=== PATIENT | female | born 1950 | race Caucasian/White ===

== ENCOUNTER 2024-06-07 09:42 | Outpatient (AMB) | payer MEDICARE, SELFPAY ==
--- NOTE | 2024-06-07 09:49 | MHC.OFFVIS ---
Vital Signs 06/07/24 10:20 Height 5 ft 1.42 in Weight 267 lb BMI 49.8 BP 113/65 Blood Pressure Location Lt brachial Position Sitting Pulse 106 H Pulse Source Pulse Oximeter Pulse Oximetry (%) 96 Oxygen Delivery Method Room Air Intake Visit Reasons: [facility] Director Required: No Allergies flexeril Allergy (Intermediate, Uncoded 06/07/24 10:12) palpitation IV contrast dye Allergy (Intermediate, Uncoded 06/07/24 10:12) breathing omeprazole Allergy (Intermediate, Uncoded 06/07/24 10:12) Nausea ampicllin Allergy (Mild, Uncoded 06/07/24 10:12) hives ibuprofen Allergy (Mild, Uncoded 06/07/24 10:12) stomach problems Restoril Allergy (Uncoded 06/07/24 10:12) Palpitations Medication List - Last Reconciled 06/07/24 by Macy Tenorio, SALES REPRESENTATIVE TRAINEE albuterol sulfate 90 mcg/actuation (ProAir RespiClick) 1 inh inhalation Q4-6H PRN atorvastatin 40 mg PO DAILY budesonide-formoterol 160-4.5 mcg/actuation (Symbicort) 1 puff inhalation BID bupropion HCl SR (Wellbutrin SR) 100 mg PO DAILY celecoxib 200 mg PO BID empagliflozin (Jardiance) 25 mg PO DAILY fluoxetine 40 mg PO DAILY fluticasone propionate 250 mcg/actuation (Flovent Diskus) 1 inh inhalation BID furosemide 40 mg PO DAILY levomefolate-algal oil 15-90.314 mg (L-Methylfolate Forte) 1 cap PO DAILY losartan 25 mg PO DAILY metformin 500 mg PO BID montelukast 10 mg PO DAILY oxycodone myristate CR-ER (Xtampza ER) 18 mg PO BID HPI HPI Chronic Pain: Details: Patient is a very pleasant 73-year-old female with history of chronic neck and low back pain with spondylosis, degenerative disc disease, recurrent lymphoma status post immunotherapy in 2021, hypertension, chronic fatigue, depression, morbid obesity, anemia, shortness of breath, asthma, diabetes (A1C=6.1), arthritis, insomnia, and chronic pain syndrome, presents today for initial evaluation for neck and back pain. Patient reports her main concern is neck pain with left sided involunatary spasms and stiffness, and neck turning to the left, consistent with spasmodic torticollis. She appears in moderate discomfort from her neck involuntarily moving to the left lateral rotation with jerking movements of her head. This has been going on for about 4-5 years. She denies any past or recent trauma, injury or falls. She notes her spasmodic neck symptoms worsen with stress or worry and her shoulders tend to clench up. Patient does not recall being diagnosed with cervical dystonia or spasmodic laterocollis but during her recent active PT for neck and back pain, she was noted to have torticollis as well. Patient periodically holds up her neck with hand or has to adjust her positioning. Range of motion with extension and lateral rotations worsen her symptoms. Pain is rated at 6-7/10, pain most severe at night and upon waking up in the morning and less severe mid day. She recently relocated from [place], [place] where she used to see a Pain Specialty Provider and underwent multiple back and neck diagnostic injections, epidural steroid injections and attempted cervical medial branch RFA. She is establishing care with providers in [facility] and would like to see Neurology for potential Botox injections with EMG guidance. She was also on medical management in [place] on opioids, baclofen, Celebrex and pregabalin. Currently, she is treating her neck pain with Celebrex, PT and home exercises. She requests to restart baclofen and pregabalin. Patient is also undergoing work up for recurrent lymphoma. Denies previous spine surgery. Pain affects her daily activities and functioning, mobility, sleep, and social interactions. Patient lives alone, independently, and uses walker with seat for mobility and transfers. Oswestry Neck Pain and Disability Score=21 (moderate disability) Oswestry Low Back Pain Disability Score=28 (severe disability) Currently at [facility] Location: Neck and low back pain Duration: Chronic pain worsening for past 5 years Characteristics of symptom or complaint: Tugging, pinching, spasming, sore, aching, radiating, tiring, dull Aggravating or associated factors: Movements, cold weather changes, ADLs, driving, stress Relieving factors: Heat, Celebrex, h/o opioids, Lyrica, baclofen, stress management Treatment: Epidural injections, PT, attempted RFA--[facility] Medical History (Updated 06/07/24 @ 20:38 by Analia Buchachiy, METEOROLOGY PROFESSOR) Recurrent major depression in partial remission Diabetes mellitus, with long-term current use of insulin Primary hypertension 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 Mild-moderate distress due to neck spasms and left laterocollis Alert and oriented. Mood and affect appropriate. Follows and participates in conversation appropriately. Respiratory effort is unlabored. No cough. Able to transition from sit to stand with assistance of walker with seat. Ambulates with bilaterally normal heel strike and toe off. Neck Neck: Yes normal visual inspection, Yes no lymphadenopathy, Yes supple, Yes anterior neck swelling, Yes torticollis (left, SCS muscles with hypertrophy), Yes no JVD, No prominent supraclavicular fat pad and Yes prominent dorsocervical fat pad General: Yes no CVA tenderness Back/Spine/Pelvis Other: Unable to perform lumbar ROM due to pain. Painful facet loading bilaterally. Back: no CVA tenderness Cervical Spine: No Lhermitte's sign positive, loss of normal cervical lordosis, cervical muscular tenderness, pain with cervical ROM, No Cervical spine scars present, cervical spasm (left ), No Cervical spine tenderness and No step off deformity Thoracic/Lumbar Spine: thoracic and lumbar spine normal to inspection, No Thoracic/lumbar spine scar(s), Lasegue's sign negative, straight leg raise negative bilaterally, pain with thoraco-lumbar ROM, paraspinal muscle tenderness, thoraco-lumbar ROM limited, No thoracic spinal tenderness and lumbar spinal tenderness (L3-S1) Sacroiliac joints: bilaterally tender to palpation Results Reviewed Results Reviewed: No imaging reports are available for review today. Assessment & Plan Assessment & Plan (1) Cervical spondylosis: Code(s): M47.812 - Spondylosis without myelopathy or radiculopathy, cervical region Category: Medical (2) Degenerative disc disease, cervical: Code(s): M50.30 - Other cervical disc degeneration, unspecified cervical region Category: Medical (3) Spasmodic torticollis: Code(s): G24.3 - Spasmodic torticollis Category: Medical (4) Muscle spasms of neck: Code(s): M62.838 - Other muscle spasm Category: Medical (5) Chronic low back pain with left-sided sciatica: Code(s): M54.42 - Lumbago with sciatica, left side; G89.29 - Other chronic pain Category: Medical (6) Lumbar spondylosis: Code(s): M47.816 - Spondylosis without myelopathy or radiculopathy, lumbar region Category: Medical (7) Morbid obesity with BMI of 45.0-49.9, adult: Code(s): E66.01 - Morbid (severe) obesity due to excess calories; Z68.42 - Body mass index [BMI] 45.0-49.9, adult Category: Medical Plan Lumbar and cervical spine imaging to assess degree of degenerative changes, any subluxation, listhesis, compression fractures or pars defects. Discussed interventional treatments for axial neck and low back pain. Informational pamphlets were provided to patient today. Scripts provided for baclofen and pregabalin which patient used to receive while residing at [place], [place]. This is consistent with [facility] review. Side effects and precautions were reviewed with patient. Neurology referral for potential EMG guided Botox injections to alleviate spasmodic torticollis symptoms. All questions and concerns have been answered and patient agreed with the treatment plan. Follow-up for x-ray review and sooner as needed. Orders: Orders XR lumbar spine 4V min Today G89.29 - Other chronic pain, M47.816 - Spondylosis without myelopathy or radiculopathy, lumbar region, M54.42 - Lumbago with sciatica, left side XR cervical spine 4V Today G24.3 - Spasmodic torticollis, M47.812 - Spondylosis without myelopathy or radiculopathy, cervical region, M50.30 - Other cervical disc degeneration, unspecified cervical region, M62.838 - Other muscle spasm Referrals Neurology Referral G24.3 - Spasmodic torticollis, M62.838 - Other muscle spasm Medications: New pregabalin 50 mg PO BID 30 days 60 caps 1RF pain G24.3 - Spasmodic torticollis, M47.812 - Spondylosis without myelopathy or radiculopathy, cervical region, M50.30 - Other cervical disc degeneration, unspecified cervical region, M62.838 - Other muscle spasm baclofen 10 mg PO BID 30 days 60 tabs 0RF muscle spasms G24.3 - Spasmodic torticollis, M62.838 - Other muscle spasm Coding Level of Care Code New Pt Level 4 (89084) Complex EM visit Add On G2211 Diagnoses Cervical spondylosis M47.812 Degenerative disc disease, cervical M50.30 Spasmodic torticollis G24.3 Muscle spasms of neck M62.838 Chronic low back pain with left-sided sciatica M54.42; G89.29 Lumbar spondylosis M47.816 Morbid obesity with BMI of 45.0-49.9, adult E66.01; Z68.42
[2024-06-07 10:20] VITALS: BP 113/65; PULSE 106; O2SAT 96; BMI 49.8
== END 2024-06-07 10:22 | disposition home or self-care (01) ==
PROVIDERS: PCP Registered Nurse; Referring Provider Registered Nurse; Visit Provider Nurse Practitioner Family
DX: M47.812 Spondylosis without myelopathy or radiculopathy, cervical region (principal); M50.30 Other cervical disc degeneration, unspecified cervical region; G24.3 Spasmodic torticollis; M62.838 Other muscle spasm; M54.42 Lumbago with sciatica, left side; G89.29 Other chronic pain; M47.816 Spondylosis without myelopathy or radiculopathy, lumbar region; E66.01 Morbid (severe) obesity due to excess calories; Z68.42 Body mass index [BMI] 45.0-49.9, adult
CPT/HCPCS: 99204; G2211

== ENCOUNTER → 2024-06-07 10:46 | Outpatient (BNV) | payer MEDICARE, SELFPAY | PROVIDERS: PCP Registered Nurse; Referring Provider Registered Nurse; Visit Provider Specialist | DX: M47.812 Spondylosis without myelopathy or radiculopathy, cervical region (principal); M54.42 Lumbago with sciatica, left side | CPT/HCPCS: 72050; 72110 ==

== ENCOUNTER 2024-08-24 11:04 | Outpatient (AMB) | payer MEDICARE, SELFPAY ==
[2024-08-24 11:13] VITALS: BP 129/69; PULSE 87; O2SAT 97; BMI 50.1
--- NOTE | 2024-08-24 11:13 | MHC.OFFVIS ---
Vital Signs 08/24/24 11:13 Height 5 ft 1 in Weight 265 lb BMI 50.1 BP 129/69 Blood Pressure Location Rt brachial Position Sitting Pulse 87 Pulse Source Pulse Oximeter Pulse Oximetry (%) 97 Oxygen Delivery Method Room Air Intake Visit Reasons: Follow up MRI/Xray results General Ophthalmologist Required: No Allergies flexeril Allergy (Intermediate, Uncoded 08/24/24 11:13) palpitation IV contrast dye Allergy (Intermediate, Uncoded 08/24/24 11:13) breathing omeprazole Allergy (Intermediate, Uncoded 08/24/24 11:13) Nausea ampicllin Allergy (Mild, Uncoded 08/24/24 11:13) hives ibuprofen Allergy (Mild, Uncoded 08/24/24 11:13) stomach problems Restoril Allergy (Uncoded 08/24/24 11:13) Palpitations Medication List - Last Reconciled 08/24/24 by Macy Tenorio, SENIOR PRODUCTION SUPERVISOR albuterol sulfate 90 mcg/actuation (ProAir RespiClick) 1 inh inhalation Q4-6H PRN atorvastatin 40 mg PO DAILY baclofen 10 mg PO BID 30 days budesonide-formoterol 160-4.5 mcg/actuation (Symbicort) 1 puff inhalation BID bupropion HCl SR (Wellbutrin SR) 100 mg PO DAILY celecoxib 200 mg PO BID empagliflozin (Jardiance) 25 mg PO DAILY fluoxetine 40 mg PO DAILY fluticasone propionate 250 mcg/actuation (Flovent Diskus) 1 inh inhalation BID furosemide 40 mg PO DAILY levomefolate-algal oil 15-90.314 mg (L-Methylfolate Forte) 1 cap PO DAILY losartan 25 mg PO DAILY metformin 500 mg PO BID montelukast 10 mg PO DAILY oxycodone myristate CR-ER (Xtampza ER) 18 mg PO BID pregabalin 50 mg PO BID 30 days HPI Comments Details: The patient is a 73-year-old female presenting with cervical spondylosis with radicular pain and chronic torticollis. Her neck pain, primarily localized to the left side, has progressively worsened over the past couple of years. Pain radiates into the left arm with associated numbness or tingling and weakness, occasionally causing drop of objects. Chronic interventions for her condition have included Celebrex, Baclofen, and Pregabalin, as well as local heat application. However, these treatments have offered limited relief, particularly for her neck symptoms. Previous imaging revealed degenerative changes at C5-C6 and C6-C7, leading to moderate-severe foraminal stenosis. Osteoporotic findings were not evident after calcium supplementation per patient. She has upcoming follow up with her Iphone Developer and will review incidental findings on recent MRI of 1.4 cm nodule within the isthmus of the thyroid. Physical therapy has improved her core strength and back pain but has not addressed the neck pain. Her Type 2 Diabetes is being monitored, with an HbA1c close to 7%. 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 A sleep study was conducted due to symptoms of sleep apnea, which is contributing to awakening episodes, possibly compounding her pain experience. Patient was referred to Neurology in May for potential Botox injections for neck spasms associated with torticollis but has not heard from Neurology office yet. - Onset: Chronic pain worsening over the past couple of years - Quality: Primarily localized pain with specific tender points, described as trigger point pain - Primary location: Neck, more on the left side - Radiation: Radiates to the left upper arm but doesn't cause numbness or tingling - Exacerbating factors: Side to side and all-directional movement of the neck; worsened when involving arm movement - Alleviating factors: Use of Celebrex, Baclofen, Pregabalin, and local heat application provide limited relief - Interference: Affecting space and missile defense operations strength and causing objects to be dropped occasionally with the left arm - Affect: Chronic neck pain causes significant discomfort and functional limitations - Analgesia: Current medications include Celebrex, Baclofen, and Pregabalin. Opioids are not in current use. 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 Patient reports her main concern is neck pain with left sided involunatary spasms and stiffness, and neck turning to the left, consistent with spasmodic torticollis. She appears in moderate discomfort from her neck involuntarily moving to the left lateral rotation with jerking movements of her head. This has been going on for about 4-5 years. She denies any past or recent trauma, injury or falls. She notes her spasmodic neck symptoms worsen with stress or worry and her shoulders tend to clench up. Patient does not recall being diagnosed with cervical dystonia or spasmodic laterocollis but during her recent active PT for neck and back pain, she was noted to have torticollis as well. Patient periodically holds up her neck with hand or has to adjust her positioning. Range of motion with extension and lateral rotations worsen her symptoms. Pain is rated at 6-7/10, pain most severe at night and upon waking up in the morning and less severe mid day. She recently relocated from [place], [place] where she used to see a Pain Specialty Provider and underwent multiple back and neck diagnostic injections, epidural steroid injections and attempted cervical medial branch RFA. She is establishing care with providers in [facility] and would like to see Neurology for potential Botox injections with EMG guidance. She was also on medical management in [place] on opioids, baclofen, Celebrex and pregabalin. Currently, she is treating her neck pain with Celebrex, PT and home exercises. She requests to restart baclofen and pregabalin. Patient is also undergoing work up for recurrent lymphoma. Denies previous spine surgery. Pain affects her daily activities and functioning, mobility, sleep, and social interactions. Patient lives alone, independently, and uses walker with seat for mobility and transfers. Oswestry Neck Pain and Disability Score=21 (moderate disability) Oswestry Low Back Pain Disability Score=28 (severe disability) Currently at [facility] Location: Neck and low back pain Duration: Chronic pain worsening for past 5 years Characteristics of symptom or complaint: Tugging, pinching, spasming, sore, aching, radiating, tiring, dull Aggravating or associated factors: Movements, cold weather changes, ADLs, driving, stress Relieving factors: Heat, Celebrex, h/o opioids, Lyrica, baclofen, stress management Treatment: Epidural injections, PT, attempted RFA--[facility] Medical History (Updated 08/24/24 @ 12:53 by DANIEL Cortés) Recurrent major depression in partial remission Diabetes mellitus, with long-term current use of insulin Primary hypertension 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 Seasonal allergies Cervicalgia Review of Systems Const Details: - Neurological: Reports chronic neck pain with left-sided predilection, occasional dropping of objects with left hand with associated numbness, tingling and weakness. - Endocrine: Reports a thyroid nodule, diabetes management requiring attention, low iron levels - Musculoskeletal: Reports exacerbated neck pain with [id number] movement; temporary core stamina improvement with physical therapy - Sleep: Reports undergoing sleep study related to sleep apnea diagnosis All systems reviewed & are unremarkable except as noted in HPI and below Physical Exam Vital Signs: Last Vital Signs Pulse 87 08/24/24 11:13 BP 129/69 08/24/24 11:13 Pulse Ox 97 08/24/24 11:13 Oxygen Delivery Method Room Air 08/24/24 11:13 BMI result Body Mass Index 50.1 General: Appears afebrile. Mild-moderate distress due to neck spasms and left torticollis Alert and oriented. Mood and affect appropriate. Follows and participates in conversation appropriately. Respiratory effort is unlabored. No cough. Able to transition from sit to stand with assistance of walker with seat. Ambulates with bilaterally normal heel strike and toe off. Neck Neck: Yes normal visual inspection, Yes no lymphadenopathy, Yes supple, Yes anterior neck swelling, Yes torticollis (left, SCS muscles with hypertrophy), Yes no JVD, No prominent supraclavicular fat pad and Yes prominent dorsocervical fat pad Back/Spine/Pelvis Other: Limited lumbar ROM due to pain. Painful facet loading bilaterally. Cervical Spine: No Lhermitte's sign positive, loss of normal cervical lordosis, cervical muscular tenderness, pain with cervical ROM, No Cervical spine scars present, cervical spasm (left ), No Cervical spine tenderness and No step off deformity Thoracic/Lumbar Spine: thoracic and lumbar spine normal to inspection, No Thoracic/lumbar spine scar(s), pain with thoraco-lumbar ROM, paraspinal muscle tenderness, thoraco-lumbar ROM limited, No thoracic spinal tenderness and lumbar spinal tenderness (L3-S1) Sacroiliac joints: bilaterally tender to palpation Results Reviewed Results Reviewed: MR CERVICAL SPINE WITHOUT CONTRAST 07/07/24 at [facility] INDICATION: Cervical spondylosis, without myelopathy TECHNIQUE: Standard cervical spine protocol without contrast COMPARISON: Cervical spine MRI from January 2015 FINDINGS: Vertebral bodies maintain their normal height. Craniocervical junction is preserved. There is homogeneous signal within the cervical cord without evidence of myelomalacia. C1-C3: No significant abnormalities are seen. C3-C4 level shows stable mild anterolisthesis of C3 on C4. The canal is patent. Moderate to severe foraminal stenosis is seen due to uncovertebral and facet hypertrophy, slightly worsened since prior exam. C4-C5 level shows severe left-sided foraminal stenosis due to uncovertebral and facet hypertrophy. Small central disc bulge is seen. The canal is patent. Mild right-sided foraminal narrowing is also present. At C5-C6 level, there is broad-based central disc osteophyte complex, worsening disc degeneration is present with endplate spurring and reactive signal changes, encroaching over the ventral cord with flattening. There is moderate narrowing of the canal. Severe foraminal stenosis is present due to uncovertebral spurring, slightly progressed since the exam. C6-C7 level shows broad-based central disc bulge, moderate disc degeneration and facet arthrosis. Slight anterolisthesis of C6 on C7 is present. Mild to moderate narrowing of the canal is seen. There is moderate severe foraminal stenosis left greater than right due to uncovertebral spurring. C7-T1 level shows disc bulge and mild disc degeneration. Slight anterolisthesis is seen. Moderate right and mild left-sided foraminal narrowing is present. The canal is patent. T2 hyperintense 1.4 cm nodule is seen within the thyroid isthmus, partially characterized on this exam. IMPRESSION: Worsening changes of multilevel cervical spondylosis, most pronounced at C5-C6 and C6-C7 levels, as detailed at individual levels above. Other changes of cervical spondylosis as discussed. No evidence for cord myelomalacia seen. 1.4 cm nodule within the isthmus of the thyroid, partially characterized. Correlate with endocrine consult and ultrasound for further evaluation. XR cervical spine 4V 06/09/24 Findings: 5 mm anterior displacement of C6 on C7. No acute fractures or dislocation. Multiple level degenerative disc, facet, and uncovertebral joint change. No prevertebral soft tissue swelling. IMPRESSION: No acute findings. XR lumbar spine 4V min 06/09/24 Findings: Normal alignment. No acute fractures or dislocation. Multiple level degenerative disc and facet change. There is aortic calcification. IMPRESSION: No acute findings. Assessment & Plan Assessment & Plan (1) Thyroid nodule: Code(s): E04.1 - Nontoxic single thyroid nodule Category: Medical (2) Cervical spondylosis: Code(s): M47.812 - Spondylosis without myelopathy or radiculopathy, cervical region Category: Medical (3) Degenerative disc disease, cervical: Code(s): M50.30 - Other cervical disc degeneration, unspecified cervical region Category: Medical (4) Lumbar spondylosis: Code(s): M47.816 - Spondylosis without myelopathy or radiculopathy, lumbar region Category: Medical (5) Spondylolisthesis, cervical region: Code(s): M43.12 - Spondylolisthesis, cervical region Category: Medical (6) Spasmodic torticollis: Code(s): G24.3 - Spasmodic torticollis Category: Medical (7) Spinal stenosis of cervical region with radiculopathy: Code(s): M48.02 - Spinal stenosis, cervical region; M54.12 - Radiculopathy, cervical region Category: Medical Plan The plan includes performing an interlaminar epidural steroid injection at the C6-C7 level with light sedation due to the torticollis for efficacy and comfort. Expectations, risks and benefits were reviewed. Patient is aware she will be contacted to schedule this procedure. Preparations to manage torticollis with potential Botox injection upon confirmation of her schedule with Dr. Chun. Will resubmit Neurology referral. Follow-up on thyroid ultrasound is coordinated urgently to coincide with the Endocrinology appointment. Patient's marginal zone lymphoma is closely monitored during routine evaluations. Monitoring and management of her Type 2 Diabetes to maintain her HbA1c levels within acceptable limits. All questions and concerns have been answered and patient agreed with the plan. Follow up after injections and sooner as needed. Patient was informed and verbally consented to the use of an ambient scribe for clinic note documentation during this visit. Orders: Orders US thyroid Today C85.80 - Other specified types of non-Hodgkin lymphoma, unspecified site, E04.1 - Nontoxic single thyroid nodule Patient Instructions: Throughout the visit, I discussed the management and treatment options available for addressing her cervical spondylosis and the torticollis. The benefits of lidocaine-steroid injections in alleviating the radicular pain were explained alongside sedation's role in the procedural success, considering her movement limitations due to torticollis. We reviewed her imaging results showing significant cervical degenerations and discussed the need for scheduling for her thyroid nodule evaluation. Patient has upcoming follow up with her Iphone Developer at [facility], we will order thyroid US at [facility] per patient's request. She agreed to the epidural injection plan, and I reiterated the importance of routine follow-ups for her other health concerns, including diabetes, lymphoma, and thyroid management. - Prepare for the scheduled epidural steroid injection procedure. - Maintain regular follow-up appointments with the entry level software developer regarding the thyroid nodule. - Monitor and manage blood sugar levels regularly, reporting any significant changes. - Continue using prescribed medications for pain management. - Incorporate supportive interventions such as neck support during rest. - Be vigilant for unmanageable pain levels or new symptoms, and seek medical care promptly if these arise. - Anticipate contact to schedule Neurology evaluation for potential Botox treatment if insurance approval is secured. Coding Level of Care Code Est Pt Level 4 (31740) Complex EM visit Add On G2211 Diagnoses Thyroid nodule E04.1 Cervical spondylosis M47.812 Degenerative disc disease, cervical M50.30 Lumbar spondylosis M47.816 Spondylolisthesis, cervical region M43.12 Spasmodic torticollis G24.3 Spinal stenosis of cervical region with radiculopathy M48.02; M54.12
--- OUTSIDE RECORDS SUMMARY | 2024-08-24 12:53 | XMS_ITS | Patient Health Record ---
Author Organization [facility] Address [address] [place] [address] Care Team Providers Care Family Specialist Name Role Phone NALLELY QUILES MD Primary Care Provider Unavaillouis Nunes MD, HARSH Unavailable Allergies Allergen (clinical drug ingredient) Drug/Non Drug Allergy documented on EMR Reaction Allergy Type Onset Date Status ampicillin ampacillin (uncoded) Unknown Allergy Active flexeral (uncoded) Unknown Allergy A ctive omeprazole prilosec (uncoded) Unknown Allergy Active rexeral (uncoded) Unknown Allergy Ac tive Reason For Referral No Information Medications Medication SIG (Take, Route, Frequency, Duration) Notes Start Date End Date Status magnesium oxide 200 mg 2 tab(s) orally o nce a day for 14 day(s) Active lisinopril 10 mg 1 tab(s) orally once a day for 90 day(s) Active Claritin 10 mg 1 tab(s) orally prn for 30 day(s) Active Percocet 7.5/325 325 mg-7.5 mg 1 tab(s) orally prn for 5 day(s) Active hydroCHLOROthiazide 25 mg 1 tab(s) orall y Q.D. for 90 days 04/25/2013 Active Percocet 5/325 325 mg-5 mg 1 tab(s) oral ly 3-4 times qd for 10 day(s) Active etodolac ?? 1 cap(s) orally tid for 30 day(s) Active lisinopril 10 Milligram TAKE 1 TABLET BY MOUTH ONCE A DAY for 30 Active carisoprodol 350 mg 1 tab(s) orally tid for 14 day(s) Active Vitamin D 1000 mg 1 qd orally Active Vitamin B12 1000 mcg 1 tab(s) orally onc e a day for 30 day(s) Active Problems Problem Type SNOMED Code ICD Code Onset Dates Problem Status W/U Status Risk Notes Problem Sleep apnea (58646654) Sleep apnea (786.09) Active confirmed Problem Chest discomfort (734822733) Chest discomfort (786.59) Active confirmed Problem Preoperative cardiovascular examination (172883264) Pre-operative Cardiovascular exam (V72.81) Active confirmed Problem Obesity (773415721) Obesity (278.00) Active confirmed Problem Hypertension (51911067) Hypertension (401.9) Active confirmed Plan Of Treatment No Information Insurance Providers Payer Name Payer Address Payer Phone Subscriber Number Group Number Insured Name Patient Relationship to Insured Coverage Start Date Coverage End Date [place] - [place] CARD [address] [place] [phone] [id number] SANTO MCDERMOTT Self - patient is the insured 7 Medical (General) History Medical History History ICD Code Obesity hypertension Denies DM, CVA, TIA, [place], Peptic ulcer di sease, GERD h/o Asthma with occasional ER visits wit hout any admissions or intubations Sleep apnea, severe..started CPAP mask 1 Osteoarthritis knees, more notably left knee LS spine and disc disease
--- OUTSIDE RECORDS SUMMARY | 2024-08-24 12:53 | XMS_ITS | Data Portability ---
Author Organization [facility], [facility], Patient Home Address [address] [place] [address] Care Team Providers Care Track Repairer Name Role Phone NALLELY QUILES Primary Care Provider NALLELY QUILES Referring Provider Assessment No assessment recorded. Plan of Treatment Reminders Order Date Submit Date Provider Last Modified By Organization Details Last Modified Time Details Appointments None recorded. Lab drug screen, saliva 2022 023 [email or web address] Not available 3 14:19:39 Referral None recorded. Procedures None recorded. Surgeries None recorded. Imaging MRI, lumbar spine, w/o contrast 2022 023 [email or web address] [facility] - [facility]ri, [address], [place], [address], 3 09:42:42 Medication Orders Percocet 5 mg-325 mg tablet 2023 024 LAYNE Not available 4 14:09:54 Xtampza ER 9 mg capsule sprinkle 2023 024 LAYNE Not available 4 14:10:00 Celebrex 200 mg capsule 2023 024 LAYNE Not available 4 14:09:53 Lyrica 100 mg capsule 2023 024 LAYNE Not available 4 14:09:52 baclofen 10 mg tablet 2023 024 LAYNE Not available 4 14:09:53 Percocet 5 mg-325 mg tablet 2022 023 LAYNE Not available 3 14:06:30 Xtampza ER 9 mg capsule sprinkle 2022 023 LAYNE Not available 3 14:06:35 Celebrex 200 mg capsule 2022 023 LAYNE Not available 3 14:06:27 Lyrica 100 mg capsule 2022 023 LAYNE Not available 3 14:06:26 baclofen 10 mg tablet 2022 023 LAYNE Not available 3 14:06:28 Percocet 5 mg-325 mg tablet 2022 023 LAYNE Not available 3 14:47:16 Xtampza ER 9 mg capsule sprinkle 2022 023 LAYNE Not available 3 14:47:18 Celebrex 200 mg capsule 2022 023 LAYNE Not available 3 14:47:12 Lyrica 75 mg capsule 2022 023 LAYNE Not available 3 14:47:13 baclofen 10 mg tablet 2022 023 LAYNE Not available 3 14:47:14 Xtampza ER 9 mg capsule sprinkle 2022 023 LAYNE Not available 3 15:08:52 Percocet 5 mg-325 mg tablet 2022 023 LAYNE Not available 3 15:08:53 Celebrex 200 mg capsule 2022 023 LAYNE Not available 3 15:08:53 Narcan 4 mg/actuati on nasal spray 2022 023 LAYNE Not available 3 15:08:48 baclofen 10 mg tablet 2022 023 LAYNE Not available 3 15:08:46 Patient Targets Encounter Date Encounter Id Patient Goals Patient Target Last Modified By Organization Details Last Modified Time 03/22/2023 [id number] manager long term care goal o f Pain Scale Not available Not available Not available half-way goal o f Weight 130 lbs Not available Not available Not available decrease painincrease activitiesimprove quality of lifeweight reduction [email or web address] Not available 03/25/2023 18:40:54 04/19/2023 [id number] manager long term care goal o f Pain Scale Not available Not available Not available manager long term care goal o f Weight 125 lbs Not available Not available Not available decrease painincrease activitiesimprove quality of lifeweight reduction [email or web address] Not available 04/19/2023 17:32:57 05/17/2023 [id number] half-way goal o f Pain Scale Not available Not available Not available manager long term care goal o f Weight 130 lbs Not available Not available Not available decrease painincrease activitiesimprove quality of lifeweight reduction [email or web address] Not available 05/17/2023 16:56:32 06/13/2023 [id number] half-way goal o f Pain Scale Not available Not available Not available manager long term care goal o f Weight 125 lbs Not available Not available Not available decrease painincrease activitiesimprove quality of lifeweight reduction [email or web address] Not available 06/13/2023 17:22:05 Patient Instructions Encounter Date Encounter Id Patient Instructions Last Modified By Organization Details Last Modified Time 03/22/2023 [id number] Given [email or web address] Not available 03/25 18:41:00 Given [email or web address] Not available 2022 18:41:02 04/19/2023 [id number] Given [email or web address] Not available 04/19 17:33:04 Given [email or web address] Not available 2022 17:33:09 05/17/2023 [id number] Continue conservative treatment Continue home exercises as directed by MD Use ice and hot packs as instructed Take your medicine as instructed [email or web address] Not available 05/17/2023 16:56:37 given [email or web address] Not available 2022 16:56:42 06/13/2023 [id number] Continue conservative treatment Continue home exercises as directed by MD Use ice and hot packs as instructed Take your medicine as instructed [email or web address] Not available 06/13/2023 17:22:14 the patient had 60 days of prescription and she was advised to find a doctor closer to home to write her prescription as she is not interesting to have interventional pain management. [email or web address] Not available 06/13/2023 17:22:41 Reason for Referral None Reported. Results Created Date Observation Date Name Description Value Unit Range Abnormal Flag Note LastModifiedBy Organization Detail LastModifiedTime 03/22/2003/23/2023 [facility] opiates felipe ql cfm >=1 NG/mL >=1 POSIT BELINDA Not Available [facility] [address] [place] [address], [id number], 03/24/2023 13:52:34 03/22/2003/23/2023 [facility] codeine felipe cfm-mcnc <1 NG/mL >=1 NONE DETEC LI Not Available [facility] [address] [place] [address], [address], 03/24/2023 13:52:34 03/22/2003/23/2023 [facility] morphine felipe cfm-mcnc <1 NG/mL >=1 NONE DETEC LI Not Available [facility] [address] [place] [address], [place], [address], 03/24/2023 13:52:34 03/22/2003/23/2023 [facility] dhc felipe cfm-mcnc <1 NG/mL >=1 NONE DETEC LI Not Available [facility] [address] [place] [address], [id number], 03/24/2023 13:52:34 03/22/2003/23/2023 [facility] hydrocodone felipe cfm-mcnc <1 NG/mL >=1 NONE DETEC LI Not Available [facility] [address] [place] [address], [id number], 03/24/2023 13:52:34 03/22/2003/23/2023 [facility] norhydrocodo ne felipe cfm-mcnc <1 NG/mL >=1 NONE DETEC LI Not Available [facility] [address] [place] [address], [place], [address], 03/24/2023 13:52:34 03/22/2003/23/2023 [facility] hydromorphon e felipe cfm-mcnc <1 NG/mL >=1 NONE DETEC LI Not Available [facility] [address] [place] [address], [address], 03/24/2023 13:52:34 03/22/2003/23/2023 [facility] oxycodone felipe cfm-mcnc 83 NG/mL >=1 POSIT BELINDA Not Available [facility] [address] [place] [address], [address], 03/24/2023 13:52:34 03/22/2003/23/2023 [facility] oxymorphone felipe cfm-mcnc <1 NG/mL >=1 NONE DETEC LI Not Available [facility] [address] [place] [address], [place], [address], 03/24/2023 13:52:34 03/22/2003/23/2023 [facility] norcodeine felipe cfm-mcnc <1 NG/mL >=1 NONE DETEC LI Not Available [facility] [address] [place] [address], [address], 03/24/2023 13:52:34 03/22/2003/23/2023 [facility] noroxycodone felipe cfm-mcnc 15 NG/mL >=1 POSIT BELINDA Not Available [facility] [address] [place] [address], [address], 03/24/2023 13:52:34 03/22/2003/23/2023 [facility] benzodiaz felipe ql cfm <1 NG/mL >=1 NONE DETEC LI Not Available [facility] [address] [place] [address], [id number], 03/24/2023 13:52:34 03/22/2003/23/2023 [facility] flurazepam fld cfm-mcnc <1 NG/mL >=1 NONE DETEC LI Not Available [facility] [address] [place] [address], [address], 03/24/2023 13:52:34 03/22/2003/23/2023 [facility] oxazepam felipe cfm-mcnc <1 NG/mL >=1 NONE DETEC LI Not Available [facility] [address] [place] [address], [address], 03/24/2023 13:52:34 03/22/2003/23/2023 [facility] alpraz felipe cfm-mcnc <1 NG/mL >=1 NONE DETEC LI Not Available [facility] [address] [place] [address], [place], [address], 03/24/2023 13:52:34 03/22/2003/23/2023 [facility] lorazepam felipe cfm-mcnc <1 NG/mL >=1 NONE DETEC LI Not Available [facility] [address] [place] [address], [address], 03/24/2023 13:52:34 03/22/2003/23/2023 [facility] 7aminoclonaz epam felipe cfm-mcnc <1 NG/mL >=1 NONE DETEC LI Not Available [facility] [address] [place] [address], [address], 03/24/2023 13:52:34 03/22/20 23 03/23/2023 [facility] clonazepam felipe cfm-mcnc <1 NG/mL >=1 NONE DETEC LI Not Available [facility] [address] [place] [address], [place], [address], 03/24/2023 13:52:34 03/22/2003/23/2023 [facility] temazepam felipe cfm-mcnc <1 NG/mL >=1 NONE DETEC LI Not Available [facility] [address] [place] [address], [place], [address], 03/24/2023 13:52:34 03/22/2003/23/2023 [facility] diazepam felipe cfm-mcnc <1 NG/mL >=1 NONE DETEC LI Not Available [facility] [address] [place] [address], [place], [address], 03/24/2023 13:52:34 03/22/2003/23/2023 [facility] nordiazepam felipe cfm-mcnc <2 NG/mL >=2 NONE DETEC LI Not Available [facility] [address] [place] [address], [place], [address], 03/24/2023 13:52:34 03/22/2003/24/2023 [facility] oxycodone felipe CMP 99 NG/mL >=1 PRESE NT: A presc ripti on drug, not indic ated as presc ribed on the requi sitio n form, was detec li. Not Available [facility] [address] [place] [address], [place], [address], 03/24/2023 13:52:34 03/22/2003/24/2023 [facility] ethanol felipe ql scn <5 mg/dL >=5 NONE DETEC LI Not Available [facility] [address] [place] [address], [address], 03/24/2023 13:52:34 05/03/20 MRI, lumba r spine , w/o contr ast No observ ation record ed. [email or web address] Not Available 09:08:40 Result Notes None recorded. Problems Name Problem SNOMED Code Status Onset Date Resolution Date Notes Provider Name and Address Organization Details Recorded Time Type 2 diabetes mellitus 90917237 Active 2022 Amanda Pinon null, [place] - [facility], [facility] 3 08:29:19 Pain of right lower leg 7945858527375 08 Active 2022 Amanda Pinon null, [place] - [facility], [facility] 3 08:29:40 Hyperlipide michael 21191276 Active 2022 Amanda Pinon null, [place] - [facility], [facility] 3 08:29:50 Degeneratio n of lumbar interverteb ral disc 47387607 Active 2022 Amanda Pinon null, [place] - [facility], [facility] 3 08:30:18 Lumbar spondylosis 556127688 Active 2022 Amanda Pinon null, [place] - [facility], [facility] 3 08:30:25 Sleep apnea 51406019 Active 2022 Amanda Pinon null, [place] - [facility], [facility] 3 08:30:40 Problem Notes None recorded. Procedures Surgical History Date Name Laterality Status Provider Name and Address Organization Details Recorded Time tonsillectomy completed Jorge Makela-Watso n [place] - [facility], [facility] 03/22/2023 14:10:30 section completed Jorge Makela-Watso n [place] - [facility], [facility] 03/22/2023 14:10:40 total knee replacement completed Jorge Makela-Watso n [place] - [facility], [facility] 03/22/2023 14:10:47 hernia repair completed Jorge Makela-Watso n [place] - [facility], [facility] 03/22/2023 14:10:53 Cholecystectomy completed Jorge Makela-Watso n [place] - [facility], [facility] 03/22/2023 14:15:24 laparoscopic sleeve gastrectomy completed Jorge Makela-Watso n [place] - [facility], [facility] 03/22/2023 14:15:31 cataract surgery completed Jorge Kimberly avilez [facility], [facility] 03/22/2023 14:17:33 Imaging Results Imaging Date Name Status LastModified by Organiz ation Details LastModified Time 05/03/2023 MRI, lumbar spine, w/o contrast completed [email or web address] Information not available 05/03/2023 09:08:40 Procedure Notes None recorded. Medical Equipment None Reported. Allergies Allergen ID Allergen Name Allergen Category Reaction Reaction Severity Criticality Documentation Date Start Date Code Code System Note Provider Name and Address Organization Details Recorded Time 6599 ampicilli n medicatio n hives Not available Not available 03/09/2023 733 RxNorm Amanda Pinon null, [facility], [facility] 3 08:25:35 6600 Prilosec medicatio n dizziness Not available Not available 03/09/2023 38893 5 RxNorm Amanda Pinon null, [facility], [facility] 3 08:25:49 6601 ibuprofen medicatio n Not available Not available Not available 03/09/2023 5640 RxNorm GI UPSET Amanda Pinon null, [facility], [facility] 3 08:26:22 6602 cyclobenz aprine hydrochlo ride medicatio n Not available Not available Not available 03/09/2023 30206 RxNorm RACIN G HEART BEAT Amanda Pinon null, [facility], [facility] 3 08:26:39 6603 Iodinated contrast media (substanc e) medicatio n Not available Not available Not available 03/09/2023 35351 2004 SNOMED MILD TIGHT NESS IN THROA T Amanda Pinon null, [facility], [facility] 3 08:27:12 Medications Name Sig Start Date Stop Date Status Note LastModified by Organization Details LastModified Time celecoxib 200 mg capsule TAKE 1 CAPSULE BY MOUTH EVERY DAY WITH MEALS active Not Available Not Available No t Available fluoxetine 40 mg capsule TAKE 1 CAPSULE BY MOUTH EVERY DAY active Not Available Not Available No t Available furosemide 40 mg tablet TAKE 1 TABLET BY MOUTH EVERY MORNING NEEDED active Not Available Not Available No t Available atorvastati n 40 mg tablet TAKE 1 TABLET BY MOUTH EVERY DAY active Not Available Not Available No t Available metformin 500 mg tablet Take 1 tablet twice a day by oral route. active Not Available Not Available No t Available Levsin 0.125 mg tablet Take 1 tablet every 4 hours by oral route. active Not Available Not Available No t Available albuterol sulfate 2.5 mg/3 mL (0.083 %) solution for nebulizatio n Inhale 3 mL 3 times a day by nebulizat ion route. 03/22 completed Not Available Not Available Not Available doxepin 25 mg capsule TAKE 1 CAPSULE BY MOUTH AT BEDTIME active Not Available Not Available No t Available Claritin 10 mg tablet Take 1 tablet every day by oral route. 2022 active Not Available Not Available Not Avai lable lithium carbonate 150 mg capsule TAKE 1 CAPSULE BY MOUTH EVERY DAY active Not Available Not Available No t Available bupropion HCl SR 100 mg tablet,12 hr sustained-r elease TAKE 1 TABLET BY MOUTH EVERY MORNING active Not Available Not Available No t Available Prevacid 30 mg capsule,del ayed release Take 1 capsule every day by oral route. active Not Available Not Available No t Available oxycodone-a cetaminophe n 5 mg-325 mg tablet TAKE 1 TABLET BY MOUTH EVERY DAY NEEDED active Not Available Not Available No t Available famotidine 20 mg tablet Take 1 tablet twice a day by oral route. 03/22 completed Not Available Not Available Not Available baclofen 10 mg tablet TAKE 1 TABLET BY MOUTH TWICE DAILY DIRECTED active Not Available Not Available No t Available losartan 25 mg tablet Take 1 tablet every day by oral route. active Not Available Not Available No t Available montelukast 10 mg tablet Take 1 tablet every day by oral route. active Not Available Not Available No t Available Vigamox 0.5 % eye drops INSTILL 1 DROP INTO AFFECTED EYE(S) BY OPHTHALMI C ROUTE 3 TIMES PER DAY 03/22 completed Not Available Not Available Not Available pregabalin 75 mg capsule TAKE 1 CAPSULE BY MOUTH TWICE DAILY AROUND THE CLOCK active Not Available Not Available No t Available pregabalin 100 mg capsule TAKE 1 CAPSULE BY MOUTH EVERY DAY IN THE EVENING active Not Available Not Available No t Available Prevacid 03/22 completed Not Available Not Available Not Available One Touch Lancets 03/22 completed Not Available Not Available Not Available OneTouch Ultra Test 03/22 completed Not Available Not Available Not Available ProAir HFA 90 mcg/actuati on aerosol inhaler Inhale 2 puffs every 4 hours by inhalatio n route. active Not Available Not Available No t Available Calcet Creamy Bites 500 mg-10 mcg (400 unit) chewable tablet Take by oral route. 03/22 completed Not Available Not Available Not Available Probiotic active Not Available Not Tigist ilable Not Available Vitamin D3 50 mcg (2,000 unit) capsule Take by oral route. active Not Available Not Available No t Available Prolensa 0.07 % eye drops INSTILL 1 DROP TO THE OPERATED EYE BY OPHTHALMI C ROUTE ONCE DAILY START DAY PRIOR TO SURGERY, CONTINUE DAY OF SURGERY AND FOR NEXT 2 WEEKS. 03/22 completed Not Available Not Available Not Available Opurity Multivitami n 03/22 completed Not Available Not Available Not Available Jardiance 10 mg tablet Take 1 tablet every day by oral route. active Not Available Not Available No t Available Narcan 4 mg/actuatio n nasal spray Take 1 spray as needed by nasal route as directed for 1 day. 2022 active Not Available Not Available Not Avai lable acetylcyste ine 500 mg capsule Take by oral route. active Not Available Not Available No t Available Xtampza ER 9 mg capsule sprinkle TAKE 1 CAPSULE BY MOUTH EVERY 12 HOURS DIRECTED active Not Available Not Available No t Available Xtampza ER 18 mg capsule sprinkle Take 1 capsule every 12 hours by oral route. 04/19 completed Not Available Not Available Not Available Home Nebulizer Plus Sidestream 03/22 completed Not Available Not Available Not Available Clenpiq 10 mg-3.5 gram-12 gram/160 mL oral solution Take by oral route. 03/22 completed Not Available Not Available Not Available prednisolon e 1 %-gatifloxa cornelia 0.5 %-bromfenac 0.075 % eye drops,suspe n 03/22 completed Not Available Not Available Not Available Inveltys 1 % eye drops,suspe nsion INSTILL 1 - 2 DROPS INTO AFFECTED EYE(S) BY OPHTHALMI C ROUTE 2 TIMES PER DAY FOR 14 DAYS 03/22 completed Not Available Not Available Not Available OneTouch Ultra2 Meter 03/22 completed Not Available Not Available Not Available OneTouch Delica Plus Lancet 33 gauge DIRECTED TWICE DAILY active Not Available Not Available No t Available Vitals Date Recorded Body temperature Provider Name a nd Address Organization Details Last Updated DateTime 03/22/2023 97 [degF] Amanda Pinon [facility], [facility] 03/22/2023 14:04:44 Date Recorded Body height Body mass index (BMI) Body weight Heart rate Respiratory rate Heart rate Oxygen saturation Oxygen saturation in Arterial blood by Pulse oximetry Systolic blood pressure Diastolic blood pressure Provider Name and Address Organization Details Last Updated DateTime 3 162.56 cm 52.9 kg/m2 810978. 45 g 96 /min 18 /min 96 /min 95 % 95 % 139 mm[Hg] 85 mm[Hg] Jorge ward [facility], [facility] 3 14:23:34 Date Recorded Body height Body temperature Provider N everett and Address Organization Details Last Updated DateTime 04/19/2023 162.56 cm 98.4 [degF] Jorge Interiano [facility], [facility] 04/19/2023 14:02:29 Date Recorded Body mass index (BMI) Body weight Respiratory rate Heart rate Heart rate Oxygen saturation Oxygen saturation in Arterial blood by Pulse oximetry Systolic blood pressure Diastolic blood pressure Provider Name and Address Organization Details Last Updated DateTime 3 52 kg/m2 971325. 49 g 18 /min 102 /min 102 /min 95 % 95 % 125 mm[Hg] 85 mm[Hg] Amanda Pinon [facility], [facility] 3 14:09:34 Date Recorded Body height Body temperature Provider N everett and Address Organization Details Last Updated DateTime 05/17/2023 162.56 cm 97.1 [degF] Trinidad Jorge L [facility], [facility] 05/17/2023 13:54:03 Date Recorded Body mass index (BMI) Body weight Heart rate Respiratory rate Heart rate Oxygen saturation Oxygen saturation in Arterial blood by Pulse oximetry Systolic blood pressure Diastolic blood pressure Provider Name and Address Organization Details Last Updated DateTime 3 52.2 kg/m2 321970. 08 g 96 /min 18 /min 96 /min 98 % 98 % 138 mm[Hg] 62 mm[Hg] Jorge ward [facility], [facility] 3 14:00:07 Date Recorded Body height Body temperature Provider N everett and Address Organization Details Last Updated DateTime 06/13/2023 162.56 cm 97.6 [degF] Trinidad Coats [facility], [facility] 06/13/2023 13:55:09 Date Recorded Body mass index (BMI) Body weight Respiratory rate Heart rate Heart rate Oxygen saturation Oxygen saturation in Arterial blood by Pulse oximetry Systolic blood pressure Diastolic blood pressure Provider Name and Address Organization Details Last Updated DateTime 4 52.2 kg/m2 887111. 08 g 18 /min 100 /min 100 /min 98 % 98 % 147 mm[Hg] 83 mm[Hg] Jorge ward [facility], [facility] 4 13:59:10 Social History Question Answer Notes LastModified by Organizat ion Details LastModified Time Tobacco Smoking Status Never Smoker Jorge castillo [facility], [facility] 03/22/2023 14:18:13 What Is Your Level Of Alcohol Consumption? None Information not available 03/22/2023 Are You Blind Or Do You Have Difficulty Seeing? No Information n ot available 03/22/2023 What Is Your Level Of Caffeine Consumption? Moderate Information not available 03/22/2023 In The 14 Days Before Symptom Onset, Have You Had Close Contact With A Laboratory-confirm ed COVID-19 While That Case Was Ill? No Information n ot available 03/22/2023 In The 14 Days Before Symptom Onset, Have You Had Close Contact With A Person Who Is Under Investigation For COVID-19 While That Person Was Ill? No Information not available 03/22/2023 Have You Been To An Area Known To Be High Risk For COVID-19? No Information not available 03/22/2023 Are You Currently Employed? No Information not available 03/22/2023 Are You Deaf Or Do You Have Serious Difficulty Hearing? No Information not available 03/22/2023 What Type Of Diet Are You Following? REGULAR Information n ot available 03/22/2023 Which Of Your Hands Is Dominant? Right Information n ot available 03/22/2023 Do You Feel Stressed (tense, Restless, Nervous, Or Anxious, Or Unable To Sleep At Night)? [id number] Information not available 03/22/2023 Do You Or Have You Ever Used Any Other Forms Of Tobacco Or Nicotine? No Information not available 03/22/2023 Sex: Unknown Functional Status Question Answer Note LastModified by Organizat ion Details LastModified Time Do you have difficulty walking or climbing stairs? Yes Information not available 03/22/2023 Are you able to walk? YESASSIST Information not available 03/22/2023 Do you have difficulty doing errands alone? No Information not available 03/22/2023 Do you have difficulty dressing or bathing? Yes Information not available 03/22/2023 Mental Status Question Answer Note LastModified by Organization D etails LastModified Time Do you have difficulty concentrating, remembering or making decisions? No Information no t available 03/22/2023 Family History Relationship Description Onset Age of this Age Resolved Age Notes LastModified by Organization Details LastModified Time Father Family history of malignant neoplasm [email or web address] Not available 14:16:33 Father Hypertensive disorder [email or web address] Not available 14:16:53 Father Type 2 diabetes mellitus [email or web address] Not available 14:17:06 Mother Family history of malignant neoplasm [email or web address] Not available 14:16:33 Mother History of heart disorder [email or web address] Not available 14:16:48 Mother Hypertensive disorder [email or web address] Not available 14:16:53 Medical History Condition Response Coronary Artery Disease N Gout N Hernia Y Head Trauma/Injury Y Thyroid Problems N COPD N Depression Y Anemia N Ulcers N Heart Attack ([place]) N Anxiety Disorder Y Diabetes Y Bleeding Disorder N Arthritis Y Tuberculosis N AIDS/HIV N Acid Reflux (GERD) Y Cancer Y Stroke N Asthma Y Substance Abuse N Back Injury N High Cholesterol Y Hepatitis N Liver Disease N Heart Disease N Fibromyalgia Y Headaches N Hypertension Y Osteoporosis N Kidney Disease N Gynecological HistoryNo gynecological history recorded. Obstetrics History GPAL:G 0 P 0 0 0 0 Past Encounters Encounter ID Performer Location Encounter Start Date Encounter Closed Date Diagnosis/Indication Diagnosis SNOMED-CT Code Diagnosis ICD10 Code Diagnosis Note [id number] Jan Soto MD Main Office [address] [facility],[address] [address] 03/22/2023 13:47:08 03/25/2023 18:43:03 Long-term current use of opiate analgesic drug 0840893809 45382 Z79.891 Intractabl e low back pain [id number] 8751223 M54.50 She was advised not to drink alcohol while taking xtampzaI change her dose from 18 mg once a day to 9 mg twice a day The risk of xtampza was explained to the patient in detailPMP was checked, no concern.We ight reduction program Physical therapy order Chronic low back pain 27 2483593 M54.50 The risk of Percocet was explained to the patientTak e it only once a day for breakthrou gh pain.Physi monica therapy order Spasm of back muscles 20 0375459 M62.830 Osteoarthr itis of knee 073348649 M17.9 Weight reductionQ uadriceps exercise Long-term drug therapy 585488288 Z79.899 Lumbar radiculopathy 128 267028 M54.16 Plan for mid L5-S1 I VLAD after MRIPhysica l therapy ordered Lumbosacra l spondylosis without myelopathy 29556748 M47.817 Plan for lumbar radiofrequ ency rhizotomy after an MRI done [id number] Jan Soto MD Main Office [address] [facility] [address] [place] [address] 04/19/2023 14:01:22 04/19/2023 17:34:38 Intractable low back pain 6914381056 8756457 M54.50 She was advised not to drink alcohol while taking xtampzaI change her dose from 18 mg once a day to 9 mg twice a day The risk of xtampza was explained to the patient in detailPMP was checked, no concern.We ight reduction program Physical therapy ordered and started. Lumbar radiculopathy 128 954235 M54.16 Plan for mid L5-S1 I VLAD after MRIPhysica l therapy ordered and started.We ight reduction Chronic low back pain 27 4945106 M54.50 The risk of Percocet was explained to the patientTak e it only once a day for breakthrou gh pain.Physi monica therapy started. Lumbosacra l spondylosis without myelopathy 31299078 M47.817 Plan for lumbar radiofrequ ency rhizotomy after an MRI done Spasm of back muscles 20 5834207 M62.830 Osteoarthr itis of knee 851563907 M17.9 Weight reductionQ uadriceps exercise Diabetic p eripheral neuropathy 269074398 E11.40 [id number] Jan Soto MD Main Office [address] [place] [address],[address] [place] [address] 05/17/2023 13:53:38 05/17/2023 16:58:03 Lumbar radiculopathy 305146022 M54.16 Plan for left L4-5 I VLAD after MRIthe procedure was explained in detail to the patient which including possible complicati on, the patient understand s and verbally consents.P hysical therapy ordered and started.We ight reduction Chronic low back pain 27 3976281 M54.50 The risk of Percocet was explained to the patientTak e it only once a day for breakthrou gh pain.Physi monica therapy started. Intractabl e low back pain [id number] 4608755 M54.50 She was advised not to drink alcohol while taking xtampzaI change her dose from 18 mg once a day to 9 mg twice a day The risk of xtampza was explained to the patient in detailPMP was checked, no concern.We ight reduction program Physical therapy ordered and started. Lumbosacra l spondylosis without myelopathy 05834540 M47.817 Plan for lumbar radiofrequ ency rhizotomyw eight reduction programCon tinue physical therapy Spasm of back muscles 20 8735265 M62.830 Osteoarthr itis of knee 525806542 M17.9 Weight reductionQ uadriceps exercise Diabetic p eripheral neuropathy 173819066 E11.40 [id number] Jan Soto MD Main Office [address] [facility] [address] [place] [address] 06/13/2023 13:54:42 06/13/2023 17:23:45 Lumbar radiculopathy 907784355 M54.16 the patient did not show for the lumbar epidural steroid injection. Chronic low back pain 27 2569738 M54.50 The risk of Percocet was explained to the patientTak e it only once a day for breakthrou gh pain.Physi monica therapy started. Intractabl e low back pain [id number] 1337518 M54.50 She was advised not to drink alcohol while taking xtampzaI change her dose from 18 mg once a day to 9 mg twice a day The risk of xtampza was explained to the patient in detailPMP was checked, no concern.We ight reduction program Physical therapy ordered and started. Diabetic p eripheral neuropathy 990402164 E11.40 Osteoarthr itis of knee 639498763 M17.9 Weight reductionQ uadriceps exercise Lumbosacra l spondylosis without myelopathy 80284358 M47.817 Plan for lumbar radiofrequ ency rhizotomyw eight reduction programCon tinue physical therapy Spasm of back muscles 20 7356626 M62.830 Health Concerns Section Related Observation LastModified by Organization Detai ls LastModified Time None Recorded Concern Status LastModified by Organization Details LastModified Time None Recorded Advance Directives Directive None Recorded Payers Encounter Date Sequence Insurance Name Policy Number Policy Zheng Covered Member ID Zheng Member ID Guarantor Name 03/22/2023 1 [place] Sarika Tripp [id number] Sarika Oliveiraello 03/22/2023 2 [place] [id number] Sarika Tripp [id number] Sarika Oliveiraello 04/19/2023 1 [place] [employer] [place] Sarika Tripp [id number] Sarika Tripp 04/19/2023 2 [place] [id number] Sarikaesteban Tripp [id number] Sarika Tripp 05/17/2023 1 [place] [employer] Sarika Tripp [id number] Sarika Tripp 05/17/2023 2 [place] [id number] Sarika Tripp [id number] Sarika Tripp 06/13/2023 1 [place] Sarika Tripp [id number] Sarika Tripp 06/13/2023 2 [place] [id number] Sarika Tripp [id number] Sarika Tripp Notes Date Note Type Note Provider Name and Address Organization Details Recorded Time 03/22/2023 text/html 72 years old fem ananya with a history of lower back pain and neck pain for years, past medical history significant for Hodgkin lymphoma diagnosed 2020, sleep apnea compliant with CPAP, prior gastric sleeve surgery 2013, hiatal hernia repair, left total knee replacement, bronchial asthma, GERD, osteoarthritis, irritable bowel syndrome, diabetes mellitus type 2, possible fibromyalgia. She presented today with low back pain deep aching constant, rated as 4/10 with pain medicine 10/10 VAS without pain medicine the lower back pain radiates to both lower extremities down to her knees with paresthesia and down to his left foot. She also complained of severe cramp of the lower back and bilateral calf muscles, especially at night She is taking fluoxetine 40 mg, lithium 150 mg, Wellbutrin 50 mg, Celebrex 200 mg, baclofen 10 mg twice a day, xtampza 18 mg once a day, Percocet 5/225 mg twice a day. The patient could not urinate today so Ut not done, but will check her saliva toxicology. Jan Soto MD [address] [place] [address],[address], [place], [address], [facility], [facility] 03/25/2023 18:42:38 04/19/2023 text/html 72 years old fem ananya with a history of lower back pain and neck pain for years, past medical history significant for Hodgkin lymphoma diagnosed 2020, sleep apnea compliant with CPAP, prior gastric sleeve surgery 2013, hiatal hernia repair, left total knee replacement, bronchial asthma, GERD, osteoarthritis, irritable bowel syndrome, diabetes mellitus type 2, possible fibromyalgia. She presented today with low back pain deep aching constant, rated as 4/10 with pain medicine 7/10 VAS without pain medicine the lower back pain radiates to both lower extremities down to her knees with paresthesia and down to his left foot. She also complained of severe cramp of the lower back and bilateral calf muscles, especially at night She is taking fluoxetine 40 mg, lithium 150 mg, Wellbutrin 50 mg, Celebrex 200 mg, baclofen 10 mg twice a day, xtampza 18 mg once a day, Percocet 5/225 mg twice a day. last visit I titrated down xtampza to 9 mg bis, and percocet 5/325 mg 1 po qd. she c/o to have pain at mid night. She scheduled L-spine MRI in 04/30. The patient had saliva tox in 03/22/23 which was positive for oxycodone. Jan Soto MD [address] [place] [address],[address], [place], [address], [facility], [facility] 04/19/2023 17:34:23 05/17/2023 text/html 72 years old fem ananya with a history of lower back pain and neck pain for years, past medical history significant for Hodgkin lymphoma diagnosed 2020, sleep apnea compliant with CPAP, prior gastric sleeve surgery 2013, hiatal hernia repair, left total knee replacement, bronchial asthma, GERD, osteoarthritis, irritable bowel syndrome, diabetes mellitus type 2, possible fibromyalgia. She presented today with low back pain deep aching constant, rated as 4/10 with pain medicine 8/10 VAS without pain medicine the lower back pain radiates to both lower extremities down to her knees with paresthesia and down to his left foot. She also complained of severe cramp of the lower back and bilateral calf muscles, especially at night MRI of the lumbar spine done in 04/30/2023 with impression: Multilevel degenerative change most pronounced at L3-L4 with moderate spinal canal stenosis with mild indentation of the left anterior lateral thecal sac and bilateral lateral recess stenosis and moderate bilateral neuroforaminal stenosis. She was taking fluoxetine 40 mg, lithium 150 mg, Wellbutrin 50 mg, Celebrex 200 mg, baclofen 10 mg twice a day, xtampza 18 mg once a day, Percocet 5/225 mg twice a day. last visit I titrated down xtampza to 9 mg bis, and percocet 5/325 mg 1 po qd. she c/o to have pain at mid night. The patient had saliva tox in 03/22/23 which was positive for oxycodone. Jan Soto MD [address] [place] [address] [address], [place], [address], [facility], [facility] 05/17/2023 16:57:19 06/13/2023 text/html 72 years old fem ananya with a history of lower back pain and neck pain for years, past medical history significant for Hodgkin lymphoma diagnosed 2020, sleep apnea compliant with CPAP, prior gastric sleeve surgery 2013, hiatal hernia repair, left total knee replacement, bronchial asthma, GERD, osteoarthritis, irritable bowel syndrome, diabetes mellitus type 2, possible fibromyalgia. She presented today with low back pain deep aching constant, rated as 3/10 with pain medicine 8/10 VAS without pain medicine the lower back pain radiates to both lower extremities down to her knees with paresthesia and down to his left foot. She also complained of severe cramp of the lower back and bilateral calf muscles, especially at night MRI of the lumbar spine done in 04/30/2023 with impression: Multilevel degenerative change most pronounced at L3-L4 with moderate spinal canal stenosis with mild indentation of the left anterior lateral thecal sac and bilateral lateral recess stenosis and moderate bilateral neuroforaminal stenosis. She was taking fluoxetine 40 mg, lithium 150 mg, Wellbutrin 50 mg, Celebrex 200 mg, baclofen 10 mg twice a day, xtampza 18 mg once a day, Percocet 5/225 mg twice a day. last visit I titrated down xtampza to 9 mg bis, and percocet 5/325 mg 1 po qd. she c/o to have pain at mid night. The patient had saliva tox in 03/22/23 which was positive for oxycodone.The patient did not show last procedure visit. Jan Soto MD [address] [facility] [address], [place], [address], [facility], [facility] 06/13/2023 17:23:21 OBGyn Episode No OBEpisode recorded.
== END 2024-08-24 11:41 | disposition home or self-care (01) ==
LOC: HO.PMC 11:05
PROVIDERS: PCP Family Medicine; Visit Provider Nurse Practitioner Family
DX: E04.1 Nontoxic single thyroid nodule (principal); M47.812 Spondylosis without myelopathy or radiculopathy, cervical region; M50.30 Other cervical disc degeneration, unspecified cervical region; M47.816 Spondylosis without myelopathy or radiculopathy, lumbar region; M43.12 Spondylolisthesis, cervical region; G24.3 Spasmodic torticollis; M48.02 Spinal stenosis, cervical region; M54.12 Radiculopathy, cervical region
CPT/HCPCS: 99214; G2211

== ENCOUNTER → 2024-08-24 11:04 | Outpatient (BNVA) | payer MEDICARE, SELFPAY | PROVIDERS: PCP Family Medicine; Visit Provider Nurse Practitioner Family | DX: E04.1 Nontoxic single thyroid nodule (principal); M47.812 Spondylosis without myelopathy or radiculopathy, cervical region; M50.30 Other cervical disc degeneration, unspecified cervical region; M47.816 Spondylosis without myelopathy or radiculopathy, lumbar region; M43.12 Spondylolisthesis, cervical region; M48.02 Spinal stenosis, cervical region; M54.12 Radiculopathy, cervical region; G24.3 Spasmodic torticollis | CPT/HCPCS: 99212 ==

== ENCOUNTER 2024-09-28 06:01 | Day surgery (SDC) | payer MEDICARE, SELFPAY ==
--- OUTSIDE RECORDS SUMMARY | 2024-09-25 13:33 | XMS_ITS | Patient Health Record ---
Author Organization [facility] Address [address] [address] Care Team Providers Care Tripper Name Role Phone NALLELY QUILES MD Primary [...] W/U Status Risk Notes Problem Sleep apnea (70249659) Sleep apnea (786.09) Active confirmed Problem Chest discomfort (978036801) Chest discomfort (786.59) Active confirmed Problem Preoperative cardiovascular examination (226442398) Pre-operative Cardiovascular exam (V72.81) Active confirmed Problem Obesity (271630815) Obesity (278.00) Active confirmed Problem Hypertension (20200078) Hypertension (401.9) Active confirmed Plan Of Treatment No Information Insurance Providers Payer Name Payer Address Payer Phone Subscriber Number Group Number Insured Name Patient Relationship to Insured Coverage Start Date Coverage End Date [place] C[place] [address] [place] [phone] [id number] SANTO MCDERMOTT Self - patient is the insured 7 Medical (General) History Medical History History ICD Code Obesity hypertension Denies DM, CVA, TIA, CA, Peptic ulcer di sease, GERD h/o Asthma with occasional ER visits wit hout any admissions or intubations Sleep apnea, severe..started CPAP mask 1 Osteoarthritis knees, more notably left knee LS spine and disc disease
--- OUTSIDE RECORDS SUMMARY | 2024-09-25 13:33 | XMS_ITS | Data Portability ---
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 Plan of Treatment Reminders Order Date Submit Date Provider Last Modified By Organization Details Last Modified Time Details Appointments None recorded. Lab drug screen, saliva 2022 023 [email or web address] Not available 3 14:19:39 Referral None recorded. Procedures None recorded. Surgeries None recorded. Imaging MRI, lumbar spine, w/o contrast 2022 023 [facility]. - Mri, [address] 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 Weight 130 lbs Not available Not available Not available decrease painincrease activitiesimprove quality of lifeweight reduction [email or web address] Not available 03/25/2023 18:40:54 04/19/2023 [id number] [facility] goal o f Pain Scale Not available Not available Not available [facility] goal o f Weight 125 lbs Not available Not available Not available decrease painincrease activitiesimprove quality of lifeweight reduction dmousad Not available 04/19/2023 17:32:57 05/17/2023 24929 [facility] goal o f Pain Scale Not available Not available Not available [facility] goal o f Weight 130 lbs Not available Not available Not available decrease painincrease activitiesimprove quality of lifeweight reduction dmousad Not available 05/17/2023 16:56:32 06/13/2023 [id number] 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 Not available Not available Not available 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 Weight 125 lbs Not available Not available Not available decrease painincrease activitiesimprove quality of lifeweight reduction dmousad Not available 06/13/2023 17:22:05 Patient Instructions Encounter Date Encounter Id Patient Instructions Last Modified By Organization Details Last Modified Time 03/22/2023 [id number] Given [email or web address] Not available 03/25 18:41:00 Given [email or web address] Not available 2022 18:41:02 04/19/2023 [id number] Given dmousad Not available 04/19 17:33:04 Given [email or web address] Not available 2022 17:33:09 05/17/2023 [id number] Continue conservative treatment Continue home exercises as directed by MD Use ice and hot packs as instructed Take your medicine as instructed [email or web address] Not available 05/17/2023 16:56:37 given dmousad Not available 2022 16:56:42 06/13/2023 [id number] Continue conservative treatment Continue home exercises as [...] >=1 NG/mL >=1 POSIT BELINDA Not Available [employer] [address] [place] [address], [address], 03/24/2023 13:52:34 03/22/2003/23/2023 [facility] codeine felipe cfm-mcnc <1 NG/mL >=1 NONE DETEC LI Not Available [employer] [address] [place] [address], [address], 03/24/2023 13:52:34 03/22/2003/23/2023 [facility] morphine felipe cfm-mcnc <1 NG/mL >=1 NONE DETEC LI Not Available [employer] [address] [place] [address], [place], [address], 03/24/2023 13:52:34 03/22/2003/23/2023 [facility] dhc felipe cfm-mcnc <1 NG/mL >=1 NONE DETEC LI Not Available [employer] [address] [place] [address], [address], 03/24/2023 13:52:34 03/22/2003/23/2023 [facility] hydrocodone felipe cfm-mcnc <1 NG/mL >=1 NONE DETEC LI Not Available [employer] [address] [place] [address], [address], 03/24/2023 13:52:34 03/22/2003/23/2023 [facility] norhydrocodo ne felipe cfm-mcnc <1 NG/mL >=1 NONE DETEC LI Not Available [employer] [address] [place] [address], [place], [address], 03/24/2023 13:52:34 03/22/2003/23/2023 [facility] hydromorphon e felipe cfm-mcnc <1 NG/mL >=1 NONE DETEC LI Not Available [employer] [address] [place] [address], [address], 03/24/2023 13:52:34 03/22/2003/23/2023 [facility] oxycodone felipe cfm-mcnc 83 NG/mL >=1 POSIT BELINDA Not Available [employer] [address] [place] [address], [address], 03/24/2023 13:52:34 03/22/2003/23/2023 [facility] oxymorphone felipe cfm-mcnc <1 NG/mL >=1 NONE DETEC LI Not Available [employer] [address] [place] [address], [place], [address], 03/24/2023 13:52:34 03/22/2003/23/2023 [facility] norcodeine felipe cfm-mcnc <1 NG/mL >=1 NONE DETEC LI Not Available [employer] [address] [place] [address], [address], 03/24/2023 13:52:34 03/22/2003/23/2023 [facility] noroxycodone felipe cfm-mcnc 15 NG/mL >=1 POSIT BELINDA Not Available [employer] [address] [place] [address], [address], 03/24/2023 13:52:34 03/22/2003/23/2023 [facility] benzodiaz felipe ql cfm <1 NG/mL >=1 NONE DETEC LI Not Available [employer] [address] [place] [address], [address], 03/24/2023 13:52:34 03/22/2003/23/2023 [facility] flurazepam fld cfm-mcnc <1 NG/mL >=1 NONE DETEC LI Not Available [employer] [address] [place] [address], [address], 03/24/2023 13:52:34 03/22/2003/23/2023 [facility] oxazepam felipe cfm-mcnc <1 NG/mL >=1 NONE DETEC LI Not Available [employer] [address] [place] [address], [address], 03/24/2023 13:52:34 03/22/2003/23/2023 [facility] alpraz felipe cfm-mcnc <1 NG/mL >=1 NONE DETEC LI Not Available [employer] [address] [place] [address], [place], [address], 03/24/2023 13:52:34 03/22/2003/23/2023 [facility] lorazepam felipe cfm-mcnc <1 NG/mL >=1 NONE DETEC LI Not Available [employer] [address] [place] [address], [address], 03/24/2023 13:52:34 03/22/2003/23/2023 [facility] 7aminoclonaz epam felipe cfm-mcnc <1 NG/mL >=1 NONE DETEC LI Not Available [employer] [address] [place] [address], [address], 03/24/2023 13:52:34 03/22/20 23 03/23/2023 [facility] clonazepam felipe cfm-mcnc <1 NG/mL >=1 NONE DETEC LI Not Available [employer] [address] [place] [address], [place], [address], 03/24/2023 13:52:34 03/22/2003/23/2023 [facility] temazepam felipe cfm-mcnc <1 NG/mL >=1 NONE DETEC LI Not Available [employer] [address] [place] [address], [place], [address], 03/24/2023 13:52:34 03/22/2003/23/2023 [facility] diazepam felipe cfm-mcnc <1 NG/mL >=1 NONE DETEC LI Not Available [employer] [address] [place] [address], [place], [address], 03/24/2023 13:52:34 03/22/2003/23/2023 [facility] nordiazepam felipe cfm-mcnc <2 NG/mL >=2 NONE DETEC LI Not Available [employer] [address] [place] [address], [place], [address], 03/24/2023 13:52:34 03/22/2003/24/2023 [facility] oxycodone felipe CMP 99 NG/mL >=1 PRESE NT: A presc ripti on drug, not indic ated as presc ribed on the requi sitio n form, was detec li. Not Available [employer] [address] [place] [address], [place], [address], 03/24/2023 13:52:34 03/22/2003/24/2023 [facility] ethanol felipe ql scn <5 mg/dL >=5 NONE DETEC LI Not Available [employer] [address] [place] [address], [address], 03/24/2023 13:52:34 05/03/20 MRI, lumba r spine , w/o contr ast No observ ation record ed. [email or web address] Not Available 09:08:40 Result Notes None recorded. Problems Name Problem SNOMED Code Status Onset Date Resolution Date Notes Provider Name and Address Organization Details Recorded Time Type 2 diabetes mellitus 18379002 Active 2022 Amanda Pinon null, [place] - [facility], [facility] 3 08:29:19 Pain of right lower leg 0566121603695 08 Active 2022 Amanda Pinon null, [place] - [facility], [facility] 3 08:29:40 Hyperlipide michael 54333358 Active 2022 Amanda Pinon null, [place] - [facility], [facility] 3 08:29:50 Degeneratio n of lumbar interverteb ral disc 09877578 Active 2022 Amanda Pinon null, [place] - [facility], [facility] 3 08:30:18 Lumbar spondylosis 625596286 Active 2022 Amanda Pinon null, [place] - [facility], [facility] 3 08:30:25 Sleep apnea 77170415 Active 2022 Amanda Pinon null, [place] - [facility], [facility] 3 08:30:40 Problem Notes None recorded. Procedures Surgical History Date Name Laterality Status Provider Name and Address Organization Details Recorded Time tonsillectomy completed Jorge Makela-Watso n [place] - [facility], [facility] 03/22/2023 14:10:30 section completed Jorge Makela-Watso n [place] - [facility], [facility] 03/22/2023 14:10:40 total knee replacement completed Jorge Makela-Watso n [place] - [facility], [facility] 03/22/2023 14:10:47 hernia repair completed Jorge Makela-Watso n [place] - [facility], [facility] 03/22/2023 14:10:53 Cholecystectomy completed Jorge Makela-Watso n [place] - [facility], [facility] 03/22/2023 14:15:24 laparoscopic sleeve gastrectomy completed Jorge Makela-Watso n [place] - [facility], [facility] 03/22/2023 14:15:31 cataract surgery completed Jorge Kimberly avilez [facility], [facility] 03/22/2023 14:17:33 Imaging Results Imaging Date Name [...] available 03/09/2023 733 RxNorm Amanda Pinon null, [facility], [facility] 3 08:25:35 6600 Prilosec medicatio n dizziness Not available Not available 03/09/2023 63436 5 RxNorm Amanda Pinon null, [facility], [facility] 3 08:25:49 6601 ibuprofen medicatio n Not available Not available Not available 03/09/2023 5640 RxNorm GI UPSET Amanda Pinon null, [facility], [facility] 3 08:26:22 6602 cyclobenz aprine hydrochlo ride medicatio n Not available Not available Not available 03/09/2023 86007 RxNorm RACIN G HEART BEAT Amanda Pinon null, [facility], [facility] 3 08:26:39 6603 Iodinated contrast media (substanc e) medicatio n Not available Not available Not available 03/09/2023 19845 2004 SNOMED MILD TIGHT NESS IN THROA T Amanda Pinon null, [facility], [facility] 3 08:27:12 Medications Name Sig Start Date [...] Updated DateTime 03/22/2023 97 [degF] Amanda Pinon [facility], [facility] 03/22/2023 14:04:44 Date Recorded Body height Body mass index (BMI) Body weight Heart rate Respiratory rate Heart rate Oxygen saturation Oxygen saturation in Arterial blood by Pulse oximetry Systolic blood pressure Diastolic blood pressure Provider Name and Address Organization Details Last Updated DateTime 3 162.56 cm 52.9 kg/m2 165561. 45 g 96 /min 18 /min 96 /min 95 % 95 % 139 mm[Hg] 85 mm[Hg] Jorge ward [facility], [facility] 3 14:23:34 Date Recorded Body height Body temperature Provider N everett and Address Organization Details Last Updated DateTime 04/19/2023 162.56 cm 98.4 [degF] Jorge Interiano [facility], [facility] 04/19/2023 14:02:29 Date Recorded Body mass index (BMI) Body weight Respiratory rate Heart rate Heart rate Oxygen saturation Oxygen saturation in Arterial blood by Pulse oximetry Systolic blood pressure Diastolic blood pressure Provider Name and Address Organization Details Last Updated DateTime 3 52 kg/m2 386192. 49 g 18 /min 102 /min 102 /min 95 % 95 % 125 mm[Hg] 85 mm[Hg] Amanda Pinon [facility], [facility] 3 14:09:34 Date Recorded Body height Body temperature Provider N everett and Address Organization Details Last Updated DateTime 05/17/2023 162.56 cm 97.1 [degF] Trinidad Jorge L [facility], [facility] 05/17/2023 13:54:03 Date Recorded Body mass index (BMI) Body weight Heart rate Respiratory rate Heart rate Oxygen saturation Oxygen saturation in Arterial blood by Pulse oximetry Systolic blood pressure Diastolic blood pressure Provider Name and Address Organization Details Last Updated DateTime 3 52.2 kg/m2 441571. 08 g 96 /min 18 /min 96 /min 98 % 98 % 138 mm[Hg] 62 mm[Hg] Jorge ward [facility], [facility] 3 14:00:07 Date Recorded Body height Body temperature Provider N everett and Address Organization Details Last Updated DateTime 06/13/2023 162.56 cm 97.6 [degF] Trinidad Coats [facility], [facility] 06/13/2023 13:55:09 Date Recorded Body mass index (BMI) Body weight Respiratory rate Heart rate Heart rate Oxygen saturation Oxygen saturation in Arterial blood by Pulse oximetry Systolic blood pressure Diastolic blood pressure Provider Name and Address Organization Details Last Updated DateTime 4 52.2 kg/m2 887066. 08 g 18 /min 100 /min 100 /min 98 % 98 % 147 mm[Hg] 83 mm[Hg] Jorge ward [facility], [facility] 4 13:59:10 Social History Question Answer Notes LastModified by Organizat ion Details LastModified Time Tobacco Smoking Status Never Smoker Jorge castillo [facility], [facility] 03/22/2023 14:18:13 What Is Your Level Of [...] Anxious, Or Unable To Sleep At Night)? [id number] Information not available 03/22/2023 Do You Or [...] Response Coronary Artery Disease N Gout N Head Trauma/Injury Y Hernia Y Thyroid Problems N Depression Y COPD N Anemia N Ulcers N Heart Attack ([place]) N Diabetes Y Anxiety Disorder Y Bleeding Disorder N Arthritis Y Tuberculosis [...] SNOMED-CT Code Diagnosis ICD10 Code Diagnosis Note [id number] Jan Soto MD Main Office [address] [facility],[address] [address] 03/22/2023 13:47:08 03/25/2023 18:43:03 Long-term current use of opiate analgesic drug 1760414334 84674 Z79.891 Intractabl e low back pain 5223390532 7487613 M54.50 She was advised not to drink alcohol while taking xtampzaI change her dose from 18 mg once a day to 9 mg twice a day The risk of xtampza was explained to the patient in detailPMP was checked, no concern.We ight reduction program Physical therapy order Chronic low back pain 27 4257825 M54.50 The risk of Percocet was explained to the patientTak e it only once a day for breakthrou gh pain.Physi monica therapy order Spasm of back muscles 20 4458288 M62.830 Osteoarthr itis of knee 342192145 M17.9 Weight reductionQ uadriceps exercise Long-term drug therapy 137065563 Z79.899 Lumbar radiculopathy 128 050242 M54.16 Plan for mid L5-S1 I VLAD after MRIPhysica l therapy ordered Lumbosacra l spondylosis without myelopathy 58631941 M47.817 Plan for lumbar radiofrequ ency rhizotomy after an MRI done [id number] Jan Soto MD Main Office [address] [facility] [address] [place] [address] 04/19/2023 14:01:22 04/19/2023 17:34:38 Intractable low back pain 5803638185 4490882 M54.50 She was advised not to drink alcohol while taking xtampzaI change her dose from 18 mg once a day to 9 mg twice a day The risk of xtampza was explained to the patient in detailPMP was checked, no concern.We ight reduction program Physical therapy ordered and started. Lumbar radiculopathy 128 987606 M54.16 Plan for mid L5-S1 I VLAD after MRIPhysica l therapy ordered and started.We ight reduction Chronic low back pain 27 9248915 M54.50 The risk of Percocet was explained to the patientTak e it only once a day for breakthrou gh pain.Physi monica therapy started. Lumbosacra l spondylosis without myelopathy 92207755 M47.817 Plan for lumbar radiofrequ ency rhizotomy after an MRI done Spasm of back muscles 20 8664549 M62.830 Osteoarthr itis of knee 745414796 M17.9 Weight reductionQ uadriceps exercise Diabetic p eripheral neuropathy 524017473 E11.40 [id number] Jan Soto MD Main Office [address] [place] [address],[address] [place] [address] 05/17/2023 13:53:38 05/17/2023 16:58:03 Lumbar radiculopathy 132394119 M54.16 Plan for left L4-5 I VLAD after MRIthe procedure was explained in detail to the patient which including possible complicati on, the patient understand s and verbally consents.P hysical therapy ordered and started.We ight reduction Chronic low back pain 27 6284395 M54.50 The risk of Percocet was explained to the patientTak e it only once a day for breakthrou gh pain.Physi monica therapy started. Intractabl e low back pain 6302921978 0043396 M54.50 She was advised not to drink alcohol while taking xtampzaI change her dose from 18 mg once a day to 9 mg twice a day The risk of xtampza was explained to the patient in detailPMP was checked, no concern.We ight reduction program Physical therapy ordered and started. Lumbosacra l spondylosis without myelopathy 47992506 M47.817 Plan for lumbar radiofrequ ency rhizotomyw eight reduction programCon tinue physical therapy Spasm of back muscles 20 1434180 M62.830 Osteoarthr itis of knee 373291237 M17.9 Weight reductionQ uadriceps exercise Diabetic p eripheral neuropathy 555569327 E11.40 [id number] Jan Soto MD Main Office [address] [facility] [address] [place] [address] 06/13/2023 13:54:42 06/13/2023 17:23:45 Lumbar radiculopathy 193440017 M54.16 the patient did not show for the lumbar epidural steroid injection. Chronic low back pain 27 2870364 M54.50 The risk of Percocet was explained to the patientTak e it only once a day for breakthrou gh pain.Physi monica therapy started. Intractabl e low back pain 9361458212 1020108 M54.50 She was advised not to drink alcohol while taking xtampzaI change her dose from 18 mg once a day to 9 mg twice a day The risk of xtampza was explained to the patient in detailPMP was checked, no concern.We ight reduction program Physical therapy ordered and started. Diabetic p eripheral neuropathy 922717823 E11.40 Osteoarthr itis of knee 846023139 M17.9 Weight reductionQ uadriceps exercise Lumbosacra l spondylosis without myelopathy 21558338 M47.817 Plan for lumbar radiofrequ ency rhizotomyw eight reduction programCon tinue physical therapy Spasm of back muscles 20 9606019 M62.830 Health Concerns Section Related Observation LastModified by Organization Detai ls LastModified Time None Recorded Concern Status LastModified by Organization Details LastModified Time None Recorded Advance Directives Directive None Recorded Payers Encounter Date Sequence Insurance Name Policy Number Policy Zheng Covered Member ID Zheng Member ID Guarantor Name 03/22/2023 1 [place] [employer] Sarika Tripp [id number] Sarika Oliveiraello 03/22/2023 2 [place] [id number] Sarika Tripp [id number] Sarika Oliveiraello 04/19/2023 1 [place] Sarika Tripp [id number] Sarika Tripp 04/19/2023 2 [place] [id number] Sarikaesteban Tripp [id number] Sarika Tripp 05/17/2023 1 [place] Sarika Tripp [id number] Sarika Tripp 05/17/2023 2 [place] [id number] Sarika Tripp [id number] Sarika Tripp 06/13/2023 1 [place] [employer] Sarika Tripp [id number] Sarika Tripp 06/13/2023 2 [place] [id number] Sarika Tripp [id number] Sarika Tripp Notes Date Note Type [...] check her saliva toxicology. Jan Soto MD [address] [place] [address],[address], [place], [address], [facility], [facility] 03/25/2023 18:42:38 04/19/2023 text/html 72 years old [...] was positive for oxycodone. Jan Soto MD [address] [place] [address],[address], [place], [address], [facility], [facility] 04/19/2023 17:34:23 05/17/2023 text/html 72 years old [...] was positive for oxycodone. Jan Soto MD [address] [place] [address], [place], [address], [facility], [facility] 05/17/2023 16:57:19 06/13/2023 text/html 72 years old [...] last procedure visit. Jan Soto MD [address] [facility] [address], [place], [address], [facility], [facility] 06/13/2023 17:23:21 OBGyn Episode No OBEpisode recorded.
--- NOTE | 2024-09-27 10:49 | HO.ANESPROP2 ---
Documented by User: Adelaide Sharif NP 09/27/24 10:51 HPI - Anesthesia Eval Consult details Narrative: 73yo F for C6-C7 Cervical Interlaminar Epidural Inj w/Fluoro Anesthesia Pre-Procedure Meds Is the patient on any of the following meds?: SGLT2 Inhib PMFSH Active Problems Active Problems: All Active Problems Spinal stenosis of cervical region with radiculopathy (Acute) Marginal zone lymphoma (Acute) Thyroid nodule (Acute) Spondylolisthesis, cervical region (Acute) Morbid obesity with BMI of 45.0-49.9, adult (Acute) Lumbar spondylosis (Acute) Chronic low back pain with left-sided sciatica (Acute) Muscle spasms of neck (Acute) Spasmodic torticollis (Acute) Degenerative disc disease, cervical (Acute) Cervical spondylosis (Acute) Past Medical History Medical History (Updated 09/28/24 @ 06:11 by Noris Thomas RN) STELLA (obstructive sleep apnea) Recurrent major depression in partial remission Diabetes mellitus, with long-term current use of insulin Primary hypertension 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 Seasonal allergies Cervicalgia Surgical History Surgical History (Updated 09/28/24 @ 06:22 by Noris Thomas RN) History of total left knee replacement H/O hernia repair H/O gastric sleeve History of cholecystectomy Previous section Hx of tonsillectomy Social History Social History Are you a primary home care coordinator to a significant other at home: No Do you presently have visiting nurse or other home services: No Patient Tobacco Use Status: Never used Tobacco Use of substances other than those prescribed or required for medical reasons: Yes Substance Use Type Other:: RARE Have you been hit, kicked, punched, or otherwise hurt by someone within the past year? If so, by whom?: No Are you DNR?: No Advance Directives: No Advance Directives Information Provided: No Advance Directives on File: No Patient : No : No Poor oral hygiene: No Meds Allergies Allergy/AdvReac Type Severity Reaction Status Date / Time flexeril Allergy Intermediate palpitation Uncoded 09/28/24 06:21 IV contrast dye Allergy Intermediate breathing Uncoded 09/28/24 06:21 omeprazole Allergy Intermediate Nausea Uncoded 09/28/24 06:21 ampicllin Allergy Mild hives Uncoded 09/28/24 06:21 ibuprofen Allergy Mild stomach Uncoded 09/28/24 06:21 problems Restoril Allergy Mild Palpitation Uncoded 09/28/24 06:30 s Home Medications ?Medication ?Instructions ?Recorded ?Confirmed ?Last Taken ?Type albuterol sulfate 90 mcg/actuation 1 inh inhalation Q4-6H PRN asthma 06/07/24 09/28/24 Unknown History breath activated powder inhaler (ProAir RespiClick) atorvastatin 40 mg tablet 40 mg PO DAILY 06/07/24 09/28/24 Unknown History budesonide-formoterol HFA 160 1 puff inhalation BID 06/07/24 09/28/24 Unknown History mcg-4.5 mcg/actuation aerosol inhaler (Symbicort) bupropion HCl 100 mg tablet,12 hr 100 mg PO DAILY 06/07/24 09/28/24 Unknown History sustained-release (Wellbutrin SR) celecoxib 200 mg capsule 200 mg PO BID 06/07/24 09/28/24 09/26/24 History empagliflozin 25 mg tablet 25 mg PO DAILY 06/07/24 09/28/24 09/24/24 History (Jardiance) fluoxetine 40 mg capsule 40 mg PO DAILY 06/07/24 09/28/24 Unknown History fluticasone propionate 250 1 inh inhalation BID 06/07/24 09/28/24 Unknown History mcg/actuation blister powder for inhalation (Flovent Diskus) furosemide 40 mg tablet 40 mg PO DAILY 06/07/24 09/28/24 09/27/24 History levomefolate 15 mg-algal oil 1 cap PO DAILY 06/07/24 09/28/24 Unknown History 90.314 mg capsule (L-Methylfolate Forte) losartan 25 mg tablet 25 mg PO DAILY 06/07/24 09/28/24 09/27/24 History metformin 500 mg tablet 500 mg PO BID 06/07/24 09/28/24 09/27/24 History montelukast 10 mg tablet 10 mg PO DAILY 06/07/24 09/28/24 Unknown History Claritin 1 tab PO DAILY 09/28/24 09/28/24 Unknown History N-Acetyl Cysteine 600 mg PO BID 09/28/24 09/28/24 Unknown History Prevacid 30 mg PO BID 09/28/24 09/28/24 Unknown History Vitron-C 1 tab PO DAILY 09/28/24 09/28/24 Unknown History Assessment and Plan Assessment Anesthesia Assessment: Chart Reviewed Documented by User: Mark Zambrano MD 09/28/24 07:27 [facility] Past Medical History Medical History (Updated 09/28/24 @ 06:11 by Noris Thomas, RN) STELLA (obstructive sleep apnea) Recurrent major depression in partial remission Diabetes mellitus, with long-term current use of insulin Primary hypertension 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 Seasonal allergies Cervicalgia Family History Family history of problems with anesthesia: No Surgical History Surgical History (Updated 09/28/24 @ 06:22 by Noris Thomas RN) History of total left knee replacement H/O hernia repair H/O gastric sleeve History of cholecystectomy Previous section Hx of tonsillectomy History of Problems with Anesthesia: No Social History Social History Are you a primary home care coordinator to a significant other at home: No Do you presently have visiting nurse or other home services: No Patient Tobacco Use Status: Never used Tobacco Use of substances other than those prescribed or required for medical reasons: Yes Substance Use Type Other:: RARE Have you been hit, kicked, punched, or otherwise hurt by someone within the past year? If so, by whom?: No Are you DNR?: No Advance Directives: No Advance Directives Information Provided: No Advance Directives on File: No Patient : No : No Poor oral hygiene: No Meds Allergies Allergy/AdvReac Type Severity Reaction Status Date / Time flexeril Allergy Intermediate palpitation Uncoded 09/28/24 06:21 IV contrast dye Allergy Intermediate breathing Uncoded 09/28/24 06:21 omeprazole Allergy Intermediate Nausea Uncoded 09/28/24 06:21 ampicllin Allergy Mild hives Uncoded 09/28/24 06:21 ibuprofen Allergy Mild stomach Uncoded 09/28/24 06:21 problems Restoril Allergy Mild Palpitation Uncoded 09/28/24 06:30 s Home Medications ?Medication ?Instructions ?Recorded ?Confirmed ?Last Taken ?Type albuterol sulfate 90 mcg/actuation 1 inh inhalation Q4-6H PRN asthma 06/07/24 09/28/24 Unknown History breath activated powder inhaler (ProAir RespiClick) atorvastatin 40 mg tablet 40 mg PO DAILY 06/07/24 09/28/24 Unknown History budesonide-formoterol HFA 160 1 puff inhalation BID 06/07/24 09/28/24 Unknown History mcg-4.5 mcg/actuation aerosol inhaler (Symbicort) bupropion HCl 100 mg tablet,12 hr 100 mg PO DAILY 06/07/24 09/28/24 Unknown History sustained-release (Wellbutrin SR) celecoxib 200 mg capsule 200 mg PO BID 06/07/24 09/28/24 09/26/24 History empagliflozin 25 mg tablet 25 mg PO DAILY 06/07/24 09/28/24 09/24/24 History (Jardiance) fluoxetine 40 mg capsule 40 mg PO DAILY 06/07/24 09/28/24 Unknown History fluticasone propionate 250 1 inh inhalation BID 06/07/24 09/28/24 Unknown History mcg/actuation blister powder for inhalation (Flovent Diskus) furosemide 40 mg tablet 40 mg PO DAILY 06/07/24 09/28/24 09/27/24 History levomefolate 15 mg-algal oil 1 cap PO DAILY 06/07/24 09/28/24 Unknown History 90.314 mg capsule (L-Methylfolate Forte) losartan 25 mg tablet 25 mg PO DAILY 06/07/24 09/28/24 09/27/24 History metformin 500 mg tablet 500 mg PO BID 06/07/24 09/28/24 09/27/24 History montelukast 10 mg tablet 10 mg PO DAILY 06/07/24 09/28/24 Unknown History Claritin 1 tab PO DAILY 09/28/24 09/28/24 Unknown History N-Acetyl Cysteine 600 mg PO BID 09/28/24 09/28/24 Unknown History Prevacid 30 mg PO BID 09/28/24 09/28/24 Unknown History Vitron-C 1 tab PO DAILY 09/28/24 09/28/24 Unknown History Exam Airway Mallampati Class: II TM Dist: <=3cm Neck ROM: Full Loose/Missing/Broken Teeth: No Heart: ok Lungs: ok Assessment and Plan Assessment Anesthesia Assessment: Anesthesia Plan Discussed Final Anesthetic Review Family History of Problems with Anesthesia: No History of Problems with Anesthesia: No NPO: Yes ASA Class: IV Final Preanesthetic Review: No Changes in Pt Med Stat, Meds/Allgs Chart Reviewed, Consent Obtained/Reviewed and Anes Risks/Benef Reviewed Patient Risk: High Procedure Risk: Intermediate Anesthetic Plan Anesthetic Plan: MAC: and Agree w/ Assess. and Plan Disposition: Standard PACU
--- NOTE | ~2024-09-28 | FL_ITS ---
EXAMINATION: XR FLUOROSCOPY WITH IMAGES CLINICAL INFORMATION: Cervical spine pain management injection. COMPARISON: 06/07/2024 TECHNIQUE: Fluoroscopy provided to: Dr. Messina Fluoroscopy time: 27.3 seconds DAP: 3.133 Gycm2 Images: 32 FINDINGS: 32 radiographic spot images of the lower cervical spine obtained during pain management injection. Please refer to the full procedural report for details. FL/FL guidance in OR IMPRESSION: Fluoroscopic guidance. Electronically signed by: Enrique Gonzalez MD 09/28/2024 08:23 AM EDT
[2024-09-28 06:31] VITALS: BP 149/70; PULSE 82; RESP 16; TEMP 36.4; O2SAT 96; BMI 49.3
[2024-09-28 06:42] LABS: Glucose, Whole Blood 128 mg/dL (60-115)
[2024-09-28] MEDS: Lactated Ringers 1,000 ML 100 ML IVCONT (06:44)
--- NOTE | 2024-09-28 07:17 | MHC.SHP ---
Pre-Procedural Eval Section A - 24 Hr Update-Section A only Date of Service: 09/28/24 The patient is an INPATIENT: No Changes since office visit: Yes Patient answered all questions The patient has been examined within 24 hours of the surgical procedure. The History & Physical has been completed within 30 days and I have reviewed it.: No Section B - Complete if H&P > 30 days Chief Complaint: Spondylosis without myelopathy or radiculopathy, Details of Present Illness: disc degeneration cervical, spinal stenosis cervical Relevant Family History (Specify if Yes): No Relevant Social History: None Present Medications: None Medical History: No relevant PMH History of Previous Operations: No relevant previous surgery Allergies: Allergies Allergy/AdvReac Type Severity Reaction Status Date / Time flexeril Allergy Intermediate palpitation Uncoded 09/28/24 06:21 IV contrast dye Allergy Intermediate breathing Uncoded 09/28/24 06:21 omeprazole Allergy Intermediate Nausea Uncoded 09/28/24 06:21 ampicllin Allergy Mild hives Uncoded 09/28/24 06:21 ibuprofen Allergy Mild stomach Uncoded 09/28/24 06:21 problems Restoril Allergy Mild Palpitation Uncoded 09/28/24 06:30 s Review of Systems Sugical H&P ROS: Negative: Cardiovascular, Respiratory, Neurological, Psychiatric, Hem-Onc, Allergic/Immunologic, Gastrointestinal, Genitourinary, Musculoskeletal, Integumentary and Eyes/Ears/Nose/Throat and Yes, Specify: Constitution (morbid obesity) and Endocrine (thyroid nodule -non toxic) Exam Surgical H&P Exam: Normal: HEENT, Normal: Heart, Normal: Lungs, Normal: Extremities and Normal: Skin and Significant Findings: Abdomen (greatly enlarged due to i/a and s/q fat) and Significant Findings: Neurological (torticollis ) Plan Diagnosis/Plan: Unchanged I have reviewed the history and physical and performed a pertinent physical examination on my patient. No changes have occurred unless specified. Time Spent With Patient Time: Total time managing care of this patient today __5__ minutes.
--- NOTE | 2024-09-28 07:22 | W.PM.OPN ---
Operative Note Operative Note Date of Service: 09/28/24 Narrative: Interlaminar epidural C6-C7 steroid injection under minimal anesthesia. Informed consent was thoroughly explained to the patient. Risks and benefits were explained. The patient was taken to the operating room and positioned prone on the operating table. The massive dowager hump on the posterior neck and upper back was noted. The tape was used to move the mass effect tissues caudad from this site of the injection. time-out was performed delineating name and date of of the patient, allergies, need for DVT prophylaxis, need for antibiotics: No antibiotics required for this case however because patient reported difficulty breathing on administration of IV contrast dye we decided to pretreat the patient with the 25 mg of Benadryl and 4 mg of dexamethasone intravenously. The area of the injection was prepped with ChloraPrep and draped with sterile self adhesive utility towels. C-arm was brought over the operating field and sq picture of C7 vertebra was demonstrated on the screen. The upper border of C7 lamina on the right as close to spinous process of C7 vertebra is possible was chosen as the target of the injection. The projection of the point of interest to the skin was injected with 1% lidocaine preservative-free. After that 22 gauge Touhy epidural 10 cm needle was inserted through the skin wheal and advanced to were the lamina on intermittent anterior posterior and contralateral oblique views. When tip of the needle was 7 mm away from the lamina the stylette was removed and loss of resistance syringe was connected to the hub of the needle. After that the needle was advanced toward the epidural space under contralateral oblique view using loss of resistance to air technique to locate the epidural space. When loss of resistance felt and the needle was 3 mm below interlaminar line injection of the 0.1 mL of the contrast was performed delineating epidural space. After that 5 mL of normal saline mixed with Decadron 8 mg and trace amount of preservative-free local anesthetic lidocaine no more than 0.1 mL was injected into the epidural space. After the the needle was removed Band-Aid was applied. The patient tolerated the procedure well. She went to recovery room where she recovered uneventfully.
[2024-09-28 08:11] VITALS: BP 132/62; PULSE 80; RESP 16; TEMP 36.4; O2SAT 96
--- NOTE | 2024-09-28 08:24 | PM.OP ---
Brief Operative Note Date of Service: 09/28/24 Pre-op diagnosis: Radiculopathy cervical, Post-op diagnosis: same Procedure: interlaminar C6-C7 epidural steroid injection Surgeon: Meño Messina MD Anesthesia: MAC Was an Sales Training Manager used for this Procedure?: No Estimated blood loss (mL): 0 Condition: stable Disposition: PACU
[2024-09-28 08:28] VITALS: BP 109/56; PULSE 78; RESP 20; TEMP 36.4; O2SAT 97
[2024-09-28 08:30] VITALS: BP 115/65; PULSE 57; RESP 18; TEMP 36.1; O2SAT 100
== END 2024-09-28 09:16 | disposition home or self-care (01) ==
PROVIDERS: PCP Registered Nurse; Visit Provider Anesthesiology
PROC: 3E0R33Z Introduction of Anti-inflammatory into Spinal Canal, Percutaneous Approach (ICD-10-PCS; CPT 62321; principal; 2024-09-28 07:30)
DX: M47.22 Other spondylosis with radiculopathy, cervical region (principal); G89.29 Other chronic pain; M54.42 Lumbago with sciatica, left side; M50.322 Other cervical disc degeneration at C5-C6 level; M50.323 Other cervical disc degeneration at C6-C7 level; M48.02 Spinal stenosis, cervical region; G24.3 Spasmodic torticollis; R20.2 Paresthesia of skin; R20.0 Anesthesia of skin; C88.40 Extranodal marginal zone B-cell lymphoma of mucosa-associated lymphoid tissue [MALT-lymphoma] not having achieved remission; E04.1 Nontoxic single thyroid nodule; I10 Essential (primary) hypertension; E11.9 Type 2 diabetes mellitus without complications; D64.9 Anemia, unspecified; E66.01 Morbid (severe) obesity due to excess calories; Z68.43 Body mass index [BMI] 50.0-59.9, adult; G47.33 Obstructive sleep apnea (adult) (pediatric); F33.41 Major depressive disorder, recurrent, in partial remission; Z79.51 Long term (current) use of inhaled steroids; Z79.4 Long term (current) use of insulin; Z79.84 Long term (current) use of oral hypoglycemic drugs; Z79.899 Other long term (current) drug therapy; Z88.1 Allergy status to other antibiotic agents; Z88.6 Allergy status to analgesic agent; Z88.8 Allergy status to other drugs, medicaments and biological substances; Z91.040 Latex allergy status
CPT/HCPCS: 62321; 82947; J1100; J1200; J2003; J2704; J3010; J3301; Q9965

== ENCOUNTER → 2024-09-28 06:01 | Outpatient (BNV) | payer MEDICARE, SELFPAY | PROVIDERS: PCP Registered Nurse; Visit Provider Anesthesiology | DX: M54.12 Radiculopathy, cervical region (principal) | CPT/HCPCS: 62321 ==

== ENCOUNTER 2024-11-02 09:51 | Outpatient (AMB) | payer MEDICARE, SELFPAY ==
--- NOTE | 2024-11-02 09:53 | MHC.OFFVIS ---
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: No Accompanied by: Self / Same As Patient Allergies ampicillin Allergy (Unknown, Verified 11/02/24 10:00) Hives cyclobenzaprine [From Flexeril] Allergy (Unknown, Verified 11/02/24 10:00) Palpitations Iodinated Contrast Media Allergy (Unknown, Verified 11/02/24 10:00) Shortness of Breath temazepam [From Restoril] Allergy (Unknown, Verified 11/02/24 10:00) Palpitations ibuprofen Adverse Reaction (Unknown, Verified 11/02/24 10:00) Gastrointestinal Upset omeprazole Adverse Reaction (Unknown, Verified 11/02/24 10:00) Nausea IV contrast dye Allergy (Intermediate, Uncoded 09/28/24 06:21) breathing HPI Comments Details: The patient is a 74-year-old very pleasant female presenting with cervical radiculopathy, chronic neck pain, and coordination for Botox therapy for spasmodic torticollis. The patient has a longstanding neck pain with significant arthritic and degenerative changes resulting in multilevel significant spinal stenosis, resulting in persistent neck and radicular left arm pain. Following an interlaminar C6-C7 epidural steroid injection, the patient experienced temporary but complete alleviation of symptoms for 24 hours, after which the pain returned. Pain is aggravated notably by physical activities like bending and has persisted without lasting relief. The patient also reports issues related to spasmodic torticollis, causing involuntary neck spasms leading to chronic discomfort. Completing daily tasks like neck movement and usage of the left arm have been limited due to persistent weakness and tingling, particularly during tasks requiring bilateral arm coordination, such as applying deodorant or other personal care functions. The progressive nature of these symptoms, combined with chronic low back pain resulting in the need for a walker, has significantly impacted her functional capacity and balance. Denies any recent cough, cold, infection, fever or any significant changes in medical history since last office visit. Denies any changes to medications, medical history or recent hospitalizations. Past Procedures: 09/28/24: Interlaminar C6-C7 VLAD-100% pain relief for 24 hours, then 0% ongoing pain relief PRIOR: The patient is a 73-year-old female presenting with cervical spondylosis with radicular pain and chronic torticollis. Her neck pain, primarily localized to the left side, has progressively worsened over the past couple of years. Pain radiates into the left arm with associated numbness or tingling and weakness, occasionally causing drop of objects. Chronic interventions for her condition have included Celebrex, Baclofen, and Pregabalin, as well as local heat application. However, these treatments have offered limited relief, particularly for her neck symptoms. Previous imaging revealed degenerative changes at C5-C6 and C6-C7, leading to moderate-severe foraminal stenosis. Osteoporotic findings were not evident after calcium supplementation per patient. 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 Physical therapy has improved her core strength and back pain but has not addressed the neck pain. Her Type 2 Diabetes is being monitored, with an HbA1c close to 7%. 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 A sleep study was conducted due to symptoms of sleep apnea, which is contributing to awakening episodes, possibly compounding her pain experience. Patient was referred to Neurology in May for potential Botox injections for neck spasms associated with torticollis but has not heard from Neurology office yet. - Onset: Chronic pain worsening over the past couple of years - Quality: Primarily localized pain with specific tender points, described as trigger point pain - Primary location: Neck, more on the left side - Radiation: Radiates to the left upper arm but doesn't cause numbness or tingling - Exacerbating factors: Side to side and all-directional movement of the neck; worsened when involving arm movement - Alleviating factors: Use of Celebrex, Baclofen, Pregabalin, and local heat application provide limited relief - Interference: Affecting paper reeler strength and causing objects to be dropped occasionally with the left arm - Affect: Chronic neck pain causes significant discomfort and functional limitations - Analgesia: Current medications include Celebrex, Baclofen, and Pregabalin. Opioids are not in current use. 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 Patient reports her main concern is neck pain with left sided involunatary spasms and stiffness, and neck turning to the left, consistent with spasmodic torticollis. She appears in moderate discomfort from her neck involuntarily moving to the left lateral rotation with jerking movements of her head. This has been going on for about 4-5 years. She denies any past or recent trauma, injury or falls. She notes her spasmodic neck symptoms worsen with stress or worry and her shoulders tend to clench up. Patient does not recall being diagnosed with cervical dystonia or spasmodic laterocollis but during her recent active PT for neck and back pain, she was noted to have torticollis as well. Patient periodically holds up her neck with hand or has to adjust her positioning. Range of motion with extension and lateral rotations worsen her symptoms. Pain is rated at 6-7/10, pain most severe at night and upon waking up in the morning and less severe mid day. She recently relocated from [place], [place] where she used to see a Pain Specialty Provider and underwent multiple back and neck diagnostic injections, epidural steroid injections and attempted cervical medial branch RFA. She is establishing care with providers in [facility] and would like to see Neurology for potential Botox injections with EMG guidance. She was also on medical management in [place] on opioids, baclofen, Celebrex and pregabalin. Currently, she is treating her neck pain with Celebrex, PT and home exercises. She requests to restart baclofen and pregabalin. Patient is also undergoing work up for recurrent lymphoma. Denies previous spine surgery. Pain affects her daily activities and functioning, mobility, sleep, and social interactions. Patient lives alone, independently, and uses walker with seat for mobility and transfers. Oswestry Neck Pain and Disability Score=21 (moderate disability) Oswestry Low Back Pain Disability Score=28 (severe disability) Currently at [facility] Location: Neck and low back pain Duration: Chronic pain worsening for past 5 years Characteristics of symptom or complaint: Tugging, pinching, spasming, sore, aching, radiating, tiring, dull Aggravating or associated factors: Movements, cold weather changes, ADLs, driving, stress Relieving factors: Heat, Celebrex, h/o opioids, Lyrica, baclofen, stress management Treatment: Epidural injections, PT, attempted RFA--[facility] Medical History STELLA (obstructive sleep apnea) Recurrent major depression in partial remission Diabetes mellitus, with long-term current use of insulin Primary hypertension 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 Seasonal allergies Cervicalgia Surgical History History of total left knee replacement H/O hernia repair H/O gastric sleeve History of cholecystectomy Previous section Hx of tonsillectomy Social History Are you a primary physician assistant primary care to a significant other at home: No Do you presently have visiting nurse or other home services: No Patient Tobacco Use Status: Never used Tobacco Review of Systems Const Details: - Musculoskeletal: Reports neck pain, left arm weakness, balance disorder, spasmodic neck movements. - Neurological: Reports weakness and tingling in the left upper extremity. - General: Denies unusual sedation following interventional procedures. All systems reviewed & are unremarkable except as noted in HPI and below Physical Exam Vital Signs: Last Vital Signs Pulse 86 11/02/24 09:57 BP 147/64 H 11/02/24 09:57 Pulse Ox 99 11/02/24 09:57 Oxygen Delivery Method Room Air 11/02/24 09:57 BMI result Body Mass Index 48.8 General: Appears afebrile. Moderate distress due to neck spasms and left torticollis Alert and oriented. Mood and affect appropriate. Follows and participates in conversation appropriately. Respiratory effort is unlabored. No cough. Able to transition from sit to stand with assistance of walker with seat. Ambulates with bilaterally normal heel strike and toe off. Neck Neck: Yes normal visual inspection, Yes no lymphadenopathy, Yes supple, Yes anterior neck swelling, Yes torticollis (left, SCS muscles with hypertrophy), Yes no JVD, No prominent supraclavicular fat pad and Yes prominent dorsocervical fat pad Back/Spine/Pelvis Other: Limited lumbar ROM due to pain. Painful facet loading bilaterally. Cervical Spine: No Lhermitte's sign positive, loss of normal cervical lordosis, cervical muscular tenderness, pain with cervical ROM, No Cervical spine scars present, cervical spasm (left ), Cervical spine tenderness (mild) and No step off deformity Thoracic/Lumbar Spine: thoracic and lumbar spine normal to inspection, No Thoracic/lumbar spine scar(s), pain with thoraco-lumbar ROM, paraspinal muscle tenderness, thoraco-lumbar ROM limited, No thoracic spinal tenderness and lumbar spinal tenderness (L3-S1) Sacroiliac joints: bilaterally tender to palpation Results Reviewed Results Reviewed: MR CERVICAL SPINE WITHOUT CONTRAST 07/07/24 at [facility] INDICATION: Cervical spondylosis, without myelopathy TECHNIQUE: Standard cervical spine protocol without contrast COMPARISON: Cervical spine MRI from January 2015 FINDINGS: Vertebral bodies maintain their normal height. Craniocervical junction is preserved. There is homogeneous signal within the cervical cord without evidence of myelomalacia. C1-C3: No significant abnormalities are seen. C3-C4 level shows stable mild anterolisthesis of C3 on C4. The canal is patent. Moderate to severe foraminal stenosis is seen due to uncovertebral and facet hypertrophy, slightly worsened since prior exam. C4-C5 level shows severe left-sided foraminal stenosis due to uncovertebral and facet hypertrophy. Small central disc bulge is seen. The canal is patent. Mild right-sided foraminal narrowing is also present. At C5-C6 level, there is broad-based central disc osteophyte complex, worsening disc degeneration is present with endplate spurring and reactive signal changes, encroaching over the ventral cord with flattening. There is moderate narrowing of the canal. Severe foraminal stenosis is present due to uncovertebral spurring, slightly progressed since the exam. C6-C7 level shows broad-based central disc bulge, moderate disc degeneration and facet arthrosis. Slight anterolisthesis of C6 on C7 is present. Mild to moderate narrowing of the canal is seen. There is moderate severe foraminal stenosis left greater than right due to uncovertebral spurring. C7-T1 level shows disc bulge and mild disc degeneration. Slight anterolisthesis is seen. Moderate right and mild left-sided foraminal narrowing is present. The canal is patent. T2 hyperintense 1.4 cm nodule is seen within the thyroid isthmus, partially characterized on this exam. IMPRESSION: Worsening changes of multilevel cervical spondylosis, most pronounced at C5-C6 and C6-C7 levels, as detailed at individual levels above. Other changes of cervical spondylosis as discussed. No evidence for cord myelomalacia seen. 1.4 cm nodule within the isthmus of the thyroid, partially characterized. Correlate with endocrine consult and ultrasound for further evaluation. XR cervical spine 4V 06/09/24 Findings: 5 mm anterior displacement of C6 on C7. No acute fractures or dislocation. Multiple level degenerative disc, facet, and uncovertebral joint change. No prevertebral soft tissue swelling. IMPRESSION: No acute findings. XR lumbar spine 4V min 06/09/24 Findings: Normal alignment. No acute fractures or dislocation. Multiple level degenerative disc and facet change. There is aortic calcification. IMPRESSION: No acute findings. Assessment & Plan Assessment & Plan (1) Degenerative disc disease, cervical: Code(s): M50.30 - Other cervical disc degeneration, unspecified cervical region Category: Medical (2) Spondylolisthesis, cervical region: Code(s): M43.12 - Spondylolisthesis, cervical region Category: Medical (3) Spinal stenosis of cervical region with radiculopathy: Code(s): M48.02 - Spinal stenosis, cervical region; M54.12 - Radiculopathy, cervical region Category: Medical (4) Cervical spondylosis: Code(s): M47.812 - Spondylosis without myelopathy or radiculopathy, cervical region Category: Medical (5) Lumbar spondylosis: Code(s): M47.816 - Spondylosis without myelopathy or radiculopathy, lumbar region Category: Medical (6) Spasmodic torticollis: Code(s): G24.3 - Spasmodic torticollis Category: Medical Plan For management of the patient's chronic neck pain, spasmodic torticollis, and cervical radiculopathy, I will coordinate a Botox injection evaluation on November [address] Chun, appointment made today. Botox treatment is expected to manage spasmodic neck movements by improving muscular control. For axial cervical pain, we will tentatively plan for diagnostic C4-C5-C6 medial branch blocks with local and fluoroscopy. Both medications, including pregabalin, and follow-up with a Neurosurgeon will proceed as planned to address ongoing cervical spine stenosis related concerns, with further surgical evaluation contingent upon interventional outcomes, considering the persistent radicular and balance-related issues impacting daily life functionality All questions and concerns have been answered and patient agreed with the plan. Follow up after Neurology/Neurosurgery evaluations and sooner as needed. Patient was informed and verbally consented to the use of an ambient scribe for clinic note documentation during this visit. Orders: Referrals Neuro Spine Referral M43.12 - Spondylolisthesis, cervical region, M48.02 - Spinal stenosis, cervical region, M50.30 - Other cervical disc degeneration, unspecified cervical region, M54.12 - Radiculopathy, cervical region Medications: Refilled pregabalin 50 mg PO BID 30 days 60 caps 1RF pain G24.3 - Spasmodic torticollis, M47.812 - Spondylosis without myelopathy or radiculopathy, cervical region, M50.30 - Other cervical disc degeneration, unspecified cervical region, M62.838 - Other muscle spasm Coding Level of Care Code Est Pt Level 4 (17904) Complex EM visit Add On G2211 Diagnoses Degenerative disc disease, cervical M50.30 Spondylolisthesis, cervical region M43.12 Spinal stenosis of cervical region with radiculopathy M48.02; M54.12 Cervical spondylosis M47.812 Lumbar spondylosis M47.816 Spasmodic torticollis G24.3
[2024-11-02 09:57] VITALS: BP 147/64; PULSE 86; O2SAT 99; BMI 48.8
--- OUTSIDE RECORDS SUMMARY | 2024-11-02 10:28 | XMS_ITS | Continuity of Care Document ---
Author Organization [facility], [place] Address [address] [place] [address] [address] [place] [address] Phone Care Team Providers Care Apartment Coordinator Name Role Phone Alba BERMEO Alyson [...] TP_Inj_Trigger Point Rad_Ultrasound Guidance For Needle Place [facility] Injection, bupivicaine hydro Drug tests(s), presumptive, [...] f drug cla MD_Follow Up Level 4 [facility] Special Program Inj_Facet_Lumbar Inj_Facet_Lumbar_2nd Level Inj_Facet_Lumbar_3rd Level Facility_Inj_Facet_Lumbar Facility_Inj_Facet_Lumbar_2nd Level Facility_Inj_Facet_Lumbar_3rd Level Inj_Facet_Lumbar Inj_Facet_Lumbar_2nd Level Inj_Facet_Lumbar_3rd Level Facility_Inj_Facet_Lumbar Facility_Inj_Facet_Lumbar_2nd Level Facility_Inj_Facet_Lumbar_3rd Level PT_PPM Drug tests(s), presumptive, any number o f drug cla MD_Follow Up Level 5 Behavioral (Psych) 45 mins MD_Follow Up Level 4 Inj Epidural Lumbar Including Imaging [facility] Facility Inj Epidrual Lumbar With Imagin g Drug tests(s), presumptive, any number o f drug cla NP_Office Visit Level 5 Advance Directives Directive Yes / No Effective Date File Name No Information Encounters Encounter Description Practice Location Reason(s) For Visit Diagnoses Date Provider MD_Follow Up Level 4 [facility], [address] [place] [address], [place], [place], [id number], tel:[phone] [facility] Spondylosis w/o myelopathy or radiculopathy, cervical region Alba Shields. [address] [place] [address], [place], [place], [id number], . tel:[phone] [facility], [address] [place] [address], [place], [place], [id number], tel:[phone] [facility] No Information Alba Shields. [address] [place] [address], [address] [place] [address], [place], [place], [id number], . tel:[phone] MD_Follow Up Level 4 [facility], [address] [place] [address], [place], [place], [id number], tel:[phone] [facility] Spondylosis w/o myelopathy or radiculopathy, cervical region Aron Macedo. [address] [place] [address], [id number], [place]. tel:[phone] MD_Follow Up Level 4 [facility], [address] [place] [address], [place], [place], [id number], tel:[phone] [facility] Spondylosis w/o myelopathy or radiculopathy, cervical region Aron Macedo. [address] [place] [address], [id number], [place]. tel:[phone] MD_Follow Up Level 4 [facility], [address] [place] [address], [place], [place], [id number], [place] tel:[phone] [facility] Spondylosis w/o myelopathy or radiculopathy, cervical region Treglia Hellen. [address] [place] [address], [id number], [place]. tel:[phone] MD_Follow Up Level 4 [facility], [address] [place] [address], [place], [place], [id number], [place] tel:[phone] [facility] Spondylosis w/o myelopathy or radiculopathy, lumbar region Treglia Hellen. [address] [place] [address], [id number], [place]. tel:[phone] MD_Follow Up Level 4 [facility], [address] [place] [address], [place], [place], [id number], [place] tel:[phone] [facility] Body mass index (BMI) 50-59.9 , adultSpondylosis w/o myelopathy or radiculopathy, cervical region Treglia Hellen. [address] [place] [address], [id number], [place]. tel:[phone] MD_Follow Up Level 4 [facility], [address] [place] [address], [place], [place], [id number], [place] tel:[phone] [facility] Spondylosis w/o myelopathy or radiculopathy, cervical region Treglia Hellen. [address] [place] [address], [id number], [place]. tel:[phone] MD_Follow Up Level 4 [facility], [address] [place] [address], [place], [place], [id number], [place] tel:[phone] [facility] Spondylosis w/o myelopathy or radiculopathy, cervical region Treglia Hellen. [address] [place] [address], [id number], [place]. tel:[phone] MD_Follow Up Level 4 [facility], [address] [place] [address], [place], [place], [id number], [place] tel:[phone] [facility] Spondylosis w/o myelopathy or radiculopathy, cervical region Lares Brianne. [address] [place] [address], [address] [place] [address], [place], [place], [id number], [place]. tel:[phone] [facility], [address] [place] [address], [place], [place], [id number], [place] tel:[phone] [facility] Spondylosis w/o myelopathy or radiculopathy, cervical region Arnaud Decker. [address], [place], [place], [id number], [place]. tel:[phone] [facility], [address] [place] [address], [place], [place], [id number], [place] tel:[phone] [facility] No Information [facility]. [address] [place] [address], [id number], . tel:[phone] MD_Follow Up Level 4 [facility], [address] [place] [address], [place], [place], [id number], [place] tel:[phone] [facility] Spondylosis w/o myelopathy or radiculopathy, cervical region Zenaidaa Hellen. [address] [place] [address], [id number], . tel:[phone] MD_Follow Up Level 4 [facility], [address] [place] [address], [place], [place], [id number], [place] tel:[phone] [facility] Spondylosis w/o myelopathy or radiculopathy, cervical region Treglia Hellen. [address] [place] [address], [id number], [place]. tel:[phone] MD_Follow Up Level 3 [facility], [address] [place] [address], [place], [place], [id number], [place] tel:[phone] [facility] Spondylosis w/o myelopathy or radiculopathy, cervical region Treglia Hellen. [address] [place] [address], [id number], [place]. tel:[phone] [facility], [address] [place] [address], [place], [place], [id number], [place] tel:[phone] [place] [address] No Information Rafallia Hellen. [address] [place] [address], [id number], [place]. tel:[phone] MD_Follow Up Level 4 [facility], [address] [place] [address], [place], [place], [id number], [place] tel:[phone] [facility] Spondylosis w/o myelopathy or radiculopathy, cervical region Rafallia Hellen. [address] [place] [address], [id number], [place]. tel:[phone] [facility], [address] [place] [address], [place], [place], [id number], [place] tel:[phone] [facility] Spondylosis w/o myelopathy or radiculopathy, cervical region Arnaud Decker. [address] [place] [address], [facility], [place], [place], [id number], [place]. tel:[phone] [facility], [address] [place] [address], [place], [place], [id number], [place] tel:[phone] [facility] No Information Surgery [facility]. [address] [place] [address], [id number], [place]. tel:[phone] MD_Follow Up Level 3 [facility], [address] [place] [address], [place], [place], [id number], [place] tel:[phone] [facility] Spondylosis w/o myelopathy or radiculopathy, lumbar region Rafallia Hellen. [address] [place] [address], [id number], [place]. tel:[phone] MD_Follow Up Level 3 [facility], [address] [place] [address], [place], [place], [id number], [place] tel:[phone] [facility] Radiculopathy, sacral and sacrococcygeal region Xiang Grewal. [address] [place] [address], [place], [place], [id number], [place]. tel:[phone] [facility], [address] [place] [address], [place], [place], [id number], [place] tel:[phone] [facility] Spondylosis w/o myelopathy or radiculopathy, cervical region Arnaud Brianne. 281 [facility], [address] [place] [address], [place], [place], [id number], [place]. tel:[phone] [facility], [address] [place] [address], [place], [place], [id number], [place] tel:[phone] [facility] No Information [facility]. [address] [place] [address], [id number], . tel:[phone] MD_Follow Up Level 4 [facility], [address] [place] [address], [place], [place], [id number], [place] tel:[phone] [facility] Spondylosis w/o myelopathy or radiculopathy, lumbar region Treglia Hellen. [address] [place] [address], [id number], [place]. tel:[phone] MD_Follow Up Level 4 [facility], [address] [place] [address], [place], [place], [id number], [place] tel:[phone] [facility] Radiculopathy, sacral and sacrococcygeal region Treglia Hellen. [address] [place] [address], [id number], [place]. tel:[phone] [facility], [address] [place] [address], [place], [place], [id number], [place] tel:[phone] [facility] Myalgia, other site Treglia Hellen. [address] [place] [address], [id number], [place]. tel:[phone] [facility], [address] [place] [address], [place], [place], [id number], [place] tel:[phone] [facility] Myalgia, other site Treglia Hellen. [address] [place] [address], [id number], [place]. tel:[phone] MD_Follow Up Level 4 [facility], [address] [place] [address], [place], [place], [id number], [place] tel:[phone] [facility] Spondylosis w/o myelopathy or radiculopathy, lumbar region Treglia Hellen. [address] [place] [address], [id number], [place]. tel:[phone] MD_Follow Up Level 4 [facility], [address] [place] [address], [place], [place], [id number], [place] tel:[phone] [facility] Spondylosis w/o myelopathy or radiculopathy, lumbar region Alba Shields. [address] [place] [address], [address] [place] [address], [place], [place], [id number], [place]. tel:[phone] [facility], [address] [place] [address], [place], [place], [id number], [place] tel:[phone] [facility] Myalgia, other site Treglia Hellen. [address] [place] [address], [id number], [place]. tel:[phone] MD_Follow Up Level 4 [facility], [address] [place] [address], [place], [place], [id number], [place] tel:[phone] [facility] Radiculopathy, sacral and sacrococcygeal region Treglia Hellen. [address] [place] [address], [id number], [place]. tel:[phone] [facility], [address] [place] [address], [place], [place], [id number], [place] tel:[phone] [facility] Myalgia, other site Treglia Hellen. [address] [place] [address], [id number], [place]. tel:[phone] MD_Follow Up Level 4 [facility], [address] [place] [address], [place], [place], [id number], [place] tel:[phone] [facility] Spondylosis w/o myelopathy or radiculopathy, lumbar region Treglia Hellen. [address] [place] [address], [id number], [place]. tel:[phone] [facility], [address] [place] [address], [place], [place], [id number], [place] tel:[phone] [facility] Body mass index (BMI) 50-59.9 , adultMyalgia, other site Treglia Hellen. [address] [place] [address], [id number], [place]. tel:[phone] [facility], [address] [place] [address], [place], [place], [id number], [place] tel:[phone] [facility] No Information Xiang Grewal. [address] [place] [address], [address] [place] [address], [place], [place], [id number], [place]. tel:[phone] MD_Follow Up Level 4 [facility], [address] [place] [address], [place], [place], [id number], [place] tel:[phone] [facility] Spondylosis w/o myelopathy or radiculopathy, lumbar region Treglia Hellen. [address] [place] [address], [id number], [place]. tel:[phone] MD_Follow Up Level 4 [facility], [address] [place] [address], [place], [place], [id number], [place] tel:[phone] [facility] Spondylosis w/o myelopathy or radiculopathy, lumbar region Treglia Hellen. [address] [place] [address], [id number], [place]. tel:[phone] MD_Follow Up Level 4 [facility], [address] [place] [address], [place], [place], [id number], [place] tel:[phone] [facility] Radiculopathy, sacral and sacrococcygeal region Treglia Hellen. [address] [place] [address], [id number], [place]. tel:[phone] MD_Follow Up Level 4 [facility], [address] [place] [address], [place], [place], [id number], [place] tel:[phone] [facility] Spondylosis w/o myelopathy or radiculopathy, lumbar region Treglia Hellen. [address] [place] [address], [id number], . tel:[phone] MD_Follow Up Level 4 [facility], [address] [place] [address], [place], [place], [id number], [place] tel:[phone] [facility] Spondylosis w/o myelopathy or radiculopathy, lumbar region Treglia Hellen. [address] [place] [address], [id number], [place]. tel:[phone] MD_Follow Up Level 4 [facility], [address] [place] [address], [place], [place], [id number], [place] tel:[phone] [facility] Spondylosis w/o myelopathy or radiculopathy, lumbar region Treglia Hellen. [address] [place] [address], [id number], [place]. tel:[phone] MD_Follow Up Level 4 [facility], [address] [place] [address], [place], [place], [id number], [place] tel:[phone] [facility] Spondylosis w/o myelopathy or radiculopathy, lumbar region Manuel Soresnen. [address] [place] [address], [address] [place] [address], [place], [address], [place]. tel:[phone] MD_Follow Up Level 4 [facility], [address] [place] [address], [place], [place], [id number], [place] tel:[phone] [facility] Spondylosis w/o myelopathy or radiculopathy, lumbar region Treglia Hellen. [address] [place] [address], [id number], . tel:[phone] MD_Follow Up Level 4 [facility], [address] [place] [address], [place], [place], [id number], [place] tel:[phone] [facility] Radiculopathy, sacral and sacrococcygeal region Treglia Hellen. [address] [place] [address], [id number], [place]. tel:[phone] MD_Follow Up Level 4 [facility], [address] [place] [address], [place], [place], [id number], [place] tel:[phone] [facility] Spondylosis w/o myelopathy or radiculopathy, lumbar region Treglia Hellen. [address] [place] [address], [id number], [place]. tel:[phone] MD_Follow Up Level 4 [facility], [address] [place] [address], [place], [place], [id number], [place] tel:[phone] [facility] Spondylosis w/o myelopathy or radiculopathy, lumbar region Treglia Hellen. [address] [place] [address], [id number], [place]. tel:[phone] MD_Follow Up Level 4 [facility], [address] [place] [address], [place], [place], [id number], [place] tel:[phone] [facility] Radiculopathy, sacral and sacrococcygeal region Treglia Hellen. [address] [place] [address], [id number], [place]. tel:[phone] MD_Follow Up Level 4 [facility], [address] [place] [address], [place], [place], [id number], [place] tel:[phone] [facility] Spondylosis w/o myelopathy or radiculopathy, lumbar region Treglia Hellen. [address] [place] [address], [id number], [place]. tel:[phone] MD_Follow Up Level 4 [facility], [address] [place] [address], [place], [place], [id number], [place] tel:[phone] [facility] Spondylosis w/o myelopathy or radiculopathy, lumbar region Treglia Hellen. [address] [place] [address], [id number], [place]. tel:[phone] MD_Follow Up Level 4 [facility], [address] [place] [address], [place], [place], [id number], [place] tel:[phone] [facility] Spondylosis w/o myelopathy or radiculopathy, lumbar region Treglia Hellen. [address] [place] [address], [id number], [place]. tel:[phone] MD_Follow Up Level 4 [facility], [address] [place] [address], [place], [place], [id number], [place] tel:[phone] [facility] Spondylosis w/o myelopathy or radiculopathy, lumbar region Treglia Hellen. [address] [place] [address], [id number], [place]. tel:[phone] MD_Follow Up Level 4 [facility], [address] [place] [address], [place], [place], [id number], [place] tel:[phone] [facility] Radiculopathy, sacral and sacrococcygeal region Treglia Hellen. [address] [place] [address], [id number], [place]. tel:[phone] [facility], [address] [place] [address], [place], [place], [id number], [place] tel:[phone] [facility] Radiculopathy, cervical region Anibal Rodriguez. [address] [place] [address], [place], [place], [id number], [place]. tel:[phone] [facility], [address] [place] [address], [place], [place], [id number], [place] tel:[phone] [facility] No Information Xiang Grewal. [address] [place] [address], [address] [place] [address], [place], [place], [id number], [place]. tel:[phone] [facility], [address] [place] [address], [place], [place], [id number], [place] tel:[phone] [facility] No Information [facility]. [address] [place] [address], [id number], [place]. tel:[phone] MD_Follow Up Level 4 [facility], [address] [place] [address], [place], [place], [id number], [place] tel:[phone] [facility] Spondylosis w/o myelopathy or radiculopathy, lumbar region Treglia Hellen. [address] [place] [address], [id number], [place]. tel:[phone] MD_Follow Up Level 4 [facility], [address] [place] [address], [place], [place], [id number], [place] tel:[phone] [facility] Radiculopathy, cervical region Octavio Brewer. [address] [place] [address], [place], [place], [id number], [place]. tel:[phone] [facility], [address] [place] [address], [place], [place], [id number], [place] tel:[phone] [facility] No Information Xiang Grewal. [address] [place] [address], [place], [place], [id number], [place]. tel:[phone] [facility], [address] [place] [address], [place], [place], [id number], [place] tel:[phone] [facility] Myalgia, other site Octavio Brewer. [address] [place] [address], [place], [place], [id number], [place]. tel:[phone] MD_Follow Up Level 4 [facility], [address] [place] [address], [place], [place], [id number], [place] tel:[phone] [facility] Radiculopathy, sacral and sacrococcygeal region Treglia Hellen. [address] [place] [address], [id number], [place]. tel:[phone] [facility], [address] [place] [address], [place], [place], [id number], [place] tel:[phone] [facility] No Information Xiang Grewal. [address] [place] [address], [place], [place], [id number], [place]. tel:[phone] MD_Follow Up Level 4 [facility], [address] [place] [address], [place], [place], [id number], [place] tel:[phone] [facility] Spondylosis w/o myelopathy or radiculopathy, lumbar region Aron Macedo. [address] [place] [address], [id number], [place]. tel:[phone] [facility], [address] [place] [address], [place], [place], [id number], [place] tel:[phone] [facility] Myalgia, other site Octavio Brewer. [address] [place] [address], [place], [place], [id number], [place]. tel:[phone] [facility], [address] [place] [address], [place], [place], [id number], [place] tel:[phone] [facility] No Information Xiang Grewal. [address] [place] [address], [place], [place], [id number], [place]. tel:[phone] MD_Follow Up Level 4 [facility], [address] [place] [address], [place], [place], [id number], [place] tel:[phone] [facility] Spondylosis w/o myelopathy or radiculopathy, lumbar region Aron Macedo. [address] [place] [address], [id number], [place]. tel:[phone] [facility], [address] [place] [address], [place], [place], [id number], [place] tel:[phone] [facility] No Information Xiang Grewal. [address] [place] [address], [place], [place], [id number], [place]. tel:[phone] MD_Follow Up Level 4 [facility], [address] [place] [address], [place], [place], [id number], [place] tel:[phone] [facility] Spondylosis w/o myelopathy or radiculopathy, lumbar region Duy Koch. [address] [place] [address], [id number], [place]. tel:[phone] MD_Follow Up Level 4 [facility], [address] [place] [address], [place], [place], [id number], [place] tel:[phone] [facility] Spondylosis w/o myelopathy or radiculopathy, lumbar region Rafalcase Macedo. [address] [place] [address], [id number], [place]. tel:[phone] MD_Follow Up Level 4 [facility], [address] [place] [address], [place], [place], [id number], [place] tel:[phone] [facility] Spondylosis w/o myelopathy or radiculopathy, lumbar region Alba Shields. [address] [place] [address], [place], [place], [id number], [place]. tel:[phone] MD_Follow Up Level 4 [facility], [address] [place] [address], [place], [place], [id number], [place] tel:[phone] [facility] Radiculopathy, sacral and sacrococcygeal region Zenaidajudit Archerna. [address] [place] [address], [id number], [place]. tel:[phone] [facility], [address] [place] [address], [place], [place], [id number], [place] tel:[phone] [facility] Myalgia, other site Octavio Brewer. [address] [place] [address], [place], [place], [id number], [place]. tel:[phone] MD_Follow Up Level 4 [facility], [address] [place] [address], [place], [place], [id number], [place] tel:[phone] [facility] Spondylosis w/o myelopathy or radiculopathy, lumbar region Manuel Sorensen. [address] [place] [address], [place], [address], [place]. tel:[phone] Behavioral (Psych) 60 mins [facility], [address] [place] [address], [place], [place], [id number], [place] tel:[phone] [facility] Spondylosis w/o myelopathy or radiculopathy, lumbar regionBinge eating disorderPain disorder w/ related psychological factors Riki Jamison. [address] [place] [address], [facility], . tel:[phone] _Follow Up Level 4 [facility], [address] [place] [address], [place], [place], [id number], [phone] [facility] Spondylosis w/o myelopathy or radiculopathy, lumbar region Manuel Sorensen. [address] [place] [address], [address] [place] [address], [place], [place], [facility], . tel:[phone] MD_Follow Up Level 4 [facility], [address] [place] [address], [place], [place], [id number], tel:[phone] [facility] Spondylosis w/o myelopathy or radiculopathy, lumbar region Manuel Sorensen. [address] [place] [address], [place], [place], [facility], . tel:[phone] MD_Follow Up Level 4 [facility], [address] [place] [address], [place], [place], [id number], tel:[phone] [facility] Body mass index (BMI) 60.0-69.9, adultSpondylosis w/o myelopathy or radiculopathy, lumbar region Aron Macedo. [address] [place] [address], [address] [place] [address], . tel:[phone] Behavioral (Psych) 30 mins [facility], [address] [place] [address], [place], [place], [id number], [place] [phone] [facility] Spondylosis w/o myelopathy or radiculopathy, lumbar regionPain disorder w/ related psychological factorsBinge eating disorder Riki Jamison. [address] [place] [address], [facility], . tel:[phone] Behavioral (Psych) 30 mins [facility], [address] [place] [address], [place], [place], [id number], [phone] [facility] Spondylosis w/o myelopathy or radiculopathy, lumbar regionPain disorder w/ related psychological factorsBinge eating disorder Riki Jamison. [address] [place] [address], [facility], . tel:[phone] MD_Follow Up Level 4 [facility], [address] [place] [address], [place], [place], [id number], [phone] [facility] Spondylosis w/o myelopathy or radiculopathy, lumbar region Zenaidajudit Macedo. [address] [place] [address], [id number], . tel:[phone] Behavioral (Psych) 60 mins [facility], [address] [place] [address], [place], [place], [address] [place] [address], [phone] [facility] Spondylosis w/o myelopathy or radiculopathy, lumbar regionPain disorder w/ related psychological factorsBinge eating disorder Riki Jamison. [address] [place] [address], [facility], . tel:[phone] MD_Follow Up Level 4 [facility], [address] [place] [address], [place], [address] [place] [address], [phone] [facility] Spondylosis w/o myelopathy or radiculopathy, lumbar region Manuel Sorensen. [address] [place] [address], [place], [place], [facility], . tel:[phone] MD_Follow Up Level 4 [facility], [address] [place] [address], [place], [place], [id number], [phone] [facility] Spondylosis w/o myelopathy or radiculopathy, lumbar region Manuel Sorensen. [address] [place] [address], [place], [facility], . tel:[phone] Behavioral (Psych) 60 mins [facility], [address] [place] [address], [place], [place], [id number], [phone] [facility] Spondylosis w/o myelopathy or radiculopathy, lumbar regionPain disorder w/ related psychological factorsBinge eating disorder Riki Jamison. [address] [place] [address], [facility], . tel:[phone] _Follow Up Level 4 [facility], [address] [place] [address], [place], [place], [id number], tel:[phone] [facility] Spondylosis w/o myelopathy or radiculopathy, lumbar region Manuel Sorensen. [address] [place] [address], [place], [facility], . tel:[phone] MD_Follow Up Level 4 [facility], [address] [place] [address], [place], [place], [address] [place] [address], tel:[phone] [facility] Spondylosis w/o myelopathy or radiculopathy, lumbar region Aron Macedo. [address] [place] [address], [address] [place] [address], . tel:[phone] _Follow Up Level 4 [facility], [address] [place] [address], [place], [place], [address] [place] [address], tel:[phone] [facility] Spondylosis w/o myelopathy or radiculopathy, lumbar region Manuel Sorensen. [address] [place] [address], [place], [facility], . tel:[phone] _Follow Up Level 4 [facility], [address] [place] [address], [place], [address] [place] [address], tel:[phone] [facility] Spondylosis w/o myelopathy or radiculopathy, lumbar region Manuel Sorensen. [address] [place] [address], [place], [facility], . tel:[phone] Behavioral (Psych) 60 mins [facility], [address] [place] [address], [place], [place], [id number], tel:[phone] [facility] Spondylosis w/o myelopathy or radiculopathy, lumbar regionPain disorder w/ related psychological factorsBinge eating disorder Riki Jamison. [address] [place] [address], [facility], . 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 [address] [place] [address], [place], [place], [id number], . tel:[phone] [facility], [address] [place] [address], [place], [place], [id number], [place] tel:[phone] [facility] Radiculopathy, sacral and sacrococcygeal region Anibal Rodriguez. [address] [place] [address], [place], [place], [id number], [place]. tel:[phone] [facility], [address] [place] [address], [place], [place], [id number], tel:[phone] [facility] No Information [facility]. [address] [place] [address], [id number], . 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 [address] [place] [address], [place], [place], [id number], . tel:[phone] MD_Follow Up Level 4 [facility], [address] [place] [address], [place], [place], [id number], [place] tel:[phone] [facility] Spondylosis w/o myelopathy or radiculopathy, lumbar region Aron Macedo. [address] [place] [address], [id number], . tel:[phone] MD_Follow Up Level 4 [facility], [address] [place] [address], [place], [place], [id number], [place] tel:[phone] [facility] Spondylosis w/o myelopathy or radiculopathy, lumbar region Manuel Sorensen. [address] [place] [address], [place], [address], [place]. tel:[phone] MD_Follow Up Level 4 [facility], [address] [place] [address], [place], [place], [id number], [place] tel:[phone] [facility] Spondylosis w/o myelopathy or radiculopathy, lumbar region Manuel Sorensen. [address], [place], [address], [place]. tel:[phone] MD_Follow Up Level 4 [facility], [address] [place] [address], [place], [place], [id number], [place] tel:[phone] [facility] Spondylosis w/o myelopathy or radiculopathy, lumbar region Alba Shields. [address] [place] [address], [place], [place], [id number], [place]. tel:[phone] MD_Follow Up Level 4 [facility], [address] [place] [address], [place], [place], [id number], [place] tel:[phone] [facility] Spondylosis w/o myelopathy or radiculopathy, lumbar region Alba Shields. [address] [place] [address], [place], [place], [id number], [place]. tel:[phone] [facility], [address] [place] [address], [place], [place], [id number], [place] tel:[phone] [facility] Radiculopathy, cervical region Anibal Rodriguez. [address] [place] [address], [place], [place], [id number], [place]. tel:[phone] [facility], [address] [place] [address], [place], [place], [id number], [place] tel:[phone] [facility] No Information [facility]. [address] [place] [address], [place], [place], [id number], [place]. tel:[phone] MD_Follow Up Level 3 [facility], [address] [place] [address], [place], [place], [id number], [place] tel:[phone] [facility] Radiculopathy, cervical region Anibal Rodriguez. [address] [place] [address], [place], [place], [id number], [place]. tel:[phone] [facility], [address] [place] [address], [place], [place], [id number], [place] tel:[phone] [facility] Radiculopathy, cervical region Anibal Rodriguez. [address] [place] [address], [place], [place], [id number], [place]. tel:[phone] MD_Follow Up Level 4 [facility], [address] [place] [address], [place], [place], [id number], [place] tel:[phone] [facility] Spondylosis w/o myelopathy or radiculopathy, lumbar region Alba Shields. [address] [place] [address], [place], [place], [id number], [place]. tel:[phone] [facility], [address] [place] [address], [place], [place], [id number], [place] tel:[phone] [facility] No Information [facility]. [address] [place] [address], [id number], [place]. tel:[phone] MD_Follow Up Level 4 [facility], [address] [place] [address], [place], [place], [id number], [place] tel:[phone] [facility] Radiculopathy, cervical region Octavio Brewer. [address] [place] [address], [place], [place], [id number], [place]. tel:[phone] [facility], [address] [place] [address], [place], [place], [id number], [place] tel:[phone] [facility] Myalgia, other site Octavio Brewer. [address] [place] [address], [place], [place], [id number], [place]. tel:[phone] MD_Follow Up Level 4 [facility], [address] [place] [address], [place], [place], [id number], [place] tel:[phone] [facility] Body mass index (BMI) 50-59.9 , adultSpondylosis w/o myelopathy or radiculopathy, lumbar region Aron Hellen. [address] [place] [address], [place], [place], [id number], [place]. tel:[phone] [facility], [address] [place] [address], [place], [place], [id number], [place] tel:[phone] [facility] Myalgia, other site Silk Osman. [address] [place] [address], [place], [place], [id number], [place]. tel:[phone] MD_Follow Up Level 4 [facility], [address] [place] [address], [place], [place], [id number], [place] tel:[phone] [facility] Spondylosis w/o myelopathy or radiculopathy, lumbar region Alba Shields. [address] [place] [address], [place], [place], [id number], [place]. tel:[phone] [facility], [address] [place] [address], [place], [place], [id number], [place] tel:[phone] [facility] Trochanteric bursitis, right hip Silk Osman. [address] [place] [address], [place], [place], [id number], [place]. tel:[phone] [facility], [address] [place] [address], [place], [place], [id number], [place] tel:[phone] [facility] Myalgia Silk Osman. [address] [place] [address], [place], [place], [id number], [place]. tel:[phone] [facility], [address] [place] [address], [place], [place], [id number], [place] tel:[phone] [facility] Trochanteric bursitis, left hip Silk Osman. [address] [place] [address], [place], [place], [id number], [place]. tel:[phone] MD_Follow Up Level 4 [facility], [address] [place] [address], [place], [place], [id number], [place] tel:[phone] [facility] Radiculopathy, sacral and sacrococcygeal region Alba Shields. [address] [place] [address], [place], [place], [id number], . tel:[phone] Behavioral (Psych) 45 mins [facility], [address] [place] [address], [place], [place], [id number], tel:[phone] [facility] Spondylosis w/o myelopathy or radiculopathy, lumbar regionPain disorder w/ related psychological factors Brittanie Jordan. [address] [place] [address], [facility], . tel:[phone] MD_Follow Up Level 4 [facility], [address] [place] [address], [place], [place], [id number], tel:[phone] [facility] Spondylosis w/o myelopathy or radiculopathy, lumbar region Alba Shields. [address] [place] [address], [place], [place], [id number], . tel:[phone] MD_Follow Up Level 4 [facility], [address] [place] [address], [place], [place], [id number], tel:[phone] [facility] Body mass index (BMI) 50-59.9 , adultSpondylosis w/o myelopathy or radiculopathy, lumbar region Aron Macedo. [address] [place] [address], [id number], . tel:[phone] Behavioral (Psych) 30 mins [facility], [address] [place] [address], [place], [place], [id number], [place] [phone] [facility] Spondylosis w/o myelopathy or radiculopathy, lumbar regionPain disorder w/ related psychological factors Brittanie Jordan. [address] [place], [place], [facility], . tel:[phone] Behavioral (Psych) 45 mins [facility], [address] [place] [address], [place], [place], [id number], [place] tel:[phone] [facility] Spondylosis w/o myelopathy or radiculopathy, lumbar regionPain disorder w/ related psychological factors Brittanie Jordan. [address] [place] [address], [facility], . tel:[phone] _Follow Up Level 4 [facility], [address] [place] [address], [place], [place], [id number], tel:[phone] [facility] Radiculopathy, sacral and sacrococcygeal region Augustin Mcdonough. [address] [place], [place], [facility], . tel:[phone] _Follow Up Level 4 [facility], [address] [place] [address], [place], [address] [place] [address], tel:[phone] [facility] Spondylosis w/o myelopathy or radiculopathy, lumbar region Alba Shields. [address] [place] [address], [place], [place], [address] [place] [address], . tel:[phone] Behavioral (Psych) 45 mins [facility], [address] [place] [address], [place], [place], [id number], tel:[phone] [facility] Spondylosis w/o myelopathy or radiculopathy, lumbar regionPain disorder w/ related psychological factors Brittanie Jordan. [address] [place] [address], [facility], . tel:[phone] _Follow Up Level 4 [facility], [address] [place] [address], [place], [address] [place] [address], tel:[phone] [facility] Spondylosis w/o myelopathy or radiculopathy, lumbar region Alba Shields. [address] [place] [address], [place], [place], [id number], . tel:[phone] Behavioral (Psych) 30 mins [facility], [address] [place] [address], [place], [place], [id number], tel:[phone] [facility] Spondylosis w/o myelopathy or radiculopathy, lumbar regionPain disorder w/ related psychological factors Brittanie Jordan. [address] [place], [place], [facility], . tel:[phone] _Follow Up Level 4 [facility], [address] [place] [address], [place], [place], [id number], tel:[phone] [facility] Spondylosis w/o myelopathy or radiculopathy, lumbar region Augustin Mcdonough. [address] [place], [place], [facility], . tel:[phone] _Follow Up Level 4 [facility], [address] [place] [address], [place], [place], [id number], tel:[phone] [facility] Spondylosis w/o myelopathy or radiculopathy, lumbar region Alba Shields. [address] [place] [address], [place], [place], [id number], . tel:[phone] Behavioral (Psych) 45 mins [facility], [address] [place] [address], [place], [place], [id number], tel:[phone] [facility] Spondylosis w/o myelopathy or radiculopathy, lumbar regionPain disorder w/ related psychological factors Brittanie Jordan. [address] [place] [address], [facility], . tel:[phone] _Follow Up Level 4 [facility], [address] [place] [address], [place], [place], [id number], tel:[phone] [facility] Spondylosis w/o myelopathy or radiculopathy, lumbar region Alba Shields. [address] [place] [address], [place], [place], [id number], . tel:[phone] Behavioral (Psych) 45 mins [facility], [address] [place] [address], [place], [place], [id number], tel:[phone] [facility] Spondylosis w/o myelopathy or radiculopathy, lumbar regionPain disorder w/ related psychological factors Brittanie Cooper [address] [place], [place], [facility], . tel:[phone] MD_Follow Up Level 4 [facility], [address] [place] [address], [place], [place], [id number], tel:[phone] [facility] Body mass index (BMI) 50-59.9 , adultRadiculopathy, sacral and sacrococcygeal region Alba Shields. [address] [place] [address], [address] [place] [address], [place], [place], [id number], . tel:[phone] Behavioral (Psych) 45 mins [facility], [address] [place] [address], [place], [place], [id number], [place] tel:[phone] [facility] Spondylosis w/o myelopathy or radiculopathy, lumbar regionPain disorder w/ related psychological factors Brittanie Jordan. [address] [place] [address], [facility], . tel:[phone] MD_Follow Up Level 4 [facility], [address] [place] [address], [place], [place], [id number], tel:[phone] [facility] Spondylosis w/o myelopathy or radiculopathy, lumbar region Jhoan Donaldson. [address] [place] [address], [id number], . tel:[phone] Behavioral (Psych) 45 mins [facility], [address] [place] [address], [place], [place], [id number], tel:[phone] [facility] Spondylosis w/o myelopathy or radiculopathy, lumbar regionPain disorder w/ related psychological factors Brittanie Jordan. [address] [place], [facility], . tel:[phone] MD_Follow Up Level 4 [facility], [address] [place] [address], [place], [place], [id number], tel:[phone] [facility] Radiculopathy, sacral and sacrococcygeal region Anibal Rodriguez. [address] [place] [address], [address] [place] [address], [place], [place], [id number], . tel:[phone] MD_Follow Up Level 4 [facility], [address] [place] [address], [place], [place], [id number], tel:[phone] [facility] Spondylosis w/o myelopathy or radiculopathy, lumbar region Jhoan Donaldson. [address] [place] [address], [id number], . tel:[phone] Behavioral (Psych) 30 mins [facility], [address] [place] [address], [place], [place], [id number], [place] [phone] [facility] Spondylosis w/o myelopathy or radiculopathy, lumbar regionPain disorder w/ related psychological factors Brittanie Jordan. [address] [place] [address], [facility], . tel:[phone] _Follow Up Level 4 [facility], [address] [place] [address], [place], [place], [id number], tel:[phone] [facility] Spinal stenosis, lumbar region Jhoan Donaldson. [address] [place] [address], [id number], . tel:[phone] Behavioral (Psych) 45 mins [facility], [address] [place] [address], [place], [place], [id number], tel:[phone] [facility] Spondylosis w/o myelopathy or radiculopathy, lumbar regionPain disorder w/ related psychological factors Brittanie Jordan. [address] [place] [address], [facility], . tel:[phone] [facility], [address] [place] [address], [place], [place], [id number], [place] tel:[phone] [facility] Radiculopathy, sacral and sacrococcygeal regionSpondylosis w/o myelopathy or radiculopathy, lumbar regionSpinal stenosis, lumbar region Eddie Chavez. [address] [place] [address], [address] [place] [address], [place], [place], [id number], . tel:[phone] [facility], [address] [place] [address], [place], [place], [id number], tel:[phone] [facility] Spinal stenosis, lumbar region Anibal Rodriguez. [address] [place] [address], [place], [place], [id number], . tel:[phone] MD_Follow Up Level 4 [facility], [address] [place] [address], [place], [place], [id number], tel:[phone] [facility] Spondylosis w/o myelopathy or radiculopathy, lumbar region Jhoan Donaldson. [address] [place] [address], [id number], . tel:[phone] [facility], [address] [place] [address], [place], [place], [id number], [place] tel:[phone] [facility] Spinal stenosis, lumbar regionRadiculopathy, sacral and sacrococcygeal regionSpondylosis w/o myelopathy or radiculopathy, lumbar region Eddie Chavez. [address] [place] [address], [place], [place], [id number], . tel:[phone] Behavioral (Psych) 30 mins [facility], [address] [place] [address], [place], [place], [id number], [place] tel:[phone] [facility] Spondylosis w/o myelopathy or radiculopathy, lumbar regionPain disorder w/ related psychological factors Brittanie Jordan. [address] [place] [address], [facility], . tel:[phone] [facility], [address] [place] [address], [place], [place], [id number], tel:[phone] [facility] No Information [facility]. [address] [place] [address], [id number], . tel:[phone] Behavioral (Psych) 45 mins [facility], [address] [place] [address], [place], [place], [id number], tel:[phone] [facility] Spondylosis w/o myelopathy or radiculopathy, lumbar regionPain disorder w/ related psychological factors Brittanie Jordan. [address] [place] [address], [id number], . tel:[phone] _Follow Up Level 4 [facility], [address] [place], [place] [address], [place], [place], [id number], [place] tel:[phone] [facility] Spondylosis w/o myelopathy or radiculopathy, lumbar region Jhoan Anika. [address] [place] [address], [id number], . tel:[phone] [facility], [address] [place] [address], [place], [place], [id number], [place] tel:[phone] [facility] Spinal stenosis, lumbar regionSpondylosis w/o myelopathy or radiculopathy, lumbar region Eddie Chavez. [address] [place] [address], [address] [place] [address], [place], [place], [id number], [place]. tel:[phone] _Follow Up Level 4 [facility], [address] [place] [address], [place], [place], [id number], [place] tel:[phone] [facility] Spondylosis w/o myelopathy or radiculopathy, lumbar region Staples Anika. [address] [place] [address], [id number], [place]. tel:[phone] [facility], [address] [place] [address], [place], [place], [id number], [place] tel:[phone] [facility] No Information Xiang Grewal. [address] [place] [address], [place], [place], [id number], [place]. tel:[phone] [facility], [address] [place] [address], [place], [place], [id number], [place] tel:[phone] [facility] Spondylosis w/o myelopathy or radiculopathy, lumbar region Anibal Rodriguez. [address] [place] [address], [place], [place], [id number], [place]. tel:[phone] [facility], [address] [place] [address], [place], [place], [id number], [place] tel:[phone] [facility] No Information [facility] [address] [place] [address], [id number], [place]. tel:[phone] [facility], [address] [place] [address], [place], [place], [id number], [place] tel:[phone] [place] [address] Spondylosis w/o myelopathy or radiculopathy, lumbar region Anibal Michael. [address] [place] [address], [address] [place] [address], [place], [place], [id number], [place]. tel:[phone] [facility], [address] [place] [address], [place], [place], [id number], [place] tel:[phone] [facility] No Information [facility]. [address] [place] [address], [id number], [place]. tel:[phone] [facility], [address] [place] [address], [place], [place], [id number], [place] tel:[phone] [facility] Spinal stenosis, lumbar regionRadiculopathy, sacral and sacrococcygeal regionSpondylosis w/o myelopathy or radiculopathy, lumbar region Eddie Chavez. [address] [place] [address], [address] [place] [address], [place], [place], [id number], [place]. tel:[phone] MD_Follow Up Level 5 [facility], [address] [place] [address], [place], [place], [id number], [place] tel:[phone] [facility] Spondylosis w/o myelopathy or radiculopathy, lumbar region Aron Macedo. [address] [place] [address], [id number], [place]. tel:[phone] Behavioral (Psych) [phone] [facility], [address] [place] [address], [place], [place], [id number], [place] tel:[phone] [facility] Spondylosis w/o myelopathy or radiculopathy, lumbar regionSpinal stenosis, lumbar regionRadiculopathy, sacral and sacrococcygeal regionAnxietyBinge eating disorderDepression Sharon Estrella. [address] [place] [address], [id number], [place]. tel:[phone] MD_Follow Up Level 4 [facility], [address] [place] [address], [place], [place], [id number], tel:[phone] [facility] Spinal stenosis, lumbar region Octavio Brewer. [address] [place] [address], [place], [place], [id number], . tel:[phone] [facility], [address] [place] [address], [place], [place], [id number], tel:[phone] [facility] Radiculopathy, sacral and sacrococcygeal region Anibal Rodriguez. [address] [place] [address], [place], [place], [id number], . tel:[phone] [facility], [address] [place] [address], [place], [place], [id number], tel:[phone] [facility] No Information Surgery [address], [id number], . tel:[phone] NP_Office Visit Level 5 [facility], [address] [place] [address], [place], [place], [id number], tel:[phone] [facility] Back Pain (chief complaint) Body mass index (BMI) 50-59.9 , adultHypertension, UnspecifiedSpinal stenosis, lumbar regionSpondylosis w/o myelopathy or radiculopathy, lumbar region Octavio Brewer. [address] [place] [address], [place], [place], [id number], . tel:[phone] Family History Family Member Type Diagnosis Age At Onset Family h/o Problem (finding) High Blood Pressure Family h/o Problem (finding) Family h/o Problem (finding) Heart Disease Family h/o Problem (finding) Migraines Payers Payer name Insurance type Covered democrat ID Authorleeannea shira(s) Medicare [id number] BC Med[employer] BL [id number] Social History Type Description Quantity Date Captured [...]
== END 2024-11-02 10:38 | disposition home or self-care (01) ==
LOC: HO.PMC 09:51
PROVIDERS: PCP Family Medicine; Visit Provider Nurse Practitioner Family
DX: M50.30 Other cervical disc degeneration, unspecified cervical region (principal); M43.12 Spondylolisthesis, cervical region; M48.02 Spinal stenosis, cervical region; M54.12 Radiculopathy, cervical region; M47.812 Spondylosis without myelopathy or radiculopathy, cervical region; M47.816 Spondylosis without myelopathy or radiculopathy, lumbar region; G24.3 Spasmodic torticollis
CPT/HCPCS: 99214; G2211

== ENCOUNTER → 2024-11-02 09:51 | Outpatient (BNVA) | payer MEDICARE, SELFPAY | PROVIDERS: PCP Family Medicine; Visit Provider Nurse Practitioner Family | DX: M50.30 Other cervical disc degeneration, unspecified cervical region (principal); M43.12 Spondylolisthesis, cervical region; M48.02 Spinal stenosis, cervical region; M54.12 Radiculopathy, cervical region; M47.812 Spondylosis without myelopathy or radiculopathy, cervical region; M47.816 Spondylosis without myelopathy or radiculopathy, lumbar region; G24.3 Spasmodic torticollis | CPT/HCPCS: 99212 ==

== ENCOUNTER 2024-11-05 09:52 | Outpatient (AMB) | payer MEDICARE, SELFPAY ==
--- NOTE | 2024-11-05 10:00 | A.SPINEOV_ITS ---
Intake Visit Reasons: neck pain Intake Note: Ms. Tripp is here today c/o chronic neck pain. 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: No Allergies ampicillin Allergy (Unknown, Verified 11/02/24 10:00) Hives cyclobenzaprine [From Flexeril] Allergy (Unknown, Verified 11/02/24 10:00) Palpitations Iodinated Contrast Media Allergy (Unknown, Verified 11/02/24 10:00) Shortness of Breath temazepam [From Restoril] Allergy (Unknown, Verified 11/02/24 10:00) Palpitations ibuprofen Adverse Reaction (Unknown, Verified 11/02/24 10:00) Gastrointestinal Upset omeprazole Adverse Reaction (Unknown, Verified 11/02/24 10:00) Nausea IV contrast dye Allergy (Intermediate, Uncoded 09/28/24 06:21) breathing Assessment & Plan Assessment & Plan (1) Spinal stenosis of cervical region with radiculopathy: Code(s): M48.02 - Spinal stenosis, cervical region; M54.12 - Radiculopathy, cervical region Category: Medical Plan Dear Analia, Thank you for referring Mrs Tripp to our office today. She is a very nice 74-year-old female history of toward a call us presents for evaluation of neck pain and left upper extremity pain that radiates down toward her biceps with associated weakness of her hands on the left. She has had the symptoms steadily getting worse now for at least 10 years. She has been through numerous rounds of conservative treatment. She used to live closer to [place] and underwent a number of different epidurals which had no effect. She has seen a chiropractor in the past as well as had physical therapy without any relief. The only thing that has given her any degree of relief was the injection that Dr. Messina did at C6-7 a few weeks ago. She reports that for 24 hours it felt like she had a teenagers neck again. After that though the symptoms came back. She describes it as primarily left-sided neck pain radiating down the left arm as outlined above. She does take Celebrex, baclofen and Lyrica to help with the symptoms. She comes in today with an MRI done at [facility] showing degenerative disc disease and stenosis. PMH: History of hypertension that is well controlled, diabetes her A1c is around 7 generally, mild asthma, sleep apnea on CPAP, NAFLD the, marginal zone lymphoma, underwent immunotherapy and now it is just followed clinically, fibromyalgia, , gallbladder removal, gastric sleeve in 2014, hernia repair 2015, left knee replacement 2016. Denies any history of coronary disease, strokes, she does have an enlarged liver and spleen secondary to the lymphoma but no functional problems with her spleen or liver. Despite her diabetes diagnosis she tells me that her renal function is normal. No history of blood clots or bleeding disorders. Social hx: She does not smoke, drink use any recreational drugs Medications: Recently started on a Humalog sliding scale by her primary care physician, fluoxetine, Wellbutrin, Celebrex, atorvastatin, losartan, Lasix, Lyrica, metformin, Jardiance and Singulair Allergies: Please see the [email or web address] list Physical exam: Awake alert oriented no acute distress, you she uses a walker to get around, she may have some mild hand weakness but nothing lateralizing to the left side, rest of her strength is normal. Reflexes reveal slight brisk reflex on the left hand with Gold's sign but could not reproduce it on the right side. Lower extremity reflexes are diminished, no clonus in the ankles. Imaging review[facility] worse at C5-6 and C6-7. There is moderate stenosis at both of these levels as well as foraminal stenosis. She has an x-ray done at [place] showing findings of auto fusion of C2-3, slight spondylolisthesis of C4-5 with disc degeneration, C5-6 is severely collapsed basically [id number], and C6-7 has a grade 1-2 anterior listhesis. Impression: 74-year-old female history of toward a call us presents for joão lujae of chronic neck pain in the setting of multiple findings in the cervical spine which could be related to her pain. What stands out the most is the disc collapse at C5-6 and the spondylolisthesis seen on her x-ray at C6-7 which is bordering on a grade 2. This is all in the setting of having torticollis as well. I showed her her images, and explain that she could have multiple sources for her discomfort, but obviously the 2 disc levels are hard to ignore, especially in light of the fact that the injection done at C6-7 gave her such tremendous relief for [address] Hyde is going to recommend anterior cervical fusion C5-6 and C6-7 with a plate. I would like to get a noncontrast CT of the cervical spine however to be more clear about what level of auto fusion has taken place possibly at C5-6, and to understand her bony anatomy a little bit better. I will also get flexion-extension x-rays to rule out occult instability at any other areas. I would like to see her back after the tests are completed. Thank you for allowing us to care for your patient. The total time spent with this visit with this patient was 45 minutes reviewing history, physical exam, cervical imaging review, and implementation of treatment plan or further diagnostic testing Deshawn Hyde MD,PhD [facility] Orders: Orders XR cervical spine 4V Today M48.02 - Spinal stenosis, cervical region, M54.12 - Radiculopathy, cervical region CT cervical spine wo IV con Today M48.02 - Spinal stenosis, cervical region, M54.12 - Radiculopathy, cervical region Coding Level of Care Code New Pt Level 4 (11638) Diagnoses Spinal stenosis of cervical region with radiculopathy M48.02; M54.12
--- OUTSIDE RECORDS SUMMARY | 2024-11-05 10:55 | XMS_ITS | Continuity of Care Document ---
Author Organization [facility] Address [address] [place] [address] [address] [place] [address] Phone Care Team Providers Care Crusher Tender Name Role Phone Alba BREMEO Alyson Unavailable Unavailable Allergies, Adverse Reactions, Alerts [...] by oral route every day - Active doxepin 25 mg capsule take 1 capsule by oral route every day at bedtime 25 MG - Active Prozac 10 mg capsule take 1 capsule by oral route every day 10 MG - Active metformin 500 mg tablet take 1500mg tablet by oral route every day with meals - Active 1000mg in AM and 500mg PM Symbicort 80 mcg-4.5 mcg/actuation HFA aerosol inhaler inhale 2 puff by inhalation route 2 times every day in the morning and evening as needed 2 puff - Active albuterol sulfate 0.63 mg/3 mL [...] TP_Inj_Trigger Point Rad_Ultrasound Guidance For Needle Place [facility] Injection, bupivicaine hydro Drug tests(s), presumptive, any [...] f drug cla MD_Follow Up Level [address] [facility] Special Program Inj_Facet_Lumbar Inj_Facet_Lumbar_2nd Level Inj_Facet_Lumbar_3rd Level Facility_Inj_Facet_Lumbar Facility_Inj_Facet_Lumbar_2nd Level Facility_Inj_Facet_Lumbar_3rd Level Inj_Facet_Lumbar Inj_Facet_Lumbar_2nd Level Inj_Facet_Lumbar_3rd Level Facility_Inj_Facet_Lumbar Facility_Inj_Facet_Lumbar_2nd Level Facility_Inj_Facet_Lumbar_3rd Level PT_PPM Drug tests(s), presumptive, any number o f drug cla MD_Follow Up Level 5 Behavioral (Psych) 45 mins MD_Follow Up Level 4 Inj Epidural Lumbar Including Imaging Ms Facility Inj Epidrual Lumbar With Imagin g Drug tests(s), presumptive, any number o f drug cla NP_Office Visit Level 5 Advance Directives Directive Yes / No Effective Date File Name No Information Encounters Encounter Description Practice Location Reason(s) For Visit Diagnoses Date Provider MD_Follow Up Level 4 [facility], [address] [place] [address], [place], [place], [id number], tel:[phone] [facility] Spondylosis w/o myelopathy or radiculopathy, cervical region Alba Shields. [address] [place] [address], [place], [place], [id number], . tel:[phone] [facility], [address] [place] [address], [place], [place], [id number], tel:[phone] [facility] No Information Alba Shields. [address] [place] [address], [address] [place] [address], [place], [place], [id number], . tel:[phone] MD_Follow Up Level 4 [facility], [address] [place] [address], [place], [place], [id number], tel:[phone] [facility] Spondylosis w/o myelopathy or radiculopathy, cervical region Aron Macedo. [address] [place] [address], [id number], [place]. tel:[phone] MD_Follow Up Level 4 [facility], [address] [place] [address], [place], [place], [id number], tel:[phone] [facility] Spondylosis w/o myelopathy or radiculopathy, cervical region Aron Macedo. [address] [place] [address], [id number], [place]. tel:[phone] MD_Follow Up Level 4 [facility], [address] [place] [address], [place], [place], [id number], [place] tel:[phone] [facility] Spondylosis w/o myelopathy or radiculopathy, cervical region Treglia Hellen. [address] [place] [address], [id number], [place]. tel:[phone] MD_Follow Up Level 4 [facility], [address] [place] [address], [place], [place], [id number], [place] tel:[phone] [facility] Spondylosis w/o myelopathy or radiculopathy, lumbar region Treglia Hellen. [address] [place] [address], [id number], [place]. tel:[phone] MD_Follow Up Level 4 [facility], [address] [place] [address], [place], [place], [id number], [place] tel:[phone] [facility] Body mass index (BMI) 50-59.9 , adultSpondylosis w/o myelopathy or radiculopathy, cervical region Treglia Hellen. [address] [place] [address], [id number], [place]. tel:[phone] MD_Follow Up Level 4 [facility], [address] [place] [address], [place], [place], [id number], [place] tel:[phone] [facility] Spondylosis w/o myelopathy or radiculopathy, cervical region Treglia Hellen. [address] [place] [address], [id number], [place]. tel:[phone] MD_Follow Up Level 4 [facility], [address] [place] [address], [place], [place], [id number], [place] tel:[phone] [facility] Spondylosis w/o myelopathy or radiculopathy, cervical region Treglia Hellen. [address] [place] [address], [id number], [place]. tel:[phone] MD_Follow Up Level 4 [facility], [address] [place] [address], [place], [place], [id number], [place] tel:[phone] [facility] Spondylosis w/o myelopathy or radiculopathy, cervical region Lares Brianne. [address] [place] [address], [address] [place] [address], [place], [place], [id number], [place]. tel:[phone] [facility], [address] [place] [address], [place], [place], [id number], [place] tel:[phone] [facility] Spondylosis w/o myelopathy or radiculopathy, cervical region Arnaud Decker. [address], [place], [place], [id number], [place]. tel:[phone] [facility], [address] [place] [address], [place], [place], [id number], [place] tel:[phone] [facility] No Information [facility] Center [facility]. [address] [place] [address], [id number], . tel:[phone] MD_Follow Up Level 4 [facility], [address] [place] [address], [place], [place], [id number], [place] tel:[phone] [facility] Spondylosis w/o myelopathy or radiculopathy, cervical region Zenaidaa Hellen. [address] [place] [address], [id number], . tel:[phone] MD_Follow Up Level 4 [facility], [address] [place] [address], [place], [place], [id number], [place] tel:[phone] [facility] Spondylosis w/o myelopathy or radiculopathy, cervical region Treglia Hellen. [address] [place] [address], [id number], [place]. tel:[phone] MD_Follow Up Level 3 [facility], [address] [place] [address], [place], [place], [id number], [place] tel:[phone] [facility] Spondylosis w/o myelopathy or radiculopathy, cervical region Treglia Hellen. [address] [place] [address], [id number], [place]. tel:[phone] [facility], [address] [place] [address], [place], [place], [id number], [place] tel:[phone] [place] [address] No Information Rafallia Hellen. [address] [place] [address], [id number], [place]. tel:[phone] MD_Follow Up Level 4 [facility], [address] [place] [address], [place], [place], [id number], [place] tel:[phone] [facility] Spondylosis w/o myelopathy or radiculopathy, cervical region Rafallia Hellen. [address] [place] [address], [id number], [place]. tel:[phone] [facility], [address] [place] [address], [place], [place], [id number], [place] tel:[phone] [facility] Spondylosis w/o myelopathy or radiculopathy, cervical region Arnaud Decker. [address] [place] [address], [facility], [place], [place], [id number], [place]. tel:[phone] [facility], [address] [place] [address], [place], [place], [id number], [place] tel:[phone] [facility] No Information Surgery [facility]. [address] [place] [address], [id number], [place]. tel:[phone] MD_Follow Up Level 3 [facility], [address] [place] [address], [place], [place], [id number], [place] tel:[phone] [facility] Spondylosis w/o myelopathy or radiculopathy, lumbar region Rafallia Hellen. [address] [place] [address], [id number], [place]. tel:[phone] MD_Follow Up Level 3 [facility], [address] [place] [address], [place], [place], [id number], [place] tel:[phone] [facility] Radiculopathy, sacral and sacrococcygeal region Xiang Grewal. [address] [place] [address], [place], [place], [id number], [place]. tel:[phone] [facility], [address] [place] [address], [place], [place], [id number], [place] tel:[phone] [facility] Spondylosis w/o myelopathy or radiculopathy, cervical region Arnaud Brianne. 281 [facility], [address] [place] [address], [place], [place], [id number], [place]. tel:[phone] [facility], [address] [place] [address], [place], [place], [id number], [place] tel:[phone] [facility] No Information [facility]. [address] [place] [address], [id number], . tel:[phone] MD_Follow Up Level 4 [facility], [address] [place] [address], [place], [place], [id number], [place] tel:[phone] [facility] Spondylosis w/o myelopathy or radiculopathy, lumbar region Treglia Hellen. [address] [place] [address], [id number], [place]. tel:[phone] MD_Follow Up Level 4 [facility], [address] [place] [address], [place], [place], [id number], [place] tel:[phone] [facility] Radiculopathy, sacral and sacrococcygeal region Treglia Hellen. [address] [place] [address], [id number], [place]. tel:[phone] [facility], [address] [place] [address], [place], [place], [id number], [place] tel:[phone] [facility] Myalgia, other site Treglia Hellen. [address] [place] [address], [id number], [place]. tel:[phone] [facility], [address] [place] [address], [place], [place], [id number], [place] tel:[phone] [facility] Myalgia, other site Treglia Hellen. [address] [place] [address], [id number], [place]. tel:[phone] MD_Follow Up Level 4 [facility], [address] [place] [address], [place], [place], [id number], [place] tel:[phone] [facility] Spondylosis w/o myelopathy or radiculopathy, lumbar region Treglia Hellen. [address] [place] [address], [id number], [place]. tel:[phone] MD_Follow Up Level 4 [facility], [address] [place] [address], [place], [place], [id number], [place] tel:[phone] [facility] Spondylosis w/o myelopathy or radiculopathy, lumbar region Alba Shields. [address] [place] [address], [address] [place] [address], [place], [place], [id number], [place]. tel:[phone] [facility], [address] [place] [address], [place], [place], [id number], [place] tel:[phone] [facility] Myalgia, other site Treglia Hellen. [address] [place] [address], [id number], [place]. tel:[phone] MD_Follow Up Level 4 [facility], [address] [place] [address], [place], [place], [id number], [place] tel:[phone] [facility] Radiculopathy, sacral and sacrococcygeal region Treglia Hellen. [address] [place] [address], [id number], [place]. tel:[phone] [facility], [address] [place] [address], [place], [place], [id number], [place] tel:[phone] [facility] Myalgia, other site Treglia Hellen. [address] [place] [address], [id number], [place]. tel:[phone] MD_Follow Up Level 4 [facility], [address] [place] [address], [place], [place], [id number], [place] tel:[phone] [facility] Spondylosis w/o myelopathy or radiculopathy, lumbar region Treglia Hellen. [address] [place] [address], [id number], [place]. tel:[phone] [facility], [address] [place] [address], [place], [place], [id number], [place] tel:[phone] [facility] Body mass index (BMI) 50-59.9 , adultMyalgia, other site Treglia Hellen. [address] [place] [address], [id number], [place]. tel:[phone] [facility], [address] [place] [address], [place], [place], [id number], [place] tel:[phone] [facility] No Information Xiang Grewal. [address] [place] [address], [address] [place] [address], [place], [place], [id number], [place]. tel:[phone] MD_Follow Up Level 4 [facility], [address] [place] [address], [place], [place], [id number], [place] tel:[phone] [facility] Spondylosis w/o myelopathy or radiculopathy, lumbar region Treglia Hellen. [address] [place] [address], [id number], [place]. tel:[phone] MD_Follow Up Level 4 [facility], [address] [place] [address], [place], [place], [id number], [place] tel:[phone] [facility] Spondylosis w/o myelopathy or radiculopathy, lumbar region Treglia Hellen. [address] [place] [address], [id number], [place]. tel:[phone] MD_Follow Up Level 4 [facility], [address] [place] [address], [place], [place], [id number], [place] tel:[phone] [facility] Radiculopathy, sacral and sacrococcygeal region Treglia Hellen. [address] [place] [address], [id number], [place]. tel:[phone] MD_Follow Up Level 4 [facility], [address] [place] [address], [place], [place], [id number], [place] tel:[phone] [facility] Spondylosis w/o myelopathy or radiculopathy, lumbar region Treglia Hellen. [address] [place] [address], [id number], . tel:[phone] MD_Follow Up Level 4 [facility], [address] [place] [address], [place], [place], [id number], [place] tel:[phone] [facility] Spondylosis w/o myelopathy or radiculopathy, lumbar region Treglia Hellen. [address] [place] [address], [id number], [place]. tel:[phone] MD_Follow Up Level 4 [facility], [address] [place] [address], [place], [place], [id number], [place] tel:[phone] [facility] Spondylosis w/o myelopathy or radiculopathy, lumbar region Treglia Hellen. [address] [place] [address], [id number], [place]. tel:[phone] MD_Follow Up Level 4 [facility], [address] [place] [address], [place], [place], [id number], [place] tel:[phone] [facility] Spondylosis w/o myelopathy or radiculopathy, lumbar region Manuel Sorensen. [address] [place] [address], [address] [place] [address], [place], [address], [place]. tel:[phone] MD_Follow Up Level 4 [facility], [address] [place] [address], [place], [place], [id number], [place] tel:[phone] [facility] Spondylosis w/o myelopathy or radiculopathy, lumbar region Treglia Hellen. [address] [place] [address], [id number], . tel:[phone] MD_Follow Up Level 4 [facility], [address] [place] [address], [place], [place], [id number], [place] tel:[phone] [facility] Radiculopathy, sacral and sacrococcygeal region Treglia Hellen. [address] [place] [address], [id number], [place]. tel:[phone] MD_Follow Up Level 4 [facility], [address] [place] [address], [place], [place], [id number], [place] tel:[phone] [facility] Spondylosis w/o myelopathy or radiculopathy, lumbar region Treglia Hellen. [address] [place] [address], [id number], [place]. tel:[phone] MD_Follow Up Level 4 [facility], [address] [place] [address], [place], [place], [id number], [place] tel:[phone] [facility] Spondylosis w/o myelopathy or radiculopathy, lumbar region Treglia Hellen. [address] [place] [address], [id number], [place]. tel:[phone] MD_Follow Up Level 4 [facility], [address] [place] [address], [place], [place], [id number], [place] tel:[phone] [facility] Radiculopathy, sacral and sacrococcygeal region Treglia Hellen. [address] [place] [address], [id number], [place]. tel:[phone] MD_Follow Up Level 4 [facility], [address] [place] [address], [place], [place], [id number], [place] tel:[phone] [facility] Spondylosis w/o myelopathy or radiculopathy, lumbar region Treglia Hellen. [address] [place] [address], [id number], [place]. tel:[phone] MD_Follow Up Level 4 [facility], [address] [place] [address], [place], [place], [id number], [place] tel:[phone] [facility] Spondylosis w/o myelopathy or radiculopathy, lumbar region Treglia Hellen. [address] [place] [address], [id number], [place]. tel:[phone] MD_Follow Up Level 4 [facility], [address] [place] [address], [place], [place], [id number], [place] tel:[phone] [facility] Spondylosis w/o myelopathy or radiculopathy, lumbar region Treglia Hellen. [address] [place] [address], [id number], [place]. tel:[phone] MD_Follow Up Level 4 [facility], [address] [place] [address], [place], [place], [id number], [place] tel:[phone] [facility] Spondylosis w/o myelopathy or radiculopathy, lumbar region Treglia Hellen. [address] [place] [address], [id number], [place]. tel:[phone] MD_Follow Up Level 4 [facility], [address] [place] [address], [place], [place], [id number], [place] tel:[phone] [facility] Radiculopathy, sacral and sacrococcygeal region Treglia Hellen. [address] [place] [address], [id number], [place]. tel:[phone] [facility], [address] [place] [address], [place], [place], [id number], [place] tel:[phone] [facility] Radiculopathy, cervical region Anibal Rodriguez. [address] [place] [address], [place], [place], [id number], [place]. tel:[phone] [facility], [address] [place] [address], [place], [place], [id number], [place] tel:[phone] [facility] No Information Xiang Grewal. [address] [place] [address], [address] [place] [address], [place], [place], [id number], [place]. tel:[phone] [facility], [address] [place] [address], [place], [place], [id number], [place] tel:[phone] [facility] No Information [facility]. [address] [place] [address], [id number], [place]. tel:[phone] MD_Follow Up Level 4 [facility], [address] [place] [address], [place], [place], [id number], [place] tel:[phone] [facility] Spondylosis w/o myelopathy or radiculopathy, lumbar region Treglia Hellen. [address] [place] [address], [id number], [place]. tel:[phone] MD_Follow Up Level 4 [facility], [address] [place] [address], [place], [place], [id number], [place] tel:[phone] [facility] Radiculopathy, cervical region Octavio Brewer. [address] [place] [address], [place], [place], [id number], [place]. tel:[phone] [facility], [address] [place] [address], [place], [place], [id number], [place] tel:[phone] [facility] No Information Xiang Grewal. [address] [place] [address], [place], [place], [id number], [place]. tel:[phone] [facility], [address] [place] [address], [place], [place], [id number], [place] tel:[phone] [facility] Myalgia, other site Octavio Brewer. [address] [place] [address], [place], [place], [id number], [place]. tel:[phone] MD_Follow Up Level 4 [facility], [address] [place] [address], [place], [place], [id number], [place] tel:[phone] [facility] Radiculopathy, sacral and sacrococcygeal region Treglia Hellen. [address] [place] [address], [id number], [place]. tel:[phone] [facility], [address] [place] [address], [place], [place], [id number], [place] tel:[phone] [facility] No Information Xiang Grewal. [address] [place] [address], [place], [place], [id number], [place]. tel:[phone] MD_Follow Up Level 4 [facility], [address] [place] [address], [place], [place], [id number], [place] tel:[phone] [facility] Spondylosis w/o myelopathy or radiculopathy, lumbar region Aron Macedo. [address] [place] [address], [id number], [place]. tel:[phone] [facility], [address] [place] [address], [place], [place], [id number], [place] tel:[phone] [facility] Myalgia, other site Octavio Brewer. [address] [place] [address], [place], [place], [id number], [place]. tel:[phone] [facility], [address] [place] [address], [place], [place], [id number], [place] tel:[phone] [facility] No Information Xiang Grewal. [address] [place] [address], [place], [place], [id number], [place]. tel:[phone] MD_Follow Up Level 4 [facility], [address] [place] [address], [place], [place], [id number], [place] tel:[phone] [facility] Spondylosis w/o myelopathy or radiculopathy, lumbar region Aron Macedo. [address] [place] [address], [id number], [place]. tel:[phone] [facility], [address] [place] [address], [place], [place], [id number], [place] tel:[phone] [facility] No Information Xiang Grewal. [address] [place] [address], [place], [place], [id number], [place]. tel:[phone] MD_Follow Up Level 4 [facility], [address] [place] [address], [place], [place], [id number], [place] tel:[phone] [facility] Spondylosis w/o myelopathy or radiculopathy, lumbar region Duy Koch. [address] [place] [address], [address], [place]. tel:[phone] MD_Follow Up Level 4 [facility], [address] [place] [address], [place], [place], [id number], [place] tel:[phone] [facility] Spondylosis w/o myelopathy or radiculopathy, lumbar region Rafalcase Macedo. [address] [place] [address], [id number], [place]. tel:[phone] MD_Follow Up Level 4 [facility], [address] [place] [address], [place], [place], [id number], [place] tel:[phone] [facility] Spondylosis w/o myelopathy or radiculopathy, lumbar region Alba Shields. [address] [place] [address], [place], [place], [id number], [place]. tel:[phone] MD_Follow Up Level 4 [facility], [address] [place] [address], [place], [place], [id number], [place] tel:[phone] [facility] Radiculopathy, sacral and sacrococcygeal region Zenaidajudit Archerna. [address] [place] [address], [id number], [place]. tel:[phone] [facility], [address] [place] [address], [place], [place], [id number], [place] tel:[phone] [facility] Myalgia, other site Octavio Brewer. [address] [place] [address], [place], [place], [id number], [place]. tel:[phone] MD_Follow Up Level 4 [facility], [address] [place] [address], [place], [place], [id number], [place] tel:[phone] [facility] Spondylosis w/o myelopathy or radiculopathy, lumbar region Manuel Sorensen. [address] [place] [address], [place], [address], [place]. tel:[phone] Behavioral (Psych) 60 mins [facility], [address] [place] [address], [place], [place], [id number], [place] tel:[phone] [facility] Spondylosis w/o myelopathy or radiculopathy, lumbar regionBinge eating disorderPain disorder w/ related psychological factors Riki Jamison. [address] [place] [address], [facility] [place], . tel:[phone] _Follow Up Level 4 [facility], [address] [place] [address], [place], [place], [id number], [phone] [facility] Spondylosis w/o myelopathy or radiculopathy, lumbar region Manuel Sorensen. [address] [place] [address], [address] [place] [address], [place], [place], [facility], . tel:[phone] MD_Follow Up Level 4 [facility], [address] [place] [address], [place], [place], [id number], tel:[phone] [facility] Spondylosis w/o myelopathy or radiculopathy, lumbar region Manuel Sorensen. [address] [place] [address], [place], [place], [facility], . tel:[phone] MD_Follow Up Level 4 [facility], [address] [place] [address], [place], [place], [id number], tel:[phone] [facility] Body mass index (BMI) 60.0-69.9, adultSpondylosis w/o myelopathy or radiculopathy, lumbar region Aron Macedo. [address] [place] [address], [address] [place] [address], . tel:[phone] Behavioral (Psych) 30 mins [facility], [address] [place] [address], [place], [place], [id number], [place] [phone] [facility] Spondylosis w/o myelopathy or radiculopathy, lumbar regionPain disorder w/ related psychological factorsBinge eating disorder Riki Jamison. [address] [place] [address], [facility], . tel:[phone] Behavioral (Psych) 30 mins [facility], [address] [place] [address], [place], [place], [id number], [phone] [facility] Spondylosis w/o myelopathy or radiculopathy, lumbar regionPain disorder w/ related psychological factorsBinge eating disorder Riki Jamison. [address] [place] [address], [facility], . tel:[phone] MD_Follow Up Level 4 [facility], [address] [place] [address], [place], [place], [id number], [phone] [facility] Spondylosis w/o myelopathy or radiculopathy, lumbar region Zenaidajudit Macedo. [address] [place] [address], [id number], . tel:[phone] Behavioral (Psych) 60 mins [facility], [address] [place] [address], [place], [address] [place] [address], [phone] [facility] Spondylosis w/o myelopathy or radiculopathy, lumbar regionPain disorder w/ related psychological factorsBinge eating disorder Riki Jamison. [address] [place] [address], [facility], . tel:[phone] MD_Follow Up Level 4 [facility], [address] [place] [address], [place], [place], [address] [place] [address], [phone] [facility] Spondylosis w/o myelopathy or radiculopathy, lumbar region Manuel Sorensen. [address] [place] [address], [place], [place], [facility], . tel:[phone] MD_Follow Up Level 4 [facility], [address] [place] [address], [place], [place], [id number], [phone] [facility] Spondylosis w/o myelopathy or radiculopathy, lumbar region Manuel Sorensen. [address] [place] [address], [place], [place], [facility], . tel:[phone] Behavioral (Psych) 60 mins [facility], [address] [place] [address], [place], [place], [id number], [phone] [facility] Spondylosis w/o myelopathy or radiculopathy, lumbar regionPain disorder w/ related psychological factorsBinge eating disorder Riki Jamison. [address] [place] [address], [facility], . tel:[phone] _Follow Up Level 4 [facility], [address] [place] [address], [place], [place], [id number], tel:[phone] [facility] Spondylosis w/o myelopathy or radiculopathy, lumbar region Manuel Sorensen. [address] [place] [address], [place], [facility], . tel:[phone] MD_Follow Up Level 4 [facility], [address] [place] [address], [place], [address] [place] [address], tel:[phone] [facility] Spondylosis w/o myelopathy or radiculopathy, lumbar region Aron Macedo. [address] [place] [address], [address] [place] [address], . tel:[phone] _Follow Up Level 4 [facility], [address] [place] [address], [place], [address] [place] [address], tel:[phone] [facility] Spondylosis w/o myelopathy or radiculopathy, lumbar region Manuel Sorensen. [address] [place] [address], [place], [facility], . tel:[phone] _Follow Up Level 4 [facility], [address] [place] [address], [place], [address] [place] [address], tel:[phone] [facility] Spondylosis w/o myelopathy or radiculopathy, lumbar region Manuel Sorensen. [address] [place] [address], [place], [facility], . tel:[phone] Behavioral (Psych) 60 mins [facility], [address] [place] [address], [place], [place], [id number], tel:[phone] [facility] Spondylosis w/o myelopathy or radiculopathy, lumbar regionPain disorder w/ related psychological factorsBinge eating disorder Riki Jamison. [address] [place] [address], [facility], . tel:[phone] Care management services 20 Mins [facility], [address] [place] [address], [place], [place], [id number], tel:[phone] [facility] USP (current) use of opiate analgesic Xiang Grewal. [address] [place] [address], [place], [place], [id number], . tel:[phone] [facility], [address] [place] [address], [place], [place], [id number], [place] tel:[phone] [facility] Radiculopathy, sacral and sacrococcygeal region Anibal Rodriguez. [address] [place] [address], [place], [place], [id number], [place]. tel:[phone] [facility], [address] [place] [address], [place], [place], [id number], tel:[phone] [facility] No Information [facility]. [address] [place] [address], [id number], . 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 [address] [place] [address], [place], [place], [id number], . tel:[phone] MD_Follow Up Level 4 [facility], [address] [place] [address], [place], [place], [id number], [place] tel:[phone] [facility] Spondylosis w/o myelopathy or radiculopathy, lumbar region Aron Macedo. [address] [place] [address], [id number], . tel:[phone] MD_Follow Up Level 4 [facility], [address] [place] [address], [place], [place], [id number], [place] tel:[phone] [facility] Spondylosis w/o myelopathy or radiculopathy, lumbar region Manuel Sorensen. [address] [place] [address], [place], [address], [place]. tel:[phone] MD_Follow Up Level 4 [facility], [address] [place] [address], [place], [place], [id number], [place] tel:[phone] [facility] Spondylosis w/o myelopathy or radiculopathy, lumbar region Manuel Sorensen. [address], [place], [address], [place]. tel:[phone] MD_Follow Up Level 4 [facility], [address] [place] [address], [place], [place], [id number], [place] tel:[phone] [facility] Spondylosis w/o myelopathy or radiculopathy, lumbar region Alba Shields. [address] [place] [address], [place], [place], [id number], [place]. tel:[phone] MD_Follow Up Level 4 [facility], [address] [place] [address], [place], [place], [id number], [place] tel:[phone] [facility] Spondylosis w/o myelopathy or radiculopathy, lumbar region Alba Shields. [address] [place] [address], [place], [place], [id number], [place]. tel:[phone] [facility], [address] [place] [address], [place], [place], [id number], [place] tel:[phone] [facility] Radiculopathy, cervical region Anibal Rodriguez. [address] [place] [address], [place], [place], [id number], [place]. tel:[phone] [facility], [address] [place] [address], [place], [place], [id number], [place] tel:[phone] [facility] No Information [facility]. [address] [place] [address], [place], [place], [id number], [place]. tel:[phone] MD_Follow Up Level 3 [facility], [address] [place] [address], [place], [place], [id number], [place] tel:[phone] [facility] Radiculopathy, cervical region Anibal Rodriguez. [address] [place] [address], [place], [place], [id number], [place]. tel:[phone] [facility], [address] [place] [address], [place], [place], [id number], [place] tel:[phone] [facility] Radiculopathy, cervical region Anibal Rodriguez. [address] [place] [address], [place], [place], [id number], [place]. tel:[phone] MD_Follow Up Level 4 [facility], [address] [place] [address], [place], [place], [id number], [place] tel:[phone] [facility] Spondylosis w/o myelopathy or radiculopathy, lumbar region Alba Shields. [address] [place] [address], [place], [place], [id number], [place]. tel:[phone] [facility], [address] [place] [address], [place], [place], [id number], [place] tel:[phone] [facility] No Information [facility]. [address] [place] [address], [id number], [place]. tel:[phone] MD_Follow Up Level 4 [facility], [address] [place] [address], [place], [place], [id number], [place] tel:[phone] [facility] Radiculopathy, cervical region Octavio Brewer. [address] [place] [address], [place], [place], [id number], [place]. tel:[phone] [facility], [address] [place] [address], [place], [place], [id number], [place] tel:[phone] [facility] Myalgia, other site Octavio Brewer. [address] [place] [address], [place], [place], [id number], [place]. tel:[phone] MD_Follow Up Level 4 [facility], [address] [place] [address], [place], [place], [id number], [place] tel:[phone] [facility] Body mass index (BMI) 50-59.9 , adultSpondylosis w/o myelopathy or radiculopathy, lumbar region Aron Hellen. [address] [place] [address], [place], [place], [id number], [place]. tel:[phone] [facility], [address] [place] [address], [place], [place], [id number], [place] tel:[phone] [facility] Myalgia, other site Silk Osman. [address] [place] [address], [place], [place], [id number], [place]. tel:[phone] MD_Follow Up Level 4 [facility], [address] [place] [address], [place], [place], [id number], [place] tel:[phone] [facility] Spondylosis w/o myelopathy or radiculopathy, lumbar region Alba Shields. [address] [place] [address], [place], [place], [id number], [place]. tel:[phone] [facility], [address] [place] [address], [place], [place], [id number], [place] tel:[phone] [facility] Trochanteric bursitis, right hip Silk Osman. [address] [place] [address], [place], [place], [id number], [place]. tel:[phone] [facility], [address] [place] [address], [place], [place], [id number], [place] tel:[phone] [facility] Myalgia Silk Osman. [address] [place] [address], [place], [place], [id number], [place]. tel:[phone] [facility], [address] [place] [address], [place], [place], [id number], [place] tel:[phone] [facility] Trochanteric bursitis, left hip Silk Osman. [address] [place] [address], [place], [place], [id number], [place]. tel:[phone] MD_Follow Up Level 4 [facility], [address] [place] [address], [place], [place], [id number], [place] tel:[phone] [facility] Radiculopathy, sacral and sacrococcygeal region Alba Shields. [address] [place] [address], [place], [place], [id number], . tel:[phone] Behavioral (Psych) 45 mins [facility], [address] [place] [address], [place], [place], [id number], tel:[phone] [facility] Spondylosis w/o myelopathy or radiculopathy, lumbar regionPain disorder w/ related psychological factors Brittanie Jordan. [address] [place] [address], [facility], . tel:[phone] MD_Follow Up Level 4 [facility], [address] [place] [address], [place], [place], [id number], tel:[phone] [facility] Spondylosis w/o myelopathy or radiculopathy, lumbar region Alba Shields. [address] [place] [address], [place], [place], [id number], . tel:[phone] MD_Follow Up Level 4 [facility], [address] [place] [address], [place], [place], [id number], tel:[phone] [facility] Body mass index (BMI) 50-59.9 , adultSpondylosis w/o myelopathy or radiculopathy, lumbar region Aron Macedo. [address] [place] [address], [id number], . tel:[phone] Behavioral (Psych) 30 mins [facility], [address] [place] [address], [place], [place], [id number], [place] [phone] [facility] Spondylosis w/o myelopathy or radiculopathy, lumbar regionPain disorder w/ related psychological factors Brittanie Jordan. [address] [place], [place], [facility], . tel:[phone] Behavioral (Psych) 45 mins [facility], [address] [place] [address], [place], [place], [id number], [place] tel:[phone] [facility] Spondylosis w/o myelopathy or radiculopathy, lumbar regionPain disorder w/ related psychological factors Brittanie Jordan. [address] [place] [address], [facility], . tel:[phone] _Follow Up Level 4 [facility], [address] [place] [address], [place], [place], [id number], tel:[phone] [facility] Radiculopathy, sacral and sacrococcygeal region Augustin Mcdonough. [address] [place], [place], [facility], . tel:[phone] _Follow Up Level 4 [facility], [address] [place] [address], [place], [place], [address] [place] [address], tel:[phone] [facility] Spondylosis w/o myelopathy or radiculopathy, lumbar region Alba Shields. [address] [place] [address], [place], [place], [address] [place] [address], . tel:[phone] Behavioral (Psych) 45 mins [facility], [address] [place] [address], [place], [place], [id number], tel:[phone] [facility] Spondylosis w/o myelopathy or radiculopathy, lumbar regionPain disorder w/ related psychological factors Brittanie Jordan. [address] [place] [address], [facility], . tel:[phone] _Follow Up Level 4 [facility], [address] [place] [address], [place], [place], [address] [place] [address], tel:[phone] [facility] Spondylosis w/o myelopathy or radiculopathy, lumbar region Alba Shields. [address] [place] [address], [place], [place], [id number], . tel:[phone] Behavioral (Psych) 30 mins [facility], [address] [place] [address], [place], [place], [id number], tel:[phone] [facility] Spondylosis w/o myelopathy or radiculopathy, lumbar regionPain disorder w/ related psychological factors Brittanie Jordan. [address] [place], [place], [facility], . tel:[phone] _Follow Up Level 4 [facility], [address] [place] [address], [place], [place], [id number], tel:[phone] [facility] Spondylosis w/o myelopathy or radiculopathy, lumbar region Augustin Mcdonough. [address] [place], [place], [facility], . tel:[phone] _Follow Up Level 4 [facility], [address] [place] [address], [place], [place], [id number], tel:[phone] [facility] Spondylosis w/o myelopathy or radiculopathy, lumbar region Alba Shields. [address] [place] [address], [place], [place], [id number], . tel:[phone] Behavioral (Psych) 45 mins [facility], [address] [place] [address], [place], [place], [id number], tel:[phone] [facility] Spondylosis w/o myelopathy or radiculopathy, lumbar regionPain disorder w/ related psychological factors Brittanie Jordan. [address] [place] [address], [facility], . tel:[phone] _Follow Up Level 4 [facility], [address] [place] [address], [place], [place], [id number], tel:[phone] [facility] Spondylosis w/o myelopathy or radiculopathy, lumbar region Alba Shields. [address] [place] [address], [place], [place], [id number], . tel:[phone] Behavioral (Psych) 45 mins [facility], [address] [place] [address], [place], [place], [id number], tel:[phone] [facility] Spondylosis w/o myelopathy or radiculopathy, lumbar regionPain disorder w/ related psychological factors Brittanie Cooper [address] [place], [place], [facility], . tel:[phone] MD_Follow Up Level 4 [facility], [address] [place] [address], [place], [place], [id number], tel:[phone] [facility] Body mass index (BMI) 50-59.9 , adultRadiculopathy, sacral and sacrococcygeal region Alba Shields. [address] [place] [address], [address] [place] [address], [place], [place], [id number], . tel:[phone] Behavioral (Psych) 45 mins [facility], [address] [place] [address], [place], [place], [id number], [place] tel:[phone] [facility] Spondylosis w/o myelopathy or radiculopathy, lumbar regionPain disorder w/ related psychological factors Brittanie Jordan. [address] [place] [address], [facility], . tel:[phone] MD_Follow Up Level 4 [facility], [address] [place] [address], [place], [place], [id number], tel:[phone] [facility] Spondylosis w/o myelopathy or radiculopathy, lumbar region Jhoan Donaldson. [address] [place] [address], [id number], . tel:[phone] Behavioral (Psych) 45 mins [facility], [address] [place] [address], [place], [place], [id number], tel:[phone] [facility] Spondylosis w/o myelopathy or radiculopathy, lumbar regionPain disorder w/ related psychological factors Brittanie Jordan. [address] [place], [place], [facility], . tel:[phone] MD_Follow Up Level 4 [facility], [address] [place] [address], [place], [place], [id number], tel:[phone] [facility] Radiculopathy, sacral and sacrococcygeal region Anibal Rodriguez. [address] [place] [address], [address] [place] [address], [place], [place], [id number], . tel:[phone] MD_Follow Up Level 4 [facility], [address] [place] [address], [place], [place], [id number], tel:[phone] [facility] Spondylosis w/o myelopathy or radiculopathy, lumbar region Jhoan Donaldson. [address] [place] [address], [id number], . tel:[phone] Behavioral (Psych) 30 mins [facility], [address] [place] [address], [place], [place], [id number], [place] [phone] [facility] Spondylosis w/o myelopathy or radiculopathy, lumbar regionPain disorder w/ related psychological factors Brittanie Jordan. [address] [place] [address], [facility], . tel:[phone] _Follow Up Level 4 [facility], [address] [place] [address], [place], [place], [id number], tel:[phone] [facility] Spinal stenosis, lumbar region Jhoan Donaldson. [address] [place] [address], [id number], . tel:[phone] Behavioral (Psych) 45 mins [facility], [address] [place] [address], [place], [place], [id number], tel:[phone] [facility] Spondylosis w/o myelopathy or radiculopathy, lumbar regionPain disorder w/ related psychological factors Brittanie Jordan. [address] [place] [address], [facility], . tel:[phone] [facility], [address] [place] [address], [place], [place], [id number], [place] tel:[phone] [facility] Radiculopathy, sacral and sacrococcygeal regionSpondylosis w/o myelopathy or radiculopathy, lumbar regionSpinal stenosis, lumbar region Eddie Chavez. [address] [place] [address], [address] [place] [address], [place], [place], [id number], . tel:[phone] [facility], [address] [place] [address], [place], [place], [id number], tel:[phone] [facility] Spinal stenosis, lumbar region Anibal Rodriguez. [address] [place] [address], [place], [place], [id number], . tel:[phone] MD_Follow Up Level 4 [facility], [address] [place] [address], [place], [place], [id number], tel:[phone] [facility] Spondylosis w/o myelopathy or radiculopathy, lumbar region Jhoan Donaldson. [address] [place] [address], [id number], . tel:[phone] [facility], [address] [place] [address], [place], [place], [id number], [place] tel:[phone] [facility] Spinal stenosis, lumbar regionRadiculopathy, sacral and sacrococcygeal regionSpondylosis w/o myelopathy or radiculopathy, lumbar region Eddie Chavez. [address] [place] [address], [place], [place], [id number], . tel:[phone] Behavioral (Psych) 30 mins [facility], [address] [place] [address], [place], [place], [id number], [place] tel:[phone] [facility] Spondylosis w/o myelopathy or radiculopathy, lumbar regionPain disorder w/ related psychological factors Brittanie Jordan. [address] [place] [address], [facility], . tel:[phone] [facility], [address] [place] [address], [place], [place], [id number], tel:[phone] [facility] No Information [facility]. [address] [place] [address], [id number], . tel:[phone] Behavioral (Psych) 45 mins [facility], [address] [place] [address], [place], [place], [id number], tel:[phone] [facility] Spondylosis w/o myelopathy or radiculopathy, lumbar regionPain disorder w/ related psychological factors Brittanie Jordan. [address] [place] [address], [address], . tel:[phone] _Follow Up Level 4 [facility], [address] [place], [place] [address], [place], [place], [id number], [place] tel:[phone] [facility] Spondylosis w/o myelopathy or radiculopathy, lumbar region Jhoan Anika. [address] [place] [address], [id number], . tel:[phone] [facility], [address] [place] [address], [place], [place], [id number], [place] tel:[phone] [facility] Spinal stenosis, lumbar regionSpondylosis w/o myelopathy or radiculopathy, lumbar region Eddie Chavez. [address] [place] [address], [address] [place] [address], [place], [place], [id number], [place]. tel:[phone] _Follow Up Level 4 [facility], [address] [place] [address], [place], [place], [id number], [place] tel:[phone] [facility] Spondylosis w/o myelopathy or radiculopathy, lumbar region Staples Anika. [address] [place] [address], [id number], [place]. tel:[phone] [facility], [address] [place] [address], [place], [place], [id number], [place] tel:[phone] [facility] No Information Xiang Grewal. [address] [place] [address], [place], [place], [id number], [place]. tel:[phone] [facility], [address] [place] [address], [place], [place], [id number], [place] tel:[phone] [facility] Spondylosis w/o myelopathy or radiculopathy, lumbar region Anibal Rodriguez. [address] [place] [address], [place], [place], [id number], [place]. tel:[phone] [facility], [address] [place] [address], [place], [place], [id number], [place] tel:[phone] [facility] No Information Surgery Center [facility] [address] [place] [address], [id number], [place]. tel:[phone] [facility], [address] [place] [address], [place], [place], [id number], [place] tel:[phone] [place] [address] Spondylosis w/o myelopathy or radiculopathy, lumbar region Anibal Michael. [address] [place] [address], [address] [place] [address], [place], [place], [id number], [place]. tel:[phone] [facility], [address] [place] [address], [place], [place], [id number], [place] tel:[phone] [facility] No Information Surgery Center [facility]. [address] [place] [address], [id number], [place]. tel:[phone] [facility], [address] [place] [address], [place], [place], [id number], [place] tel:[phone] [facility] Spinal stenosis, lumbar regionRadiculopathy, sacral and sacrococcygeal regionSpondylosis w/o myelopathy or radiculopathy, lumbar region Eddie Chavez. [address] [place] [address], [address] [place] [address], [place], [place], [id number], [place]. tel:[phone] MD_Follow Up Level 5 [facility], [address] [place] [address], [place], [place], [id number], [place] tel:[phone] [facility] Spondylosis w/o myelopathy or radiculopathy, lumbar region Aron Macedo. [address] [place] [address], [id number], [place]. tel:[phone] Behavioral (Psych) 45 mins [facility], [address] [place] [address], [place], [place], [id number], [place] tel:[phone] [facility] Spondylosis w/o myelopathy or radiculopathy, lumbar regionSpinal stenosis, lumbar regionRadiculopathy, sacral and sacrococcygeal regionAnxietyBinge eating disorderDepression Sharon Estrella. [address] [place] [address], [id number], [place]. tel:[phone] MD_Follow Up Level 4 [facility], [address] [place] [address], [place], [place], [id number], tel:[phone] [facility] Spinal stenosis, lumbar region Octavio Brewer. [address] [place] [address], [place], [place], [id number], . tel:[phone] [facility], [address] [place] [address], [place], [place], [id number], tel:[phone] [facility] Radiculopathy, sacral and sacrococcygeal region Anibal Rodriguez. [address] [place] [address], [place], [place], [id number], . tel:[phone] [facility], [address] [place] [address], [place], [place], [id number], tel:[phone] [facility] No Information Surgery [address], [id number], . tel:[phone] NP_Office Visit Level 5 [facility], [address] [place] [address], [place], [place], [id number], tel:[phone] [facility] Back Pain (chief complaint) Body mass index (BMI) 50-59.9 , adultHypertension, UnspecifiedSpinal stenosis, lumbar regionSpondylosis w/o myelopathy or radiculopathy, lumbar region Octavio Brewer. [address] [place] [address], [place], [place], [id number], . tel:[phone] Family History Family Member Type Diagnosis Age At Onset Family h/o Problem (finding) High Blood Pressure Family h/o Problem (finding) Family h/o Problem (finding) Heart Disease Family h/o Problem (finding) Migraines Payers Payer name Insurance type Covered constitution party ID Authorleeannea shira(s) Medicare [id number] BC Med[employer] BL [id number] Social History Type Description Quantity Date Captured [...]
== END 2024-11-05 11:16 | disposition home or self-care (01) ==
LOC: HO.HNS 09:52
PROVIDERS: PCP Family Medicine; Referring Provider Nurse Practitioner Family; Visit Provider Physician Assistant
DX: M48.02 Spinal stenosis, cervical region (principal); M54.12 Radiculopathy, cervical region
CPT/HCPCS: 99204

== ENCOUNTER → 2024-11-05 09:52 | Outpatient (BNVA) | payer MEDICARE, SELFPAY | PROVIDERS: PCP Family Medicine; Referring Provider Nurse Practitioner Family; Visit Provider Physician Assistant | DX: M48.02 Spinal stenosis, cervical region (principal); M54.12 Radiculopathy, cervical region | CPT/HCPCS: 99202 ==

== ENCOUNTER 2024-11-15 07:33 | Outpatient (REF) | payer MEDICARE, SELFPAY ==
--- OUTSIDE RECORDS SUMMARY | 2023-01-31 06:20 | XMS_ITS | Continuity of Care Document ---
Author Organization [facility] Address [address] [place] [address] [address] [place] [address] Phone Care Team Providers Care Education Coordinator Name Role Phone Alba BERMEO Alyson Unavailable [...] route every day 25 MG - Active CLARITIN (unknown strength) take 1 tablet by oral route every day as needed Not Available - Active CALCIUM CITRATE (unknown strength) take 1 tablet by oral route 3 times every day Not Available - Active ProAir HFA 90 [...] TP_Inj_Trigger Point Rad_Ultrasound Guidance For Needle Place [facility] Injection, bupivicaine hydro Drug tests(s), presumptive, [...] f drug cla MD_Follow Up Level 4 [facility] Special Program Inj_Facet_Lumbar Inj_Facet_Lumbar_2nd Level Inj_Facet_Lumbar_3rd Level Facility_Inj_Facet_Lumbar Facility_Inj_Facet_Lumbar_2nd Level Facility_Inj_Facet_Lumbar_3rd Level Inj_Facet_Lumbar Inj_Facet_Lumbar_2nd Level Inj_Facet_Lumbar_3rd Level Facility_Inj_Facet_Lumbar Facility_Inj_Facet_Lumbar_2nd Level Facility_Inj_Facet_Lumbar_3rd Level PT_PPM Drug tests(s), presumptive, any number o f drug cla MD_Follow Up Level 5 Behavioral (Psych) 45 mins MD_Follow Up Level 4 Inj Epidural Lumbar Including Imaging Oh Facility Inj Epidrual Lumbar With Imagin g Drug tests(s), presumptive, any number o f drug cla NP_Office Visit Level 5 Advance Directives Directive Yes / No Effective Date File Name No Information Encounters Encounter Description Practice Location Reason(s) For Visit Diagnoses Date Provider MD_Follow Up Level 4 [facility], [address] [place] [address], [place], [place], [id number], tel:[phone] [facility] Spondylosis w/o myelopathy or radiculopathy, cervical region Alba Shields. [address] [place] [address], [place], [place], [id number], . tel:[phone] [facility], [address] [place] [address], [place], [place], [id number], tel:[phone] [facility] No Information Alba Shields. [address] [place] [address], [address] [place] [address], [place], [place], [id number], . tel:[phone] MD_Follow Up Level 4 [facility], [address] [place] [address], [place], [place], [id number], tel:[phone] [facility] Spondylosis w/o myelopathy or radiculopathy, cervical region Aron Macedo. [address] [place] [address], [id number], [place]. tel:[phone] MD_Follow Up Level 4 [facility], [address] [place] [address], [place], [place], [id number], tel:[phone] [facility] Spondylosis w/o myelopathy or radiculopathy, cervical region Aron Macedo. [address] [place] [address], [id number], [place]. tel:[phone] MD_Follow Up Level 4 [facility], [address] [place] [address], [place], [place], [id number], [place] tel:[phone] [facility] Spondylosis w/o myelopathy or radiculopathy, cervical region Treglia Hellen. [address] [place] [address], [id number], [place]. tel:[phone] MD_Follow Up Level 4 [facility], [address] [place] [address], [place], [place], [id number], [place] tel:[phone] [facility] Spondylosis w/o myelopathy or radiculopathy, lumbar region Treglia Hellen. [address] [place] [address], [id number], [place]. tel:[phone] MD_Follow Up Level 4 [facility], [address] [place] [address], [place], [place], [id number], [place] tel:[phone] [facility] Body mass index (BMI) 50-59.9 , adultSpondylosis w/o myelopathy or radiculopathy, cervical region Treglia Hellen. [address] [place] [address], [id number], [place]. tel:[phone] MD_Follow Up Level 4 [facility], [address] [place] [address], [place], [place], [id number], [place] tel:[phone] [facility] Spondylosis w/o myelopathy or radiculopathy, cervical region Treglia Hellen. [address] [place] [address], [id number], [place]. tel:[phone] MD_Follow Up Level 4 [facility], [address] [place] [address], [place], [place], [id number], [place] tel:[phone] [facility] Spondylosis w/o myelopathy or radiculopathy, cervical region Treglia Hellen. [address] [place] [address], [id number], [place]. tel:[phone] MD_Follow Up Level 4 [facility], [address] [place] [address], [place], [place], [id number], [place] tel:[phone] [facility] Spondylosis w/o myelopathy or radiculopathy, cervical region Lares Brianne. [address] [place] [address], [address] [place] [address], [place], [place], [id number], [place]. tel:[phone] [facility], [address] [place] [address], [place], [place], [id number], [place] tel:[phone] [facility] Spondylosis w/o myelopathy or radiculopathy, cervical region Arnaud Decker. [address], [place], [place], [id number], [place]. tel:[phone] [facility], [address] [place] [address], [place], [place], [id number], [place] tel:[phone] [facility] No Information [facility]. [address] [place] [address], [id number], . tel:[phone] MD_Follow Up Level 4 [facility], [address] [place] [address], [place], [place], [id number], [place] tel:[phone] [facility] Spondylosis w/o myelopathy or radiculopathy, cervical region Zenaidaa Hellen. [address] [place] [address], [id number], . tel:[phone] MD_Follow Up Level 4 [facility], [address] [place] [address], [place], [place], [id number], [place] tel:[phone] [facility] Spondylosis w/o myelopathy or radiculopathy, cervical region Treglia Hellen. [address] [place] [address], [id number], [place]. tel:[phone] MD_Follow Up Level 3 [facility], [address] [place] [address], [place], [place], [id number], [place] tel:[phone] [facility] Spondylosis w/o myelopathy or radiculopathy, cervical region Treglia Hellen. [address] [place] [address], [id number], [place]. tel:[phone] [facility], [address] [place] [address], [place], [place], [id number], [place] tel:[phone] [place] [address] No Information Rafallia Hellen. [address] [place] [address], [id number], [place]. tel:[phone] MD_Follow Up Level 4 [facility], [address] [place] [address], [place], [place], [id number], [place] tel:[phone] [facility] Spondylosis w/o myelopathy or radiculopathy, cervical region Rafallia Hellen. [address] [place] [address], [id number], [place]. tel:[phone] [facility], [address] [place] [address], [place], [place], [id number], [place] tel:[phone] [facility] Spondylosis w/o myelopathy or radiculopathy, cervical region Arnaud Decker. [address] [place] [address], [facility], [place], [place], [id number], [place]. tel:[phone] [facility], [address] [place] [address], [place], [place], [id number], [place] tel:[phone] [facility] No Information [facility]. [address] [place] [address], [id number], [place]. tel:[phone] MD_Follow Up Level 3 [facility], [address] [place] [address], [place], [place], [id number], [place] tel:[phone] [facility] Spondylosis w/o myelopathy or radiculopathy, lumbar region Rafallia Hellen. [address] [place] [address], [id number], [place]. tel:[phone] MD_Follow Up Level 3 [facility], [address] [place] [address], [place], [place], [id number], [place] tel:[phone] [facility] Radiculopathy, sacral and sacrococcygeal region Xiang Grewal. [address] [place] [address], [place], [place], [id number], [place]. tel:[phone] [facility], [address] [place] [address], [place], [place], [id number], [place] tel:[phone] [facility] Spondylosis w/o myelopathy or radiculopathy, cervical region Arnaud Brianne. 281 [facility], [address] [place] [address], [place], [place], [id number], [place]. tel:[phone] [facility], [address] [place] [address], [place], [place], [id number], [place] tel:[phone] [facility] No Information [facility]. [address] [place] [address], [id number], . tel:[phone] MD_Follow Up Level 4 [facility], [address] [place] [address], [place], [place], [id number], [place] tel:[phone] [facility] Spondylosis w/o myelopathy or radiculopathy, lumbar region Treglia Hellen. [address] [place] [address], [id number], [place]. tel:[phone] MD_Follow Up Level 4 [facility], [address] [place] [address], [place], [place], [id number], [place] tel:[phone] [facility] Radiculopathy, sacral and sacrococcygeal region Treglia Hellen. [address] [place] [address], [id number], [place]. tel:[phone] [facility], [address] [place] [address], [place], [place], [id number], [place] tel:[phone] [facility] Myalgia, other site Treglia Hellen. [address] [place] [address], [id number], [place]. tel:[phone] [facility], [address] [place] [address], [place], [place], [id number], [place] tel:[phone] [facility] Myalgia, other site Treglia Hellen. [address] [place] [address], [id number], [place]. tel:[phone] MD_Follow Up Level 4 [facility], [address] [place] [address], [place], [place], [id number], [place] tel:[phone] [facility] Spondylosis w/o myelopathy or radiculopathy, lumbar region Treglia Hellen. [address] [place] [address], [id number], [place]. tel:[phone] MD_Follow Up Level 4 [facility], [address] [place] [address], [place], [place], [id number], [place] tel:[phone] [facility] Spondylosis w/o myelopathy or radiculopathy, lumbar region Alba Shields. [address] [place] [address], [address] [place] [address], [place], [place], [id number], [place]. tel:[phone] [facility], [address] [place] [address], [place], [place], [id number], [place] tel:[phone] [facility] Myalgia, other site Treglia Hellen. [address] [place] [address], [id number], [place]. tel:[phone] MD_Follow Up Level 4 [facility], [address] [place] [address], [place], [place], [id number], [place] tel:[phone] [facility] Radiculopathy, sacral and sacrococcygeal region Treglia Hellen. [address] [place] [address], [id number], [place]. tel:[phone] [facility], [address] [place] [address], [place], [place], [id number], [place] tel:[phone] [facility] Myalgia, other site Treglia Hellen. [address] [place] [address], [id number], [place]. tel:[phone] MD_Follow Up Level 4 [facility], [address] [place] [address], [place], [place], [id number], [place] tel:[phone] [facility] Spondylosis w/o myelopathy or radiculopathy, lumbar region Treglia Hellen. [address] [place] [address], [id number], [place]. tel:[phone] [facility], [address] [place] [address], [place], [place], [id number], [place] tel:[phone] [facility] Body mass index (BMI) 50-59.9 , adultMyalgia, other site Treglia Hellen. [address] [place] [address], [id number], [place]. tel:[phone] [facility], [address] [place] [address], [place], [place], [id number], [place] tel:[phone] [facility] No Information Xiang Grewal. [address] [place] [address], [address] [place] [address], [place], [place], [id number], [place]. tel:[phone] MD_Follow Up Level 4 [facility], [address] [place] [address], [place], [place], [id number], [place] tel:[phone] [facility] Spondylosis w/o myelopathy or radiculopathy, lumbar region Treglia Hellen. [address] [place] [address], [id number], [place]. tel:[phone] MD_Follow Up Level 4 [facility], [address] [place] [address], [place], [place], [id number], [place] tel:[phone] [facility] Spondylosis w/o myelopathy or radiculopathy, lumbar region Treglia Hellen. [address] [place] [address], [id number], [place]. tel:[phone] MD_Follow Up Level 4 [facility], [address] [place] [address], [place], [place], [id number], [place] tel:[phone] [facility] Radiculopathy, sacral and sacrococcygeal region Treglia Hellen. [address] [place] [address], [id number], [place]. tel:[phone] MD_Follow Up Level 4 [facility], [address] [place] [address], [place], [place], [id number], [place] tel:[phone] [facility] Spondylosis w/o myelopathy or radiculopathy, lumbar region Treglia Hellen. [address] [place] [address], [id number], . tel:[phone] MD_Follow Up Level 4 [facility], [address] [place] [address], [place], [place], [id number], [place] tel:[phone] [facility] Spondylosis w/o myelopathy or radiculopathy, lumbar region Treglia Hellen. [address] [place] [address], [id number], [place]. tel:[phone] MD_Follow Up Level 4 [facility], [address] [place] [address], [place], [place], [id number], [place] tel:[phone] [facility] Spondylosis w/o myelopathy or radiculopathy, lumbar region Treglia Hellen. [address] [place] [address], [id number], [place]. tel:[phone] MD_Follow Up Level 4 [facility], [address] [place] [address], [place], [place], [id number], [place] tel:[phone] [facility] Spondylosis w/o myelopathy or radiculopathy, lumbar region Manuel Sorensen. [address] [place] [address], [address] [place] [address], [place], [address], [place]. tel:[phone] MD_Follow Up Level 4 [facility], [address] [place] [address], [place], [place], [id number], [place] tel:[phone] [facility] Spondylosis w/o myelopathy or radiculopathy, lumbar region Treglia Hellen. [address] [place] [address], [id number], . tel:[phone] MD_Follow Up Level 4 [facility], [address] [place] [address], [place], [place], [id number], [place] tel:[phone] [facility] Radiculopathy, sacral and sacrococcygeal region Treglia Hellen. [address] [place] [address], [id number], [place]. tel:[phone] MD_Follow Up Level 4 [facility], [address] [place] [address], [place], [place], [id number], [place] tel:[phone] [facility] Spondylosis w/o myelopathy or radiculopathy, lumbar region Treglia Hellen. [address] [place] [address], [id number], [place]. tel:[phone] MD_Follow Up Level 4 [facility], [address] [place] [address], [place], [place], [id number], [place] tel:[phone] [facility] Spondylosis w/o myelopathy or radiculopathy, lumbar region Treglia Hellen. [address] [place] [address], [id number], [place]. tel:[phone] MD_Follow Up Level 4 [facility], [address] [place] [address], [place], [place], [id number], [place] tel:[phone] [facility] Radiculopathy, sacral and sacrococcygeal region Treglia Hellen. [address] [place] [address], [id number], [place]. tel:[phone] MD_Follow Up Level 4 [facility], [address] [place] [address], [place], [place], [id number], [place] tel:[phone] [facility] Spondylosis w/o myelopathy or radiculopathy, lumbar region Treglia Hellen. [address] [place] [address], [id number], [place]. tel:[phone] MD_Follow Up Level 4 [facility], [address] [place] [address], [place], [place], [id number], [place] tel:[phone] [facility] Spondylosis w/o myelopathy or radiculopathy, lumbar region Treglia Hellen. [address] [place] [address], [id number], [place]. tel:[phone] MD_Follow Up Level 4 [facility], [address] [place] [address], [place], [place], [id number], [place] tel:[phone] [facility] Spondylosis w/o myelopathy or radiculopathy, lumbar region Treglia Hellen. [address] [place] [address], [id number], [place]. tel:[phone] MD_Follow Up Level 4 [facility], [address] [place] [address], [place], [place], [id number], [place] tel:[phone] [facility] Spondylosis w/o myelopathy or radiculopathy, lumbar region Treglia Hellen. [address] [place] [address], [id number], [place]. tel:[phone] MD_Follow Up Level 4 [facility], [address] [place] [address], [place], [place], [id number], [place] tel:[phone] [facility] Radiculopathy, sacral and sacrococcygeal region Treglia Hellen. [address] [place] [address], [id number], [place]. tel:[phone] [facility], [address] [place] [address], [place], [place], [id number], [place] tel:[phone] [facility] Radiculopathy, cervical region Anibal Rodriguez. [address] [place] [address], [place], [place], [id number], [place]. tel:[phone] [facility], [address] [place] [address], [place], [place], [id number], [place] tel:[phone] [facility] No Information Xiang Grewal. [address] [place] [address], [address] [place] [address], [place], [place], [id number], [place]. tel:[phone] [facility], [address] [place] [address], [place], [place], [id number], [place] tel:[phone] [facility] No Information [facility]. [address] [place] [address], [id number], [place]. tel:[phone] MD_Follow Up Level 4 [facility], [address] [place] [address], [place], [place], [id number], [place] tel:[phone] [facility] Spondylosis w/o myelopathy or radiculopathy, lumbar region Treglia Hellen. [address] [place] [address], [id number], [place]. tel:[phone] MD_Follow Up Level 4 [facility], [address] [place] [address], [place], [place], [id number], [place] tel:[phone] [facility] Radiculopathy, cervical region Octavio Brewer. [address] [place] [address], [place], [place], [id number], [place]. tel:[phone] [facility], [address] [place] [address], [place], [place], [id number], [place] tel:[phone] [facility] No Information Xiang Grewal. [address] [place] [address], [place], [place], [id number], [place]. tel:[phone] [facility], [address] [place] [address], [place], [place], [id number], [place] tel:[phone] [facility] Myalgia, other site Octavio Brewer. [address] [place] [address], [place], [place], [id number], [place]. tel:[phone] MD_Follow Up Level 4 [facility], [address] [place] [address], [place], [place], [id number], [place] tel:[phone] [facility] Radiculopathy, sacral and sacrococcygeal region Treglia Hellen. [address] [place] [address], [id number], [place]. tel:[phone] [facility], [address] [place] [address], [place], [place], [id number], [place] tel:[phone] [facility] No Information Xiang Grewal. [address] [place] [address], [place], [place], [id number], [place]. tel:[phone] MD_Follow Up Level 4 [facility], [address] [place] [address], [place], [place], [id number], [place] tel:[phone] [facility] Spondylosis w/o myelopathy or radiculopathy, lumbar region Aron Macedo. [address] [place] [address], [id number], [place]. tel:[phone] [facility], [address] [place] [address], [place], [place], [id number], [place] tel:[phone] [facility] Myalgia, other site Octavio Brewer. [address] [place] [address], [place], [place], [id number], [place]. tel:[phone] [facility], [address] [place] [address], [place], [place], [id number], [place] tel:[phone] [facility] No Information Xiang Grewal. [address] [place] [address], [place], [place], [id number], [place]. tel:[phone] MD_Follow Up Level 4 [facility], [address] [place] [address], [place], [place], [id number], [place] tel:[phone] [facility] Spondylosis w/o myelopathy or radiculopathy, lumbar region Aron Macedo. [address] [place] [address], [id number], [place]. tel:[phone] [facility], [address] [place] [address], [place], [place], [id number], [place] tel:[phone] [facility] No Information Xiang Grewal. [address] [place] [address], [place], [place], [id number], [place]. tel:[phone] MD_Follow Up Level 4 [facility], [address] [place] [address], [place], [place], [id number], [place] tel:[phone] [facility] Spondylosis w/o myelopathy or radiculopathy, lumbar region Duy Koch. [address] [place] [address], [id number], [place]. tel:[phone] MD_Follow Up Level 4 [facility], [address] [place] [address], [place], [place], [id number], [place] tel:[phone] [facility] Spondylosis w/o myelopathy or radiculopathy, lumbar region Rafalcase Macedo. [address] [place] [address], [id number], [place]. tel:[phone] MD_Follow Up Level 4 [facility], [address] [place] [address], [place], [place], [id number], [place] tel:[phone] [facility] Spondylosis w/o myelopathy or radiculopathy, lumbar region Alba Shields. [address] [place] [address], [place], [place], [id number], [place]. tel:[phone] MD_Follow Up Level 4 [facility], [address] [place] [address], [place], [place], [id number], [place] tel:[phone] [facility] Radiculopathy, sacral and sacrococcygeal region Zenaidajudti Archerna. [address] [place] [address], [id number], [place]. tel:[phone] [facility], [address] [place] [address], [place], [place], [id number], [place] tel:[phone] [facility] Myalgia, other site Octavio Brewer. [address] [place] [address], [place], [place], [id number], [place]. tel:[phone] MD_Follow Up Level 4 [facility], [address] [place] [address], [place], [place], [id number], [place] tel:[phone] [facility] Spondylosis w/o myelopathy or radiculopathy, lumbar region Manuel Sorensen. [address] [place] [address], [place], [address], [place]. tel:[phone] Behavioral (Psych) 60 mins [facility], [address] [place] [address], [place], [place], [id number], [place] tel:[phone] [facility] Spondylosis w/o myelopathy or radiculopathy, lumbar regionBinge eating disorderPain disorder w/ related psychological factors Riki Jamison. [address] [place] [address], [facility], . tel:[phone] _Follow Up Level 4 [facility], [address] [place] [address], [place], [place], [id number], [phone] [facility] Spondylosis w/o myelopathy or radiculopathy, lumbar region Manuel Sorensen. [address] [place] [address], [address] [place] [address], [place], [place], [facility], . tel:[phone] MD_Follow Up Level 4 [facility], [address] [place] [address], [place], [place], [id number], tel:[phone] [facility] Spondylosis w/o myelopathy or radiculopathy, lumbar region Manuel Sorensen. [address] [place] [address], [place], [place], [facility], . tel:[phone] MD_Follow Up Level 4 [facility], [address] [place] [address], [place], [place], [id number], tel:[phone] [facility] Body mass index (BMI) 60.0-69.9, adultSpondylosis w/o myelopathy or radiculopathy, lumbar region Aron Macedo. [address] [place] [address], [address] [place] [address], . tel:[phone] Behavioral (Psych) 30 mins [facility], [address] [place] [address], [place], [place], [id number], [place] [phone] [facility] Spondylosis w/o myelopathy or radiculopathy, lumbar regionPain disorder w/ related psychological factorsBinge eating disorder Riki Jamison. [address] [place] [address], [facility], . tel:[phone] Behavioral (Psych) 30 mins [facility], [address] [place] [address], [place], [place], [id number], [phone] [facility] Spondylosis w/o myelopathy or radiculopathy, lumbar regionPain disorder w/ related psychological factorsBinge eating disorder Riki Jamison. [address] [place] [address], [facility], . tel:[phone] MD_Follow Up Level 4 [facility], [address] [place] [address], [place], [place], [id number], [phone] [facility] Spondylosis w/o myelopathy or radiculopathy, lumbar region Zenaidajudit Macedo. [address] [place] [address], [id number], . tel:[phone] Behavioral (Psych) 60 mins [facility], [address] [place] [address], [place], [address] [place] [address], [phone] [facility] Spondylosis w/o myelopathy or radiculopathy, lumbar regionPain disorder w/ related psychological factorsBinge eating disorder Riki Jamison. [address] [place] [address], [facility], . tel:[phone] MD_Follow Up Level 4 [facility], [address] [place] [address], [place], [place], [address] [place] [address], [phone] [facility] Spondylosis w/o myelopathy or radiculopathy, lumbar region Manuel Sorensen. [address] [place] [address], [place], [facility], . tel:[phone] MD_Follow Up Level 4 [facility], [address] [place] [address], [place], [place], [id number], [phone] [facility] Spondylosis w/o myelopathy or radiculopathy, lumbar region Manuel Sorensen. [address] [place] [address], [place], [facility], . tel:[phone] Behavioral (Psych) 60 mins [facility], [address] [place] [address], [place], [place], [id number], [phone] [facility] Spondylosis w/o myelopathy or radiculopathy, lumbar regionPain disorder w/ related psychological factorsBinge eating disorder Riki Jamison. [address] [place] [address], [facility], . tel:[phone] _Follow Up Level 4 [facility], [address] [place] [address], [place], [place], [id number], tel:[phone] [facility] Spondylosis w/o myelopathy or radiculopathy, lumbar region Manuel Sorensen. [address] [place] [address], [place], [facility], . tel:[phone] MD_Follow Up Level 4 [facility], [address] [place] [address], [place], [place], [address] [place] [address], tel:[phone] [facility] Spondylosis w/o myelopathy or radiculopathy, lumbar region Aron Macedo. [address] [place] [address], [address] [place] [address], . tel:[phone] _Follow Up Level 4 [facility], [address] [place] [address], [place], [address] [place] [address], tel:[phone] [facility] Spondylosis w/o myelopathy or radiculopathy, lumbar region Manuel Sorensen. [address] [place] [address], [place], [facility], . tel:[phone] _Follow Up Level 4 [facility], [address] [place] [address], [place], [address] [place] [address], tel:[phone] [facility] Spondylosis w/o myelopathy or radiculopathy, lumbar region Manuel Sorensen. [address] [place] [address], [place], [facility], . tel:[phone] Behavioral (Psych) 60 mins [facility], [address] [place] [address], [place], [place], [id number], tel:[phone] [facility] Spondylosis w/o myelopathy or radiculopathy, lumbar regionPain disorder w/ related psychological factorsBinge eating disorder Riki Jamison. [address] [place] [address], [facility], . tel:[phone] Care management services 20 Mins [facility], [address] [place] [address], [place], [place], [id number], tel:[phone] [facility] residential (current) use of opiate analgesic Xiang Grewal. [address] [place] [address], [place], [place], [id number], . tel:[phone] [facility], [address] [place] [address], [place], [place], [id number], [place] tel:[phone] [facility] Radiculopathy, sacral and sacrococcygeal region Anibal Rodriguez. [address] [place] [address], [place], [place], [id number], [place]. tel:[phone] [facility], [address] [place] [address], [place], [place], [id number], tel:[phone] [facility] No Information [facility]. [address] [place] [address], [id number], . 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 [address] [place] [address], [place], [place], [id number], . tel:[phone] MD_Follow Up Level 4 [facility], [address] [place] [address], [place], [place], [id number], [place] tel:[phone] [facility] Spondylosis w/o myelopathy or radiculopathy, lumbar region Aron Macedo. [address] [place] [address], [id number], . tel:[phone] MD_Follow Up Level 4 [facility], [address] [place] [address], [place], [place], [id number], [place] tel:[phone] [facility] Spondylosis w/o myelopathy or radiculopathy, lumbar region Manuel Sorensen. [address] [place] [address], [place], [address], [place]. tel:[phone] MD_Follow Up Level 4 [facility], [address] [place] [address], [place], [place], [id number], [place] tel:[phone] [facility] Spondylosis w/o myelopathy or radiculopathy, lumbar region Manuel Sorensen. [address], [place], [address], [place]. tel:[phone] MD_Follow Up Level 4 [facility], [address] [place] [address], [place], [place], [id number], [place] tel:[phone] [facility] Spondylosis w/o myelopathy or radiculopathy, lumbar region Alba Shields. [address] [place] [address], [place], [place], [id number], [place]. tel:[phone] MD_Follow Up Level 4 [facility], [address] [place] [address], [place], [place], [id number], [place] tel:[phone] [facility] Spondylosis w/o myelopathy or radiculopathy, lumbar region Alba Shields. [address] [place] [address], [place], [place], [id number], [place]. tel:[phone] [facility], [address] [place] [address], [place], [place], [id number], [place] tel:[phone] [facility] Radiculopathy, cervical region Anibal Rodriguez. [address] [place] [address], [place], [place], [id number], [place]. tel:[phone] [facility], [address] [place] [address], [place], [place], [id number], [place] tel:[phone] [facility] No Information [facility]. [address] [place] [address], [place], [place], [id number], [place]. tel:[phone] MD_Follow Up Level 3 [facility], [address] [place] [address], [place], [place], [id number], [place] tel:[phone] [facility] Radiculopathy, cervical region Anibal Rodriguez. [address] [place] [address], [place], [place], [id number], [place]. tel:[phone] [facility], [address] [place] [address], [place], [place], [id number], [place] tel:[phone] [facility] Radiculopathy, cervical region Anibal Rodriguez. [address] [place] [address], [place], [place], [id number], [place]. tel:[phone] MD_Follow Up Level 4 [facility], [address] [place] [address], [place], [place], [id number], [place] tel:[phone] [facility] Spondylosis w/o myelopathy or radiculopathy, lumbar region Alba Shields. [address] [place] [address], [place], [place], [id number], [place]. tel:[phone] [facility], [address] [place] [address], [place], [place], [id number], [place] tel:[phone] [facility] No Information [facility]. [address] [place] [address], [id number], [place]. tel:[phone] MD_Follow Up Level 4 [facility], [address] [place] [address], [place], [place], [id number], [place] tel:[phone] [facility] Radiculopathy, cervical region Octavio Brewer. [address] [place] [address], [place], [place], [id number], [place]. tel:[phone] [facility], [address] [place] [address], [place], [place], [id number], [place] tel:[phone] [facility] Myalgia, other site Octavio Brewer. [address] [place] [address], [place], [place], [id number], [place]. tel:[phone] MD_Follow Up Level 4 [facility], [address] [place] [address], [place], [place], [id number], [place] tel:[phone] [facility] Body mass index (BMI) 50-59.9 , adultSpondylosis w/o myelopathy or radiculopathy, lumbar region Aron Hellen. [address] [place] [address], [place], [place], [id number], [place]. tel:[phone] [facility], [address] [place] [address], [place], [place], [id number], [place] tel:[phone] [facility] Myalgia, other site Silk Osman. [address] [place] [address], [place], [place], [id number], [place]. tel:[phone] MD_Follow Up Level 4 [facility], [address] [place] [address], [place], [place], [id number], [place] tel:[phone] [facility] Spondylosis w/o myelopathy or radiculopathy, lumbar region Alba Shields. [address] [place] [address], [place], [place], [id number], [place]. tel:[phone] [facility], [address] [place] [address], [place], [place], [id number], [place] tel:[phone] [facility] Trochanteric bursitis, right hip Silk Osman. [address] [place] [address], [place], [place], [id number], [place]. tel:[phone] [facility], [address] [place] [address], [place], [place], [id number], [place] tel:[phone] [facility] Myalgia Silk Osman. [address] [place] [address], [place], [place], [id number], [place]. tel:[phone] [facility], [address] [place] [address], [place], [place], [id number], [place] tel:[phone] [facility] Trochanteric bursitis, left hip Silk Osman. [address] [place] [address], [place], [place], [id number], [place]. tel:[phone] MD_Follow Up Level 4 [facility], [address] [place] [address], [place], [place], [id number], [place] tel:[phone] [facility] Radiculopathy, sacral and sacrococcygeal region Alba Shields. [address] [place] [address], [place], [place], [id number], . tel:[phone] Behavioral (Psych) 45 mins [facility], [address] [place] [address], [place], [place], [id number], tel:[phone] [facility] Spondylosis w/o myelopathy or radiculopathy, lumbar regionPain disorder w/ related psychological factors Brittanie Jordan. [address] [place] [address], [facility], . tel:[phone] MD_Follow Up Level 4 [facility], [address] [place] [address], [place], [place], [id number], tel:[phone] [facility] Spondylosis w/o myelopathy or radiculopathy, lumbar region Alba Shields. [address] [place] [address], [place], [place], [id number], . tel:[phone] MD_Follow Up Level 4 [facility], [address] [place] [address], [place], [place], [id number], tel:[phone] [facility] Body mass index (BMI) 50-59.9 , adultSpondylosis w/o myelopathy or radiculopathy, lumbar region Aron Macedo. [address] [place] [address], [id number], . tel:[phone] Behavioral (Psych) 30 mins [facility], [address] [place] [address], [place], [place], [id number], [place] [phone] [facility] Spondylosis w/o myelopathy or radiculopathy, lumbar regionPain disorder w/ related psychological factors Brittanie Jordan. [address] [place], [place], [facility], . tel:[phone] Behavioral (Psych) 45 mins [facility], [address] [place] [address], [place], [place], [id number], [place] tel:[phone] [facility] Spondylosis w/o myelopathy or radiculopathy, lumbar regionPain disorder w/ related psychological factors Brittanie Jordan. [address] [place] [address], [facility], . tel:[phone] _Follow Up Level 4 [facility], [address] [place] [address], [place], [place], [id number], tel:[phone] [facility] Radiculopathy, sacral and sacrococcygeal region Augustin Mcdonough. [address] [place], [place], [facility], . tel:[phone] _Follow Up Level 4 [facility], [address] [place] [address], [place], [place], [address] [place] [address], tel:[phone] [facility] Spondylosis w/o myelopathy or radiculopathy, lumbar region Alba Shields. [address] [place] [address], [place], [address] [place] [address], . tel:[phone] Behavioral (Psych) 45 mins [facility], [address] [place] [address], [place], [place], [id number], tel:[phone] [facility] Spondylosis w/o myelopathy or radiculopathy, lumbar regionPain disorder w/ related psychological factors Brittanie Jordan. [address] [place] [address], [facility], . tel:[phone] _Follow Up Level 4 [facility], [address] [place] [address], [place], [address] [place] [address], tel:[phone] [facility] Spondylosis w/o myelopathy or radiculopathy, lumbar region Alba Shields. [address] [place] [address], [place], [place], [id number], . tel:[phone] Behavioral (Psych) 30 mins [facility], [address] [place] [address], [place], [place], [id number], tel:[phone] [facility] Spondylosis w/o myelopathy or radiculopathy, lumbar regionPain disorder w/ related psychological factors Brittanie Jordan. [address] [place], [place], [facility], . tel:[phone] _Follow Up Level 4 [facility], [address] [place] [address], [place], [place], [id number], tel:[phone] [facility] Spondylosis w/o myelopathy or radiculopathy, lumbar region Augustin Mcdonough. [address] [place], [place], [facility], . tel:[phone] _Follow Up Level 4 [facility], [address] [place] [address], [place], [place], [id number], tel:[phone] [facility] Spondylosis w/o myelopathy or radiculopathy, lumbar region Alba Shields. [address] [place] [address], [place], [place], [id number], . tel:[phone] Behavioral (Psych) 45 mins [facility], [address] [place] [address], [place], [place], [id number], tel:[phone] [facility] Spondylosis w/o myelopathy or radiculopathy, lumbar regionPain disorder w/ related psychological factors Brittanie Jordan. [address] [place] [address], [facility], . tel:[phone] _Follow Up Level 4 [facility], [address] [place] [address], [place], [place], [id number], tel:[phone] [facility] Spondylosis w/o myelopathy or radiculopathy, lumbar region Alba Shields. [address] [place] [address], [place], [place], [id number], . tel:[phone] Behavioral (Psych) 45 mins [facility], [address] [place] [address], [place], [place], [id number], tel:[phone] [facility] Spondylosis w/o myelopathy or radiculopathy, lumbar regionPain disorder w/ related psychological factors Brittanie Cooper [address] [place], [place], [facility], . tel:[phone] MD_Follow Up Level 4 [facility], [address] [place] [address], [place], [place], [id number], tel:[phone] [facility] Body mass index (BMI) 50-59.9 , adultRadiculopathy, sacral and sacrococcygeal region Alba Shields. [address] [place] [address], [address] [place] [address], [place], [place], [id number], . tel:[phone] Behavioral (Psych) 45 mins [facility], [address] [place] [address], [place], [place], [id number], [place] tel:[phone] [facility] Spondylosis w/o myelopathy or radiculopathy, lumbar regionPain disorder w/ related psychological factors Brittanie Jordan. [address] [place] [address], [facility], . tel:[phone] MD_Follow Up Level 4 [facility], [address] [place] [address], [place], [place], [id number], tel:[phone] [facility] Spondylosis w/o myelopathy or radiculopathy, lumbar region Jhoan Donaldson. [address] [place] [address], [id number], . tel:[phone] Behavioral (Psych) 45 mins [facility], [address] [place] [address], [place], [place], [id number], tel:[phone] [facility] Spondylosis w/o myelopathy or radiculopathy, lumbar regionPain disorder w/ related psychological factors Brittanie Jordan. [address] [place], [place], [facility], . tel:[phone] MD_Follow Up Level 4 [facility], [address] [place] [address], [place], [place], [id number], tel:[phone] [facility] Radiculopathy, sacral and sacrococcygeal region Anibal Rodriguez. [address] [place] [address], [address] [place] [address], [place], [place], [id number], . tel:[phone] MD_Follow Up Level 4 [facility], [address] [place] [address], [place], [place], [id number], tel:[phone] [facility] Spondylosis w/o myelopathy or radiculopathy, lumbar region Jhoan Donaldson. [address] [place] [address], [id number], . tel:[phone] Behavioral (Psych) 30 mins [facility], [address] [place] [address], [place], [place], [id number], [place] [phone] [facility] Spondylosis w/o myelopathy or radiculopathy, lumbar regionPain disorder w/ related psychological factors Brittanie Jordan. [address] [place] [address], [facility], . tel:[phone] _Follow Up Level 4 [facility], [address] [place] [address], [place], [place], [id number], tel:[phone] [facility] Spinal stenosis, lumbar region Jhoan Donaldson. [address] [place] [address], [id number], . tel:[phone] Behavioral (Psych) 45 mins [facility], [address] [place] [address], [place], [place], [id number], tel:[phone] [facility] Spondylosis w/o myelopathy or radiculopathy, lumbar regionPain disorder w/ related psychological factors Brittanie Jordan. [address] [place] [address], [facility], . tel:[phone] [facility], [address] [place] [address], [place], [place], [id number], [place] tel:[phone] [facility] Radiculopathy, sacral and sacrococcygeal regionSpondylosis w/o myelopathy or radiculopathy, lumbar regionSpinal stenosis, lumbar region Eddie Chavez. [address] [place] [address], [address] [place] [address], [place], [place], [id number], . tel:[phone] [facility], [address] [place] [address], [place], [place], [id number], tel:[phone] [facility] Spinal stenosis, lumbar region Aniabl Rodriguez. [address] [place] [address], [place], [place], [id number], . tel:[phone] MD_Follow Up Level 4 [facility], [address] [place] [address], [place], [place], [id number], tel:[phone] [facility] Spondylosis w/o myelopathy or radiculopathy, lumbar region Jhoan Donaldson. [address] [place] [address], [id number], . tel:[phone] [facility], [address] [place] [address], [place], [place], [id number], [place] tel:[phone] [facility] Spinal stenosis, lumbar regionRadiculopathy, sacral and sacrococcygeal regionSpondylosis w/o myelopathy or radiculopathy, lumbar region Eddie Chavez. [address] [place] [address], [place], [place], [id number], . tel:[phone] Behavioral (Psych) 30 mins [facility], [address] [place] [address], [place], [place], [id number], [place] tel:[phone] [facility] Spondylosis w/o myelopathy or radiculopathy, lumbar regionPain disorder w/ related psychological factors Brittanie Jordan. [address] [place] [address], [facility], . tel:[phone] [facility], [address] [place] [address], [place], [place], [id number], tel:[phone] [facility] No Information [facility]. [address] [place] [address], [id number], . tel:[phone] Behavioral (Psych) 45 mins [facility], [address] [place] [address], [place], [place], [id number], tel:[phone] [facility] Spondylosis w/o myelopathy or radiculopathy, lumbar regionPain disorder w/ related psychological factors Brittanie Jordan. [address] [place] [address], [id number], . tel:[phone] _Follow Up Level 4 [facility], [address] [place], [place] [address], [place], [place], [id number], [place] tel:[phone] [facility] Spondylosis w/o myelopathy or radiculopathy, lumbar region Jhoan Anika. [address] [place] [address], [id number], . tel:[phone] [facility], [address] [place] [address], [place], [place], [id number], [place] tel:[phone] [facility] Spinal stenosis, lumbar regionSpondylosis w/o myelopathy or radiculopathy, lumbar region Eddie Chavez. [address] [place] [address], [address] [place] [address], [place], [place], [id number], [place]. tel:[phone] _Follow Up Level 4 [facility], [address] [place] [address], [place], [place], [id number], [place] tel:[phone] [facility] Spondylosis w/o myelopathy or radiculopathy, lumbar region Staples Anika. [address] [place] [address], [id number], [place]. tel:[phone] [facility], [address] [place] [address], [place], [place], [id number], [place] tel:[phone] [facility] No Information Xiang Grewal. [address] [place] [address], [place], [place], [id number], [place]. tel:[phone] [facility], [address] [place] [address], [place], [place], [id number], [place] tel:[phone] [facility] Spondylosis w/o myelopathy or radiculopathy, lumbar region Anibal Rodriguez. [address] [place] [address], [place], [place], [id number], [place]. tel:[phone] [facility], [address] [place] [address], [place], [place], [id number], [place] tel:[phone] [facility] No Information [facility] [address] [place] [address], [id number], [place]. tel:[phone] [facility], [address] [place] [address], [place], [place], [id number], [place] tel:[phone] [place] [address] Spondylosis w/o myelopathy or radiculopathy, lumbar region Anibal Michael. [address] [place] [address], [address] [place] [address], [place], [place], [id number], [place]. tel:[phone] [facility], [address] [place] [address], [place], [place], [id number], [place] tel:[phone] [facility] No Information [facility]. [address] [place] [address], [id number], [place]. tel:[phone] [facility], [address] [place] [address], [place], [place], [id number], [place] tel:[phone] [facility] Spinal stenosis, lumbar regionRadiculopathy, sacral and sacrococcygeal regionSpondylosis w/o myelopathy or radiculopathy, lumbar region Eddie Chavez. [address] [place] [address], [address] [place] [address], [place], [place], [id number], [place]. tel:[phone] MD_Follow Up Level 5 [facility], [address] [place] [address], [place], [place], [id number], [place] tel:[phone] [facility] Spondylosis w/o myelopathy or radiculopathy, lumbar region Aron Macedo. [address] [place] [address], [id number], [place]. tel:[phone] Behavioral (Psych) 45 mins [facility], [address] [place] [address], [place], [place], [id number], [place] tel:[phone] [facility] Spondylosis w/o myelopathy or radiculopathy, lumbar regionSpinal stenosis, lumbar regionRadiculopathy, sacral and sacrococcygeal regionAnxietyBinge eating disorderDepression Sharon Estrella. [address] [place] [address], [id number], [place]. tel:[phone] MD_Follow Up Level 4 [facility], [address] [place] [address], [place], [place], [id number], tel:[phone] [facility] Spinal stenosis, lumbar region Octavio Brewer. [address] [place] [address], [place], [place], [id number], . tel:[phone] [facility], [address] [place] [address], [place], [place], [id number], tel:[phone] [facility] Radiculopathy, sacral and sacrococcygeal region Anibal Rodriguez. [address] [place] [address], [place], [place], [id number], . tel:[phone] [facility], [address] [place] [address], [place], [place], [id number], tel:[phone] [facility] No Information Surgery [address], [id number], . tel:[phone] NP_Office Visit Level 5 [facility], [address] [place] [address], [place], [place], [id number], tel:[phone] [facility] Back Pain (chief complaint) Body mass index (BMI) 50-59.9 , adultHypertension, UnspecifiedSpinal stenosis, lumbar regionSpondylosis w/o myelopathy or radiculopathy, lumbar region Octavio Brewer. [address] [place] [address], [place], [place], [id number], . tel:[phone] Family History Family Member Type Diagnosis Age At Onset Family h/o Problem (finding) High Blood Pressure Family h/o Problem (finding) Family h/o Problem (finding) Heart Disease Family h/o Problem (finding) Migraines Payers Payer name Insurance type Covered alliance party ID Authorleeannea shira(s) Medicare [id number] BC Medex BL [id number] Social History Type Description Quantity Date Captured [...]
--- NOTE | ~2024-11-15 | CT_ITS ---
CLINICAL HISTORY: M48.02 - Spinal stenosis, cervical region CT cervical spine without contrast Comparison: CR/SR - XR CERVICAL SPINE 4V - 11/15/24 07:51 EDT Findings: Grade 1 anterolisthesis at C3-4 and C6-7 minimal grade 1 anterolisthesis at C4-5. Vertebral body height is maintained. No acute fracture in the cervical spine. Craniocervical junction is intact. Degenerative disc disease especially at C5-6 and C6-7 levels. Multilevel facet arthropathy. 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 Moderately severe bilateral foraminal stenosis and mild canal stenosis at C5-6. Mild bilateral foraminal stenosis at C6-7. Prevertebral soft tissues within normal limits. Thyroid within normal limits. Atherosclerotic vascular disease. Lung apices are clear. IMPRESSION: 1.No acute findings. 2. Grade 1 anterolisthesis C3-4, C4-5 and C6-7. 3. Degenerative changes and stenosis as described. This document has been electronically signed by: Liz Phelps MD on 11/15/2024 17:12:12
--- NOTE | ~2024-11-15 | XR_ITS ---
EXAMINATION: XR CERVICAL SPINE 4-5 VIEWS HISTORY: M48.02 - Spinal stenosis, cervical region COMPARISON: Comparison is made with the prior examination dated 06/07/2024. FINDINGS: AP, and neutral, flexion, and extension lateral views of the cervical spine are submitted. Osseous mineralization is normal. The vertebral bodies maintain normal height. There is anterior subluxation of C3 on C4 which measures approximately 4 mm in neutral position, 5 mm with flexion, and 4 mm with extension. There is anterior subluxation of C6 on C7 which measures approximately 6 mm in neutral position, 6 mm with flexion, and 4 mm with extension. There is severe degenerative disc disease with disc space narrowing and osteophyte formation. There is osteoarthritis of the facet joints. There is no prevertebral soft tissue swelling. XR/XR cervical spine 4V IMPRESSION: Severe degenerative disc disease. Anterior subluxation of C3 on C4 and C6 on C7 as described. Electronically signed by: Huang Jimenez MD 11/15/2024 08:09 AM EDT
== END 2024-11-15 07:34 | disposition home or self-care (01) ==
LOC: HO.CT 07:33
PROVIDERS: PCP Family Medicine; Visit Provider Physician Assistant
DX: M48.02 Spinal stenosis, cervical region (principal); M54.12 Radiculopathy, cervical region
CPT/HCPCS: 72050; 72125

== ENCOUNTER → 2024-11-15 07:35 | Outpatient (BNV) | payer MEDICARE, SELFPAY | PROVIDERS: PCP Family Medicine; Visit Provider Radiology Diagnostic Radiology | DX: M48.02 Spinal stenosis, cervical region (principal); S13.140A Subluxation of C3/C4 cervical vertebrae, initial encounter | CPT/HCPCS: 72050 ==

== ENCOUNTER 2024-11-21 08:14 | Outpatient (AMB) | payer MEDICARE, SELFPAY ==
--- OUTSIDE RECORDS SUMMARY | 2023-01-31 06:20 | XMS_ITS | Continuity of Care Document ---
Author Organization [facility] Address [address] [place] [address] [address] [place] [address] Phone Care Team Providers Care Assembler Final Name Role Phone Alba BERMEO Alyson Unavailable Unavailable Allergies, Adverse Reactions, Alerts Substance Reaction Status Criticality DYE throat tightening Active No Informa tion omeprazole nausea Active No Information ibuprofen gi issues Active No Information temazepam heart palpitations Active No Inform ation CYCLOBENZAPRINE HCL heart palpitations Active No Information Medications Medication Instructions Dosage Effective Dates (start - stop) Status Comments lithium carbonate 150 mg capsule take 2 capsule by oral route 3 times every day 300 MG - Active atorvastatin 40 mg tablet take 1 tablet by oral route every day 40 MG - Active Wellbutrin SR 100 mg tablet, 12 hr sustained-release take 0.5 tablet by oral route every day - Active Symbicort 80 mcg-4.5 mcg/actuation HFA aerosol inhaler inhale 2 puff by inhalation route 2 times every day in the morning and evening as needed 2 puff - Active metformin 500 mg tablet take 1500mg tablet by oral route every day with meals - Active 1000mg in AM and 500mg PM Prozac 10 mg capsule take 1 capsule by oral route every day 10 MG - Active doxepin 25 mg capsule take 1 capsule by oral route every day at bedtime 25 MG - Active albuterol sulfate 0.63 mg/3 mL solution for nebulization - Active montelukast 10 mg tablet take 1 tablet by oral route every day in the evening 10 MG - Active losartan 25 mg tablet take 1 tablet by oral route every day 25 MG - Active CALCIUM CITRATE (unknown strength) take 1 tablet by oral route 3 times every day Not Available - Active CLARITIN (unknown strength) take 1 tablet by oral route every day as needed Not Available - Active ProAir HFA 90 mcg/actuation aerosol inhaler inhale 2 puff by inhalation route as needed - Active MECLIZINE HCL (unknown strength) take prn Not Available - Active furosemide 40 mg tablet take 1 tablet by oral route every day 40 MG - Active Procedures Procedure Date MD_Follow Up Level 4 Drug tests(s), presumptive, any number o f drug cla Drug tests(s), presumptive, any number o f drug cla MD_Follow Up Level 4 Drug tests(s), presumptive, any number o f drug cla MD_Follow Up Level 4 Drug tests(s), presumptive, any number o f drug cla MD_Follow Up Level 4 Drug tests(s), presumptive, any number o f drug cla MD_Follow Up Level 4 Drug tests(s), presumptive, any number o f drug cla MD_Follow Up Level 4 Drug tests(s), presumptive, any number o f drug cla MD_Follow Up Level 4 Drug tests(s), presumptive, any number o f drug cla Drug tests(s), presumptive, any number o f drug cla MD_Follow Up Level 4 MD_Follow Up Level 4 Inj_Facet_Cervical Or Thoracic Facility_Inj_Facet_Cervical MD_Follow Up Level 4 Drug tests(s), presumptive, any number o f drug cla MD_Follow Up Level 4 Drug tests(s), presumptive, any number o f drug cla MD_Follow Up Level 3 Drug tests(s), presumptive, any number o f drug cla Drug tests(s), presumptive, any number o f drug cla MD_Follow Up Level 4 Inj_Facet_Cervical Or Thoracic 22 Inj_Facet_Cervical_2nd Level Facility_Inj_Facet_Cervical Facility_Inj_Facet_Cervical_2nd Level No MD_Follow Up Level 3 MD_Follow Up Level 3 Drug tests(s), presumptive, any number o f drug cla Inj_Facet_Cervical Or Thoracic 22 Inj_Facet_Cervical_2nd Level Facility_Inj_Facet_Cervical Facility_Inj_Facet_Cervical_2nd Level Se MD_Follow Up Level 4 Drug tests(s), presumptive, any number o f drug cla MD_Follow Up Level 4 Drug tests(s), presumptive, any number o f drug cla TP_Inj_Trigger Point 1 Or 2 Muscles Injection, bupivicaine hydro TP_Inj_Trigger Point 1 Or 2 Muscles Injection, bupivicaine hydro MD_Follow Up Level 4 Drug tests(s), presumptive, any number o f drug cla Drug tests(s), presumptive, any number o f drug cla MD_Follow Up Level 4 Drug tests(s), presumptive, any number o f drug cla TP_Inj_Trigger Point 1 Or 2 Muscles Injection, bupivicaine hydro Drug tests(s), presumptive, any number o f drug cla MD_Follow Up Level 4 TP_Inj_Trigger Point 1 Or 2 Muscles Injection, bupivicaine hydro MD_Follow Up Level 4 TP_Inj_Trigger Point 1 Or 2 Muscles Drug tests(s), presumptive, any number o f drug cla TP_Inj_Trigger Point Injection, bupivicaine hydro Drug tests(s), presumptive, any number o f drug cla MD_Follow Up Level 4 MD_Follow Up Level 4 MD_Follow Up Level 4 MD_Follow Up Level 4 MD_Follow Up Level 4 MD_Follow Up Level 4 MD_Follow Up Level 4 MD_Follow Up Level 4 MD_Follow Up Level 4 MD_Follow Up Level 4 MD_Follow Up Level 4 MD_Follow Up Level 4 MD_Follow Up Level 4 MD_Follow Up Level 4 MD_Follow Up Level 4 MD_Follow Up Level 4 MD_Follow Up Level 4 Inj Epidural Cervical_Thoracic Drug tests(s), presumptive, any number o f drug cla Facility Inj Epidrual Cervical Thoracic With Imaging MD_Follow Up Level 4 MD_Follow Up Level 4 Drug tests(s), presumptive, any number o f drug cla TP_Inj_Trigger Point Rad_Ultrasound Guidance For Needle Place ment Injection, bupivicaine hydro MD_Follow Up Level 4 Drug tests(s), presumptive, any number o f drug cla MD_Follow Up Level 4 TP_Inj_Trigger Point Rad_Ultrasound Guidance For Needle Place ment Injection, bupivicaine hydro Drug tests(s), presumptive, any number o f drug cla MD_Follow Up Level 4 Drug tests(s), presumptive, any number o f drug cla MD_Follow Up Level 4 MD_Follow Up Level 4 MD_Follow Up Level 4 MD_Follow Up Level 4 TP_Inj_Trigger Point Rad_Ultrasound Guidance For Needle Place ment Injection, bupivicaine hydro Drug tests(s), presumptive, any number o f drug cla MD_Follow Up Level 4 Behavioral (Psych) 60 mins Drug tests(s), presumptive, any number o f drug cla MD_Follow Up Level 4 Drug tests(s), presumptive, any number o f drug cla MD_Follow Up Level 4 Drug tests(s), presumptive, any number o f drug cla MD_Follow Up Level 4 Behavioral (Psych) 30 mins Behavioral (Psych) 30 mins Drug tests(s), presumptive, any number o f drug cla MD_Follow Up Level 4 Behavioral (Psych) 60 mins Drug tests(s), presumptive, any number o f drug cla MD_Follow Up Level 4 Drug tests(s), presumptive, any number o f drug cla MD_Follow Up Level 4 Behavioral (Psych) 60 mins Drug tests(s), presumptive, any number o f drug cla MD_Follow Up Level 4 Drug tests(s), presumptive, any number o f drug cla MD_Follow Up Level 4 Drug tests(s), presumptive, any number o f drug cla MD_Follow Up Level 4 Drug tests(s), presumptive, any number o f drug cla MD_Follow Up Level 4 Behavioral (Psych) 60 mins Care management services 20 Mins 2018 Inj Epidural Lumbar Facility Inj Epidrual Lumbar With Imagin g Care management services 20 Mins 2018 Drug tests(s), presumptive, any number o f drug cla MD_Follow Up Level 4 Drug tests(s), presumptive, any number o f drug cla MD_Follow Up Level 4 Drug tests(s), presumptive, any number o f drug cla MD_Follow Up Level 4 Drug tests(s), presumptive, any number o f drug cla MD_Follow Up Level 4 Drug tests(s), presumptive, any number o f drug cla MD_Follow Up Level 4 Inj Epidural Cervical_Thoracic 18 Facility Inj Epidrual Cervical Thoracic With Imaging MD_Follow Up Level 3 Inj Epidural Cervical_Thoracic 18 Drug tests(s), presumptive, any number o f drug cla MD_Follow Up Level 4 Facility Inj Epidrual Cervical Thoracic With Imaging MD_Follow Up Level 4 TP_Inj_Trigger Point Rad_Ultrasound Guidance For Needle Place [facility] Injection, bupivicaine hydro Drug tests(s), presumptive, any number o f drug cla MD_Follow Up Level 4 TP_Inj_Trigger Point Rad_Ultrasound Guidance For Needle Place ment Methylprednisolone 40 MG inj Drug tests(s), presumptive, any number o f drug cla MD_Follow Up Level 4 Inj_Major Joint Or Bursa With Ultrasound Methylprednisolone 40 MG inj TP_Inj_Trigger Point Rad_Ultrasound Guidance For Needle Place ment Voided Encounter Inj_Major Joint Or Bursa With Ultrasound TP_Inj_Trigger Point Methylprednisolone 40 MG inj Drug tests(s), presumptive, any number o f drug cla MD_Follow Up Level 4 Behavioral (Psych) 45 mins Drug tests(s), presumptive, any number o f drug cla MD_Follow Up Level 4 Drug tests(s), presumptive, any number o f drug cla MD_Follow Up Level 4 Behavioral (Psych) 30 mins Behavioral (Psych) 45 mins Drug tests(s), presumptive, any number o f drug cla MD_Follow Up Level 4 Drug tests(s), presumptive, any number o f drug cla MD_Follow Up Level 4 Behavioral (Psych) 45 mins Drug tests(s), presumptive, any number o f drug cla MD_Follow Up Level 4 Behavioral (Psych) 30 mins Drug tests(s), presumptive, any number o f drug cla MD_Follow Up Level 4 Drug tests(s), presumptive, any number o f drug cla MD_Follow Up Level 4 Behavioral (Psych) 45 mins Drug tests(s), presumptive, any number o f drug cla MD_Follow Up Level 4 Behavioral (Psych) 45 mins Drug tests(s), presumptive, any number o f drug cla MD_Follow Up Level 4 Behavioral (Psych) 45 mins Drug tests(s), presumptive, any number o f drug cla MD_Follow Up Level 4 Behavioral (Psych) 45 mins MD_Follow Up Level 4 Drug tests(s), presumptive, any number o f drug cla MD_Follow Up Level 4 Behavioral (Psych) 30 mins Drug tests(s), presumptive, any number o f drug cla MD_Follow Up Level 4 Behavioral (Psych) 45 mins PT_Therapeutic Exercises_Each 15 Mins PT_Therapeutic Exercises_Each 15 Mins PT_Therapeutic Exercises_Each 15 Mins PT_Therapeutic Exercises_Each 15 Mins Inj_Transforaminal_Lumbar Drug tests(s), presumptive, any number o f drug cla MD_Follow Up Level 4 PT_Therapeutic Exercises_Each 15 Mins PT_Therapeutic Exercises_Each 15 Mins PT_Therapeutic Exercises_Each 15 Mins PT_Therapeutic Exercises_Each 15 Mins Behavioral (Psych) 30 mins Facility_Inj_Transforaminal_Lumbar Behavioral (Psych) 45 mins MD_Follow Up Level 4 Drug tests(s), presumptive, any number o f drug cla PT_Therapeutic Exercises_Each 15 Mins PT_Therapeutic Exercises_Each 15 Mins PT_Therapeutic Exercises_Each 15 Mins PT_Therapeutic Exercises_Each 15 Mins Drug tests(s), presumptive, any number o f drug cla MD_Follow Up Level 4 [facility] Special Program Inj_Facet_Lumbar Inj_Facet_Lumbar_2nd Level Inj_Facet_Lumbar_3rd Level Facility_Inj_Facet_Lumbar Facility_Inj_Facet_Lumbar_2nd Level Facility_Inj_Facet_Lumbar_3rd Level Inj_Facet_Lumbar Inj_Facet_Lumbar_2nd Level Inj_Facet_Lumbar_3rd Level Facility_Inj_Facet_Lumbar Facility_Inj_Facet_Lumbar_2nd Level Facility_Inj_Facet_Lumbar_3rd Level PT_PPM Drug tests(s), presumptive, any number o f drug cla MD_Follow Up Level 5 Behavioral (Psych) 45 mins MD_Follow Up Level 4 Inj Epidural Lumbar Including Imaging Il Facility Inj Epidrual Lumbar With Imagin g Drug tests(s), presumptive, any number o f drug cla NP_Office Visit Level 5 Advance Directives Directive Yes / No Effective Date File Name No Information Encounters Encounter Description Practice Location Reason(s) For Visit Diagnoses Date Provider MD_Follow Up Level 4 [facility], [place], [address] [place] [address], [place], [place], [id number], tel:[phone] [facility] [place] Spondylosis w/o myelopathy or radiculopathy, cervical region Alba Shields. [address] [place] [address], [place], [place], [id number], . tel:[phone] [facility] [place], [address] [place] [address], [place], [place], [id number], tel:[phone] [facility] [place] No Information Alba Shields. [address] [place] [address], [address] [place] [address], [place], [place], [id number], . tel:[phone] MD_Follow Up Level 4 [facility], [place], [address] [place] [address], [place], [place], [id number], tel:[phone] [facility] [place] Spondylosis w/o myelopathy or radiculopathy, cervical region Aron Macedo. [address] [place] [address], [id number], [place]. tel:[phone] MD_Follow Up Level 4 [facility] [place], [address] [place] [address], [place], [place], [id number], tel:[phone] [facility] [place] Spondylosis w/o myelopathy or radiculopathy, cervical region Aron Macedo. [address] [place] [address], [id number], [place]. tel:[phone] MD_Follow Up Level 4 [facility], [place], [address] [place] [address], [place], [place], [id number], [place] tel:[phone] [facility] [place] Spondylosis w/o myelopathy or radiculopathy, cervical region Treglia Hellen. [address] [place] [address], [id number], [place]. tel:[phone] MD_Follow Up Level 4 [facility] [place], [address] [place] [address], [place], [place], [id number], [place] tel:[phone] [facility] [place] Spondylosis w/o myelopathy or radiculopathy, lumbar region Treglia Hellen. [address] [place] [address], [id number], [place]. tel:[phone] MD_Follow Up Level 4 [facility], [place], [address] [place] [address], [place], [place], [id number], [place] tel:[phone] [facility] [place] Body mass index (BMI) 50-59.9 , adultSpondylosis w/o myelopathy or radiculopathy, cervical region Treglia Hellen. [address] [place] [address], [id number], [place]. tel:[phone] MD_Follow Up Level 4 [facility], [place], [address] [place] [address], [place], [place], [id number], [place] tel:[phone] [facility] [place] Spondylosis w/o myelopathy or radiculopathy, cervical region Treglia Hellen. [address] [place] [address], [id number], [place]. tel:[phone] MD_Follow Up Level 4 [facility], [place], [address] [place] [address], [place], [place], [id number], [place] tel:[phone] [facility] [place] Spondylosis w/o myelopathy or radiculopathy, cervical region Treglia Hellen. [address] [place] [address], [id number], [place]. tel:[phone] MD_Follow Up Level 4 [facility], [place], [address] [place] [address], [place], [place], [id number], [place] tel:[phone] [facility] [place] Spondylosis w/o myelopathy or radiculopathy, cervical region Lares Brianne. [address] [place] [address], [address] [place] [address], [place], [place], [id number], [place]. tel:[phone] [facility] [place], [address] [place] [address], [place], [place], [id number], [place] tel:[phone] [facility] Spondylosis w/o myelopathy or radiculopathy, cervical region Arnaud Decker. [address], [place], [place], [id number], [place]. tel:[phone] [facility] [place], [address] [place] [address], [place], [place], [id number], [place] tel:[phone] [facility] No Information [facility]. [address] [place] [address], [id number], . tel:[phone] MD_Follow Up Level 4 [facility] [place], [address] [place] [address], [place], [place], [id number], [place] tel:[phone] [facility] [place] Spondylosis w/o myelopathy or radiculopathy, cervical region Zenaidaa Hellen. [address] [place] [address], [id number], . tel:[phone] MD_Follow Up Level 4 [facility] [place], [address] [place] [address], [place], [place], [id number], [place] tel:[phone] [facility] [place] Spondylosis w/o myelopathy or radiculopathy, cervical region Treglia Hellen. [address] [place] [address], [id number], [place]. tel:[phone] MD_Follow Up Level 3 [facility] [place], [address] [place] [address], [place], [place], [id number], [place] tel:[phone] [facility] [place] Spondylosis w/o myelopathy or radiculopathy, cervical region Treglia Hellen. [address] [place] [address], [id number], [place]. tel:[phone] [facility] [place], [address] [place] [address], [place], [place], [id number], [place] tel:[phone] [place] [address] No Information Rafallia Hellen. [address] [place] [address], [id number], [place]. tel:[phone] MD_Follow Up Level 4 [facility] [place], [address] [place] [address], [place], [place], [id number], [place] tel:[phone] [facility] [place] Spondylosis w/o myelopathy or radiculopathy, cervical region Rafallia Hellen. [address] [place] [address], [id number], [place]. tel:[phone] [facility] [place], [address] [place] [address], [place], [place], [id number], [place] tel:[phone] [facility] Spondylosis w/o myelopathy or radiculopathy, cervical region Arnaud Decker. [address] [place] [address], [facility], [place], [place], [id number], [place]. tel:[phone] [facility] [place], [address] [place] [address], [place], [place], [id number], [place] tel:[phone] [facility] No Information Surgery [facility]. [address] [place] [address], [id number], [place]. tel:[phone] MD_Follow Up Level 3 [facility] [place], [address] [place] [address], [place], [place], [id number], [place] tel:[phone] [facility] [place] Spondylosis w/o myelopathy or radiculopathy, lumbar region Rafallia Hellen. [address] [place] [address], [id number], [place]. tel:[phone] MD_Follow Up Level 3 [facility] [place], [address] [place] [address], [place], [place], [id number], [place] tel:[phone] [facility] [place] Radiculopathy, sacral and sacrococcygeal region Xiang Grewal. [address] [place] [address], [place], [place], [id number], [place]. tel:[phone] [facility] [place], [address] [place] [address], [place], [place], [id number], [place] tel:[phone] [facility] Spondylosis w/o myelopathy or radiculopathy, cervical region Arnaud Brianne. 281 [facility], [address] [place] [address], [place], [place], [id number], [place]. tel:[phone] [facility] [place], [address] [place] [address], [place], [place], [id number], [place] tel:[phone] [facility] No Information [facility]. [address] [place] [address], [id number], . tel:[phone] MD_Follow Up Level 4 [facility] [place], [address] [place] [address], [place], [place], [id number], [place] tel:[phone] [facility] [place] Spondylosis w/o myelopathy or radiculopathy, lumbar region Treglia Hellen. [address] [place] [address], [id number], [place]. tel:[phone] MD_Follow Up Level 4 [facility] [place], [address] [place] [address], [place], [place], [id number], [place] tel:[phone] [facility] Radiculopathy, sacral and sacrococcygeal region Treglia Hellen. [address] [place] [address], [id number], [place]. tel:[phone] [facility], [address] [place] [address], [place], [place], [id number], [place] tel:[phone] [facility] Myalgia, other site Treglia Hellen. [address] [place] [address], [id number], [place]. tel:[phone] [facility], [address] [place] [address], [place], [place], [id number], [place] tel:[phone] [facility] Myalgia, other site Treglia Hellen. [address] [place] [address], [id number], [place]. tel:[phone] MD_Follow Up Level 4 [facility] [place], [address] [place] [address], [place], [place], [id number], [place] tel:[phone] [facility] [place] Spondylosis w/o myelopathy or radiculopathy, lumbar region Treglia Hellen. [address] [place] [address], [id number], [place]. tel:[phone] MD_Follow Up Level 4 [facility] [place], [address] [place] [address], [place], [place], [id number], [place] tel:[phone] [facility] [place] Spondylosis w/o myelopathy or radiculopathy, lumbar region Alba Shields. [address] [place] [address], [address] [place] [address], [place], [place], [id number], [place]. tel:[phone] [facility] [place], [address] [place] [address], [place], [place], [id number], [place] tel:[phone] [facility] Myalgia, other site Treglia Hellen. [address] [place] [address], [id number], [place]. tel:[phone] MD_Follow Up Level 4 [facility] [place], [address] [place] [address], [place], [place], [id number], [place] tel:[phone] [facility] Radiculopathy, sacral and sacrococcygeal region Treglia Hellen. [address] [place] [address], [id number], [place]. tel:[phone] [facility], [address] [place] [address], [place], [place], [id number], [place] tel:[phone] [facility] Myalgia, other site Treglia Hellen. [address] [place] [address], [id number], [place]. tel:[phone] MD_Follow Up Level 4 [facility] [place], [address] [place] [address], [place], [place], [id number], [place] tel:[phone] [facility] [place] Spondylosis w/o myelopathy or radiculopathy, lumbar region Treglia Hellen. [address] [place] [address], [id number], [place]. tel:[phone] [facility] [place], [address] [place] [address], [place], [place], [id number], [place] tel:[phone] [facility] [place] Body mass index (BMI) 50-59.9 , adultMyalgia, other site Treglia Hellen. [address] [place] [address], [id number], [place]. tel:[phone] [facility] [place], [address] [place] [address], [place], [place], [id number], [place] tel:[phone] [facility] [place] No Information Xiang Grewal. [address] [place] [address], [address] [place] [address], [place], [place], [id number], [place]. tel:[phone] MD_Follow Up Level 4 [facility] [place], [address] [place] [address], [place], [place], [id number], [place] tel:[phone] [facility] [place] Spondylosis w/o myelopathy or radiculopathy, lumbar region Treglia Hellen. [address] [place] [address], [id number], [place]. tel:[phone] MD_Follow Up Level 4 [facility], [place], [address] [place] [address], [place], [place], [id number], [place] tel:[phone] [facility] [place] Spondylosis w/o myelopathy or radiculopathy, lumbar region Treglia Hellen. [address] [place] [address], [id number], [place]. tel:[phone] MD_Follow Up Level 4 [facility], [place], [address] [place] [address], [place], [place], [id number], [place] tel:[phone] [facility] [place] Radiculopathy, sacral and sacrococcygeal region Treglia Hellen. [address] [place] [address], [id number], [place]. tel:[phone] MD_Follow Up Level 4 [facility], [place], [address] [place] [address], [place], [place], [id number], [place] tel:[phone] [facility] Spondylosis w/o myelopathy or radiculopathy, lumbar region Treglia Hellen. [address] [place] [address], [id number], . tel:[phone] MD_Follow Up Level 4 [facility], [place], [address] [place] [address], [place], [place], [id number], [place] tel:[phone] [facility] Medicine Spondylosis w/o myelopathy or radiculopathy, lumbar region Treglia Hellen. [address] [place] [address], [id number], [place]. tel:[phone] MD_Follow Up Level 4 [facility], [place], [address] [place] [address], [place], [place], [id number], [place] tel:[phone] [facility] Spondylosis w/o myelopathy or radiculopathy, lumbar region Treglia Hellen. [address] [place] [address], [id number], [place]. tel:[phone] MD_Follow Up Level 4 [facility], [place], [address] [place] [address], [place], [place], [id number], [place] tel:[phone] [facility] Medicine Spondylosis w/o myelopathy or radiculopathy, lumbar region Manuel Sorensen. [address] [place] [address], [address] [place] [address], [place], [address], [place]. tel:[phone] MD_Follow Up Level 4 [facility], [place], [address] [place] [address], [place], [place], [id number], [place] tel:[phone] [facility] Medicine Spondylosis w/o myelopathy or radiculopathy, lumbar region Treglia Hellen. [address] [place] [address], [id number], . tel:[phone] MD_Follow Up Level 4 [facility], [place], [address] [place] [address], [place], [place], [id number], [place] tel:[phone] [facility] [place] Radiculopathy, sacral and sacrococcygeal region Treglia Hellen. [address] [place] [address], [id number], [place]. tel:[phone] MD_Follow Up Level 4 [facility], [place], [address] [place] [address], [place], [place], [id number], [place] tel:[phone] [facility] [place] Spondylosis w/o myelopathy or radiculopathy, lumbar region Treglia Hellen. [address] [place] [address], [id number], [place]. tel:[phone] MD_Follow Up Level 4 [facility], [place], [address] [place] [address], [place], [place], [id number], [place] tel:[phone] [facility] [place] Spondylosis w/o myelopathy or radiculopathy, lumbar region Treglia Hellen. [address] [place] [address], [id number], [place]. tel:[phone] MD_Follow Up Level 4 [facility], [place], [address] [place] [address], [place], [place], [id number], [place] tel:[phone] [facility] [place] Radiculopathy, sacral and sacrococcygeal region Treglia Hellen. [address] [place] [address], [id number], [place]. tel:[phone] MD_Follow Up Level 4 [facility], [place], [address] [place] [address], [place], [place], [id number], [place] tel:[phone] [facility] [place] Spondylosis w/o myelopathy or radiculopathy, lumbar region Treglia Hellen. [address] [place] [address], [id number], [place]. tel:[phone] MD_Follow Up Level 4 [facility], [place], [address] [place] [address], [place], [place], [id number], [place] tel:[phone] [facility] [place] Spondylosis w/o myelopathy or radiculopathy, lumbar region Treglia Hellen. [address] [place] [address], [id number], [place]. tel:[phone] MD_Follow Up Level 4 [facility], [place], [address] [place] [address], [place], [place], [id number], [place] tel:[phone] [facility] [place] Spondylosis w/o myelopathy or radiculopathy, lumbar region Treglia Hellen. [address] [place] [address], [id number], [place]. tel:[phone] MD_Follow Up Level 4 [facility], [place], [address] [place] [address], [place], [place], [id number], [place] tel:[phone] [facility] [place] Spondylosis w/o myelopathy or radiculopathy, lumbar region Treglia Hellen. [address] [place] [address], [id number], [place]. tel:[phone] MD_Follow Up Level 4 [facility], [place], [address] [place] [address], [place], [place], [id number], [place] tel:[phone] [facility] [place] Radiculopathy, sacral and sacrococcygeal region Treglia Hellen. [address] [place] [address], [id number], [place]. tel:[phone] [facility] [place], [address] [place] [address], [place], [place], [id number], [place] tel:[phone] [facility] Radiculopathy, cervical region Anibal Rodriguez. [address] [place] [address], [place], [place], [id number], [place]. tel:[phone] [facility] [place], [address] [place] [address], [place], [place], [id number], [place] tel:[phone] [facility] [place] No Information Xiang Grewal. [address] [place] [address], [address] [place] [address], [place], [place], [id number], [place]. tel:[phone] [facility] [place], [address] [place] [address], [place], [place], [id number], [place] tel:[phone] [facility] No Information [facility]. [address] [place] [address], [id number], [place]. tel:[phone] MD_Follow Up Level 4 [facility], [place], [address] [place] [address], [place], [place], [id number], [place] tel:[phone] [facility] [place] Spondylosis w/o myelopathy or radiculopathy, lumbar region Treglia Hellen. [address] [place] [address], [id number], [place]. tel:[phone] MD_Follow Up Level 4 [facility], [place], [address] [place] [address], [place], [place], [id number], [place] tel:[phone] [facility] [place] Radiculopathy, cervical region Octavio Brewer. [address] [place] [address], [place], [place], [id number], [place]. tel:[phone] [facility], [place], [address] [place] [address], [place], [place], [id number], [place] tel:[phone] [facility] [place] No Information Xiang Grewal. [address] [place] [address], [place], [place], [id number], [place]. tel:[phone] [facility], [address] [place] [address], [place], [place], [id number], [place] tel:[phone] [facility] [place] Myalgia, other site Octavio Brewer. [address] [place] [address], [place], [place], [id number], [place]. tel:[phone] MD_Follow Up Level 4 [facility], [place], [address] [place] [address], [place], [place], [id number], [place] tel:[phone] [facility] [place] Radiculopathy, sacral and sacrococcygeal region Treglia Hellen. [address] [place] [address], [id number], [place]. tel:[phone] [facility] [place], [address] [place] [address], [place], [place], [id number], [place] tel:[phone] [facility] [place] No Information Xiang Grewal. [address] [place] [address], [place], [place], [id number], [place]. tel:[phone] MD_Follow Up Level 4 [facility], [place], [address] [place] [address], [place], [place], [id number], [place] tel:[phone] [facility] [place] Spondylosis w/o myelopathy or radiculopathy, lumbar region Aron Macedo. [address] [place] [address], [id number], [place]. tel:[phone] [facility], [address] [place] [address], [place], [place], [id number], [place] tel:[phone] [facility] [place] Myalgia, other site Octavio Brewer. [address] [place] [address], [place], [place], [id number], [place]. tel:[phone] [facility] [place], [address] [place] [address], [place], [place], [id number], [place] tel:[phone] [facility] No Information Xiang Grewal. [address] [place] [address], [place], [place], [id number], [place]. tel:[phone] MD_Follow Up Level 4 [facility] [place], [address] [place] [address], [place], [place], [id number], [place] tel:[phone] [facility] [place] Spondylosis w/o myelopathy or radiculopathy, lumbar region Aron Macedo. [address] [place] [address], [id number], [place]. tel:[phone] [facility], [address] [place] [address], [place], [place], [id number], [place] tel:[phone] [facility] No Information Xiang Grewal. [address] [place] [address], [place], [place], [id number], [place]. tel:[phone] MD_Follow Up Level 4 [facility], [place], [address] [place] [address], [place], [place], [id number], [place] tel:[phone] [facility] [place] Spondylosis w/o myelopathy or radiculopathy, lumbar region Duy Koch. [address] [place] [address], [id number], [place]. tel:[phone] MD_Follow Up Level 4 [facility], [place], [address] [place] [address], [place], [place], [id number], [place] tel:[phone] [facility] [place] Spondylosis w/o myelopathy or radiculopathy, lumbar region Rafalcase Macedo. [address] [place] [address], [id number], [place]. tel:[phone] MD_Follow Up Level 4 [facility], [place], [address] [place] [address], [place], [place], [id number], [place] tel:[phone] [facility] [place] Spondylosis w/o myelopathy or radiculopathy, lumbar region Alba Shields. [address] [place] [address], [place], [place], [id number], [place]. tel:[phone] MD_Follow Up Level 4 [facility] [place], [address] [place] [address], [place], [place], [id number], [place] tel:[phone] [facility] [place] Radiculopathy, sacral and sacrococcygeal region Zenaidajudit Archerna. [address] [place] [address], [id number], [place]. tel:[phone] [facility] [place], [address] [place] [address], [place], [place], [id number], [place] tel:[phone] [facility] [place] Myalgia, other site Octavio Brewer. [address] [place] [address], [place], [place], [id number], [place]. tel:[phone] MD_Follow Up Level 4 [facility], [place], [address] [place] [address], [place], [place], [id number], [place] tel:[phone] [facility] [place] Spondylosis w/o myelopathy or radiculopathy, lumbar region Manuel Sorensen. [address] [place] [address], [place], [address], [place]. tel:[phone] Behavioral (Psych) 60 mins [facility], [place], [address] [place] [address], [place], [place], [id number], [place] tel:[phone] [facility] [place] Spondylosis w/o myelopathy or radiculopathy, lumbar regionBinge eating disorderPain disorder w/ related psychological factors Riki Jamison. [address] [place] [address], [facility], . tel:[phone] _Follow Up Level 4 [facility], [place], [address] [place] [address], [place], [place], [id number], [phone] [facility] [place] Spondylosis w/o myelopathy or radiculopathy, lumbar region Manuel Sorensen. [address] [place] [address], [address] [place] [address], [place], [place], [facility], . tel:[phone] MD_Follow Up Level 4 [facility] [place], [address] [place] [address], [place], [place], [id number], tel:[phone] [facility] [place] Spondylosis w/o myelopathy or radiculopathy, lumbar region Manuel Sorensen. [address] [place] [address], [place], [place], [facility], . tel:[phone] MD_Follow Up Level 4 [facility] [place], [address] [place] [address], [place], [place], [id number], tel:[phone] [facility] [place] Body mass index (BMI) 60.0-69.9, adultSpondylosis w/o myelopathy or radiculopathy, lumbar region Aron Macedo. [address] [place] [address], [address] [place] [address], . tel:[phone] Behavioral (Psych) 30 mins [facility], [place], [address] [place] [address], [place], [place], [id number], [place] [phone] [facility] [place] Spondylosis w/o myelopathy or radiculopathy, lumbar regionPain disorder w/ related psychological factorsBinge eating disorder Riki Jamison. [address] [place] [address], [facility], . tel:[phone] Behavioral (Psych) 30 mins [facility] [place], [address] [place] [address], [place], [place], [id number], [phone] [facility] Spondylosis w/o myelopathy or radiculopathy, lumbar regionPain disorder w/ related psychological factorsBinge eating disorder Riki Jamison. [address] [place] [address], [facility], . tel:[phone] MD_Follow Up Level 4 [facility] [place], [address] [place] [address], [place], [place], [id number], [phone] [facility] Spondylosis w/o myelopathy or radiculopathy, lumbar region Zenaidajudit Macedo. [address] [place] [address], [id number], . tel:[phone] Behavioral (Psych) 60 mins [facility] [place], [address] [place] [address], [place], [address] [place] [address], [phone] [facility] Spondylosis w/o myelopathy or radiculopathy, lumbar regionPain disorder w/ related psychological factorsBinge eating disorder Riki Jamison. [address] [place] [address], [facility], . tel:[phone] MD_Follow Up Level 4 [facility] [place], [address] [place] [address], [place], [place], [address] [place] [address], [phone] [facility] Spondylosis w/o myelopathy or radiculopathy, lumbar region Manuel Sorensen. [address] [place] [address], [place], [facility], . tel:[phone] MD_Follow Up Level 4 [facility] [place], [address] [place] [address], [place], [place], [id number], [phone] [facility] Spondylosis w/o myelopathy or radiculopathy, lumbar region Manuel Sorensen. [address] [place] [address], [place], [facility], . tel:[phone] Behavioral (Psych) 60 mins [facility] [place], [address] [place] [address], [place], [place], [id number], [phone] [facility] Spondylosis w/o myelopathy or radiculopathy, lumbar regionPain disorder w/ related psychological factorsBinge eating disorder Riki Jamison. [address] [place] [address], [facility], . tel:[phone] _Follow Up Level 4 [facility] [place], [address] [place] [address], [place], [place], [id number], tel:[phone] [facility] [place] Spondylosis w/o myelopathy or radiculopathy, lumbar region Manuel Sorensen. [address] [place] [address], [place], [facility], . tel:[phone] MD_Follow Up Level 4 [facility] [place], [address] [place] [address], [place], [address] [place] [address], tel:[phone] [facility] [place] Spondylosis w/o myelopathy or radiculopathy, lumbar region Aron Macedo. [address] [place] [address], [address] [place] [address], . tel:[phone] _Follow Up Level 4 [facility] [place], [address] [place] [address], [place], [address] [place] [address], tel:[phone] [facility] [place] Spondylosis w/o myelopathy or radiculopathy, lumbar region Manuel Sorensen. [address] [place] [address], [place], [facility], . tel:[phone] _Follow Up Level 4 [facility] [place], [address] [place] [address], [place], [address] [place] [address], tel:[phone] [facility] [place] Spondylosis w/o myelopathy or radiculopathy, lumbar region Manuel Sorensen. [address] [place] [address], [place], [facility], . tel:[phone] Behavioral (Psych) 60 mins [facility] [place], [address] [place] [address], [place], [place], [id number], tel:[phone] [facility] [place] Spondylosis w/o myelopathy or radiculopathy, lumbar regionPain disorder w/ related psychological factorsBinge eating disorder Riki Jamison. [address] [place] [address], [facility], . tel:[phone] Care management services 20 Mins [facility] [place], [address] [place] [address], [place], [place], [id number], tel:[phone] [facility] [place] MCFP (current) use of opiate analgesic Xiang Grewal. [address] [place] [address], [place], [place], [id number], . tel:[phone] [facility] [place], [address] [place] [address], [place], [place], [id number], [place] tel:[phone] [facility] Radiculopathy, sacral and sacrococcygeal region Anibal Rodriguez. [address] [place] [address], [place], [place], [id number], [place]. tel:[phone] [facility] [place], [address] [place] [address], [place], [place], [id number], tel:[phone] [facility] No Information [facility]. [address] [place] [address], [id number], . tel:[phone] Care management services 20 Mins [facility] [place], [address] [place] [address], [place], [place], [id number], [place] tel:[phone] [facility] [place] MCFP (current) use of opiate analgesic Xiang Grewal. [address] [place] [address], [place], [place], [id number], . tel:[phone] MD_Follow Up Level 4 [facility] [place], [address] [place] [address], [place], [place], [id number], [place] tel:[phone] [facility] [place] Spondylosis w/o myelopathy or radiculopathy, lumbar region Aron Macedo. [address] [place] [address], [id number], . tel:[phone] MD_Follow Up Level 4 [facility] [place], [address] [place] [address], [place], [place], [id number], [place] tel:[phone] [facility] [place] Spondylosis w/o myelopathy or radiculopathy, lumbar region Manuel Sorensen. [address] [place] [address], [place], [address], [place]. tel:[phone] MD_Follow Up Level 4 [facility] [place], [address] [place] [address], [place], [place], [id number], [place] tel:[phone] [facility] [place] Spondylosis w/o myelopathy or radiculopathy, lumbar region Manuel Sorensen. [address], [place], [address], [place]. tel:[phone] MD_Follow Up Level 4 [facility], [address] [place] [address], [place], [place], [id number], [place] tel:[phone] [facility] [place] Spondylosis w/o myelopathy or radiculopathy, lumbar region Alba Shields. [address] [place] [address], [place], [place], [id number], [place]. tel:[phone] MD_Follow Up Level 4 [facility] [place], [address] [place] [address], [place], [place], [id number], [place] tel:[phone] [facility] [place] Spondylosis w/o myelopathy or radiculopathy, lumbar region Alba [place]. [address] [place] [address], [place], [place], [id number], [place]. tel:[phone] [facility] [place], [address] [place] [address], [place], [place], [id number], [place] tel:[phone] [facility] Radiculopathy, cervical region Anibal Rodriguez. [address] [place] [address], [place], [place], [id number], [place]. tel:[phone] [facility] [place], [address] [place] [address], [place], [place], [id number], [place] tel:[phone] [facility] No Information [facility]. [address] [place] [address], [place], [place], [id number], [place]. tel:[phone] MD_Follow Up Level 3 [facility] [place], [address] [place] [address], [place], [place], [id number], [place] tel:[phone] [facility] [place] Radiculopathy, cervical region Anibal Rodriguez. [address] [place] [address], [place], [place], [id number], [place]. tel:[phone] [facility] [place], [address] [place] [address], [place], [place], [id number], [place] tel:[phone] [facility] Radiculopathy, cervical region Anibal Rodriguez. [address] [place] [address], [place], [place], [id number], [place]. tel:[phone] MD_Follow Up Level 4 [facility] [place], [address] [place] [address], [place], [place], [id number], [place] tel:[phone] [facility] [place] Spondylosis w/o myelopathy or radiculopathy, lumbar region Alba Shields. [address] [place] [address], [place], [place], [id number], [place]. tel:[phone] [facility] [place], [address] [place] [address], [place], [place], [id number], [place] tel:[phone] [facility] No Information [facility]. [address] [place] [address], [id number], [place]. tel:[phone] MD_Follow Up Level 4 [facility] [place], [address] [place] [address], [place], [place], [id number], [place] tel:[phone] [facility] [place] Radiculopathy, cervical region Octavio Brewer. [address] [place] [address], [place], [place], [id number], [place]. tel:[phone] [facility], [address] [place] [address], [place], [place], [id number], [place] tel:[phone] [facility] [place] Myalgia, other site Octavio Brewer. [address] [place] [address], [place], [place], [id number], [place]. tel:[phone] MD_Follow Up Level 4 [facility], [address] [place] [address], [place], [place], [id number], [place] tel:[phone] [facility] [place] Body mass index (BMI) 50-59.9 , adultSpondylosis w/o myelopathy or radiculopathy, lumbar region Aron Hellen. [address] [place] [address], [place], [place], [id number], [place]. tel:[phone] [facility], [address] [place] [address], [place], [place], [id number], [place] tel:[phone] [facility] [place] Myalgia, other site Silk Osman. [address] [place] [address], [place], [place], [id number], [place]. tel:[phone] MD_Follow Up Level 4 [facility] [place], [address] [place] [address], [place], [place], [id number], [place] tel:[phone] [facility] [place] Spondylosis w/o myelopathy or radiculopathy, lumbar region Alba Shields. [address] [place] [address], [place], [place], [id number], [place]. tel:[phone] [facility] [place], [address] [place] [address], [place], [place], [id number], [place] tel:[phone] [facility] Trochanteric bursitis, right hip Silk Osman. [address] [place] [address], [place], [place], [id number], [place]. tel:[phone] [facility] [place], [address] [place] [address], [place], [place], [id number], [place] tel:[phone] [facility] Myalgia Silk Osman. [address] [place] [address], [place], [place], [id number], [place]. tel:[phone] [facility], [address] [place] [address], [place], [place], [id number], [place] tel:[phone] [facility] Trochanteric bursitis, left hip Silk Osman. [address] [place] [address], [place], [place], [id number], [place]. tel:[phone] MD_Follow Up Level 4 [facility], [place], [address] [place] [address], [place], [place], [id number], [place] tel:[phone] [facility] [place] Radiculopathy, sacral and sacrococcygeal region Alba Shields. [address] [place] [address], [place], [place], [id number], . tel:[phone] Behavioral (Psych) 45 mins [facility], [place], [address] [place] [address], [place], [place], [id number], tel:[phone] [facility] [place] Spondylosis w/o myelopathy or radiculopathy, lumbar regionPain disorder w/ related psychological factors Brittanie Jordan. [address] [place] [address], [facility], . tel:[phone] MD_Follow Up Level 4 [facility] [place], [address] [place] [address], [place], [place], [id number], tel:[phone] [facility] [place] Spondylosis w/o myelopathy or radiculopathy, lumbar region Alba Shields. [address] [place] [address], [place], [place], [id number], . tel:[phone] MD_Follow Up Level 4 [facility] [place], [address] [place] [address], [place], [place], [id number], tel:[phone] [facility] [place] Body mass index (BMI) 50-59.9 , adultSpondylosis w/o myelopathy or radiculopathy, lumbar region Aron Macedo. [address] [place] [address], [id number], . tel:[phone] Behavioral (Psych) 30 mins [facility], [place], [address] [place] [address], [place], [place], [id number], [place] [phone] [facility] [place] Spondylosis w/o myelopathy or radiculopathy, lumbar regionPain disorder w/ related psychological factors Brittanie Jordan. [address], [place], [facility], . tel:[phone] Behavioral (Psych) 45 mins [facility], [place], [address] [place] [address], [place], [place], [id number], [place] tel:[phone] [facility] Spondylosis w/o myelopathy or radiculopathy, lumbar regionPain disorder w/ related psychological factors Brittanie Jordan. [address] [place] [address], [facility], . tel:[phone] _Follow Up Level 4 [facility] [place], [address] [place] [address], [place], [place], [id number], tel:[phone] [facility] Radiculopathy, sacral and sacrococcygeal region Augustin Mcdonough. [address], [place], [facility], . tel:[phone] _Follow Up Level 4 [facility], [place], [address] [place] [address], [place], [place], [address] [place] [address], tel:[phone] [facility] Spondylosis w/o myelopathy or radiculopathy, lumbar region Alba Shields. [address] [place] [address], [place], [address] [place] [address], . tel:[phone] Behavioral (Psych) 45 mins [facility], [place], [address] [place] [address], [place], [place], [id number], tel:[phone] [facility] Spondylosis w/o myelopathy or radiculopathy, lumbar regionPain disorder w/ related psychological factors Brittanie Jordan. [address] [place] [address], [facility], . tel:[phone] _Follow Up Level 4 [facility], [place], [address] [place] [address], [place], [address] [place] [address], tel:[phone] [facility] Spondylosis w/o myelopathy or radiculopathy, lumbar region Alba Shields. [address] [place] [address], [place], [place], [id number], . tel:[phone] Behavioral (Psych) 30 mins [facility], [place], [address] [place] [address], [place], [place], [id number], tel:[phone] [facility] Spondylosis w/o myelopathy or radiculopathy, lumbar regionPain disorder w/ related psychological factors Brittanie Jordan. [address], [place], [facility], . tel:[phone] _Follow Up Level 4 [facility], [place], [address] [place] [address], [place], [place], [id number], tel:[phone] [facility] Spondylosis w/o myelopathy or radiculopathy, lumbar region Augustin Mcdonough. [address], [place], [facility], . tel:[phone] _Follow Up Level 4 [facility] [place], [address] [place] [address], [place], [place], [id number], tel:[phone] [facility] Spondylosis w/o myelopathy or radiculopathy, lumbar region Alba Shields. [address] [place] [address], [place], [place], [id number], . tel:[phone] Behavioral (Psych) 45 mins [facility], [place], [address] [place] [address], [place], [place], [id number], tel:[phone] [facility] [place] Spondylosis w/o myelopathy or radiculopathy, lumbar regionPain disorder w/ related psychological factors Brittanie Jordan. [address] [place] [address], [facility], . tel:[phone] _Follow Up Level 4 [facility] [place], [address] [place] [address], [place], [place], [id number], tel:[phone] [facility] Spondylosis w/o myelopathy or radiculopathy, lumbar region Alba Shields. [address] [place] [address], [place], [place], [id number], . tel:[phone] Behavioral (Psych) 45 mins [facility], [place], [address] [place] [address], [place], [place], [id number], tel:[phone] [facility] [place] Spondylosis w/o myelopathy or radiculopathy, lumbar regionPain disorder w/ related psychological factors Brittanie Cooper [address], [place], [facility], . tel:[phone] MD_Follow Up Level 4 [facility] [place], [address] [place] [address], [place], [place], [id number], tel:[phone] [facility] [place] Body mass index (BMI) 50-59.9 , adultRadiculopathy, sacral and sacrococcygeal region Alba Shields. [address] [place] [address], [address] [place] [address], [place], [place], [id number], . tel:[phone] Behavioral (Psych) 45 mins [facility], [place], [address] [place] [address], [place], [place], [id number], [place] tel:[phone] [facility] [place] Spondylosis w/o myelopathy or radiculopathy, lumbar regionPain disorder w/ related psychological factors Brittanie Jordan. [address] [place] [address], [facility], . tel:[phone] MD_Follow Up Level 4 [facility], [place], [address] [place] [address], [place], [place], [id number], tel:[phone] [facility] [place] Spondylosis w/o myelopathy or radiculopathy, lumbar region Jhoan Donaldson. [address] [place] [address], [id number], . tel:[phone] Behavioral (Psych) 45 mins [facility], [place], [address] [place] [address], [place], [place], [id number], tel:[phone] [facility] [place] Spondylosis w/o myelopathy or radiculopathy, lumbar regionPain disorder w/ related psychological factors Brittanie Jordan. [address], [place], [facility], . tel:[phone] MD_Follow Up Level 4 [facility] [place], [address] [place] [address], [place], [place], [id number], tel:[phone] [facility] [place] Radiculopathy, sacral and sacrococcygeal region Anibal Rodriguez. [address] [place] [address], [address] [place] [address], [place], [place], [id number], . tel:[phone] MD_Follow Up Level 4 [facility] [place], [address] [place] [address], [place], [place], [id number], tel:[phone] [facility] [place] Spondylosis w/o myelopathy or radiculopathy, lumbar region Jhoan Donaldson. [address] [place] [address], [id number], . tel:[phone] Behavioral (Psych) 30 mins [facility], [place], [address] [place] [address], [place], [place], [id number], [place] [phone] [facility] [place] Spondylosis w/o myelopathy or radiculopathy, lumbar regionPain disorder w/ related psychological factors Brittanie Jordan. [address] [place] [address], [facility], . tel:[phone] _Follow Up Level 4 [facility] [place], [address] [place] [address], [place], [place], [id number], tel:[phone] [facility] [place] Spinal stenosis, lumbar region Jhoan Donaldson. [address] [place] [address], [id number], . tel:[phone] Behavioral (Psych) 45 mins [facility], [place], [address] [place] [address], [place], [place], [id number], tel:[phone] [facility] [place] Spondylosis w/o myelopathy or radiculopathy, lumbar regionPain disorder w/ related psychological factors Brittanie Jordan. [address] [place] [address], [facility], . tel:[phone] [facility] [place], [address] [place] [address], [place], [place], [id number], [place] tel:[phone] [facility] [place] Radiculopathy, sacral and sacrococcygeal regionSpondylosis w/o myelopathy or radiculopathy, lumbar regionSpinal stenosis, lumbar region Eddie Chavez. [address] [place] [address], [address] [place] [address], [place], [place], [id number], . tel:[phone] [facility] [place], [address] [place] [address], [place], [place], [id number], tel:[phone] [facility] Spinal stenosis, lumbar region Anibal Rodriguez. [address] [place] [address], [place], [place], [id number], . tel:[phone] MD_Follow Up Level 4 [facility] [place], [address] [place] [address], [place], [place], [id number], tel:[phone] [facility] [place] Spondylosis w/o myelopathy or radiculopathy, lumbar region Jhoan Donaldson. [address] [place] [address], [id number], . tel:[phone] [facility] [place], [address] [place] [address], [place], [place], [id number], [place] tel:[phone] [facility] [place] Spinal stenosis, lumbar regionRadiculopathy, sacral and sacrococcygeal regionSpondylosis w/o myelopathy or radiculopathy, lumbar region Eddie Chavez. [address] [place] [address], [place], [place], [id number], . tel:[phone] Behavioral (Psych) 30 mins [facility] [place], [address] [place] [address], [place], [place], [id number], [place] tel:[phone] [facility] [place] Spondylosis w/o myelopathy or radiculopathy, lumbar regionPain disorder w/ related psychological factors Brittanie Jordan. [address] [place] [address], [facility], . tel:[phone] [facility] [place], [address] [place] [address], [place], [place], [id number], tel:[phone] [facility] No Information [facility]. [address] [place] [address], [id number], . tel:[phone] Behavioral (Psych) 45 mins [facility] [place], [address] [place] [address], [place], [place], [id number], tel:[phone] [facility] [place] Spondylosis w/o myelopathy or radiculopathy, lumbar regionPain disorder w/ related psychological factors Brittanie Jordan. [address] [place] [address], [address], . tel:[phone] _Follow Up Level 4 [facility], [place], [address] [place], [place] [address], [place], [place], [id number], [place] tel:[phone] [facility] [place] Spondylosis w/o myelopathy or radiculopathy, lumbar region Jhaon Anika. [address] [place] [address], [id number], . tel:[phone] [facility] [place], [address] [place] [address], [place], [place], [id number], [place] tel:[phone] [facility] [place] Spinal stenosis, lumbar regionSpondylosis w/o myelopathy or radiculopathy, lumbar region Eddie Chavez. [address] [place] [address], [address] [place] [address], [place], [place], [address]87, [place]. tel:[phone] _Follow Up Level 4 [facility] [place], [address] [place] [address], [place], [place], [id number], [place] tel:[phone] [facility] [place] Spondylosis w/o myelopathy or radiculopathy, lumbar region Staples Anika. [address] [place] [address], [id number], [place]. tel:[phone] [facility] [place], [address] [place] [address], [place], [place], [id number], [place] tel:[phone] [facility] [place] No Information Xiang Grewal. [address] [place] [address], [place], [place], [id number], [place]. tel:[phone] [facility] [place], [address] [place] [address], [place], [place], [id number], [place] tel:[phone] [facility] Spondylosis w/o myelopathy or radiculopathy, lumbar region Anibal Rodriguez. [address] [place] [address], [place], [place], [id number], [place]. tel:[phone] [facility] [place], [address] [place] [address], [place], [place], [id number], [place] tel:[phone] [facility] No Information Surgery [facility] [address] [place] [address], [id number], [place]. tel:[phone] [facility] [place], [address] [place] [address], [place], [place], [id number], [place] tel:[phone] [place] [address] Spondylosis w/o myelopathy or radiculopathy, lumbar region Anibal Michael. [address] [place] [address], [address] [place] [address], [place], [place], [id number], [place]. tel:[phone] [facility] [place], [address] [place] [address], [place], [place], [id number], [place] tel:[phone] [facility] No Information [facility]. [address] [place] [address], [id number], [place]. tel:[phone] [facility] [place], [address] [place] [address], [place], [place], [id number], [place] tel:[phone] [facility] [place] Spinal stenosis, lumbar regionRadiculopathy, sacral and sacrococcygeal regionSpondylosis w/o myelopathy or radiculopathy, lumbar region Eddie Chavez. [address] [place] [address], [address] [place] [address], [place], [place], [id number], [place]. tel:[phone] MD_Follow Up Level 5 [facility] [place], [address] [place] [address], [place], [place], [id number], [place] tel:[phone] [facility] [place] Spondylosis w/o myelopathy or radiculopathy, lumbar region Aron Macedo. [address] [place] [address], [id number], [place]. tel:[phone] Behavioral (Psych) 45 mins [facility] [place], [address] [place] [address], [place], [place], [id number], [place] tel:[phone] [facility] [place] Spondylosis w/o myelopathy or radiculopathy, lumbar regionSpinal stenosis, lumbar regionRadiculopathy, sacral and sacrococcygeal regionAnxietyBinge eating disorderDepression Sharon Estrella. [address] [place] [address], [id number], [place]. tel:[phone] MD_Follow Up Level 4 [facility] [place], [address] [place] [address], [place], [place], [id number], tel:[phone] [facility] [place] Spinal stenosis, lumbar region Octavio Brewer. [address] [place] [address], [place], [place], [id number], . tel:[phone] [facility] [place], [address] [place] [address], [place], [place], [id number], tel:[phone] [facility] Radiculopathy, sacral and sacrococcygeal region Anibal Rodriguez. [address] [place] [address], [place], [place], [id number], . tel:[phone] [facility] [place], [address] [place] [address], [place], [place], [id number], tel:[phone] [facility] No Information Surgery [address], [id number], . tel:[phone] NP_Office Visit Level 5 [facility] [place], [address] [place] [address], [place], [place], [id number], tel:[phone] [id number] [facility], [place], [facility] Back Pain (chief complaint) Body mass index (BMI) 50-59.9 , adultHypertension, UnspecifiedSpinal stenosis, lumbar regionSpondylosis w/o myelopathy or radiculopathy, lumbar region Octavio Brewer. [address] [place] [address], [place], [place], [id number], . tel:[phone] Family History Family Member Type Diagnosis Age At Onset Family h/o Problem (finding) High Blood Pressure Family h/o Problem (finding) Family h/o Problem (finding) Heart Disease Family h/o Problem (finding) Migraines Payers Payer name Insurance type Covered alliance party ID Authorleeannea shira(s) Medicare [id number] BC Med[employer] BL [id number] Social History Type Description Quantity Date Captured Comments Alcohol Use Details Unknown Caffeine Use Details Unknown Tobacco Use Status No Information Smoking Status No Information Sex Female Vital Signs Date / Time: Height Weight BMI Pulse Rate Blood Pressure Temperature Respiratory Rate Body Surface Area Head Circumference Head Circ. Percentile Wt./Jeffrey. Percentile BMI percentile Pulse Ox Inhaled Ox 10:14 AM 62.00 in 141.067 kg (311.00 lbs) 56.8 8 kg/m eter (2) 88 /min 141/71 mm[Hg] 16 /min 97 % Chief Complaint And Reason For Visit No Information Plan Of Treatment Date Type Action Status Goal Dietary manageme nt education, guidance, and counseling completed Goal Dietary manageme nt education, guidance, and counseling completed Goal Dietary manageme nt education, guidance, and counseling completed Goal Dietary manageme nt education, guidance, and counseling completed Goal Dietary manageme nt education, guidance, and counseling completed Goal Dietary manageme nt education, guidance, and counseling completed Goal Dietary manageme nt education, guidance, and counseling completed Future Order: Lab Order Validity Panel (1011), Sent on: Sent Future Order: Lab Order Temperat ure (1012), Sent on: Sent Future Order: Lab Order DOA Panel (1010), Sent on: Sent History Of Present Illness Encounter Date Complaint History Of Prese nt Illness Back Pain Instructions Date Instruction Additional Infor shakir Dietary management e ducation, guidance, and counseling Related to Body mass index [BMI] 50.0-59.9, adult Dietary management e ducation, guidance, and counseling Related to Body mass index [BMI] 50.0-59.9, adult Dietary management e ducation, guidance, and counseling Related to Body mass index (BMI) 60.0-69.9, adult Dietary management e ducation, guidance, and counseling Related to Body mass index (BMI) 50-59.9, adult Dietary management e ducation, guidance, and counseling Related to Body mass index (BMI) 50-59.9 , adult Dietary management e ducation, guidance, and counseling Related to Body mass index (BMI) 50-59.9 , adult Dietary management e ducation, guidance, and counseling Related to Body mass index (BMI) 50-59.9 , adult Assessments Type Assessment Date No Information
--- NOTE | 2024-11-21 08:15 | MHC.OFFVIS ---
Vital Signs 11/21/24 08:16 Height 5 ft 2 in Weight 269 lb BMI 49.2 BP 132/74 Blood Pressure Location Rt brachial Position Sitting Pulse 94 Pulse Source Pulse Oximeter Pulse Oximetry (%) 98 Oxygen Delivery Method Room Air Intake Visit Reasons: INP - Spasmodic torticollis, muscle spasm Intake Note: Patient referred in house for spasmodic torticollis Allergies ampicillin Allergy (Unknown, Verified 11/21/24 08:21) Hives cyclobenzaprine (From Flexeril) Allergy (Unknown, Verified 11/21/24 08:21) Palpitations Iodinated Contrast Media Allergy (Unknown, Verified 11/21/24 08:21) Shortness of Breath temazepam (From Restoril) Allergy (Unknown, Verified 11/21/24 08:21) Palpitations ibuprofen Adverse Reaction (Unknown, Verified 11/21/24 08:21) Gastrointestinal Upset omeprazole Adverse Reaction (Unknown, Verified 11/21/24 08:21) Nausea IV contrast dye Allergy (Intermediate, Uncoded 11/21/24 08:21) breathing HPI Comments Details: 74y/o female comes for 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 she is seeing [facility] for cervical Spondylosis - c5-6 c6-7 and considering surgical treatment. Patient reports chronic neck pain for over 2 years now and neck tilt for over 4 years. she has tried baclofen, epidural shots, celebrex etc.No trouble with speech or swallowing. she has pain in UE - arms , weakness in her left hand . she denies any shooting pain.No numbness or tingling.she is left handed. 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 Seasonal allergies Cervicalgia Surgical History History of total left knee replacement H/O hernia repair H/O gastric sleeve History of cholecystectomy Previous section Hx of tonsillectomy Social History Are you a primary home care manager to a significant other at home: No Do you presently have visiting nurse or other home services: No Patient Tobacco Use Status: Never used Tobacco Physical Exam Vital Signs: Last Vital Signs Pulse 94 11/21/24 08:16 BP 132/74 11/21/24 08:16 Pulse Ox 98 11/21/24 08:16 Oxygen Delivery Method Room Air 11/21/24 08:16 BMI result Body Mass Index 49.2 Const General: cooperative and comfortable Nutritional Appearance: obese Orientation/consciousness: patient oriented x3 Eyes Pupils: Equal, round and reactive pupils present Neuro Other: Right torticollis Left laterocollis Tenderness in left levator , splenius, right SCM General: patient oriented x3, tone normal, moves all extremities and no focal motor deficits Cranial nerves: Yes Equal, round and reactive pupils present, Yes Bilaterally intact EOM present, Yes Nystagmus not present, Yes Normal facial strength present, Yes Midline tongue present and Yes Ability to bilaterally elevate shoulders present Cognition (Neuro): normal cognition Gait exam (Neuro): Assistive device used Motor exam (neuro): 5/5 motor strength present throughout and Normal motor muscle tone present throughout Deep tendon reflexes (DTR's): Right triceps reflex intensity grade: 1+, Left triceps reflex intensity grade: 1+, Rt Biceps (C5, C6): 1+, Left biceps reflex intensity grade: 1+, Right brachioradialis reflex intensity grade: 1+ and Left brachioradialis reflex intensity grade: 1+ Coordination: [id number] test normal Assessment & Plan Assessment & Plan (1) Spasmodic torticollis: Code(s): G24.3 - Spasmodic torticollis Category: Medical Plan Reviewed pain and Neuro spine notes. She will be a good candidate for tretament with Botulinum Toxin injections to neck muscles. Coding Level of Care Code New Pt Level 4 (21574) Diagnoses Spasmodic torticollis G24.3
[2024-11-21 08:16] VITALS: BP 132/74; PULSE 94; O2SAT 98; BMI 49.2
--- OUTSIDE RECORDS SUMMARY | 2024-11-21 08:17 | XMS_ITS | Patient Health Record ---
Author Organization [facility] [[email or web address] Address [address] [place] [address] Care Team Providers Care Staff Writer Name Role Phone NALLELY QUILES MD Primary Care Provider Unavaillouis Nunes MD, HARSH Unavailable [phone] Allergies Allergen (clinical drug ingredient) Drug/Non Drug Allergy documented on EMR Reaction Allergy Type Onset Date Status ampacillin (uncoded) Unknown Allergy Active flexeral (uncoded) Unknown Allergy A ctive prilosec (uncoded) Unknown Allergy A ctive rexeral (uncoded) Unknown Allergy Ac tive Reason For Referral No Information Medications Medication SIG (Take, Route, Frequency, Duration) Notes Start Date End Date Status magnesium oxide 200 mg 2 tab(s) orally o nce a day; Duration: 14 day(s) Active lisinopril 10 mg 1 tab(s) orally once a day; Duration: 90 day(s) Active Claritin 10 mg 1 tab(s) orally prn; Duration: 30 day(s) Active Percocet 7.5/325 325 mg-7.5 mg 1 tab(s) orally prn; Duration: 5 day(s) Active hydroCHLOROthiazide 25 mg 1 tab(s) orall y Q.D.; Duration: 90 days 04/25/2013 Active Percocet 5/325 325 mg-5 mg 1 tab(s) oral ly 3-4 times qd; Duration: 10 day(s) Active etodolac ?? 1 cap(s) orally tid; Duration: 30 day(s) Active lisinopril 10 Milligram TAKE 1 TABLET BY MOUTH ONCE A DAY; Duration: 30 Active carisoprodol 350 mg 1 tab(s) orally tid; Duration: 14 day(s) Active Vitamin D 1000 mg 1 qd orally Active Vitamin B12 1000 mcg 1 tab(s) orally onc e a day; Duration: 30 day(s) Active Problems Problem Type SNOMED Code ICD Code Onset Dates Problem Status W/U Status Risk Notes Problem Sleep apnea (98523087) Sleep apnea (786.09) Active confirmed Problem Chest discomfort (656481862) Chest discomfort (786.59) Active confirmed Problem Preoperative cardiovascular examination (019030130) Pre-operative Cardiovascular exam (V72.81) Active confirmed Problem Obesity (708829625) Obesity (278.00) Active confirmed Problem Hypertension (57645436) Hypertension (401.9) Active confirmed Plan Of Treatment No Information Insurance Providers Payer Name Payer Address Payer Phone Subscriber Number Group Number Insured Name Patient Relationship to Insured Coverage Start Date Coverage End Date [place] : OUT OF [place] - BLUE CARD [address] [place] [address] [id number] SANTO MCDERMOTT Self - patient is the insured 7 Medical (General) History Medical History History ICD Code Obesity hypertension Denies DM, CVA, TIA, [place], Peptic ulcer di sease, GERD h/o Asthma with occasional ER visits wit hout any admissions or intubations Sleep apnea, severe..started CPAP mask 1 Osteoarthritis knees, more notably left knee LS spine and disc disease
--- OUTSIDE RECORDS SUMMARY | 2024-11-21 08:17 | XMS_ITS | Data Portability ---
Author Organization [place] - [facility], [facility], Patient Home Address [address] [facility] [address] [place] [address] Care Team Providers Care Websphere Portal Architect Name Role Phone NALLELY QUILES Primary Care Provider [phone] NALLELY QUILES Referring Provider [phone] Assessment No assessment recorded. Plan of Treatment Reminders Order Date Submit Date Provider Last Modified By Organization Details Last Modified Time Details Appointments None recorded. Lab drug screen, saliva 2022 023 [email or web address] Not available 3 14:19:39 Referral None recorded. Procedures None recorded. Surgeries None recorded. Imaging MRI, lumbar spine, w/o contrast 2022 023 [email or web address] [facility] 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 goal of Weight 125 lbs Not available Not available Not available decrease pain increase activities improve quality of life weight reduction dmousad Not available 04/19/2023 17:32:57 05/17/2023 14224 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 Not available Not available Not available skilled nursing goal of Weight 130 lbs Not available Not available Not available decrease pain increase activities improve quality of life weight reduction [email or web address] Not available 05/17/2023 16:56:32 06/13/2023 [id number] skilled nursing goal of Pain Scale Not available Not available Not available skilled nursing goal of Weight 125 lbs Not available Not available Not available decrease pain increase activities improve quality of life weight reduction dmousad Not available 06/13/2023 17:22:05 Patient Instructions Encounter Date Encounter Id Patient Instructions Last Modified By Organization Details Last Modified Time 03/22/2023 [id number] Given [email or web address] Not available 03/25 18:41:00 Given [email or web address] Not available 2022 18:41:02 04/19/2023 [id number] Given dmousad Not available 04/19 17:33:04 Given dmousad Not available 2022 17:33:09 05/17/2023 [id number] Continue conservative treatment Continue home exercises as directed by MD Use ice and hot packs as instructed Take your medicine as instructed [email or web address] Not available 05/17/2023 16:56:37 given dmousad Not available 2022 16:56:42 06/13/2023 [id number] Continue conservative treatment Continue home exercises as [...] >=1 NG/mL >=1 POSIT BELINDA Not Available [facility] [address] [place] [address], [address], 03/24/2023 13:52:34 03/22/2003/23/2023 [facility] codeine felipe cfm-mcnc <1 NG/mL >=1 NONE DETEC LI Not Available [facility] [address] [place] [address], [address], 03/24/2023 13:52:34 03/22/2003/23/2023 [facility] morphine felipe cfm-mcnc <1 NG/mL >=1 NONE DETEC LI Not Available [facility] [address] [place] [address], [address], 03/24/2023 13:52:34 03/22/20 23 03/23/2023 [facility] dhc felipe cfm-mcnc <1 NG/mL >=1 NONE DETEC LI Not Available [facility] [address] [place] [address], [address], 03/24/2023 13:52:34 03/22/2003/23/2023 [facility] hydrocodone felipe cfm-mcnc <1 NG/mL >=1 NONE DETEC LI Not Available [facility] [address] [place] [address], [address], 03/24/2023 13:52:34 03/22/20 23 03/23/2023 [facility] norhydrocodo ne felipe cfm-mcnc <1 NG/mL >=1 NONE DETEC LI Not Available [facility] [address] [place] [address], [address], 03/24/2023 13:52:34 03/22/2003/23/2023 [facility] hydromorphon e felipe cfm-mcnc <1 NG/mL >=1 NONE DETEC LI Not Available [facility] [address] [place] [address], [place], [address], 03/24/2023 13:52:34 03/22/2003/23/2023 [facility] oxycodone felipe cfm-mcnc 83 NG/mL >=1 POSIT BELINDA Not Available [facility] [address] [place] [address], [address], 03/24/2023 13:52:34 03/22/2003/23/2023 [facility] oxymorphone felipe cfm-mcnc <1 NG/mL >=1 NONE DETEC LI Not Available [facility] [address] [place] [address], [place], [address], 03/24/2023 13:52:34 03/22/2003/23/2023 [facility] norcodeine felipe cfm-mcnc <1 NG/mL >=1 NONE DETEC LI Not Available [facility] [address] [place] [address], [address], 03/24/2023 13:52:34 03/22/2003/23/2023 [facility] noroxycodone felipe cfm-mcnc 15 NG/mL >=1 POSIT BELINDA Not Available [facility] [address] [place] [address], [address], 03/24/2023 13:52:34 03/22/2003/23/2023 [facility] benzodiaz felipe ql cfm <1 NG/mL >=1 NONE DETEC LI Not Available [facility] [address] [place] [address], [address], 03/24/2023 13:52:34 03/22/2003/23/2023 [facility] flurazepam fld cfm-mcnc <1 NG/mL >=1 NONE DETEC LI Not Available [facility] [address] [place] [address], [address], 03/24/2023 13:52:34 03/22/2003/23/2023 [facility] oxazepam felipe cfm-mcnc <1 NG/mL >=1 NONE DETEC LI Not Available [facility] [address] [place] [address], [address], 03/24/2023 13:52:34 03/22/2003/23/2023 [facility] alpraz felipe cfm-mcnc <1 NG/mL >=1 NONE DETEC LI Not Available [facility] [address] [place] [address], [address], 03/24/2023 13:52:34 03/22/2003/23/2023 [facility] lorazepam felipe cfm-mcnc <1 NG/mL >=1 NONE DETEC LI Not Available [facility] [address] [place] [address], [address], 03/24/2023 13:52:34 03/22/2003/23/2023 [facility] 7aminoclonaz epam felipe cfm-mcnc <1 NG/mL >=1 NONE DETEC LI Not Available [facility] [address] [place] [address], [address], 03/24/2023 13:52:34 03/22/2003/23/2023 [facility] clonazepam felipe cfm-mcnc <1 NG/mL >=1 NONE DETEC LI Not Available [facility] [address] [place] [address], [address], 03/24/2023 13:52:34 03/22/2003/23/2023 [facility] temazepam felipe cfm-mcnc <1 NG/mL >=1 NONE DETEC LI Not Available [facility] [address] [place] [address], [place], [address], 03/24/2023 13:52:34 03/22/2003/23/2023 [facility] diazepam felipe cfm-mcnc <1 NG/mL >=1 NONE DETEC LI Not Available [facility] [address] [place] [address], [place], [address], 03/24/2023 13:52:34 03/22/2003/23/2023 [facility] nordiazepam felipe cfm-mcnc <2 NG/mL >=2 NONE DETEC LI Not Available [facility] [address] [place] [address], [place], [address], 03/24/2023 13:52:34 03/22/2003/24/2023 [facility] oxycodone felipe CMP 99 NG/mL >=1 PRESE NT: A presc ripti on drug, not indic ated as presc ribed on the requi sitio n form, was detec li. Not Available [facility] [address] [place] [address], [place], [address], 03/24/2023 13:52:34 03/22/2003/24/2023 [facility] ethanol felipe ql scn <5 mg/dL >=5 NONE DETEC LI Not Available [facility] [address] [place] [address], [address], 03/24/2023 13:52:34 05/03/20 MRI, lumba r spine , w/o contr ast No observ ation record ed. [email or web address] Not Available 12 /04/2023 09:08:40 Result Notes None recorded. Problems Name Problem SNOMED Code Status Onset Date Resolution Date Notes Provider Name and Address Organization Details Recorded Time Type 2 diabetes mellitus 87594382 Active 2022 Amanda Pinon null, [place] - [facility], [facility] 3 08:29:19 Pain of right lower leg 8008401563100 08 Active 2022 Amanda Pinon null, [place] - [facility], [facility] 3 08:29:40 Hyperlipide michael 63035559 Active 2022 Amanda Pinon null, [place] - [facility], [facility] 3 08:29:50 Degeneratio n of lumbar interverteb ral disc 84302726 Active 2022 Amanda Pinon null, [place] - [facility], [facility] 3 08:30:18 Lumbar spondylosis 169537781 Active 2022 Amanda Pinon null, [place] - [facility], [facility] 3 08:30:25 Sleep apnea 49303354 Active 2022 Amanda Pinon null, [place] - [facility], [facility] 3 08:30:40 Problem Notes None recorded. Procedures Surgical History Date Name Laterality Status Provider Name and Address Organization Details Recorded Time tonsillectomy completed Jorge Erickson-Watso n [place] - [facility], [facility] 03/22/2023 14:10:30 section completed Jorge Erickson-Yango n [place] - [facility], [facility] 03/22/2023 14:10:40 total knee replacement completed Jorge Erickson-Watso n [place] - [facility], [facility] 03/22/2023 14:10:47 hernia repair completed Jorge Erickson-Watso n [place] - [facility], [facility] 03/22/2023 14:10:53 Cholecystectomy completed Jorge Erickson-Watso n [place] - [facility], [facility] 03/22/2023 14:15:24 laparoscopic sleeve gastrectomy completed Jorge Erickson-Yango n [place] - [facility], [facility] 03/22/2023 14:15:31 cataract surgery completed Jorge Chauhano raghav [facility], [facility] 03/22/2023 14:17:33 Imaging Results None recorded. Procedure Notes None recorded. Medical Equipment None Reported. Allergies Allergen ID Allergen Name Allergen Category Reaction Reaction Severity Criticality Documentation Date Start Date Code Code System Note Provider Name and Address Organization Details Recorded Time 6599 ampicilli n medicatio n hives Not available Not available 03/09/2023 733 RxNorm Amanda Pinon null, [facility], [facility] 3 08:25:35 6600 Prilosec medicatio n dizziness Not available Not available 03/09/2023 68206 5 RxNorm Amanda Pinon null, [facility], [facility] 3 08:25:49 6601 ibuprofen medicatio n Not available Not available Not available 03/09/2023 5640 RxNorm GI UPSET Amanda Pinon null, [facility], [facility] 3 08:26:22 6602 cyclobenz aprine hydrochlo ride medicatio n Not available Not available Not available 03/09/2023 61527 RxNorm RACIN G HEART BEAT Amanda Pinon null, [facility], [facility] 3 08:26:39 6603 Iodinated contrast media (substanc e) medicatio n Not available Not available Not available 03/09/2023 26927 2004 SNOMED MILD TIGHT NESS IN THROA T Amanda Pinon null, [facility], [facility] 3 08:27:12 Medications Name Sig Start [...] No t Available Vitals Date Recorded Body mass index (BMI) Body weight Respiratory rate Heart rate Heart rate Oxygen saturation Oxygen saturation in Arterial blood by Pulse oximetry Systolic blood pressure Diastolic blood pressure Provider Name and Address Organization Details Last Updated DateTime 4 52.2 kg/m2 341280. 08 g 18 /min 100 /min 100 /min 98 % 98 % 147 mm[Hg] 83 mm[Hg] Jorge ward [facility], [facility] 4 13:59:10 Date Recorded Body height Body temperature Provider N everett and Address Organization Details Last Updated DateTime 06/13/2023 162.56 cm 97.6 [degF] Trinidad Coats [facility], [facility] 06/13/2023 13:55:09 Date Recorded Body height Body mass index (BMI) Body weight Heart rate Respiratory rate Heart rate Oxygen saturation Oxygen saturation in Arterial blood by Pulse oximetry Systolic blood pressure Diastolic blood pressure Provider Name and Address Organization Details Last Updated DateTime 3 162.56 cm 52.9 kg/m2 582550. 45 g 96 /min 18 /min 96 /min 95 % 95 % 139 mm[Hg] 85 mm[Hg] Jorge DonahueJoey sylvia [facility], [facility] 3 14:23:34 Date Recorded Body temperature Provider Name a nd Address Organization Details Last Updated DateTime 03/22/2023 97 [degF] Amanda Pinon [facility], [facility] 03/22/2023 14:04:44 Date Recorded Body height Body temperature Provider N everett and Address Organization Details Last Updated DateTime 04/19/2023 162.56 cm 98.4 [degF] Jorge Jaydon [facility], [facility] 04/19/2023 14:02:29 Date Recorded Body mass index (BMI) Body weight Respiratory rate Heart rate Heart rate Oxygen saturation Oxygen saturation in Arterial blood by Pulse oximetry Systolic blood pressure Diastolic blood pressure Provider Name and Address Organization Details Last Updated DateTime 3 52 kg/m2 495803. 49 g 18 /min 102 /min 102 /min 95 % 95 % 125 mm[Hg] 85 mm[Hg] Amanda Pinon [facility], [facility] 3 14:09:34 Date Recorded Body mass index (BMI) Body weight Heart rate Respiratory rate Heart rate Oxygen saturation Oxygen saturation in Arterial blood by Pulse oximetry Systolic blood pressure Diastolic blood pressure Provider Name and Address Organization Details Last Updated DateTime 3 52.2 kg/m2 886558. 08 g 96 /min 18 /min 96 /min 98 % 98 % 138 mm[Hg] 62 mm[Hg] Jorge EricksonAdalberto sylvia [facility], [facility] 3 14:00:07 Date Recorded Body height Body temperature Provider N everett and Address Organization Details Last Updated DateTime 05/17/2023 162.56 cm 97.1 [degF] Trinidad Coats [facility], [facility] 05/17/2023 13:54:03 Social History Question Answer Notes LastModified by [employer] ion Details LastModified Time Tobacco Smoking Status Never Smoker Jorge EricksonNazario [facility] 03/22/2023 14:18:13 Are You Blind Or Do You Have [...] Information n ot available 03/22/2023 Do You Have Difficulty Walking Or Climbing Stairs? Yes Information not available 03/22/2023 Sex: Unknown Functional Status Question Answer Note LastModified by Organizat ion Details LastModified Time Do you or have you ever used any other forms of tobacco or nicotine? No Information not available 03/22/2023 What is your level of alcohol consumption? None Information not available 03/22/2023 Are you currently employed? No Information not available 03/22/2023 Are you able to walk? YESASSIST Information not available 03/22/2023 Do you have difficulty doing errands alone? No Information not available 03/22/2023 Do you have difficulty dressing or bathing? Yes Information not available 03/22/2023 Mental Status Question Answer Note LastModified by Organizat ion Details LastModified Time Do you feel stressed (tense, restless, nervous, or anxious, or unable to sleep at night)? [id number] Information not available 03/22/2023 Do you have difficulty concentrating, remembering or making decisions? No Information no t available 03/22/2023 Family History Relationship Description Onset Age of this Age Resolved Age Notes LastModified by Organization Details LastModified Time Father Family history of malignant neoplasm [email or web address] Not available 14:16:33 Father Hypertensive disorder [email or web address] Not available 14:16:53 Father Type 2 diabetes mellitus [email or web address] Not available 14:17:06 Mother Family history of malignant neoplasm [email or web address] Not available 14:16:33 Mother History of heart disorder [email or web address] Not available 14:16:48 Mother Hypertensive disorder [email or web address] Not available 14:16:53 Medical History Condition Response Coronary Artery Disease N Gout N Head Trauma/Injury Y Hernia Y Thyroid Problems N Depression Y COPD N Anemia N Ulcers N Heart Attack (OK) N Diabetes Y Anxiety Disorder Y Bleeding Disorder N Arthritis Y Tuberculosis N AIDS/HIV N Acid Reflux (GERD) Y Cancer Y Stroke N Asthma Y Substance Abuse N Back Injury N High Cholesterol Y Hepatitis N Liver Disease N Heart Disease N Headaches N Fibromyalgia Y Hypertension Y Osteoporosis N Kidney Disease N Gynecological HistoryNo gynecological history recorded. Obstetrics History GPAL:G 0 P 0 0 0 0 Past Encounters Encounter ID Performer Location Encounter Start Date Encounter Closed Date Diagnosis/Indication Diagnosis SNOMED-CT Code Diagnosis ICD10 Code Diagnosis Note [id number] Jan Soto MD Main Office [address] [place] [id number] 4 03/22/2023 13:47:08 03/25/2023 18:43:03 Long-term current use of opiate analgesic drug 2517600171 31684 Z79.891 Intractabl e low back pain 1227414289 5258417 M54.50 She was advised not to drink alcohol while taking xtampzaI change her dose from 18 mg once a day to 9 mg twice a day The risk of xtampza was explained to the patient in detailPMP was checked, no concern.We ight reduction program Physical therapy order Chronic low back pain 27 3016059 M54.50 The risk of Percocet was explained to the patientTak e it only once a day for breakthrou gh pain.Physi monica therapy order Spasm of back muscles 20 3907835 M62.830 Osteoarthr itis of knee 189782334 M17.9 Weight reductionQ uadriceps exercise Long-term drug therapy 210262164 Z79.899 Lumbar radiculopathy 128 785772 M54.16 Plan for mid L5-S1 I VLAD after MRIPhysica l therapy ordered Lumbosacra l spondylosis without myelopathy 21265219 M47.817 Plan for lumbar radiofrequ ency rhizotomy after an MRI done [id number] Jan Soto MD Main Office [address] [place] [id number] 4 04/19/2023 14:01:22 04/19/2023 17:34:38 Intractable low back pain 1298025733 6445721 M54.50 She was advised not to drink alcohol while taking xtampzaI change her dose from 18 mg once a day to 9 mg twice a day The risk of xtampza was explained to the patient in detailPMP was checked, no concern.We ight reduction program Physical therapy ordered and started. Lumbar radiculopathy 128 M54.16 Plan for mid L5-S1 I VLAD after MRIPhysica l therapy ordered and started.We ight reduction Chronic low back pain 27 3533415 M54.50 The risk of Percocet was explained to the patientTak e it only once a day for breakthrou gh pain.Physi monica therapy started. Lumbosacra l spondylosis without myelopathy 81744197 M47.817 Plan for lumbar radiofrequ ency rhizotomy after an MRI done Spasm of back muscles 20 7553280 M62.830 Osteoarthr itis of knee 128464516 M17.9 Weight reductionQ uadriceps exercise Diabetic p eripheral neuropathy 497081304 E11.40 [id number] Jan Soto MD Main Office [address] [facility] [address] [place] [address] 05/17/2023 13:53:38 05/17/2023 16:58:03 Lumbar radiculopathy 983801603 M54.16 Plan for left L4-5 I VLAD after MRIthe procedure was explained in detail to the patient which including possible complicati on, the patient understand s and verbally consents.P hysical therapy ordered and started.We ight reduction Chronic low back pain 27 9389116 M54.50 The risk of Percocet was explained to the patientTak e it only once a day for breakthrou gh pain.Physi monica therapy started. Intractabl e low back pain 9049658511 6016074 M54.50 She was advised not to drink alcohol while taking xtampzaI change her dose from 18 mg once a day to 9 mg twice a day The risk of xtampza was explained to the patient in detailPMP was checked, no concern.We ight reduction program Physical therapy ordered and started. Lumbosacra l spondylosis without myelopathy 82796677 M47.817 Plan for lumbar radiofrequ ency rhizotomyw eight reduction programCon tinue physical therapy Spasm of back muscles 20 1676039 M62.830 Osteoarthr itis of knee 310738495 M17.9 Weight reductionQ uadriceps exercise Diabetic p eripheral neuropathy 326013945 E11.40 [id number] Jan Soto MD Main Office [address] [facility] [address] [place] [address] 06/13/2023 13:54:42 06/13/2023 17:23:45 Lumbar radiculopathy 348360662 M54.16 the patient did not show for the lumbar epidural steroid injection. Chronic low back pain 27 8993696 M54.50 The risk of Percocet was explained to the patientTak e it only once a day for breakthrou gh pain.Physi monica therapy started. Intractabl e low back pain 3402200770 0217264 M54.50 She was advised not to drink alcohol while taking xtampzaI change her dose from 18 mg once a day to 9 mg twice a day The risk of xtampza was explained to the patient in detailPMP was checked, no concern.We ight reduction program Physical therapy ordered and started. Diabetic p eripheral neuropathy 669979534 E11.40 Osteoarthr itis of knee 543853498 M17.9 Weight reductionQ uadriceps exercise Lumbosacra l spondylosis without myelopathy 85805912 M47.817 Plan for lumbar radiofrequ ency rhizotomyw eight reduction programCon tinue physical therapy Spasm of back muscles 20 6361022 M62.830 Health Concerns Section Related Observation LastModified by Organization Detai ls LastModified Time None Recorded Concern Status LastModified by Organization Details LastModified Time None Recorded Advance Directives Directive None Recorded Payers Insurance Date Sequence Insurance Name Policy Number Policy Zheng Covered Member ID Zheng Member ID Guarantor Name 06/10/2023 1 [place] [employer] Sarika Josee [id number] Sarika Josee 06/10/2023 2 [place] [id number] Sarika Josee [id number] Sarika Josee Notes Date Note Type Note Provider Name [...] check her saliva toxicology. Jan Soto MD [address] [place] [place] [address],[address], [place], [address], [facility], [facility] 03/25/2023 18:42:38 04/19/2023 text/html 72 years [...] was positive for oxycodone. Jan Soto MD [address] [facility],[address], [place], [address], [facility], [facility] 04/19/2023 17:34:23 05/17/2023 text/html 72 years [...] was positive for oxycodone. Jan Soto MD [address] [place] [place] [address],[address], [place], [address], [facility], [facility] 05/17/2023 16:57:19 06/13/2023 text/html 72 years [...] show last procedure visit. Jan Soto MD [address] [place] [address],[address], [place], [address], [facility], [facility] 06/13/2023 17:23:21 OBGyn Episode No OBEpisode recorded.
== END 2024-11-21 09:42 | disposition home or self-care (01) ==
LOC: HO.HSMS 08:15
PROVIDERS: PCP Family Medicine; Visit Provider Psychiatry & Neurology Neurology
DX: G24.3 Spasmodic torticollis (principal)
CPT/HCPCS: 99204

== ENCOUNTER → 2024-11-21 08:14 | Outpatient (BNVA) | payer MEDICARE, SELFPAY | PROVIDERS: PCP Family Medicine; Visit Provider Psychiatry & Neurology Neurology | DX: G24.3 Spasmodic torticollis (principal) | CPT/HCPCS: 99202 ==

== ENCOUNTER 2024-11-22 14:17 | Outpatient (AMB) | payer MEDICARE, SELFPAY ==
--- OUTSIDE RECORDS SUMMARY | 2024-11-22 14:20 | XMS_ITS | Data Portability ---
Author Organization [place] - [facility], [facility], Patient Home Address [address] [facility] [address] [place] [address] Care Team Providers Care Slip Tender Name Role Phone NALLELY QUILES Primary Care Provider [phone] NALLELY QUILES Referring Provider Assessment No assessment recorded. Plan of Treatment Reminders Order Date Submit Date Provider Last Modified By Organization Details Last Modified Time Details Appointments None recorded. Lab drug screen, saliva 2022 023 Not available 3 14:19:39 Referral None recorded. Procedures None recorded. Surgeries None recorded. Imaging MRI, lumbar spine, w/o contrast 2022 023 [email or web address] [facility]. - Mri, [address] [place] [address], [place], [address], 3 09:42:42 Medication Orders Percocet 5 mg-325 [...] By Organization Details Last Modified Time 03/22/2023 [id number] strategy consultant goal of Pain Scale Not available Not available Not available strategy consultant goal of Weight 130 lbs Not available Not available Not available decrease pain increase activities improve quality of life weight reduction [email or web address] Not available 03/25/2023 18:40:54 04/19/2023 [id number] strategy consultant goal of Pain Scale Not available Not available Not available alf goal of Weight 125 lbs Not available Not available Not available decrease pain increase activities improve quality of life weight reduction dmousad Not available 04/19/2023 17:32:57 05/17/2023 [id number] strategy consultant goal of Pain Scale Not available Not available Not available alf goal of Weight 130 lbs Not available Not available Not available decrease pain increase activities improve quality of life weight reduction dmousad Not available 05/17/2023 16:56:32 06/13/2023 [id number] alf goal of Pain Scale Not available Not available Not available alf goal of Weight 125 lbs Not available Not available Not available decrease pain increase activities improve quality of life weight reduction dmousad Not available 06/13/2023 17:22:05 Patient Instructions Encounter Date Encounter Id Patient Instructions Last Modified By Organization Details Last Modified Time 03/22/2023 [id number] Given [email or web address] Not available 03/25 18:41:00 Given [email or web address] Not available 2022 18:41:02 04/19/2023 [id number] Given [email or web address] Not available 04/19 17:33:04 Given [email or web address] Not available 2022 17:33:09 05/17/2023 [id number] Continue conservative treatment Continue home exercises as directed by MD Use ice and hot packs as instructed Take your medicine as instructed dmousad Not available 05/17/2023 16:56:37 given dmousad Not available 2022 16:56:42 06/13/2023 [id number] Continue conservative treatment Continue home exercises as [...] >=1 NG/mL >=1 POSIT BELINDA Not Available [facility] [address] [place] [address], [address], 03/24/2023 13:52:34 03/22/2003/23/2023 [facility] codeine felipe cfm-mcnc <1 NG/mL >=1 NONE DETEC LI Not Available [facility] [address] [place] [address], [address], 03/24/2023 13:52:34 03/22/2003/23/2023 [facility] morphine felipe cfm-mcnc <1 NG/mL >=1 NONE DETEC LI Not Available [facility] [address] [place] [address], [address], 03/24/2023 13:52:34 03/22/20 23 03/23/2023 [facility] dhc felipe cfm-mcnc <1 NG/mL >=1 NONE DETEC LI Not Available [facility] [address] [place] [address], [address], 03/24/2023 13:52:34 03/22/2003/23/2023 [facility] hydrocodone felipe cfm-mcnc <1 NG/mL >=1 NONE DETEC LI Not Available [facility] [address] [place] [address], [address], 03/24/2023 13:52:34 03/22/20 23 03/23/2023 [facility] norhydrocodo ne felipe cfm-mcnc <1 NG/mL >=1 NONE DETEC LI Not Available [facility] [address] [place] [address], [id number], 03/24/2023 13:52:34 03/22/2003/23/2023 [facility] hydromorphon e felipe cfm-mcnc <1 NG/mL >=1 NONE DETEC LI Not Available [facility] [address] [place] [address], [place], [address], 03/24/2023 13:52:34 03/22/2003/23/2023 [facility] oxycodone felipe cfm-mcnc 83 NG/mL >=1 POSIT BELINDA Not Available [facility] [address] [place] [address], [address], 03/24/2023 13:52:34 03/22/2003/23/2023 [facility] oxymorphone felipe cfm-mcnc <1 NG/mL >=1 NONE DETEC LI Not Available [facility] [address] [place] [address], [place], [address], 03/24/2023 13:52:34 03/22/2003/23/2023 [facility] norcodeine felipe cfm-mcnc <1 NG/mL >=1 NONE DETEC LI Not Available [facility] [address] [place] [address], [address], 03/24/2023 13:52:34 03/22/2003/23/2023 [facility] noroxycodone felipe cfm-mcnc 15 NG/mL >=1 POSIT BELINDA Not Available [facility] [address] [place] [address], [address], 03/24/2023 13:52:34 03/22/2003/23/2023 [facility] benzodiaz felipe ql cfm <1 NG/mL >=1 NONE DETEC LI Not Available [facility] [address] [place] [address], [address], 03/24/2023 13:52:34 03/22/2003/23/2023 [facility] flurazepam fld cfm-mcnc <1 NG/mL >=1 NONE DETEC LI Not Available [facility] [address] [place] [address], [address], 03/24/2023 13:52:34 03/22/2003/23/2023 [facility] oxazepam felipe cfm-mcnc <1 NG/mL >=1 NONE DETEC LI Not Available [facility] [address] [place] [address], [address], 03/24/2023 13:52:34 03/22/2003/23/2023 [facility] alpraz felipe cfm-mcnc <1 NG/mL >=1 NONE DETEC LI Not Available [facility] [address] [place] [address], [address], 03/24/2023 13:52:34 03/22/2003/23/2023 [facility] lorazepam felipe cfm-mcnc <1 NG/mL >=1 NONE DETEC LI Not Available [facility] [address] [place] [address], [address], 03/24/2023 13:52:34 03/22/2003/23/2023 [facility] 7aminoclonaz epam felipe cfm-mcnc <1 NG/mL >=1 NONE DETEC LI Not Available [facility] [address] [place] [address], [address], 03/24/2023 13:52:34 03/22/2003/23/2023 [facility] clonazepam felipe cfm-mcnc <1 NG/mL >=1 NONE DETEC LI Not Available [facility] [address] [place] [address], [address], 03/24/2023 13:52:34 03/22/2003/23/2023 [facility] temazepam felipe cfm-mcnc <1 NG/mL >=1 NONE DETEC LI Not Available [facility] [address] [place] [address], [place], [address], 03/24/2023 13:52:34 03/22/2003/23/2023 [facility] diazepam felipe cfm-mcnc <1 NG/mL >=1 NONE DETEC LI Not Available [facility] [address] [place] [address], [place], [address], 03/24/2023 13:52:34 03/22/2003/23/2023 [facility] nordiazepam felipe cfm-mcnc <2 NG/mL >=2 NONE DETEC LI Not Available [facility] [address] [place] [address], [place], [address], 03/24/2023 13:52:34 03/22/2003/24/2023 [facility] oxycodone felipe CMP 99 NG/mL >=1 PRESE NT: A presc ripti on drug, not indic ated as presc ribed on the requi sitio n form, was detec li. Not Available [facility] [address] [place] [address], [place], [address], 03/24/2023 13:52:34 03/22/2003/24/2023 [facility] ethanol felipe ql scn <5 mg/dL >=5 NONE DETEC LI Not Available [facility] [address] [place] [address], [address], 03/24/2023 13:52:34 05/03/20 MRI, lumba r spine , w/o contr ast No observ ation record ed. [email or web address] Not Available 12 /04/2023 09:08:40 Result Notes None recorded. Problems Name Problem SNOMED Code Status Onset Date Resolution Date Notes Provider Name and Address Organization Details Recorded Time Type 2 diabetes mellitus 12521350 Active 2022 Amanda Pinon null, [place] - [facility], [facility] 3 08:29:19 Pain of right lower leg 5192468993773 08 Active 2022 Amanda Pinon null, [place] - [facility], [facility] 3 08:29:40 Hyperlipide michael 41818559 Active 2022 Amanda Pinon null, [place] - [facility], [facility] 3 08:29:50 Degeneratio n of lumbar interverteb ral disc 25972974 Active 2022 Amanda Pinon null, [place] - [facility], [facility] 3 08:30:18 Lumbar spondylosis 573674070 Active 2022 Amanda Pinon null, [place] - [facility], [facility] 3 08:30:25 Sleep apnea 89878194 Active 2022 Amanda Pinon null, [place] - [facility], [facility] 3 08:30:40 Problem Notes None recorded. Procedures Surgical History Date Name Laterality Status Provider Name and Address Organization Details Recorded Time tonsillectomy completed Jorge Erickson-Watso n [place] - [facility], [facility] 03/22/2023 14:10:30 section completed Jorge Erickson-Yango n [place] - [facility], [facility] 03/22/2023 14:10:40 total knee replacement completed Jorge Erickson-Watso n [place] - [facility], [facility] 03/22/2023 14:10:47 hernia repair completed Jorge Erickson-Watso n [place] - [facility], [facility] 03/22/2023 14:10:53 Cholecystectomy completed Jorge Erickson-Watso n [place] - [facility], [facility] 03/22/2023 14:15:24 laparoscopic sleeve gastrectomy completed Jorge Erickson-Yango n [place] - [facility], [facility] 03/22/2023 14:15:31 cataract surgery completed Jorge Chauhano raghav [facility], [facility] 03/22/2023 14:17:33 Imaging Results None recorded. Procedure Notes None recorded. Medical Equipment None Reported. Allergies Allergen ID Allergen Name Allergen Category Reaction Reaction Severity Criticality Documentation Date Start Date Code Code System Note Provider Name and Address Organization Details Recorded Time 6599 ampicilli n medicatio n hives Not available Not available 03/09/2023 733 RxNorm Amanda Pinon null, [facility], [facility] 3 08:25:35 6600 Prilosec medicatio n dizziness Not available Not available 03/09/2023 38732 5 RxNorm Amanda Pinon null, [facility], [facility] 3 08:25:49 6601 ibuprofen medicatio n Not available Not available Not available 03/09/2023 5640 RxNorm GI UPSET Amanda Pinon null, [facility], [facility] 3 08:26:22 6602 cyclobenz aprine hydrochlo ride medicatio n Not available Not available Not available 03/09/2023 36968 RxNorm RACIN G HEART BEAT Amanda Pinon null, [facility], [facility] 3 08:26:39 6603 Iodinated contrast media (substanc e) medicatio n Not available Not available Not available 03/09/2023 75300 2004 SNOMED MILD TIGHT NESS IN THROA T Amanda Pinon null, [facility], [facility] 3 08:27:12 Medications Name Sig Start Date [...] in Arterial blood by Pulse oximetry Systolic And Diastolic Provider Name and Address Organization Details Last Updated DateTime 4 52.2 kg/m2 616025. 08 g 18 /min 100 /min 100 /min 98 % 98 % 147/83 mm[Hg] Jorge ward [facility], [facility] 4 13:59:10 Date Recorded Body height Body temperature Provider N everett and Address Organization Details Last Updated DateTime 06/13/2023 162.56 cm 97.6 [degF] Trinidad Coats [facility], [facility] 06/13/2023 13:55:09 Date Recorded Body height Body mass index (BMI) Body weight Heart rate Respiratory rate Heart rate Oxygen saturation Oxygen saturation in Arterial blood by Pulse oximetry Systolic And Diastolic Provider Name and Address Organization Details Last Updated DateTime 3 162.56 cm 52.9 kg/m2 518717. 45 g 96 /min 18 /min 96 /min 95 % 95 % 139/85 mm[Hg] Jorge ward [facility], [facility] 3 14:23:34 Date Recorded Body temperature Provider Name a nd Address Organization Details Last Updated DateTime 03/22/2023 97 [degF] Amanda Pinon [facility], [facility] 03/22/2023 14:04:44 Date Recorded Body height Body temperature Provider N everett and Address Organization Details Last Updated DateTime 04/19/2023 162.56 cm 98.4 [degF] Jorge Jaydon [facility], [facility] 04/19/2023 14:02:29 Date Recorded Body mass index (BMI) Body weight Respiratory rate Heart rate Heart rate Oxygen saturation Oxygen saturation in Arterial blood by Pulse oximetry Systolic And Diastolic Provider Name and Address Organization Details Last Updated DateTime 3 52 kg/m2 165917. 49 g 18 /min 102 /min 102 /min 95 % 95 % 125/85 mm[Hg] Amanda Pinon [facility], [facility] 3 14:09:34 Date Recorded Body mass index (BMI) Body weight Heart rate Respiratory rate Heart rate Oxygen saturation Oxygen saturation in Arterial blood by Pulse oximetry Systolic And Diastolic Provider Name and Address Organization Details Last Updated DateTime 3 52.2 kg/m2 828712. 08 g 96 /min 18 /min 96 /min 98 % 98 % 138/62 mm[Hg] Jorge Washington rosenbaumyulissa [facility], [facility] 3 14:00:07 Date Recorded Body height Body temperature Provider N everett and Address Organization Details Last Updated DateTime 05/17/2023 162.56 cm 97.1 [degF] Trinidad Coats [facility], [facility] 05/17/2023 13:54:03 Social History Question Answer Notes LastModified by Organizat ion Details LastModified Time Tobacco Smoking Status Never Smoker Jorge Jaydon castillo [facility], [facility] 03/22/2023 14:18:13 Are You Blind Or Do [...] anxious, or unable to sleep at night)? [id number] Information not available 03/22/2023 Do you have [...] 14:17:06 Mother Family history of malignant neoplasm [email or web address] Not available 14:16:33 Mother History of heart disorder [email or web address] Not available 14:16:48 Mother Hypertensive disorder [email or web address] Not available 14:16:53 Medical History Condition Response Coronary Artery Disease N Gout N Head Trauma/Injury Y Hernia Y Thyroid Problems N Depression Y COPD N Anemia N Ulcers N Heart Attack ([place]) N Diabetes Y Anxiety Disorder Y Bleeding [...] SNOMED-CT Code Diagnosis ICD10 Code Diagnosis Note [id number] Jan Soto MD Main Office [address] [place] [address] 03/22/2023 13:47:08 03/25/2023 18:43:03 Long-term current use of opiate analgesic drug 6502677249 76998 Z79.891 Intractabl e low back pain 9583327793 0685699 M54.50 She was advised not to drink alcohol while taking xtampzaI change her dose from 18 mg once a day to 9 mg twice a day The risk of xtampza was explained to the patient in detailPMP was checked, no concern.We ight reduction program Physical therapy order Chronic low back pain 27 8348205 M54.50 The risk of Percocet was explained to the patientTak e it only once a day for breakthrou gh pain.Physi monica therapy order Spasm of back muscles 20 7570218 M62.830 Osteoarthr itis of knee 594020955 M17.9 Weight reductionQ uadriceps exercise Long-term drug therapy 244219912 Z79.899 Lumbar radiculopathy 128 079081 M54.16 Plan for mid L5-S1 I VLAD after MRIPhysica l therapy ordered Lumbosacra l spondylosis without myelopathy 14949241 M47.817 Plan for lumbar radiofrequ ency rhizotomy after an MRI done [id number] Jan Soto MD Main Office [address] [place] [address] 04/19/2023 14:01:22 04/19/2023 17:34:38 Intractable low back pain 0481928498 6084643 M54.50 She was advised not to drink alcohol while taking xtampzaI change her dose from 18 mg once a day to 9 mg twice a day The risk of xtampza was explained to the patient in detailPMP was checked, no concern.We ight reduction program Physical therapy ordered and started. Lumbar radiculopathy 128 060945 M54.16 Plan for mid L5-S1 I VLAD after MRIPhysica l therapy ordered and started.We ight reduction Chronic low back pain 27 8386201 M54.50 The risk of Percocet was explained to the patientTak e it only once a day for breakthrou gh pain.Physi monica therapy started. Lumbosacra l spondylosis without myelopathy 18128897 M47.817 Plan for lumbar radiofrequ ency rhizotomy after an MRI done Spasm of back muscles 20 6743305 M62.830 Osteoarthr itis of knee 651081534 M17.9 Weight reductionQ uadriceps exercise Diabetic p eripheral neuropathy 220810682 E11.40 [id number] Jan Soto MD Main Office [address] [facility] [address] [place] [address] 05/17/2023 13:53:38 05/17/2023 16:58:03 Lumbar radiculopathy 164161015 M54.16 Plan for left L4-5 I VLAD after MRIthe procedure was explained in detail to the patient which including possible complicati on, the patient understand s and verbally consents.P hysical therapy ordered and started.We ight reduction Chronic low back pain 27 3965787 M54.50 The risk of Percocet was explained to the patientTak e it only once a day for breakthrou gh pain.Physi monica therapy started. Intractabl e low back pain 4439643863 8388212 M54.50 She was advised not to drink alcohol while taking xtampzaI change her dose from 18 mg once a day to 9 mg twice a day The risk of xtampza was explained to the patient in detailPMP was checked, no concern.We ight reduction program Physical therapy ordered and started. Lumbosacra l spondylosis without myelopathy 05854660 M47.817 Plan for lumbar radiofrequ ency rhizotomyw eight reduction programCon tinue physical therapy Spasm of back muscles 20 1134662 M62.830 Osteoarthr itis of knee 644581464 M17.9 Weight reductionQ uadriceps exercise Diabetic p eripheral neuropathy 425202060 E11.40 [id number] Jan Soto MD Main Office [address] [facility] [address] [place] [address] 06/13/2023 13:54:42 06/13/2023 17:23:45 Lumbar radiculopathy 310686038 M54.16 the patient did not show for the lumbar epidural steroid injection. Chronic low back pain 27 1977581 M54.50 The risk of Percocet was explained to the patientTak e it only once a day for breakthrou gh pain.Physi monica therapy started. Intractabl e low back pain 6159905226 5990056 M54.50 She was advised not to drink alcohol while taking xtampzaI change her dose from 18 mg once a day to 9 mg twice a day The risk of xtampza was explained to the patient in detailPMP was checked, no concern.We ight reduction program Physical therapy ordered and started. Diabetic p eripheral neuropathy 920464319 E11.40 Osteoarthr itis of knee 928071866 M17.9 Weight reductionQ uadriceps exercise Lumbosacra l spondylosis without myelopathy 64404837 M47.817 Plan for lumbar radiofrequ ency rhizotomyw eight reduction programCon tinue physical therapy Spasm of back muscles 20 4303930 M62.830 Health Concerns Section Related Observation LastModified by Organization Detai ls LastModified Time None Recorded Concern Status LastModified by Organization Details LastModified Time None Recorded Advance Directives Directive None Recorded Payers Insurance Date Sequence Insurance Name Policy Number Policy Zehng Covered Member ID Zheng Member ID Guarantor Name 06/10/2023 1 [place] [employer] Sarika Josee [id number] Sarika Josee 06/10/2023 2 [place] [id number] Sarika Tripp [id number] Sarika Tripp Notes Date Note Type [...] check her saliva toxicology. Jan Soto MD [address] [facility] [address], [place], [address], [facility], [facility] 03/25/2023 18:42:38 04/19/2023 text/html 72 years old [...] positive for oxycodone. Jan Soto MD [address] [facility],[address], [place], [address], [facility], [facility] 04/19/2023 17:34:23 05/17/2023 text/html 72 years old [...] was positive for oxycodone. Jan Soto MD [address] [place] [address],[address], [place], [address], [facility], [facility] 05/17/2023 16:57:19 06/13/2023 text/html 72 years old [...] show last procedure visit. Jan Soto MD [address] [place] [address],[address], [place], [address], [facility], [facility] 06/13/2023 17:23:21 OBGyn Episode No OBEpisode recorded.
--- OUTSIDE RECORDS SUMMARY | 2024-11-22 14:20 | XMS_ITS | Patient Health Record ---
Author Organization [facility] Address [address] [place] [address] Care Team Providers Care Payment Rep Name Role Phone NALLELY QUILES MD Primary [...] W/U Status Risk Notes Problem Sleep apnea (78168760) Sleep apnea (786.09) Active confirmed Problem Chest discomfort (782315168) Chest discomfort (786.59) Active confirmed Problem Preoperative cardiovascular examination (649790464) Pre-operative Cardiovascular exam (V72.81) Active confirmed Problem Obesity (264658693) Obesity (278.00) Active confirmed Problem Hypertension (78116752) Hypertension (401.9) Active confirmed Plan Of Treatment No Information Insurance Providers Payer Name Payer Address Payer Phone Subscriber Number Group Number Insured Name Patient Relationship to Insured Coverage Start Date Coverage End Date [place]UE CARD [address] [place] [address] [id number] SANTO MCDERMOTT Self - patient is the insured 7 Medical (General) History Medical History History ICD Code Obesity hypertension Denies DM, CVA, TIA, [place], Peptic ulcer di sease, GERD h/o Asthma with occasional ER visits wit hout any admissions or intubations Sleep apnea, severe..started CPAP mask 1 Osteoarthritis knees, more notably left knee LS spine and disc disease
--- NOTE | 2024-11-22 14:50 | A.SPINEOV_ITS ---
Intake Visit Reasons: Follow up CT Scan Intake Note: Ms. Tripp is here today to discuss the results of her CT Scan. Resident Services Director Required: No Allergies ampicillin Allergy (Unknown, Verified 11/21/24 08:21) Hives cyclobenzaprine (From Flexeril) Allergy (Unknown, Verified 11/21/24 08:21) Palpitations Iodinated Contrast Media Allergy (Unknown, Verified 11/21/24 08:21) Shortness of Breath temazepam (From Restoril) Allergy (Unknown, Verified 11/21/24 08:21) Palpitations ibuprofen Adverse Reaction (Unknown, Verified 11/21/24 08:21) Gastrointestinal Upset omeprazole Adverse Reaction (Unknown, Verified 11/21/24 08:21) Nausea IV contrast dye Allergy (Intermediate, Uncoded 11/21/24 08:21) breathing Assessment & Plan Assessment & Plan (1) Cervical spondylosis: Code(s): M47.812 - Spondylosis without myelopathy or radiculopathy, cervical region Category: Medical Plan Mrs Tripp returns in follow-up. Please refer to my last note for the specifics of her problem. She has a history of torticollis, neck pain which has been on and off for many decades but progressing significantly worse over the last year with pain down her left arm. Last time I saw her, she had significant disc degeneration and collapse at C5-6, almost grade 2 spondylolisthesis at C6-7 as well as evidence of auto fusion of C2 and 3. I sent her for the CAT scan to evaluate the bone slightly better and the x-rays. It does not appear as though she is auto fused completely the C5-6 disc space. There is bridging anterior osteophytes at C4-5 but I do not think they have auto fused either. I suspect that her issues are multifactorial considering the torticollis and the disc degeneration. Right now she is getting evaluated by a neurologist for potential Botox injections to help her torticollis. Her head does tilt significantly to the left when she is in a resting position. This may pose some difficulty with anterior cervical fusion if her head continues to rotate postoperatively. I am going to review all of her imaging with Dr. Hyde and see if we can come up with a finalize surgical plan. In the interim, she is going to continue to work with the neurologist, she has a 1st Botox injection coming up on December 11 and hopefully after that they can re-evaluate and get her on a regimen that can keep her a bit more in a neutral position. Total amount of time spent in this visit was 20 minutes in discussion of symptoms, CT imaging results and subsequent plan of care Deshawn Hyde MD,PhD [facility] Coding Level of Care Code Est Pt Level 3 (35331) Diagnoses Cervical spondylosis M47.812
== END 2024-11-22 16:27 | disposition home or self-care (01) ==
LOC: HO.HNS 14:17
PROVIDERS: PCP Family Medicine; Visit Provider Physician Assistant
DX: M47.812 Spondylosis without myelopathy or radiculopathy, cervical region (principal)
CPT/HCPCS: 99213

== ENCOUNTER → 2024-11-22 14:17 | Outpatient (BNVA) | payer MEDICARE, SELFPAY | PROVIDERS: PCP Family Medicine; Visit Provider Physician Assistant | DX: M47.812 Spondylosis without myelopathy or radiculopathy, cervical region (principal) | CPT/HCPCS: 99212 ==

== ENCOUNTER 2024-12-11 09:11 | Outpatient (AMB) | payer MEDICARE, SELFPAY ==
[2024-12-11 09:15] VITALS: BP 120/62; PULSE 94; O2SAT 96; BMI 49.4
--- NOTE | 2024-12-11 09:15 | A.OFFVIS_ITS ---
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 Accompanied by: Self / Same As Patient Allergies ampicillin Allergy (Unknown, Verified 12/11/24 09:30) Hives cyclobenzaprine (From Flexeril) Allergy (Unknown, Verified 12/11/24 09:30) Palpitations Iodinated Contrast Media Allergy (Unknown, Verified 12/11/24 09:30) Shortness of Breath temazepam (From Restoril) Allergy (Unknown, Verified 12/11/24 09:30) Palpitations ibuprofen Adverse Reaction (Unknown, Verified 12/11/24 09:30) Gastrointestinal Upset omeprazole Adverse Reaction (Unknown, Verified 12/11/24 09:30) Nausea IV contrast dye Allergy (Intermediate, Uncoded 11/21/24 08:21) breathing HPI Comments Details: comes for treatment of his cervical dystonia ? Side effects including spread of toxin effect, dysphagia, breathing difficulties , bronchitis etc was discussed in detail and the patient agreed to the procedure.An informed consent was obtained ??? Botulinum toxin type A 100units X 1 -was diluted with 2 cc of normal saline at a concentration of 25 units in 0.5cc saline. Lot number [id number] expiration 06/2023 ??? Muscles injected ??? christina Splenius - 25 units each ??? left levator 25 units each ??? BilTrapezius 12.5 units each ??? Total used 100 units [facility] Medical History STELLA (obstructive sleep apnea) Recurrent major depression in partial remission Diabetes mellitus, with long-term current use of insulin Primary hypertension 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 Seasonal allergies Cervicalgia Surgical History History of total left knee replacement H/O hernia repair H/O gastric sleeve History of cholecystectomy Previous section Hx of tonsillectomy Social History Are you a primary health care coordinator to a significant other at home: No Do you presently have visiting nurse or other home services: No Patient Tobacco Use Status: Never used Tobacco Physical Exam Vital Signs: Last Vital Signs Pulse 94 12/11/24 09:15 BP 120/62 12/11/24 09:15 Pulse Ox 96 12/11/24 09:15 Oxygen Delivery Method Room Air 12/11/24 09:15 BMI result Body Mass Index 49.4 Coding
--- OUTSIDE RECORDS SUMMARY | 2024-12-11 09:43 | XMS_ITS | Patient Health Record ---
Author Organization [facility] Address [address] [place] [address] Care Team Providers Care Coagulant Dipper Name Role Phone NALLELY QUILES MD Primary [...] W/U Status Risk Notes Problem Sleep apnea (43861796) Sleep apnea (786.09) Active confirmed Problem Chest discomfort (830477212) Chest discomfort (786.59) Active confirmed Problem Preoperative cardiovascular examination (219681302) Pre-operative Cardiovascular exam (V72.81) Active confirmed Problem Obesity (169949821) Obesity (278.00) Active confirmed Problem Hypertension (27654607) Hypertension (401.9) Active confirmed Plan Of Treatment No Information Insurance Providers Payer Name Payer Address Payer Phone Subscriber Number Group Number Insured Name Patient Relationship to Insured Coverage Start Date Coverage End Date [place] OF [place] - [place]UE CARD [address] [place] [phone] [id number] SANTO MCDERMOTT Self - patient is the insured 7 Medical (General) History Medical History History ICD Code Obesity hypertension Denies DM, CVA, TIA, NC, Peptic ulcer di sease, GERD h/o Asthma with occasional ER visits wit hout any admissions or intubations Sleep apnea, severe..started CPAP mask 1 Osteoarthritis knees, more notably left knee LS spine and disc disease
--- OUTSIDE RECORDS SUMMARY | 2024-12-11 09:43 | XMS_ITS | Encounter Summary ---
Author Organization [facility] Address [address] [place] [address] Phone Care Team Providers Care Funeral Home Makeup Artist Name Role Phone Yaquelin ScottBS Unavailable [phone] Constance Canales MD Primary Care Provider [phone] Muna Gary CNP Unavailable Reason for Referral * MRI/CAT Scan - Closed Specialty Diagnoses / Procedures Referred By Bindu [place] Referred To Contact Radiology Procedures Outside CT Imaging Report Only Mariama Leslie MD Referral ID Status Reason Start Date Expiration Date Visits Re quested Visits Authorized [id number] Closed 11/16/2024 1 1 Encounter Details Date Type Department Care Team (Late st Contact Info) Description 11/16/2024 Orders Only [place] [address] [place] [address] Unknown, MD Mariama Social History Tobacco Use Types Packs/Day Years Used Date Smoking Tobacco: Never Smokeless Tobacco: Never Alcohol Use Standard Drinks/Week Comments Not Currently 0 (1 standard drink = 0.6 oz pur e alcohol) Child or Family Care Answer Date Record ed Do you have problems with on e of the following making it difficult for you to work, study, or receive health care? No 01/18/2024 Education Answer Date Recorded Are you interested in more education? Not on lila e 09/16/2022 Are you concerned about learning? Not on file 09/16/2022 No 09/16/2022 No 09/16/2022 Food Answer Date Recorded Within the past 6 months we worried whether our food would run out before we got money to buy more. Never True 01/18/2024 Within the past 6 months the food we bought just didn't last and we didn't have enough money to get more. Never True Residential Stability Answer Date Recor ded What is your housing situation today? I have jarrod car 01/18/2024 How many times have you moved in the past 12 tue ths? One time 01/18/2024 Paying for Meds Answer Date Recorded Do you have trouble paying for medicines? No 01/18/2024 Paying Utility Bills Answer Date Record ed Do you have trouble paying your heating or elect ricity bill? No 01/18/2024 Transportation Answer Date Recorded Has the lack of transportati on kept you from medical appointments or from getting medications? No 01/18/2024 Digital Access Answer Date Recorded No 01/18/2024 Yes 01/18/2024 Do you have reliable internet access at home? Ye s 01/18/2024 Do you have a device (e.g., phone, tablet, computer) with a working camera? Yes 01/18/2024 Intimate Partner Violence Answer Date R ecorded Are you denied basic needs s uch as food, clothing, or medical care? No 02/16/2024 In the past 12 months have y ou been in a relationship with a person who hurts, threatens, or tries to control you? No 02/16/2024 Are you denied basic needs s uch as food, clothing, or medical care? No 02/16/2024 In the past 12 months have y ou been in a relationship with a person who hurts, threatens, or tries to control you? No 02/16/2024 Comments No Sex and Gender Information Value Date Recorded Sex Assigned at Female 07/16/2020 12:56 PM EST Legal Sex Female 12:37 PM EST Gender Identity Female 07/16/2020 12:56 PM EST Sexual Orientation Straight 07/16/2020 12 :56 PM EST documented as of this encounter Plan of Treatment Upcoming Encounters Date Type Department Care Team (Late st Contact Info) Description 01/09/2025 11:50 AM EDT Office Visit [facility] [address] [place] [address] Robert Mckay DO [address] [place] [address] 02/07/2025 1:00 PM EDT Office Visit [facility] [address] [place] [address] Muna Gary CNP [address] [place] [address] rosa 06/05/2025 10:20 AM EST Office Visit [facility] [address] [facility] [address] [place] [address] Constance Canales MD [address] [address] 09/20/2025 9:00 AM EDT Office Visit [facility] [address] [facility] [address] [place] [address] Constance Canales MD [address] [place] [address] documented as of this encounter Procedures Procedure Name Priority Date/Time Associated Diagnosis Comments OUTSIDE CT IMAGING REPORT ONLY Routine 11/15/2024 8:36 AM EDT documented in this encounter Results * Outside CT Imaging Report Only (11/15/2024 8:36 AM EDT) us Unknown Unknown MD MARIN CT Edited Result - Final documented in this encounter Visit Diagnoses Not on filedocumented in this encounter Additional Health Concerns Assessment Noted Time PHQ-9 Depression Total Score: 10 025 8:46 PM EST PHQ-2 Depression Total Score: 2 05/24/19 25 8:46 PM EST documented as of this encounter Care Teams Funeral Home Makeup Artist Relationship Specialty Start Date End Date Constance Canales MD [address] [place] [address] [email or web address] PCP - General Family Medicine 07/13/24 Yaquelin Scott [email or web address] [email or web address] Medical Oncology 02/07/24 Muna Gary CNP [address] [place] [address] [email or web address] Nurse Practitioner Medical Oncology 07/06/24 documented as of this encounter Additional Source Comments The information contained in this document represents components of the legal health record. It is not the complete legal health record.[facility]
--- NOTE | 2024-12-11 13:40 | MHC.OFFVIS ---
Vital Signs 12/11/24 09:15 Height 5 ft 2 in Weight 270 lb BMI 49.4 BP 120/62 Blood Pressure Location Rt brachial Position Sitting Pulse 94 Pulse Source Pulse Oximeter Pulse Oximetry (%) 96 Oxygen Delivery Method Room Air Intake Visit Reasons: Botox Allergies ampicillin Allergy (Unknown, Verified 12/11/24 09:30) Hives cyclobenzaprine (From Flexeril) Allergy (Unknown, Verified 12/11/24 09:30) Palpitations Iodinated Contrast Media Allergy (Unknown, Verified 12/11/24 09:30) Shortness of Breath temazepam (From Restoril) Allergy (Unknown, Verified 12/11/24 09:30) Palpitations ibuprofen Adverse Reaction (Unknown, Verified 12/11/24 09:30) Gastrointestinal Upset omeprazole Adverse Reaction (Unknown, Verified 12/11/24 09:30) Nausea IV contrast dye Allergy (Intermediate, Uncoded 11/21/24 08:21) breathing Medication List - Last Reconciled 12/11/24 by Lroe Chun MD albuterol sulfate 90 mcg/actuation (ProAir RespiClick) 1 inh inhalation Q4-6H PRN atorvastatin 40 mg PO DAILY baclofen 10 mg PO BID 30 days blood sugar diagnostic ([employer] Solutionsuch Ultra Test strips) As directed budesonide-formoterol 160-4.5 mcg/actuation (Symbicort) 1 puff inhalation BID bupropion HCl SR (Wellbutrin SR) 100 mg PO DAILY celecoxib 200 mg PO BID [Claritin 1 tab PO DAILY] empagliflozin (Jardiance) 25 mg PO DAILY fluoxetine 40 mg PO DAILY fluticasone propionate 250 mcg/actuation (Flovent Diskus) 1 inh inhalation BID furosemide 40 mg PO DAILY insulin lispro (Humalog KwikPen (U-100) Insulin) subcut lancets (OneTouch Delica Plus Lancet) As directed lansoprazole 30 mg PO BID levomefolate-algal oil 15-90.314 mg (L-Methylfolate Forte) 1 cap PO DAILY losartan 25 mg PO DAILY metformin ER 500 mg PO BID montelukast 10 mg PO DAILY [N-Acetyl Cysteine 600 mg PO BID] pregabalin 50 mg PO BID 30 days [Prevacid 30 mg PO BID] [Vitron-C 1 tab PO DAILY] HPI Comments Details: 74y/o female comes for treatment of her cervical dystonia ? Side effects including spread of toxin effect, dysphagia, breathing difficulties , bronchitis etc was discussed in detail and the patient agreed to the procedure.An informed consent was obtained ??? Botulinum toxin type A 100units X 1 -was diluted with 2 cc of normal saline at a concentration of 25 units in 0.5cc saline. Lot number [id number] expiration 01/2027 ??? Muscles injected ??? marcin Splenius - 25 units each ??? Marcin levator 25 units each ? Total used 100 units PFSH Medical History STELLA (obstructive sleep apnea) Recurrent major depression in partial remission Diabetes mellitus, with long-term current use of insulin Primary hypertension 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 Seasonal allergies Cervicalgia Surgical History History of total left knee replacement H/O hernia repair H/O gastric sleeve History of cholecystectomy Previous section Hx of tonsillectomy Social History Are you a primary property caretaker to a significant other at home: No Do you presently have visiting nurse or other home services: No Patient Tobacco Use Status: Never used Tobacco Physical Exam Vital Signs: Last Vital Signs Pulse 94 12/11/24 09:15 BP 120/62 12/11/24 09:15 Pulse Ox 96 12/11/24 09:15 Oxygen Delivery Method Room Air 12/11/24 09:15 BMI result Body Mass Index 49.4 Const General: cooperative and comfortable Nutritional Appearance: obese Orientation/consciousness: patient oriented x3 Eyes Pupils: Equal, round and reactive pupils present Neuro Other: Right torticollis Left laterocollis Tenderness in left levator , splenius, right SCM General: patient oriented x3, tone normal, moves all extremities and no focal motor deficits Cranial nerves: Yes Equal, round and reactive pupils present, Yes Bilaterally intact EOM present, Yes Nystagmus not present, Yes Normal facial strength present, Yes Midline tongue present and Yes Ability to bilaterally elevate shoulders present Cognition (Neuro): normal cognition Gait exam (Neuro): Assistive device used Motor exam (neuro): 5/5 motor strength present throughout and Normal motor muscle tone present throughout Deep tendon reflexes (DTR's): Right triceps reflex intensity grade: 1+, Left triceps reflex intensity grade: 1+, Rt Biceps (C5, C6): 1+, Left biceps reflex intensity grade: 1+, Right brachioradialis reflex intensity grade: 1+ and Left brachioradialis reflex intensity grade: 1+ Coordination: [id number] test normal Office Procedures Botulinum toxin Injection 26874 - Dystonia Procedure code (CPT) selection complete Office Meds onabotulinumtoxinA 100 unit solution for injection Performing Provider: Lore Chun MD Performing Location: [facility] Administered by: Lore Chun MD on 12/11/24 15:40 Dose Route Admin Location Dispensed Lot Number Expiration Date [facility] Corporate Banking Officer 100 unit IM 100 units [id number] ALLERGAN/BOTOX Total Dispensed Waste 100 units 0 % Comments: see hPI Assessment & Plan Assessment & Plan (1) Spasmodic torticollis: Code(s): G24.3 - Spasmodic torticollis Category: Medical Plan She tolerated the procedure well she will call with any side effects Orders: Orders AMB Botulinum toxin Injection Today G24.3 - Spasmodic torticollis Coding Level of Care Code Est Pt Level 1 (85033) Diagnoses Spasmodic torticollis G24.3 CPT Codes Botox Injection - Botox 4: 80215 - Dystonia ([id number])
== END 2024-12-11 09:54 | disposition home or self-care (01) ==
LOC: HO.HSMS 09:11
PROVIDERS: PCP Family Medicine; Visit Provider Psychiatry & Neurology Neurology
DX: G24.3 Spasmodic torticollis (principal)
CPT/HCPCS: 64616

== ENCOUNTER → 2024-12-11 09:11 | Outpatient (BNVA) | payer MEDICARE, SELFPAY | PROVIDERS: PCP Family Medicine; Visit Provider Psychiatry & Neurology Neurology | DX: G24.3 Spasmodic torticollis (principal) | CPT/HCPCS: 64616; 99211; J0585 ==

== ENCOUNTER 2025-03-12 09:17 | Outpatient (AMB) | payer MEDICARE, SELFPAY ==
--- OUTSIDE RECORDS SUMMARY | 2025-03-08 09:19 | XMS_ITS | Encounter Summary ---
Author Organization Located Within [facility] Address [address] [place] [address] [address] [place] [address] Phone Care Team Providers Care Shared Services And Outsourcing Manager Name Role Phone Yaquelin Scott Unavailable [phone] Constance Canales MD Primary Care Provider Muna Gary AUDIT TECH Unavailable Encounter Details Date Type Department Care Team (Latest Contact Info) Description 03/08/2025 9:19 AM EDT - 03/08/2025 11:59 PM EDT Hospital Encounter [facility] [address] [place] [address] Yaquelin Scott, RAHAT [address] [place] [address] [email or web address] Discharge Disposition: Home or Self Care Social History Tobacco Use Types Packs/Day Years [...] PM EST documented as of this encounter Medications at Time of Discharge acetylcysteine 500 mg Cap Take by oral route. albuterol 90 mcg/actuation inhaler Inhale 2 puffs into the lungs every 6 (six) hours as needed for wheezing. 18 g 2 05/29/2024 alendronate (FOSAMAX) 35 MG tabletIndications :Age-related osteoporosis with current pathological fracture, initial encounter Take 1 tablet (35 mg total) by mouth every 7 days. Take in the morning with a full glass of water, on an empty stomach, and do not take anything else by mouth or lie down for the next 30 min. 12 tablet 3 01/01/2025 atorvastatin (LIPITOR) 40 MG tablet TAKE 1 TABLET(40 MG) BY MOUTH DAILY 90 tablet 1 09/24/2024 bacillus coagulans-inulin 1 billion-250 cell-mg Cap Take 250 mg by mouth daily. baclofen (LIORESAL) 10 MG tablet Take 10 mg by mouth 2 (two) times a day. 10 MG MORNING AND NIGHT 06/08/2024 blood-glucose sensor (DEXCOM G7 SENSOR) DeviIndications:T ype 2 diabetes mellitus with diabetic microalbuminuria, without long-term current use of insulin 1 Application by Miscellaneous route Every 10 Days. 3 each 09/21/2024 blood-glucose,rec eiver,cont (DEXCOM G7 SHIPPER RECEIVER) MiscIndications:T ype 2 diabetes mellitus with diabetic microalbuminuria, without long-term current use of insulin by Miscellaneous route as needed (continuous). 1 each 09/21/2024 budesonide-formot natalia 160-4.5 mcg/actuation inhaler Inhale 2 puffs into the lungs as needed. 10.2 g 2 05/29/2024 buPROPion (WELLBUTRIN SR) 100 MG SR 12 hr tablet 50 mg daily. 08/12/2022 calcium-vitamin D3-vitamin K (VIACTIV) 1,250 mg (500 mg elemental)-500 unit-40 mcg Chew Take 2 tablets by mouth daily. celecoxib (CELEBREX) 200 MG capsule TAKE 1 CAPSULE(200 MG) BY MOUTH TWICE DAILY 60 capsule 2 01/25/2025 cholecalciferol (VITAMIN D3) 2,000 unit tablet 4,000 Units daily. diazePAM (VALIUM) 10 MG tablet Take 10 mg by mouth nightly at bedtime as needed (flying). NEEDED dicyclomine (BENTYL) 10 MG capsule Take 1 capsule (10 mg total) by mouth 4 (four) times a day before meals and nightly. 120 capsule 2 05/21/2024 empagliflozin (JARDIANCE) 25 mg tabletIndications :Type 2 diabetes mellitus with diabetic microalbuminuria, without long-term current use of insulin Take 1 tablet (25 mg total) by mouth daily. 90 tablet 3 09/21/2024 FLUoxetine (PROZAC) 40 MG capsule Take 40 mg by mouth daily. fluticasone propionate (FLOVENT HFA) 110 mcg/actuation inhaler Inhale 1 puff into the lungs as needed. furosemide (LASIX) 40 MG tablet TAKE 1 TABLET BY MOUTH EVERY MORNING NEEDED 90 tablet 1 10/29/2024 HERBAL DRUGS ORAL Take by mouth daily. hyoscyamine (LEVSIN SL) 0.[address] 1 tablet (0.125 mg total) under the tongue every 4 (four) hours as needed for cramping (specific location in comments). 90 tablet 1 05/09/2024 insulin pen needles, disposable, 31 gauge x 5/16 NdleIndications:T ype 2 diabetes mellitus with diabetic microalbuminuria, without long-term current use of insulin 1 each by Miscellaneous route 3 (three) times a day before meals. 300 each 3 09/21/2024 lansoprazole (PREVACID) 30 MG capsuleIndication s:Gastroesophagea l reflux disease TAKE 1 CAPSULE BY MOUTH TWICE DAILY 60 capsule 2 02/27/2025 loratadine (CLARITIN REDITABS) 10 mg dissolvable tablet Take 10 mg by mouth daily. losartan (COZAAR) 25 MG tablet TAKE 1 TABLET(25 MG) BY MOUTH DAILY 90 tablet 3 03/05/2025 metFORMIN (GLUCOPHAGE-XR) 500 MG 24 hr tabletIndications :Type 2 diabetes mellitus with diabetic microalbuminuria, without long-term current use of insulin Take 1 tablet (500 mg total) by mouth 2 (two) times a day. 180 tablet 3 09/21/2024 montelukast (SINGULAIR) 10 mg tabletIndications :Seasonal allergies TAKE 1 TABLET(10 MG) BY MOUTH EVERY NIGHT AT BEDTIME 30 tablet 3 01/25/2025 ONETOUCH DELICA LANCETS 30 gauge MiscIndications:T ype 2 diabetes mellitus with diabetic microalbuminuria, without long-term current use of insulin 1 each by Miscellaneous route 3 (three) times a day before meals. 300 each 3 09/21/2024 ONETOUCH ULTRA TEST Strp stripsIndications :Type 2 diabetes mellitus with diabetic microalbuminuria, without long-term current use of insulin 1 each by Miscellaneous route 3 (three) times a day before meals. 300 strip 3 09/21/2024 pregabalin (LYRICA) 50 MG capsule Take 50 mg by mouth 2 (two) times a day. documented as of this encounter Plan of Treatment Upcoming Encounters Date Type Department Care Team (Late st Contact Info) Description 12/26/2024 Procedure Pass [facility], [facility] [address] [address] 03/14/2025 10:40 AM EDT Office Visit [facility] at [address] [address] Yaquelin Scott MBBS [address] [place] [address] [email or web address] 06/05/2025 10:20 AM EST Office Visit [facility] [place] [facility] [address] [address] Constance Canales MD [address] [address] 07/03/2025 3:30 PM EST Office Visit Located Within [facility] [address] [place] [address] Unknown, Unknown, Delaney Mota, AUDIT TECH [address] [place] [address] 07/09/2025 10:50 AM EST Office Visit [facility] 22 [place] [address] Robert Mckay DO 22 [place] [address] 08/12/2025 2:15 PM EDT Appointment [facility] 30 [place] [address] Constance Canales MD 15 [facility] [address] [place] [address] 09/20/2025 9:00 AM EDT Office Visit [facility] [place] [facility] 15 [facility] [address] [place] [address] Constance Canales MD 15 [facility] [address] [place] [address] [email or web address] documented as of this encounter Procedures Procedure Name Priority Date/Time Associated Diagnosis Comments LDH Routine 03/08/2025 9:35 AM EDT Marginal zone lymphoma COMPREHENSIVE METABOLIC PANEL Routine 03/08/2025 9:35 AM EDT Marginal zone lymphoma CBC AND DIFFERENTIAL Routine 03/08/2025 9:35 AM EDT Marginal zone lymphoma documented in this encounter Results * (ABNORMAL) CBC and differential (03/08/2025 9:35 AM EDT) WBC 87.40(HH) 4.00 - 11.00 K/uL [facility] Comment:This result has been called to Dr. Briceno (Oncology) by [email or web address] on 03/08/2025 17:31:47, and has been read back. RBC 4.92 4.00 - 5.20 M/uL [facility] HGB 10.7(L) 12.0 - 16.0 g/dL [facility] HCT 37.7 36.0 - 46.0 % [facility] PLT 116(L) 150 - 450 K/uL [facility] MCV 76.6(L) 80.0 - 100.0 fL [facility] MCH 21.7(L) 27.0 - 31.0 pg [facility] MCHC 28.4(L) 32.0 - 36.0 g/dL [facility] RDW 18.4(H) 11.5 - 14.5 % [facility] MPV 10.0 8.4 - 12.0 fL [facility] NRBC 0.00 0.00 /100 WBCs [facility] ABSOLUTE NRBC 0.02(H) 0.00 K/uL [facility] DIFF METHOD Auto [facility] NEUTS 2.1(L) 48.0 - 76.0 % [facility] LYMPHS 81.2(H) 18.0 - 41.0 % [facility] Comment:Many Atypical Lymphs Seen MONOS 16.3(H) 4.0 - 11.0 % [facility] EOS 0.1 0.0 - 5.0 % [facility] BASOS 0.2 0.0 - 1.5 % [facility] Granulocytes, immature (%) 0.1 0.0 - 0.9 % [facility] ABSOLUTE NEUTS 1.89(L) 1.92 - 7.60 K/uL [facility] ABSOLUTE LYMPHS 70.97(H) 0.72 - 4.10 K/uL [facility] ABSOLUTE MONOS 14.25(H) 0.16 - 1.10 K/uL [facility] ABSOLUTE EOS 0.05 0.00 - 0.50 K/uL [facility] ABSOLUTE BASOS 0.17(H) 0.00 - 0.15 K/uL [facility] Granulocytes, immature 0.07 0.00 - 0.09 K/uL [facility] ELLIPTOCYTES PRESENT(A ) None [facility] Blood 03/08/2025 9:35 AM EDT 03/08/2025 9:38 AM EDT us Yaquelin GIANG LAB BLOOD ORDERABLES Final Result [facility] [address] [place] [address] * (ABNORMAL) Comprehensive metabolic panel (03/08/2025 9:35 AM EDT) SODIUM 141 133 - 146 mmol/L [facility] POTASSIUM 3.6 3.3 - 5.1 mmol/L [facility] CHLORIDE 102 96 - 108 mmol/L [facility] CO2 23 21 - 35 mmol/L [facility] BUN 13 6 - 19 mg/dL [facility] CREATININE 0.50 0.5 - 1.5 mg/dL [facility] GLUCOSE 132(H) 70 - 99 mg/dL [facility] ALBUMIN 4.2 3.9 - 4.8 g/dL [facility] TOTAL PROTEIN 6.8 6.5 - 8.0 g/dL [facility] CALCIUM 9.0 8.4 - 10.3 mg/dL [facility] ALKALINE PHOSPHATASE 43 39 - 117 U/L [facility] TOTAL BILIRUBIN 0.6 0.0 - 1.2 mg/dL [facility] AST 27 0 - 37 U/L [facility] ALT 15 0 - 40 U/L [facility] GLOBULIN 2.6 1 - 4.8 g/dL [facility] EGFR 100 >59 mL/min/1.7 3m2 [facility] Comment:Estimated glomerular filtration rate calculated using the CKD-EPI refit equation. ANION GAP 20 10 - 20 mmol/L [facility] Blood 03/08/2025 9:35 AM EDT 03/08/2025 9:38 AM EDT us Yaquelin Scott [facility] LAB BLOOD ORDERABLES Final Result Performing Organization Address City/State/[facility] Co de Phone Number [address] [phone] * (ABNORMAL) LDH (03/08/2025 9:35 AM EDT) LDH 291(H) 118 - 273 U/L [facility] Blood 03/08/2025 9:35 AM EDT 03/08/2025 9:38 AM EDT Yaquelin Scott MBBS LAB BLOOD ORDERABLES Final Result [facility] [address] [place] [address] documented in this encounter Visit Diagnoses Diagnosis Marginal zone lymphoma Marginal zone lymphoma, unspecified site, extranodal and solid organ sites documented in this encounter Additional Health Concerns Assessment Noted Time PHQ-9 Depression Total Score: 9 12/05/19 1:13 PM EDT PHQ-2 Depression Total Score: 2 12/05/19 1:13 PM EDT documented as of this encounter Care Teams Shared Services And Outsourcing Manager Relationship Specialty Start Date End Date Constance Canales MD [address] [address] [email or web address] PCP - General Family Medicine 07/13/24 Yaquelin Scott MBBS [email or web address] Primary Oncologist Medical Oncology 02/07/24 Muna Gary CNP [address] [place] [address] [email or web address] Nurse Practitioner Medical Oncology 07/06/24 documented as of this encounter Additional Source Comments The information contained in this document represents components of the legal health record. It is not the complete legal health record.Located Within [facility]
[2025-03-12 09:20] VITALS: BP 142/76; PULSE 99; O2SAT 96; BMI 48.3
--- NOTE | 2025-03-12 09:20 | MHC.OFFVIS ---
Vital Signs 03/12/25 09:20 Height 5 ft 2 in Weight 264 lb 4 oz BMI 48.3 BP 142/76 H Blood Pressure Location Rt brachial Position Sitting Pulse 99 Pulse Source Pulse Oximeter Pulse Oximetry (%) 96 Oxygen Delivery Method Room Air Intake Visit Reasons: botox Intake Note: Botox Celebrity Chef Entrepreneur Media Personality Required: No Accompanied by: Self / Same As Patient Allergies ampicillin Allergy (Unknown, Verified 03/12/25 09:20) Hives cyclobenzaprine (From Flexeril) Allergy (Unknown, Verified 03/12/25 09:20) Palpitations Iodinated Contrast Media Allergy (Unknown, Verified 03/12/25 09:20) Shortness of Breath temazepam (From Restoril) Allergy (Unknown, Verified 03/12/25 09:20) Palpitations ibuprofen Adverse Reaction (Unknown, Verified 03/12/25 09:20) Gastrointestinal Upset omeprazole Adverse Reaction (Unknown, Verified 03/12/25 09:20) Nausea IV contrast dye Allergy (Intermediate, Uncoded 11/21/24 08:21) breathing Medication List - Last Reconciled 03/12/25 by Lore Chun MD albuterol sulfate 90 mcg/actuation (ProAir RespiClick) 1 inh inhalation Q4-6H PRN alendronate 35 mg PO QWEEK atorvastatin 40 mg PO DAILY baclofen 10 mg PO BID 30 days blood sugar diagnostic ([employer] Ultra Test strips) As directed budesonide-formoterol 160-4.5 mcg/actuation (Symbicort) 1 puff inhalation BID bupropion HCl SR (Wellbutrin SR) 100 mg PO DAILY celecoxib 200 mg PO BID [Claritin 1 tab PO DAILY] empagliflozin (Jardiance) 25 mg PO DAILY fluoxetine 40 mg PO DAILY fluticasone propionate 250 mcg/actuation (Flovent Diskus) 1 inh inhalation BID furosemide 40 mg PO DAILY lancets ([employer]rapeuticsTouch Delica Plus Lancet) As directed lansoprazole 30 mg PO BID levomefolate-algal oil 15-90.314 mg (L-Methylfolate Forte) 1 cap PO DAILY losartan 25 mg PO DAILY metformin ER 500 mg PO BID montelukast 10 mg PO DAILY [N-Acetyl Cysteine 600 mg PO BID] pregabalin 50 mg PO BID 30 days [Vitron-C 1 tab PO DAILY] HPI Comments Details: 74y/o female comes for treatment of her cervical dystonia ? Side effects including spread of toxin effect, dysphagia, breathing difficulties , bronchitis etc was discussed in detail and the patient agreed to the procedure.An informed consent was obtained ??? Botulinum toxin type A 100units X 1 -was diluted with 2 cc of normal saline at a concentration of 25 units in 0.5cc saline. Lot number [id number] expiration 03/2027 ??? Muscles injected ??? marcin Splenius - 25 units each ??? Marcin levator 25 units each ? Total used 100 units PFSH Medical History STELLA (obstructive sleep apnea) Recurrent major depression in partial remission Diabetes mellitus, with long-term current use of insulin Primary hypertension 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 Seasonal allergies Cervicalgia Surgical History History of total left knee replacement H/O hernia repair H/O gastric sleeve History of cholecystectomy Previous section Hx of tonsillectomy Social History Are you a primary medicare coordinator to a significant other at home: No Do you presently have visiting nurse or other home services: No Patient Tobacco Use Status: Never used Tobacco Physical Exam Vital Signs: Last Vital Signs Pulse 99 03/12/25 09:20 BP 142/76 H 03/12/25 09:20 Pulse Ox 96 03/12/25 09:20 Oxygen Delivery Method Room Air 03/12/25 09:20 BMI result Body Mass Index 48.3 Const General: cooperative and comfortable Nutritional Appearance: obese Orientation/consciousness: patient oriented x3 Eyes Pupils: Equal, round and reactive pupils present Neuro Other: Right torticollis Left laterocollis Tenderness in left levator , splenius, right SCM General: patient oriented x3, tone normal, moves all extremities and no focal motor deficits Cranial nerves: Yes Equal, round and reactive pupils present, Yes Bilaterally intact EOM present, Yes Nystagmus not present, Yes Normal facial strength present, Yes Midline tongue present and Yes Ability to bilaterally elevate shoulders present Cognition (Neuro): normal cognition Gait exam (Neuro): Assistive device used Motor exam (neuro): 5/5 motor strength present throughout and Normal motor muscle tone present throughout Deep tendon reflexes (DTR's): Right triceps reflex intensity grade: 1+, Left triceps reflex intensity grade: 1+, Rt Biceps (C5, C6): 1+, Left biceps reflex intensity grade: 1+, Right brachioradialis reflex intensity grade: 1+ and Left brachioradialis reflex intensity grade: 1+ Coordination: [id number] test normal Office Procedures Botulinum toxin Injection 66572 - Dystonia Procedure code (CPT) selection complete Office Meds onabotulinumtoxinA 100 unit solution for injection Performing Provider: Lore Chun MD Performing Location: [facility] Administered by: Lore Chun MD on 03/12/25 09:49 Dose Route Admin Location Dispensed Lot Number Expiration Date [facility] Hoop Driving Machine Operator Helper 100 unit IM 100 units [id number] ALLERGAN/BOTOX Total Dispensed Waste 100 units 0 % Assessment & Plan Assessment & Plan (1) Spasmodic torticollis: Code(s): G24.3 - Spasmodic torticollis Category: Medical Plan She tolerated the procedure well she will call with any side effects Orders: Orders AMB Botulinum toxin Injection Today G24.3 - Spasmodic torticollis Coding Level of Care Code Est Pt Level 1 (88693) Diagnoses Spasmodic torticollis G24.3 CPT Codes Botox Injection - Botox 4: 04631 - Dystonia ([id number])
--- OUTSIDE RECORDS SUMMARY | 2025-03-12 10:13 | XMS_ITS | Encounter Summary ---
Author Organization [facility] Address [address] [place] [address] [address] [place] [address] Phone Care Team Providers Care Building Admin Name Role Phone Kaylan London Huan HOGSHEAD HEAD MATCHER Primary Care Provider Yaquelin ScottBS Unavailable [phone] Constance Canales MD Primary Care Provider Muna Gary CNP Unavailable Encounter Details Date Type Department Care Team (Late st Contact Info) Description 02/16/2024 Procedure Pass [facility], [facility] [address] [place] [address] Social History Tobacco Use Types Packs/Day Years [...] have you moved in the past 12 mon ths? One time 01/18/2024 Paying for Meds [...] st Contact Info) Description 12/26/2024 Procedure Pass [facility], [address] [address] 03/14/2025 10:40 AM EDT Office Visit [facility] at [address] [address] Yaquelin Scott MBBS [address] [place] [phone] [email or web address] 06/05/2025 10:20 AM EST Office Visit [facility] 15 [facility] [address] [place] [address] Constance Canales MD [address] [place] [address] 07/03/2025 3:30 PM EST Office Visit [facility] [address] [place] [address] Unknown, Unknown, Delaney Mota, SHERIFF'S DETECTIVE [address] [place] [address] 07/09/2025 10:50 AM EST Office Visit [facility] 22 [place] [address] Robert Mckay DO 22 [place] [address] 08/12/2025 2:15 PM EDT Appointment [address] [address] Constance Canales MD [address] [place] [address] 09/20/2025 9:00 AM EDT Office Visit [facility] 15 [facility] [address] [place] [address] Constance Canales MD [address] [place] [phone] documented as of this encounter Visit Diagnoses Not on filedocumented in this encounter Additional Health Concerns Assessment Noted Time PHQ-9 Depression Total Score: 14 024 2:40 PM EDT PHQ-2 Depression Total Score: 4 01/18/20 24 2:40 PM EDT documented as of this encounter Care Teams Building Admin Relationship Specialty Start Date End Date Kaylan London FNP [address] [place] [phone] PCP - General Nurse Practitioner 01/25/24 07/12/24 Constance Canales MD [address] [place] [address] PCP - General Family Medicine 07/13/24 Yaquelin Scott MBBS [address] [place] [phone] [email or web address] Primary Oncologist Medical Oncology 02/07/24 Muna Gary CNP [address] [place] [address] rosa Nurse Practitioner Medical Oncology 07/06/24 documented as of this encounter Additional Source Comments The information contained in this document represents components of the legal health record. It is not the complete legal health record.[facility]
--- OUTSIDE RECORDS SUMMARY | 2025-03-12 10:13 | XMS_ITS | Encounter Summary ---
Author Organization Located Within [facility] Address [address] [place] [address] [address] [place] [address] Phone Care Team Providers Care Barn Operator Name Role Phone Kaylan London Huan COPIER AND PRINTER FIELD TECHNICIAN Primary Care Provider Yaquelin ScottBS Unavailable [phone] Constance Canales MD Primary Care Provider Muna Gary CNP Unavailable Encounter Details Date Type Department Care Team (Late st Contact Info) Description 09/15/2022 Procedure Pass [facility] [address] [place] [address] Social History Tobacco Use Types Packs/Day Years Used Date Smoking Tobacco: Never Smokeless Tobacco: Never Alcohol Use Standard Drinks/Week Comments Not Currently 0 (1 standard drink = 0.6 oz pur e alcohol) Education Answer Date Recorded Are you interested in more education? Not on lila e 09/16/2022 Are you concerned about learning? Not on file 09/16/2022 No 09/16/2022 No 09/16/2022 Comments No Sex and Gender Information Value Date Recorded Sex Assigned at Female 07/16/2020 12:56 PM EST Legal Sex Female 12:37 PM EST Gender Identity Female 07/16/2020 12:56 PM EST Sexual Orientation Straight 07/16/2020 12 :56 PM EST documented as of this encounter Plan of Treatment Upcoming Encounters Date Type Department Care Team (Late st Contact Info) Description 12/26/2024 Procedure Pass [address] [address] 03/14/2025 10:40 AM EDT Office Visit [facility] at [address] [address] Yaquelin Scott MBBS [address] [place] [phone] [email or web address] 06/05/2025 10:20 AM EST Office Visit [facility] [place] [facility] [address] [place] [address] Constance Canales MD [address] [address] 07/03/2025 3:30 PM EST Office Visit Located [facility] [address] [place] [address] Unknown, Unknown, Delaney Mota, CEMETERY LABORER [address] [place] [address] 07/09/2025 10:50 AM EST Office Visit [facility] 22 [place] [address] Robert Mckay DO 22 [place] [address] 08/12/2025 2:15 PM EDT Appointment [address] [address] Constance Canaels MD [address] [address] 09/20/2025 9:00 AM EDT Office Visit [facility] [place] [facility] 15 [facility] [address] [place] [address] Constance Canales MD [address] [address] documented as of this encounter Visit Diagnoses Not on filedocumented in this encounter Care Teams Barn Operator Relationship Specialty Start Date End Date Kaylan Lodnon FNP [address] [address] PCP - General Nurse Practitioner 01/25/24 07/12/24 Constance Canales MD [address] [address] PCP - General Family Medicine 07/13/24 Yaquelin Scott MBBS [address] [place] [phone] [email or web address] Primary Oncologist Medical Oncology 02/07/24 Muna Gary CNP [address] [place] [address] rosa Nurse Practitioner Medical Oncology 07/06/24 documented as of this encounter Additional Source Comments The information contained in this document represents components of the legal health record. It is not the complete legal health record.[facility]
--- OUTSIDE RECORDS SUMMARY | 2025-03-12 10:13 | XMS_ITS | Encounter Summary ---
Author Organization [facility] Address [address] [place] [address] [address] [place] [address] Phone Care Team Providers Care Wearing Apparel Shaker Name Role Phone Kaylan London Huan GOLD LEAF LABORER Primary Care Provider Yaquelin ScottBS Unavailable [phone] Constance Canales MD Primary Care Provider [phone] Muna Gary CNP Unavailable Encounter Details Date Type Department Care Team (Late st Contact Info) Description 02/16/2024 Procedure Pass [facility] [address] [place] [address] Social History Tobacco Use Types Packs/Day Years [...] st Contact Info) Description 12/26/2024 Procedure Pass [facility], [facility]- [address] [address] 03/14/2025 10:40 AM EDT Office Visit [facility] at [address] [address] Yaquelin Scott, RAHAT [address] [place] [phone] [email or web address] 06/05/2025 10:20 AM EST Office Visit [facility] [address] [address] Constance Canales MD [address] [place] [phone] 07/03/2025 3:30 PM EST Office Visit [facility] [address] [place] [id number] Unknown, Unknown, MD Hurley, Delaney Aguilar, LAUNDRY HELPER [address] [place] [id number] 07/09/2025 10:50 AM EST Office Visit [facility] [address] [place] [address] Robert Mckay DO [address] [place] [address] 08/12/2025 2:15 PM EDT Appointment [address] [address] Constance Canales MD [address] [place] [phone] 09/20/2025 9:00 AM EDT Office Visit [facility] [address] [address] Constance Canales MD [address] [place] [phone] documented as of this encounter Visit Diagnoses Not on filedocumented in this encounter Additional Health Concerns Assessment Noted Time PHQ-9 Depression Total Score: 14 024 2:40 PM EDT PHQ-2 Depression Total Score: 4 01/18/20 24 2:40 PM EDT documented as of this encounter Care Teams Wearing Apparel Shaker Relationship Specialty Start Date End Date Kaylan London FNP [address] [place] [phone] PCP - General Nurse Practitioner 01/25/24 07/12/24 Constance Canales MD [address] [place] [phone] PCP - General Family Medicine 07/13/24 Yaquelin Scott MBBS [address] [place] [phone] [email or web address] Primary Oncologist Medical Oncology 02/07/24 Muna Gary CNP [address] [place] [id number] rosa Nurse Practitioner Medical Oncology 07/06/24 documented as of this encounter Additional Source Comments The information contained in this document represents components of the legal health record. It is not the complete legal health record.[facility]
--- OUTSIDE RECORDS SUMMARY | 2025-03-12 10:13 | XMS_ITS | Clinical Summary ---
Author Organization [facility] Address [address] [facility] [address] [place] [address] Phone Care Team Providers Care Conference Center Manager Name Role Phone Yaquelin ScottBS Unavailable Constance Canales MD Primary Care Provider Muna Gary VIBRATORY PILE DRIVER Unavailable Allergies Active Allergy Reactions Criticality Noted Date Comments Ampicillin Hives,Unknown High 07/22/2020 Cyclobenzaprine Hcl Unknown 02/22/2024 Cyclobenzaprine Palpitations Low 07/24/2020 Ibuprofen Nausea and/or Vomiting,Unknown 07/24/2020 Iodinated Contrast Media Anaphylaxis,Unknown High Omeprazole Nausea and/or Vomiting,Dizziness,Unknown 07/24/2020 Temazepam Palpitations Low 07/24/2020 Medications fluticasone propionate (FLOVENT HFA) 110 mcg/actuation inhaler Inhale 1 puff into the lungs as needed. Active FLUoxetine (PROZAC) 40 MG capsule Take 40 mg by mouth daily. Active diazePAM (VALIUM) 10 MG tablet Take 10 mg by mouth nightly at bedtime as needed (flying). NEEDED Active loratadine (CLARITIN REDITABS) 10 mg dissolvable tablet Take 10 mg by mouth daily. Active bacillus coagulans-inuli n 1 billion-250 cell-mg Cap Take 250 mg by mouth daily. Active buPROPion (WELLBUTRIN SR) 100 MG SR 12 hr tablet 50 mg daily. 023 Active cholecalciferol (VITAMIN D3) 2,000 unit tablet 4,000 Units daily. Active calcium-vitamin D3-vitamin K (VIACTIV) 1,250 mg (500 mg elemental)-500 unit-40 mcg Chew Take 2 tablets by mouth daily. Active HERBAL DRUGS ORAL Take by mouth daily. Active acetylcysteine 500 mg Cap Take by oral route. Active hyoscyamine (LEVSIN SL) 0.[address] 1 tablet (0.125 mg total) under the tongue every 4 (four) hours as needed for cramping (specific location in comments). 90 tablet 1 024 Active dicyclomine (BENTYL) 10 MG capsule Take 1 capsule (10 mg total) by mouth 4 (four) times a day before meals and nightly. 120 capsule 2 024 Active albuterol 90 mcg/actuation inhaler Inhale 2 puffs into the lungs every 6 (six) hours as needed for wheezing. 18 g 2 025 Active budesonide-form oterol 160-4.5 mcg/actuation inhaler Inhale 2 puffs into the lungs as needed. 10.2 g 2 025 Active pregabalin (LYRICA) 50 MG capsule Take 50 mg by mouth 2 (two) times a day. Active baclofen (LIORESAL) 10 MG tablet Take 10 mg by mouth 2 (two) times a day. 10 MG MORNING AND NIGHT 025 Active metFORMIN (GLUCOPHAGE-XR) 500 MG 24 hr tabletIndicatio ns:Type 2 diabetes mellitus with diabetic microalbuminuri a, without long-term current use of insulin Take 1 tablet (500 mg total) by mouth 2 (two) times a day. 180 tablet 3 025 Active empagliflozin (JARDIANCE) 25 mg tabletIndicatio ns:Type 2 diabetes mellitus with diabetic microalbuminuri a, without long-term current use of insulin Take 1 tablet (25 mg total) by mouth daily. 90 tablet 3 025 Active blood-glucose,r eceiver,cont (DEXCOM G7 CANINE SERVICE INSTRUCTOR TRAINER) MiscIndications :Type 2 diabetes mellitus with diabetic microalbuminuri a, without long-term current use of insulin by Miscellaneous route as needed (continuous). 1 each 025 Active blood-glucose sensor (DEXCOM G7 SENSOR) DeviIndications :Type 2 diabetes mellitus with diabetic microalbuminuri a, without long-term current use of insulin 1 Application by Miscellaneous route Every 10 Days. 3 each 11 025 Active ONETOUCH ULTRA TEST Strp stripsIndicatio ns:Type 2 diabetes mellitus with diabetic microalbuminuri a, without long-term current use of insulin 1 each by Miscellaneous route 3 (three) times a day before meals. 300 strip 3 025 Active ONETOUCH DELICA LANCETS 30 gauge MiscIndications :Type 2 diabetes mellitus with diabetic microalbuminuri a, without long-term current use of insulin 1 each by Miscellaneous route 3 (three) times a day before meals. 300 each 3 025 Active insulin pen needles, disposable, 31 gauge x 5/16 NdleIndications :Type 2 diabetes mellitus with diabetic microalbuminuri a, without long-term current use of insulin 1 each by Miscellaneous route 3 (three) times a day before meals. 300 each 3 025 Active atorvastatin (LIPITOR) 40 MG tablet TAKE 1 TABLET(40 MG) BY MOUTH DAILY 90 tablet 1 025 Active furosemide (LASIX) 40 MG tablet TAKE 1 TABLET BY MOUTH EVERY MORNING NEEDED 90 tablet 1 025 Active alendronate (FOSAMAX) 35 MG tabletIndicatio ns:Age-related osteoporosis with current pathological fracture, initial encounter Take 1 tablet (35 mg total) by mouth every 7 days. Take in the morning with a full glass of water, on an empty stomach, and do not take anything else by mouth or lie down for the next 30 min. 12 tablet 3 025 Active celecoxib (CELEBREX) 200 MG capsule TAKE 1 CAPSULE(200 MG) BY MOUTH TWICE DAILY 60 capsule 2 025 Active montelukast (SINGULAIR) 10 mg tabletIndicatio ns:Seasonal allergies TAKE 1 TABLET(10 MG) BY MOUTH EVERY NIGHT AT BEDTIME 30 tablet 3 025 Active lansoprazole (PREVACID) 30 MG capsuleIndicati ons:Gastroesoph ageal reflux disease TAKE 1 CAPSULE BY MOUTH TWICE DAILY 60 capsule 2 025 Active losartan (COZAAR) 25 MG tablet TAKE 1 TABLET(25 MG) BY MOUTH DAILY 90 tablet 3 Active lansoprazole (PREVACID) 30 MG capsule 2 (two) times a day. 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 She continues to do well we will not make any changes to her regimen, which essentially is Jardiance and metformin. However since she stopped intra-articular corticosteroid 2 months ago I do not think she needs to continue on Humalog correction scale so she should stop it. Her hemoglobin A1c may increase slightly but based on the fructosamine and her meter average glucose the hemoglobin A1c is closer to 5.7 to 5.9% which is very tight for somebody her age so we do not needed that low. Her hemoglobin A1c can go up to 7.2% and is still good. She will follow in 6 months time. Nontoxic multinodular goiter 01/09/2025 Assessment & Plan (01/09/2025 12:03 PM EDT): The patient has nontoxic multinodular goiter 2 nodules in the left lobe 1 is a spongiform nodule TI-RADS 1 which does not require biopsy the other 1 is TI-RADS 4 moderately suspicious but is subcentimeter in size and does not require biopsy presently but we will continue to monitor with serial ultrasound monitoring she should repeat ultrasound by 09/27/2025. Spasmodic torticollis 12/06/2024 Overview (12/06/2024): Botox planned 11/2024 @ [facility] Assessment & Plan (12/06/2024 1:05 PM EDT): - Significant pain and misalignment of the cervical spine. Surgery suggested by the spine doctor but not curently feasible due to torticollis. - Botox injection scheduled next week to help straighten head and neck. - Consistently seeing a physical therapist to help with balance and stamina building. 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 I will have reviewed records from her prior oncologist office. The workup done here recently is not showing any significant progression of her underlying low-grade lymphoma. PET scan was completely negative. Bone marrow is showing 20% involvement by her low-grade lymphoma. None of this should be causing any symptoms to her. I explained to her that low-grade lymphoproliferative disorders are generally managed by watch and wait approach unless they start to cause significant issues for example significant B symptoms, cytopenias or other complications from significantly enlarged lymphadenopathy. Her case was discussed in the tumor conference and consensus was for watch and wait approach. Her thrombocytopenia is mild and intermittent. Her leukocytosis is stable. Anemia is mild and intermittent and in the setting of iron deficiency is likely secondary to that. 08/06/2024: Patient had some weight loss and increase of the lymphocytosis so underwent a PET scan to evaluate for any progression. PET scan came back completely unremarkable other than showing stable splenomegaly. Her lymphoma continues to be stable at this time and she continues to be asymptomatic from it. There is no indications for any therapeutic intervention at this time and I reassured her about this. MGUS: She was found to have MGUS incidentally. She has small M spike. MGUS is an indolent premalignant plasma cell disorder which has 1 %/year risk of progression into plasma cell neoplasm like multiple myeloma. Labs have been stable and there is no evidence of progression there is no indication for any therapeutic intervention at this time. I reassured her about this. RECOMMENDATIONS: Continue watch and wait approach for her lymphoma Continue oral iron supplement Vitron-C once daily Return for follow-up in 3 months with labs prior to that Thank you very much for allowing to participate in this patient's care Assessment & Plan (05/30/2024 8:49 AM EST): Continue follow up with oncology, current plan includes monitoring every 3 months. 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 I will have reviewed records from her prior oncologist office. The workup done here recently is not showing any significant progression of her underlying low-grade lymphoma. PET scan was completely negative. Bone marrow is showing 20% involvement by her low-grade lymphoma. None of this should be causing any symptoms to her. I explained to her that low-grade lymphoproliferative disorders are generally managed by watch and wait approach unless they start to cause significant issues for example significant B symptoms, cytopenias or other complications from significantly enlarged lymphadenopathy. Her case was discussed in the tumor conference and consensus was for watch and wait approach. Her thrombocytopenia is mild and intermittent. Her leukocytosis is stable. Anemia is mild and intermittent and in the setting of iron deficiency is likely secondary to that. MGUS: She is found to have MGUS incidentally. She has small M spike. MGUS is an indolent premalignant plasma cell disorder which has 1 %/year risk of progression into plasma cell neoplasm like multiple myeloma. 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 My office has not been able to obtain her records from her prior medical oncologist office. The workup done here recently is not showing any significant progression of her underlying low-grade lymphoma. PET scan was completely negative. Bone marrow is showing 20% involvement by her low-grade lymphoma. None of this should be causing any symptoms to her. I think her ongoing symptomatology is likely multifactorial and is likely unrelated to her lymphoma. I explained to her that low-grade lymphoproliferative disorders are generally managed by watch and wait approach unless they start to cause significant issues for example significant B symptoms, cytopenias or other complications from significantly enlarged lymphadenopathy. I advised her to discuss with her PCP and get referral for sleep apnea clinic so that her CPAP machine can be tested. I am going to discuss her case in the tumor conference. I think at this time is reasonable to continue watch and wait approach for her low-grade lymphoma. Her thrombocytopenia has normalized. Her leukocytosis is also improved. Anemia is mild and intermittent and in the setting of iron deficiency is likely secondary to that. Her anemia is likely from underlying iron deficiency. Iron deficiency could be secondary to her ongoing absorption issues in the setting of chronic diarrhea. I have advised her to talk to her PCP and should see gastroenterology here to undergo follow-up endoscopies. I also advised her to start taking oral iron supplement once daily. MGUS: She is found to have MGUS incidentally. She has small M spike. MGUS is an indolent premalignant plasma cell disorder which has 1 %/year risk of progression into plasma cell neoplasm like multiple myeloma. RECOMMENDATIONS: I am trying to get her records from her prior medical oncologist office Continue watch and wait approach for her lymphoma Start oral iron supplement Vitron-C once daily Patient will follow-up with her PCP to get referral for GI to undergo GI evaluation because of iron deficiency and ongoing diarrhea issues She will also speak with her PCP to get a referral for sleep study and testing of her CPAP machine to make sure that it is working fine We will check a CBCD in 2 weeks Case will be discussed in the tumor conference Return for follow-up in 4 weeks with labs prior to that Thank you very much for allowing to participate in this patient's care Assessment & Plan (02/22/2024 5:49 PM EDT): She does have PET scan scheduled for 02/22 and has already completed bone marrow aspiration per oncology. Plan is to follow-up with their office after this is completed Assessment & Plan (02/15/2024 9:51 AM EDT): IMPRESSION: This is a 73-year-old woman with history of marginal zone lymphoma diagnosed and treated in 2020. She has now likely recurrence of her lymphoma. Neutropenia and anemia with lymphocytosis likely secondary to bone marrow involvement by lymphoma There is a question of thalassemia on her peripheral smear DISCUSSION: I discussed overall impression, differential diagnosis and further management in this regard. Overall picture is concerning for recurrence of her lymphoma. I discussed further diagnostic intervention in this regard. Lymphomas can also transform into a different and more aggressive type of lymphoma. Patient will undergo appropriate laboratory evaluation, PET scan and a bone marrow aspiration and biopsy to further evaluate this. Depending upon the results of the above mention, we will further decide about treatment plan. She does have some cytopenias likely secondary to her recurrent lymphoma. It is not clear if her ongoing symptoms of fatigue and tiredness and some weight loss is related to her lymphoma or not because she has several other reasons for fatigue and tiredness as well. RECOMMENDATIONS: CBCD Nutritional studies Leukemia/lymphoma flow cytometry Multiple myeloma screen Inflammatory markers Hepatitis/HIV screen Hemoglobin electrophoresis PET scan. Patient cannot undergo CT scan because she is allergic to IV contrast dye Schedule bone marrow aspiration and biopsy I advised patient to go to the lab within a week We have requested records from [facility] Return for follow-up in about 3 to 4 weeks Thank you very much for allowing to participate in this patient's care Other neutropenia 02/15/2024 Absolute anemia 02/15/2024 Actinic elastosis 12/08/2022 Hyperparathyroidism 12/02/2022 Osteoporosis 12/02/2022 Depression 12/02/2022 Assessment & Plan (05/30/2024 8:49 AM EST): Images from the original note were not included. 01/18/2024 2:40 PM 05/24/2024 8:46 PM PHQ Depression Screening Score Little interest or pleasure in doing things More than half of the days Several days Feeling down, depressed, or hopeless More than half of the days Several days Trouble falling or staying asleep, or sleeping too much Nearly every day Nearly every day Feeling tired or having little energy Nearly every day Nearly every day Poor appetite or overeating More than half the days Several days Feeling bad about yourself - or that you are a failure or have let yourself or your family down More than half the days Several days Trouble concentrating on things, such as reading the newspaper or watching television Not at all Not at all Moving or speaking so slowly that other people could have noticed. Or the opposite - being so fidgety or restless that you have been moving around a lot more than usual Not at all Not at all Thoughts that you would be better off , or of hurting yourself in some way Not at all Not at all If you checked off any problems, how difficult have these problems made it for you to do your work, take care of things at home, or get along with other people? Somewhat difficult Not difficult at all PHQ-9 Total Score 14 10 Reviewed. Continue follow up with psychiatry as scheduled. Assessment & Plan (01/30/2024 6:16 PM EDT): Piece Worker: Britni Silverman in [place], [place] who prescribes: fluoxetine 40 mg daily, doxepin 35 mg daily, lithium 150 mg daily, Wellbutrin 50 mg daily, and L-methylfolate 15 mg daily. Bulimia 12/02/2022 Binge eating disorder 12/02/2022 Assessment & Plan (01/30/2024 6:16 PM EDT): Continue to follow with therapist Laura Rodas, film archivist Zita Bustamante and consulting psychiatrist Britni Hart Dysphagia 12/02/2022 Fatty liver disease, nonalcoholic 12/02/2022 Renal cyst 12/02/2022 Irritable bowel syndrome 12/02/2022 023 Assessment & Plan (01/30/2024 6:14 PM EDT): Levsin 0.125 mg refill placed. Supportive measures reviewed Choroidal nevus 12/02/2022 12/02/2022 Hypertension 09/15/2022 Assessment & Plan (12/06/2024 1:05 PM EDT): At goal for age and comorbidities without signs or symptoms of end organ damage. Continue current medications. Assessment & Plan (05/30/2024 8:49 AM EST): Well controlled today in office, continue losartan 25 mg and furosemide 40 mg daily as prescribed Assessment & Plan (01/30/2024 6:12 PM EDT): Well controlled today in office Continue losartan 25 mg daily and furosemide 40 mg daily as prescribed Hyperlipidemia LDL goal <100 09/15/2022 Assessment & Plan (01/09/2025 11:58 AM EDT): Controlled LDL based on new guidelines should be less than 70 her LDL was 30 mg/dL she is presently on atorvastatin 40 mg no changes required. Assessment & Plan (09/21/2024 11:04 AM EDT): Controlled. LDL 30 mg/dL continue atorvastatin no changes required. Assessment & Plan (06/05/2024 11:19 AM EST): Controlled LDL 30 mg/dL on rosuvastatin. No changes required Assessment & Plan (01/30/2024 6:13 PM EDT): Will check lipid panel Continue atorvastatin 40 mg as prescribed Asthma 09/15/2022 Sleep apnea 09/15/2022 GERD (gastroesophageal reflux disease) 3 Type 2 diabetes mellitus, wi th long-term current use of insulin 09/15/2022 Assessment & Plan (09/21/2024 11:18 AM EDT): Appears to be controlled based on the hemoglobin A1c and average glucose of 138 mg/dL gives a hemoglobin A1c of 6.4%. I am waiting for the fructosamine level. She does have occasional postprandial hyperglycemia and is now going to be receiving corticosteroid intra-articularly so I will prescribe Humalog correction scale starting 70-100 = 2 units increasing by 2 units every 50 mg/dL. She should repeat a hemoglobin A1c fructosamine prior to the follow-up visit I also prescribed Dexcom CGM now that she is going to be using insulin. I sent this prescription to the pharmacy. Addendum: The patient has not used insulin before so she needed to be instructed on administration of insulin and how to set up her insulin pen and where to administer. She was instructed on the insulin pen and advised to administer insulin in the abdomen to avoid bellybutton. She can also administer in the thigh and on the side of her arms and upper buttocks Assessment & Plan (06/05/2024 11:31 AM EST): Based on fructosamine levels she has a hemoglobin A1c of 6.1 so I will trust this over the average glucose levels and hemoglobin A1c because of the anemia. So she appears to be in good control. However she is having diarrhea with metformin so we will decrease the tablet to 1 twice a day. She will continue Jardiance 25 mg. We had a discussion about other potential medications she can use. I discussed pioglitazone but this is not such a great option either because she has anemia and pioglitazone will cause fluid retention which will result in weight gain. It will also worsen the anemia. I discussed GLP-1 agonist that may help her lose weight. She will consider this in the future if her glucose levels rise. I think that this will be the next best option. We discussed sulfonylureas but sulfonylureas do not have any secondary benefit other than lowering glucose levels they cause beta cell apoptosis in the long run so I really do not like using them. For now urine microalbumin is a little bit elevated but she is on Jardiance and losartan so hopefully this will come down. I have asked her to monitor glucose to levels prior to the visit. I gave her log sheets but she should always bring in the meter as well. For the first week she is going to monitor fasting glucose alternating the second glucose with lunch dinner and bedtime. For the second week she will check before breakfast and 2 hours after, lunch and 2 hours after and predinner and 2 hours after. This is to check for postprandial hyperglycemia. So far predinner glucose and fasting glucose have been good for the most part. Assessment & Plan (05/30/2024 8:49 AM EST): Continue follow up with endocrinology as scheduled. Continue glucose monitoring and medications as prescribed Assessment & Plan (02/28/2024 11:15 AM EDT): Uncontrolled. Patient has elevated fasting glucose levels. Hemoglobin A1c is falsely low due to anemia and rapid red blood cell turnover. At this point we will continue metformin at the current dose because she cannot tolerate a higher dose will increase Jardiance to 25 mg. I will prescribe Dexcom CGM. In the meantime she will need to monitor her glucose levels twice a day for period of 2 weeks. She will always check a fasting glucose in the second will be alternating between lunch, dinner, and bedtime. She was given a log sheet to document but she should also bring her meter on the follow-up visit. We still have to monitor her hemoglobin A1c because this is required by the insurance even though is not accurate. But I will also check fructosamine level. Assessment & Plan (02/22/2024 5:50 PM EDT): Does have appointment scheduled with endocrinology to establish care on 02/27. Continue medications as prescribed HEMOGLOBIN A1C Date Value Ref Range Status 01/26/2024 6.6 (H) 4.3 - 5.8 % Final Decreased appetite 12/01/2020 12/02/2022 Actinic skin damage 12/01/2020 12/02/2022 Other specified soft tissue disorders 03/29/2019 12/02/2022 Pain in right lower leg 03/29/2019 12/03/19 Dyschromia 12/11/2018 12/02/2022 Sebaceous hyperplasia 12/11/2018 12/02/2022 Melanocytic nevi of trunk 12/11/20182022 Morbid obesity 09/08/2018 12/02/2022 Overview (12/06/2024): Max ~350 lb Lumbar spondylosis 07/17/2016 12/02/2022 Lumbar radiculopathy 11/01/2015 12/02/2022 Eczema 08/31/2013 12/02/2022 Epiretinal membrane, left eye 11/30/2012 Ephelides 09/03/2011 12/02/2022 Refractive error 11/05/2010 12/02/2022 Rosacea 10/11/2008 12/02/2022 Cervicalgia Overview (12/06/2024): XR C-scpine 10/2024 severe DDD, sublux C3-C4, C6-C7. CT shows same as well as sublux C4-C5 Resolved Problems Problem Noted Date Diagnosed Date Resolved Date Thyroid nodule 09/21/2024 01/09/2025 Assessment & Plan (09/21/2024 11:11 AM EDT): She was found to have an incidental thyroid nodule on MRI of the neck. Will request ultrasound of the thyroid gland request TSH plus reflex free T4 and check TPO and thyroglobulin antibodies for evaluation of Ry's thyroiditis. She is going to require an extended visit for the follow-up visit for new medical problem. Lymphocytosis 02/15/2024 12/06/2024 Dysuria 12/02/2022 12/06/2024 Obesity 12/02/2022 12/06/2024 Postmenopausal 12/02/2022 12/06/2024 Fatigue 12/02/2022 12/06/2024 Lymphoma 2022 12/02/2022 02/15/2024 PONV (postoperative nausea and vomiting) 09/15/2022 12/06/2024 COVID-19 05/08/2022 12/02/2022 12/06/2024 Type 2 diabetes mellitus without retinopathy 12/02/2022 02/28/2024 Assessment & Plan (01/30/2024 6:13 PM EDT): Check A1c Prescribed meformin ER 500 mg TID and Jardiance 25 mg daily Nuclear cataract 02/23/2022 12/02/2022 12/06/2024 Cortical age-related cataract, bilateral 02/23/2022 12/02/2022 12/06/2024 Abnormal finding on thyroid function test 11/18/2020 12/02/2022 12/06/2024 Diffuse large B-cell lymphoma 04/24/2020 12/02/2022 02/15/2024 Assessment & Plan (01/30/2024 6:12 PM EDT): Previously seeing [facility] Abnormal findings on diagnos tic imaging of breast 02/16/2020 12/02/2022 12/06/2024 Uribe angioma 11/21/2019 12/02/2022 12/06/2024 Neoplasm of uncertain behavior of skin 01/08/201912/06/2024 Inflamed seborrheic keratosis 12/11/2018 12/02/2022 12/06/2024 Other viral warts 12/11/2018 12/02/2022 12/06/2024 Disturbance of skin sensation 12/11/2018 12/02/2022 12/06/2024 Abnormal mammogram 10/07/2017 12/02/2022 History of knee replacement 09/26/2015 12/02/2022 12/06/2024 Peroneal tendinitis, left leg 09/05/2015 12/02/2022 12/06/2024 Achilles tendinitis, left leg 09/05/2015 12/02/2022 12/06/2024 Combined form of age-related cataract, both eyes 11/30/2012 12/02/2022 12/06/2024 Chronic cough 03/25/2011 12/02/2022 12/06/2024 Intertrigo 10/11/2008 12/02/2022 12/06/2024 Encounters Date Type Department Care Team Description 03/08/2025 9:19 AM EDT - 03/08/2025 11:59 PM EDT Hospital Encounter [facility] [address] [place] [address] Yaquelin Scott, RAHAT Discharge Disposition: Home or Self Care 03/07/2025 Orders Only [facility] [address] [place] [address] Mar Mccann RN Marginal zone lymphoma (Primary Dx) 03/03/2025 Refill [facility] [address] [place] [address] Constance Canales MD Medication Refill 02/23/2025 Refill [facility] [address] [place] [address] Delaney Hurley CNP Medication Refill 02/08/2025 10:00 AM EDT Office Visit [facility] at [address] [address] Muna Gary CNP Marginal zone lymphoma (Primary Dx); MGUS (monoclonal gammopathy of unknown significance); Other iron deficiency anemia 02/01/2025 12:58 PM EDT - 02/01/2025 11:59 PM EDT Hospital Encounter [facility] [address] [place] [address] Muna Gary CNP Discharge Disposition: Home or Self Care 02/01/[address] [facility] at [address] [address] Ofelia Slona RN Marginal zone lymphoma (Primary Dx) 01/25/2025 Refill [facility] [address] [place] [address] Constance Canales MD Medication Refill 01/09/2025 11:50 AM EDT Office Visit [facility] [address] [place] [address] Robert Mckay DO Type 2 diabetes mellitus with diabetic microalbuminuria, without long-term current use of insulin (Primary Dx); Hyperlipidemia LDL goal <70; Nontoxic multinodular goiter 01/02/2025 8:56 AM EDT - 01/02/2025 11:59 PM EDT Hospital Encounter [facility] [address] [place] [address] Robert Mckay DO Discharge Disposition: Home or Self Care 01/01/2025 Telephone [facility] [address] [place] [address] Gabrielle Staples PA-C 12/28/2024 5:33 PM EDT - 12/28/2024 11:59 PM EDT Hospital Encounter [facility], Bone Density - [facility] [address] [place] [address] Cnostance Canales MD Discharge Disposition: Home or Self Care 12/26/2024 Transcribe Orders Virtual Department [address] [place] [address] Constance Canales MD Breast screening (Primary Dx) from Last 3 Months Immunizations Immunization Administration Dates Next Due COVID-19 Moderna Spikevax Vaccine 12+ 02/02/2024 COVID-19, Unspecified Formulation 02/22/2022 [id number] FORMULATION 07/04/2009 INFLUENZA, SPLIT VIRUS, TRIVALENT PF 04/09/2016, 03/18/2015 INFLUENZA, SPLIT VIRUS, TRIV ALENT W/ PRESERVATIVE IM 02/11/2014,02/12/2013 Influenza High-Dose Quadriva lent Preservative Free IM 03/01/2023,02/22/2022,03/14/2021 Influenza High-Dose Trivalen t Preservative Free IM 02/13/2025,02/02/2024,02/15/2020,02/28 Influenza Quadrivalent MDCK Preservative Free IM 04/15/2017 Influenza, Unspecified Formulation 06/16,03/18/2011,04/28/2009,03/27,03/16/2006,04/18/2001 MMR 10/05/1999,07/30/1999 Pneumococcal conjugate PCV20 05/29/2024 Pneumococcal polysaccharide PPSV23 12/27/2019, RSV Vaccine (bivalent) 04/20/2023 Td, unspecified formulation 07/30/1999 Tdap 08/09/2024,07/19/2014 Zoster live 01/06/2016 Family History Medical History Relation Comments Esophageal cancer Father Coronary artery disease Mother Multiple myeloma Mother Relation Status Comments Father Mother Social History Tobacco Use Types Packs/Day Years [...] your housing situation today? I have jarrod sing 01/18/2024 How many times have you moved [...] Orientation Straight 07/16/2020 12 :56 PM EST Last Filed Vital Signs Vital Sign Reading Time Taken Comments Blood Pressure 137/81 02/08/2025 9:56 AM EDT Pulse 91 02/08/2025 9:56 AM EDT Temperature 36.2 C (97.2 F) 02/08/2025 9:56 AM EDT Respiratory Rate 12 02/16/2024 2:00 PM EDT Oxygen Saturation 96% 02/08/2025 9:56 AM EDT Inhaled Oxygen Concentration 3% 09/15/2022 1 0:59 AM EDT Weight 119.3 kg (263 lb) 02/08/2025 9:56 AM EDT Height 156 cm (5' 1.42 ) 02/08/2025 9:56 AM EDT Body Mass Index 49.02 02/08/2025 9:56 AM EDT Plan of Treatment Upcoming Encounters Date Type Department Care Team (Late st Contact Info) Description 12/26/2024 Procedure Pass [facility], [address] [address] 03/14/2025 10:40 AM EDT Office Visit [facility] at [address] [address] Yaquelin Scott MBBS [address] [place] [phone] [email or web address] 06/05/2025 10:20 AM EST Office Visit [facility] [address] [facility] [address] [place] [address] Constance Canales MD 15 [facility] [address] [place] [address] 07/03/2025 3:30 PM EST Office Visit [facility] [address] [place] [address] Unknown, Unknown, Delaney Mota, VIBRATORY PILE DRIVER [address] [place] [address] 07/09/2025 10:50 AM EST Office Visit [facility] [address] [place] [address] Robert Mckay DO [address] [place] [address] 08/12/2025 2:15 PM EDT Appointment [facility], [address] [address] Constance Canales MD 15 [facility]. [address] [place] [phone] 09/20/2025 9:00 AM EDT Office Visit [facility] 15 [facility] [address] [place] [address] Constance Canales MD 15 [facility] [address] [place] [address] [email or web address] Health Maintenance Due Date Last Done Comments COLOGUARD 1997 FIT TEST 1997 FOBT 1997 SIGMOIDOSCOPY 1997 VIRTUAL COLONOSCOPY 1997 ZOSTER VACCINES (1 of 2) 03/02/2016 01/06/2016 DIABETIC EYE EXAM 10/16/2023 10/15/2022, , 10/15/2022, Additional history exists MAMMOGRAM 10/21/2024 10/21/2022 COVID-19 VACCINE ( season) 2025 02/27/2025, 08/09/2024, 02/02/2024, Additional history exists HEMOGLOBIN A1C 07/05/2025 01/02/2025, 04/3 , 06/01/2024, Additional history exists BLOOD PRESSURE 08/08/2025 02/08/2025 DEPRESSION SCREENING 12/04/2025 12/04/2024, 12/05/19 25 CREATININE LEVEL 03/08/2026 03/08/2025, 04/2025, 10/31/2024, Additional history exists POTASSIUM LEVEL 03/08/2026 03/08/2025, 01/21, 10/31/2024, Additional history exists COLONOSCOPY 03/25/2031 03/25/2021 COLORECTAL CANCER SCREENING 03/25/2031 Adult Td,Tdap Booster 08/09/2034 08/09/2024 , 07/19/2014, 07/30/1999 RSV VACCINE Completed 04/20/2023 HEPATITIS C SCREENING Completed 02/17/2024 PNEUMOCOCCAL VACCINES (50+ years) Completed 05/29/2024, 12/27/2019, 05/23/2002 OSTEOPOROSIS SCREENING INITIAL (ONE-TIME) Completed 12/28/2024 SMOKING STATUS SCREENING (Once After 26 Yrs) Completed 01/09/2025 INFLUENZA VACCINE Completed 02/13/2025, , 03/01/2023, Additional history exists HEPATITIS A VACCINES Aged Out No long er eligible based on patient's age to complete this topic HIB VACCINES Aged Out No longer eligi ble based on patient's age to complete this topic MENINGOCOCCAL VACCINES (ACWY) Aged Out No longer eligible based on patient's age to complete this topic MENINGOCOCCAL VACCINES (B) Aged Out N o longer eligible based on patient's age to complete this topic Medical Devices Implanted Type Area Entry Level Sales Representative Device Identifier Shelf Expiration Date Model / Serial / Lot Tkr Lens Intraocular Tecnis Eyhance Dib00 19.0d - [id number] Implanted:Qty: 1 on 08/21/2022 by Tamia Riggs MD at [facility] Right: Eye [employer] 06/29/2025 DIB00 19.0D / [id number] / Lens Intraocular Tecnis Eyhance Dib00 17.5d - [id number] Implanted:Qty: 1 on 09/15/2022 by Tamia Riggs MD at [facility] Left: Eye [employer] 06/17/2025 DIB00 17.5D / [id number] / Procedures Procedure Name Priority Date/Time Associated Diagnosis Comments CBC AND DIFFERENTIAL Routine 03/08/2025 9:35 AM EDT Marginal zone lymphoma COMPREHENSIVE METABOLIC PANEL Routine 03/08/2025 9:35 AM EDT Marginal zone lymphoma LDH Routine 03/08/2025 9:35 AM EDT Marginal zone lymphoma CBC AND DIFFERENTIAL Routine 02/01/2025 1:01 PM EDT Marginal zone lymphoma COMPREHENSIVE METABOLIC PANEL Routine 02/01/2025 1:01 PM EDT Marginal zone lymphoma LDH Routine 02/01/2025 1:01 PM EDT Marginal zone lymphoma HEMOGLOBIN A1C Routine 01/02/2025 9:05 AM EDT Type 2 diabetes mellitus with diabetic microalbuminuria, without long-term current use of insulin FRUCTOSAMINE Routine 01/02/2025 9:05 AM EDT Type 2 diabetes mellitus with diabetic microalbuminuria, without long-term current use of insulin BD DXA AXIAL (SPINE) WITH HIP Routine 12/28/2024 5:54 PM EDT Menopause HEPATITIS C ANTIBODY, QUALITATIVE Routine 02/17/2024 12:48 PM EDT Marginal zone lymphoma from Last 3 Months or Most Recently Relevant to Health Maintenance Results * (ABNORMAL) LDH (03/08/2025 9:35 AM EDT) Only the most recent of2 resultswithin the time period is included. LDH 291(H) 118 - 273 U/L [facility] Blood 03/08/2025 9:35 AM EDT 03/08/2025 9:38 AM EDT us Yaquelin GIANG LAB BLOOD ORDERABLES Final Result [address] [address] * (ABNORMAL) Comprehensive metabolic panel (03/08/2025 9:35 AM EDT) Only the most recent of2 resultswithin the time period is included. SODIUM 141 133 - 146 mmol/L [facility] POTASSIUM 3.6 3.3 - 5.1 mmol/L [facility] CHLORIDE 102 96 - 108 mmol/L [facility] CO2 23 21 - 35 mmol/L [facility] BUN 13 6 - 19 mg/dL [facility] CREATININE 0.50 0.5 - 1.5 mg/dL [facility] GLUCOSE 132(H) 70 - 99 mg/dL [facility] ALBUMIN 4.2 3.9 - 4.8 g/dL [facility] TOTAL PROTEIN 6.8 6.5 - 8.0 g/dL [facility] CALCIUM 9.0 8.4 - 10.3 mg/dL [facility] ALKALINE PHOSPHATASE 43 39 - 117 U/L [facility] TOTAL BILIRUBIN 0.6 0.0 - 1.2 mg/dL [facility] AST 27 0 - 37 U/L [facility] ALT 15 0 - 40 U/L [facility] GLOBULIN 2.6 1 - 4.8 g/dL [facility] EGFR 100 >59 mL/min/1.7 3m2 [facility] Comment:Estimated glomerular filtration rate calculated using the CKD-EPI refit equation. ANION GAP 20 10 - 20 mmol/L [facility] Blood 03/08/2025 9:35 AM EDT 03/08/2025 9:38 AM EDT us Yaquelin Scott [facility] LAB BLOOD ORDERABLES Final Result [address] [address] * (ABNORMAL) CBC and differential (03/08/2025 9:35 AM EDT) Only the most recent of2 resultswithin the time period is included. WBC 87.40(HH) 4.00 - 11.00 K/uL [facility] Comment:This result has been called to Dr. Briceno (Oncology) by [email or web address] on 03/08/2025 17:31:47, and has been read back. RBC 4.92 4.00 - 5.20 M/uL [facility] HGB 10.7(L) 12.0 - 16.0 g/dL [facility] HCT 37.7 36.0 - 46.0 % [facility] PLT 116(L) 150 - 450 K/uL [facility] MCV 76.6(L) 80.0 - 100.0 fL [facility] MCH 21.7(L) 27.0 - 31.0 pg [facility] MCHC 28.4(L) 32.0 - 36.0 g/dL [facility] RDW 18.4(H) 11.5 - 14.5 % [facility] MPV 10.0 8.4 - 12.0 fL [facility] NRBC 0.00 0.00 /100 WBCs [facility] ABSOLUTE NRBC 0.02(H) 0.00 K/uL [facility] DIFF METHOD Auto [facility] NEUTS 2.1(L) 48.0 - 76.0 % [facility] LYMPHS 81.2(H) 18.0 - 41.0 % [facility] Comment:Many Atypical Lymphs Seen MONOS 16.3(H) 4.0 - 11.0 % [facility] EOS 0.1 0.0 - 5.0 % [facility] BASOS 0.2 0.0 - 1.5 % [facility] Granulocytes, immature (%) 0.1 0.0 - 0.9 % [facility] ABSOLUTE NEUTS 1.89(L) 1.92 - 7.60 K/uL [facility] ABSOLUTE LYMPHS 70.97(H) 0.72 - 4.10 K/uL [facility] ABSOLUTE MONOS 14.25(H) 0.16 - 1.10 K/uL [facility] ABSOLUTE EOS 0.05 0.00 - 0.50 K/uL [facility] ABSOLUTE BASOS 0.17(H) 0.00 - 0.15 K/uL [facility] Granulocytes, immature 0.07 0.00 - 0.09 K/uL [facility] ELLIPTOCYTES PRESENT(A ) None [facility] Blood 03/08/2025 9:35 AM EDT 03/08/2025 9:38 AM EDT us Yaquelin GIANG LAB BLOOD ORDERABLES Final Result Performing Organization Address City/[facility]/ZIP Co de Phone Number [facility] [address] [place] [address] * Fructosamine (01/02/2025 9:05 AM EDT) FRUCTOSAMINE 255 200 - 285 mcmol/L [facility] DPT OF LAB MED AND PAT+ Blood 01/02/2025 9:05 AM EDT 01/02/2025 9:11 AM EDT us Robert Mckay DO LAB BLOOD ORDERABLES Final Resul t Performing Organization Address City/[facility]/ZIP Co de Phone Number [facility] DPT OF LAB MED AND PAT+ [address] [place] [address] * (ABNORMAL) Hemoglobin A1c (01/02/2025 9:05 AM EDT) HEMOGLOBIN A1C 6.3(H) 4.3 - 5.8 % [facility] Blood 01/02/2025 9:05 AM EDT 01/02/2025 9:10 AM EDT Robert Mckay DO LAB BLOOD ORDERABLES Final Resul t Performing Organization Address [facility]/ZIP Co de Phone Number [facility] [address] [place] [address] * BD DXA AXIAL (SPINE) WITH HIP (12/28/2024 5:54 PM EDT) Anatomical Region Laterality Modality Bone Density Bone Density 12/28/2024 5:52 PM EDT Impressions 12/31/2024 4:51 PM EDT Interpretation: Osteoporosis. Narrative 12/31/2024 4:51 PM EDT Referred By: CONSTANCE CANALES Indications: Postmenopausal Scanner: [employer] Horizon A with serial# of [id number] located at [facility] Bone Density Scan (DXA) 12/28/24 Details of prior DXA scans are available by clicking View Full Report BMD T- Z- Skeletal Site gm/cm2 score score BMD Change Since Prior Scan ------ ----- ----- PA Spine N/A N/A N/A N/A Total Hip (Left) 0.805 -1.10 0.50 N/A Femoral Neck (Left) 0.593 -2.30 -0.40 N/A Total Hip (Right) 0.685 -2.10 -0.50 N/A Femoral Neck (Right) 0.507 -3.10 -1.20 N/A ------ ----- ----- * Denotes significant change when >= 0.022 g/cm2 for the spine, 0.027 g/cm2 for the total hip, 0.029 g/cm2 for the femoral neck. Interpretation: Osteoporosis. Technical Quality: Measurement of the PA Spine was not possible because of body thickness. FRAX: A FRAX(r) score is not provided because the patient has osteoporosis, which is generally an indication for treatment. Reviewed By: Gautam Vallejo on 12/31/2024 16:51:11 Additional Information: -World Health Organization criteria classify adults based on lowest T-score at PA spine, hip or forearm: Normal (T-score >= -1.0), Osteopenia (T-score between -1 and -2.5), or Osteoporosis (T-score <= -2.5). At [facility], T-scores are compared to peak bone density of a young white gender matched reference population. - For premenopausal women and men under the age of 50, Z-scores (comparison to age, gender, and ethnicity matched reference population) are used: Above expected range for age (Z-score >= 2.0), Within expected range of age (Z-score 1.9 to -1.9), or Below expected range for age (Z-score <= -2.0). - The Bone Health and Osteoporosis Foundation recommends that treatment be considered in men aged more than 50 years and in postmenopausal women with ANY of the following: Prior hip or vertebral fractures; T-score of <= -2.5 at the PA spine or hip; or 10 year fracture probability by FRAX of >= 3% for the hip or >= 20% for major osteoporotic fracture. - The FRAX algorithm (https://www.bharat.ac.uk/FRAX/tool.aspx) is designed to predict 10-year fracture risk in treatment-naive adults between the ages of 40 and 90. It is not intended to be used in those receiving pharmacologic osteoporosis treatment. - The TBS is derived from the texture of the DXA spine image and has been shown to be related to bone microarchitecture and fracture risk. This data provides information independent of BMD value. It adds to fracture risk assessment with a FRAX adjusted for TBS score. If your patient had a TBS and qualified for a FRAX score, the reported FRAX score has been adjusted for TBS. TBS Score Interpretation 1.350 and greater Normal bone microarchitecture 1.200 to 1.350 Partially degraded bone microarchitecture 1.200 and less Degraded bone microarchitecture - Including race/ethnicity in the generation of T- or Z-scores or in the FRAX calculation is complicated, and currently undergoing active review to ensure that we can give patients the best information on their risk of fracture. - Some prior studies may not be compatible with our comparison software. - Click on View Full Report to see subsequent pages with images and prior bone density results. Procedure Note Gautam Vallejo MD - 12/31/2024 Referred By: CONSTANCE CANALES Indications: Postmenopausal Scanner: [employer] A with serial# of [id number] located at [facility] Bone Density Scan (DXA) 12/28/24 Details of prior DXA scans are available by clicking View Full Report BMD T- Z- Skeletal Site gm/cm2 score score BMD Change Since Prior Scan ------ ----- PA Spine N/A N/A N/A N/A Total Hip (Left) 0.805 -1.10 0.50 N/A Femoral Neck (Left) 0.593 -2.30 -0.40 N/A Total Hip (Right) 0.685 -2.10 -0.50 N/A Femoral Neck (Right) 0.507 -3.10 -1.20 N/A ------ ----- * Denotes significant change when >= 0.022 g/cm2 for the spine, 0.027g/cm2 for the total hip, 0.029 g/cm2 for the femoral neck. Interpretation: Osteoporosis. Technical Quality: Measurement of the PA Spine was not possible because of body thickness. FRAX: A FRAX(r) score is not provided because the patient hasosteoporosis, which is generally an indication for treatment. Reviewed By: Gautam Vallejo on 12/31/2024 16:51:11 Additional Information: -World Health Organization criteria classify adults based on lowestT-score at PA spine, hip or forearm: Normal (T-score >= -1.0), Osteopenia (T-score between -1 and -2.5), or Osteoporosis (T-score <= -2.5). At [facility], T-scores are compared to peak bone density of a young white gender matched reference population. - For premenopausal women and men under the age of 50, Z-scores(comparison to age, gender, and ethnicity matched reference population) are used:Above expected range for age (Z-score >= 2.0), Within expected range of age (Z-score 1.9 to -1.9), or Below expected range for age (Z-score <= -2.0). - The Bone Health and Osteoporosis Foundation recommends that treatment be considered in men aged more than 50 years and in postmenopausal women with ANY of the following: Prior hip or vertebral fractures; T-score of <= -2.5 at the PA spine or hip; or 10 year fracture probability by FRAX of >= 3%for the hip or >= 20% for major osteoporotic fracture. - The FRAX algorithm (https://www.bharat.ac.uk/FRAX/tool.aspx) is designed to predict 10-year fracture risk in treatment-naive adultsbetween the ages of 40 and 90. It is not intended to be used in those receiving pharmacologic osteoporosis treatment. - The TBS is derived from the texture of the DXA spine image and has been shown to be related to bone microarchitecture and fracture risk. This data provides information independent of BMD value. It adds to fracture risk assessment with a FRAX adjusted for TBS score. If your patient had a TBSand qualified for a FRAX score, the reported FRAX score has been adjusted for TBS. TBS Score Interpretation 1.350 and greater Normal bone microarchitecture 1.200 to 1.350 Partially degraded bone microarchitecture 1.200 and less Degraded bone microarchitecture - Including race/ethnicity in the generation of T- or Z-scores or in the FRAX calculation is complicated, and currently undergoing active review to ensure that we can give patients the best information on their risk of fracture. - Some prior studies may not be compatible with our comparison software. - Click on View Full Report to see subsequent pages with images andprior bone density results. IMPRESSION: Interpretation: Osteoporosis. us Constance MARIN BD BONE DENSITY DEXA Fin al Result * Hepatitis C antibody, qualitative (02/17/2024 12:48 PM EDT) HCV NON-REACTIV E NON-REACTI VE [facility] Blood 02/17/2024 12:4 8 PM EDT 02/17/2024 12:55 PM EDT Yaquelin GIANG LAB BLOOD ORDERABLES Final Result [facility] [address] [place] [address] from Last 3 Months or Most Recently Relevant to Health Maintenance Insurance MEDICARE PART A & B [facility] MEDEX SUPPLEMENT MEDICARE PART A & B [place] MEDEX SUPPLEMENT MEDICARE PART A & B [place] MEDEX SUPPLEMENT MEDICARE PART A & B [place] MEDEX SUPPLEMENT MEDICARE PART A & B [place] MED[employer] SUPPLEMENT MEDICARE PART A & B [place] MEDEX SUPPLEMENT MEDICARE PART A & B [place] MEDEX SUPPLEMENT MEDICARE PART A & B [place] MEDEX SUPPLEMENT MEDICARE PART A & B [place] MEDEX SUPPLEMENT Care Teams Conference Center Manager Relationship Specialty Start Date End Date Constance Canales MD [address] [place] [id number] [email or web address] PCP - General Family Medicine 07/13/24 Yaquelin Scott MBBS [email or web address] Primary Oncologist Medical Oncology 02/07/24 Muna Gary CNP [address] [place] [address] [email or web address] Nurse Practitioner Medical Oncology 07/06/24 Additional Source Comments The information contained in this document represents components of the legal health record. It is not the complete legal health record.[facility]
--- OUTSIDE RECORDS SUMMARY | 2025-03-12 10:13 | XMS_ITS | Patient Health Record ---
Author Organization [facility] Address [address] [place] [address] Care Team Providers Care Destination Sign Repairer Name Role Phone NALLELY QUILES MD Primary [...] W/U Status Risk Notes Problem Sleep apnea (66000011) Sleep apnea (786.09) Active confirmed Problem Chest discomfort (219817082) Chest discomfort (786.59) Active confirmed Problem Preoperative cardiovascular examination (056338770) Pre-operative Cardiovascular exam (V72.81) Active confirmed Problem Obesity (228444088) Obesity (278.00) Active confirmed Problem Hypertension (45149447) Hypertension (401.9) Active confirmed Plan Of Treatment No Information Insurance Providers Payer Name Payer Address Payer Phone Subscriber Number Group Number Insured Name Patient Relationship to Insured Coverage Start Date Coverage End Date [place] CARD [address] [place] [phone] [id number] SANTO MCDERMOTT Self - patient is the insured 7 Medical (General) History Medical History History ICD Code Obesity hypertension Denies DM, CVA, TIA, PA, Peptic ulcer di sease, GERD h/o Asthma with occasional ER visits wit hout any admissions or intubations Sleep apnea, severe..started CPAP mask 1 Osteoarthritis knees, more notably left knee LS spine and disc disease
--- OUTSIDE RECORDS SUMMARY | 2025-03-12 10:14 | XMS_ITS | Encounter Summary ---
Author Organization [facility] Address [address] [place] [address] Phone Care Team Providers Care Electronic Test Technician Name Role Phone CollinDaphney DO Unavailable Rosalva Farias OPERATOR HELPER Unavailable [phone] Kaylan London PLUGGER MAN Primary Care Provider [phone] Yaquelin Scott MBBS Unavailable Constance Canales MD Primary Care Provider Muna Gary PRISON CLASSIFICATION COUNSELOR Unavailable Encounter Details Date Type Department Care Team (Late st Contact Info) Description 07/24/2020 Telephone [facility] [place] - [place] [address] [place] [address] Tiffany Muro, RN [address] [place] [phone] [email or web address] Social History Tobacco Use Types Packs/Day Years Used Date Smoking Tobacco: Never Assessed Comments Unknown Sex and Gender Information Value Date Recorded Sex Assigned at Female 07/16/2020 12:56 PM EST Legal Sex Female 12:37 PM EST Gender Identity Female 07/16/2020 12:56 PM EST Sexual Orientation Straight 07/16/2020 12 :56 PM EST documented as of this encounter Plan of Treatment Upcoming Encounters Date Type Department Care Team (Late st Contact Info) Description 12/26/2024 Procedure Pass [address] [address] 03/14/2025 10:40 AM EDT Office Visit [facility] at [address] [address] Yaquelin Scott MBBS [address] [place] [phone] [email or web address] 06/05/2025 10:20 AM EST Office Visit [facility] [address] [address] Constance Canales MD [address] [address] 07/03/2025 3:30 PM EST Office Visit [facility] [address] [place] [phone] Unknown, Unknown, Delaney Mota, PRISON CLASSIFICATION COUNSELOR [address] [place] [address] 07/09/2025 10:50 AM EST Office Visit [facility] [address] [place] [address] Robert Mckay DO 22 [place] [address] 08/12/2025 2:15 PM EDT Appointment [address] [address] Constance Canales MD [address] [address] 09/20/2025 9:00 AM EDT Office Visit [facility] 15 [facility] [address] [place] [address] Constance Canales MD 15 [facility] [address] [place] [address] [email or web address] documented as of this encounter Visit Diagnoses Not on filedocumented in this encounter Care Teams Electronic Test Technician Relationship Specialty Start Date End Date Kaylan London FNP [address] [address] [email or web address] PCP - General Nurse Practitioner 01/25/24 07/12/24 Constance Canales MD [address] [place] [address] [email or web address] PCP - General Family Medicine 07/13/24 Daphney Polanco DO [address] [place] [phone] [email or web address] Insurance Assigned Provider 11/29/20 02/28/21 Rosalva Farias NP [address] [place] [address] Insurance Assigned Provider 02/28/21 08/29/21 Yaquelin Scott MBBS [address] [place] [address] [email or web address] Primary Oncologist Medical Oncology 02/07/24 Muna Gary CNP [address] [place] [address] [email or web address] Nurse Practitioner Medical Oncology 07/06/24 documented as of this encounter Additional Source Comments The information contained in this document represents components of the legal health record. It is not the complete legal health record.[facility]
--- OUTSIDE RECORDS SUMMARY | 2025-03-12 10:14 | XMS_ITS | Encounter Summary ---
Author Organization [facility] Address [address] [place] [address] Phone Care Team Providers Care Multiple Sclerosis Nurse Name Role Phone Yaquelin ScottBS Unavailable Constance Canales MD Primary Care Provider [phone] Muna Gary CASINO SLOT SUPERVISOR Unavailable Encounter Details Date Type Department Care Team (Latest Contact Info) Description 12/26/2024 Transcribe Orders Virtual Department [address] [place], [place] [phone] Constance Canales MD 15 [facility] [address] [place] [address] [email or web address] Breast screening (Primary Dx) Social History Tobacco Use Types Packs/Day Years [...] st Contact Info) Description 12/26/2024 Procedure Pass [address] [address] 03/14/2025 10:40 AM EDT Office Visit [facility] 30 [place] [address] Yaquelin Scott MBBS 30 [place] [address] [email or web address] 06/05/2025 10:20 AM EST Office Visit [facility] 15 [facility] [address] [place] [address] Constance Canales MD [address] [address] 07/03/2025 3:30 PM EST Office Visit [facility] [address] [place] [address] Unknown, Unknown, Delaney Mota, CASINO SLOT SUPERVISOR [address] [place] [address] 07/09/2025 10:50 AM EST Office Visit [facility] [address] [place] [address] Robert Mckay DO [address] [place] [address] 08/12/2025 2:15 PM EDT Appointment [address] [address] Constance Canales MD [address] [address] 09/20/2025 9:00 AM EDT Office Visit [facility] 15 [facility] [address] [place] [address] Constance Canales MD [address] [place] [address] [email or web address] Scheduled Orders Name Type Priority Associated Diagnoses Orde r Schedule Mammogram Screening (Bilateral) Imaging Routine Breast screening Expected: 01/26/2025, Expires: 12/26/2025 documented as of this encounter Visit Diagnoses Diagnosis Breast screening- Primary Breast screening, unspecified documented in this encounter Additional Health Concerns Assessment Noted Time PHQ-9 Depression Total Score: 9 12/05/19 1:13 PM EDT PHQ-2 Depression Total Score: 2 12/05/19 1:13 PM EDT documented as of this encounter Care Teams Multiple Sclerosis Nurse Relationship Specialty Start Date End Date Constance Canales MD [address] [place] [address] PCP - General Family Medicine 07/13/24 Yaquelin Scott MBBS [email or web address] Primary Oncologist Medical Oncology 02/07/24 Muna Gary CNP [address] [place] [address] [email or web address] Nurse Practitioner Medical Oncology 07/06/24 documented as of this encounter Additional Source Comments The information contained in this document represents components of the legal health record. It is not the complete legal health record.[facility]
--- OUTSIDE RECORDS SUMMARY | 2025-03-12 10:14 | XMS_ITS | Data Portability ---
Author Organization MD - [facility], [facility], Patient Home Address [address] [facility] [address] [place] [address] Care Team Providers Care Laboratory Courier Name Role Phone NALLELY QUILES Primary Care Provider [phone] NALLELY QUILES Referring Provider Assessment No assessment recorded. Plan of Treatment Reminders Order Date Submit Date Provider Last Modified By Organization Details Last Modified Time Details Appointments None recorded. Lab drug screen, saliva 2022 023 [email or web address] Not available 3 14:19:39 Referral None recorded. Procedures None recorded. Surgeries None recorded. Imaging MRI, lumbar spine, w/o contrast 2022 023 [email or web address] [facility] - Mri, [address] [place] [address], [place], [address], 3 09:42:42 Medication Orders Percocet 5 mg-325 [...] By Organization Details Last Modified Time 03/22/2023 39141 [facility] goal of Pain Scale Not available Not available Not available [facility] goal of Weight 130 lbs Not available Not available Not available decrease pain increase activities improve quality of life weight reduction dmousad Not available 03/25/2023 18:40:54 04/19/2023 [id number] school psychologist goal of Pain Scale Not available Not available Not available school psychologist goal of Weight 125 lbs Not available Not available Not available decrease pain increase activities improve quality of life weight reduction dmousad Not available 04/19/2023 17:32:57 05/17/2023 [id number] school psychologist goal of Pain Scale Not available Not available Not available school psychologist goal of Weight 130 lbs Not available Not available Not available decrease pain increase activities improve quality of life weight reduction dmousad Not available 05/17/2023 16:56:32 06/13/2023 [id number] [facility] goal of Pain Scale Not available Not available Not available [facility] goal of Weight 125 lbs Not available Not available Not available decrease pain increase activities improve quality of life weight reduction dmousad Not available 06/13/2023 17:22:05 Patient Instructions Encounter Date Encounter Id Patient Instructions Last Modified By Organization Details Last Modified Time 03/22/2023 [id number] Given [email or web address] Not available 03/25 18:41:00 Given dmousad Not available 2022 18:41:02 04/19/2023 [id number] Given dmousad Not available 04/19 17:33:04 Given dmousad Not available 2022 17:33:09 05/17/2023 [id number] Continue conservative treatment Continue home exercises as directed by MD Use ice and hot packs as instructed Take your medicine as instructed dmousad Not available 05/17/2023 16:56:37 given dmousad Not available 2022 16:56:42 06/13/2023 [id number] Continue conservative treatment Continue home exercises as [...] >=1 NG/mL >=1 POSIT BELINDA Not Available [employer] [address] [place] [address], [address], 03/24/2023 13:52:34 03/22/2003/23/2023 [facility] codeine felipe cfm-mcnc <1 NG/mL >=1 NONE DETEC LI Not Available [employer] [address] [place] [address], [address], 03/24/2023 13:52:34 03/22/2003/23/2023 [facility] morphine felipe cfm-mcnc <1 NG/mL >=1 NONE DETEC LI Not Available [employer] [address] [place] [address], [address], 03/24/2023 13:52:34 03/22/20 23 03/23/2023 [facility] dhc felipe cfm-mcnc <1 NG/mL >=1 NONE DETEC LI Not Available [employer] [address] [place] [address], [address], 03/24/2023 13:52:34 03/22/2003/23/2023 [facility] hydrocodone felipe cfm-mcnc <1 NG/mL >=1 NONE DETEC LI Not Available [employer] [address] [place] [address], [address], 03/24/2023 13:52:34 03/22/20 23 03/23/2023 [facility] norhydrocodo ne felipe cfm-mcnc <1 NG/mL >=1 NONE DETEC LI Not Available [employer] [address] [place] [address], [address], 03/24/2023 13:52:34 03/22/2003/23/2023 [facility] hydromorphon e felipe cfm-mcnc <1 NG/mL >=1 NONE DETEC LI Not Available [employer] [address] [place] [address], [place], [address], 03/24/2023 13:52:34 03/22/2003/23/2023 [facility] oxycodone felipe cfm-mcnc 83 NG/mL >=1 POSIT BELINDA Not Available [employer] [address] [place] [address], [address], 03/24/2023 13:52:34 03/22/2003/23/2023 [facility] oxymorphone felipe cfm-mcnc <1 NG/mL >=1 NONE DETEC LI Not Available [employer] [address] [place] [address], [place], [address], 03/24/2023 13:52:34 03/22/2003/23/2023 [facility] norcodeine felipe cfm-mcnc <1 NG/mL >=1 NONE DETEC LI Not Available [employer] [address] [place] [address], [address], 03/24/2023 13:52:34 03/22/2003/23/2023 [facility] noroxycodone felipe cfm-mcnc 15 NG/mL >=1 POSIT BELINDA Not Available [employer] [address] [place] [address], [address], 03/24/2023 13:52:34 03/22/2003/23/2023 [facility] benzodiaz felipe ql cfm <1 NG/mL >=1 NONE DETEC LI Not Available [employer] [address] [place] [address], [address], 03/24/2023 13:52:34 03/22/2003/23/2023 [facility] flurazepam fld cfm-mcnc <1 NG/mL >=1 NONE DETEC LI Not Available [employer] [address] [place] [address], [address], 03/24/2023 13:52:34 03/22/2003/23/2023 [facility] oxazepam felipe cfm-mcnc <1 NG/mL >=1 NONE DETEC LI Not Available [employer] [address] [place] [address], [address], 03/24/2023 13:52:34 03/22/2003/23/2023 [facility] alpraz felipe cfm-mcnc <1 NG/mL >=1 NONE DETEC LI Not Available [employer] [address] [place] [address], [address], 03/24/2023 13:52:34 03/22/2003/23/2023 [facility] lorazepam felipe cfm-mcnc <1 NG/mL >=1 NONE DETEC LI Not Available [employer] [address] [place] [address], [address], 03/24/2023 13:52:34 03/22/2003/23/2023 [facility] 7aminoclonaz epam felipe cfm-mcnc <1 NG/mL >=1 NONE DETEC LI Not Available [employer] [address] [place] [address], [address], 03/24/2023 13:52:34 03/22/2003/23/2023 [facility] clonazepam felipe cfm-mcnc <1 NG/mL >=1 NONE DETEC LI Not Available [employer] [address] [place] [address], [address], 03/24/2023 13:52:34 03/22/2003/23/2023 [facility] temazepam felipe cfm-mcnc <1 NG/mL >=1 NONE DETEC LI Not Available [employer] [address] [place] [address], [place], [address], 03/24/2023 13:52:34 03/22/2003/23/2023 [facility] diazepam felipe cfm-mcnc <1 NG/mL >=1 NONE DETEC LI Not Available [employer] [address] [place] [address], [place], [address], 03/24/2023 13:52:34 03/22/2003/23/2023 [facility] nordiazepam felipe cfm-mcnc <2 NG/mL >=2 NONE DETEC LI Not Available [employer] [address] [place] [address], [place], [address], 03/24/2023 13:52:34 03/22/2003/24/2023 [facility] oxycodone felipe CMP 99 NG/mL >=1 PRESE NT: A presc ripti on drug, not indic ated as presc ribed on the requi sitio n form, was detec li. Not Available [employer] [address] [place] [address], [place], [address], 03/24/2023 13:52:34 03/22/2003/24/2023 [facility] ethanol felipe ql scn <5 mg/dL >=5 NONE DETEC LI Not Available [employer] [address] [place] [address], [address], 03/24/2023 13:52:34 05/03/20 MRI, lumba r spine , w/o contr ast No observ ation record ed. [email or web address] Not Available 12 /04/2023 09:08:40 Result Notes None recorded. Problems Name Problem SNOMED Code Status Onset Date Resolution Date Notes Provider Name and Address Organization Details Recorded Time Type 2 diabetes mellitus 50006976 Active 2022 Amanda Pinon null, [place] - [facility], [facility] 3 08:29:19 Pain of right lower leg 3860137109355 08 Active 2022 Amanda Pinon null, [place] - [facility], [facility] 3 08:29:40 Hyperlipide michael 22188882 Active 2022 Amanda Pinon null, [place] - [facility], [facility] 3 08:29:50 Degeneratio n of lumbar interverteb ral disc 29866282 Active 2022 Amanda Pinon null, [place] - [facility], [facility] 3 08:30:18 Lumbar spondylosis 250923864 Active 2022 Amanda Pinon null, [place] - [facility], [facility] 3 08:30:25 Sleep apnea 87719090 Active 2022 Amanda Pinon null, [place] - [facility], [facility] 3 08:30:40 Problem Notes None recorded. Procedures Surgical History Date Name Laterality Status Provider Name and Address Organization Details Recorded Time tonsillectomy completed Jorge Erickson-Watso n [place] - [facility], [facility] 03/22/2023 14:10:30 section completed Jorge Erickson-Yango n [place] - [facility], [facility] 03/22/2023 14:10:40 total knee replacement completed Jorge Erickson-Watso n [place] - [facility], [facility] 03/22/2023 14:10:47 hernia repair completed Jorge Erickson-Watso n [place] - [facility], [facility] 03/22/2023 14:10:53 Cholecystectomy completed Jorge Erickson-Watso n [place] - [facility], [facility] 03/22/2023 14:15:24 laparoscopic sleeve gastrectomy completed Jorge Erickson-Yango n [place] - [facility], [facility] 03/22/2023 14:15:31 cataract surgery completed Jorge Chauhano raghav [facility], [facility] 03/22/2023 14:17:33 Imaging Results None recorded. Procedure Notes None recorded. Medical Equipment None Reported. Allergies Allergen ID Allergen Name Allergen Category Reaction Reaction Severity Criticality Documentation Date Start Date Code Code System Note Provider Name and Address Organization Details Recorded Time 6599 ampicilli n medicatio n hives Not available Not available 03/09/2023 733 RxNorm Amanda Pinon null, [facility], [facility] 3 08:25:35 6600 Prilosec medicatio n dizziness Not available Not available 03/09/2023 70439 5 RxNorm Amanda Pinon null, [facility], [facility] 3 08:25:49 6601 ibuprofen medicatio n Not available Not available Not available 03/09/2023 5640 RxNorm GI UPSET Amanda Pinon null, [facility], [facility] 3 08:26:22 6602 cyclobenz aprine hydrochlo ride medicatio n Not available Not available Not available 03/09/2023 00088 RxNorm RACIN G HEART BEAT Amanda Pinon null, [facility], [facility] 3 08:26:39 6603 Iodinated contrast media (substanc e) medicatio n Not available Not available Not available 03/09/2023 95712 2004 SNOMED MILD TIGHT NESS IN THROA T Amanda Pinon null, [facility], [facility] 3 08:27:12 Medications Name Sig Start Date [...] Details Last Updated DateTime 4 52.2 kg/m2 998855. 08 g 18 /min 100 /min 100 /min 98 % 98 % 147/83 mm[Hg] Jorge ward [facility], [facility] 4 13:59:10 Date Recorded Body height Body temperature Provider N everett and Address Organization Details Last Updated DateTime 06/13/2023 162.56 cm 97.6 [degF] Trinidad Coats [facility], [facility] 06/13/2023 13:55:09 Date Recorded Body height Body mass index (BMI) Body weight Heart rate Respiratory rate Heart rate Oxygen saturation Oxygen saturation in Arterial blood by Pulse oximetry Systolic And Diastolic Provider Name and Address Organization Details Last Updated DateTime 3 162.56 cm 52.9 kg/m2 908100. 45 g 96 /min 18 /min 96 /min 95 % 95 % 139/85 mm[Hg] Jorge ward [facility], [facility] 3 14:23:34 Date Recorded Body temperature Provider Name a nd Address Organization Details Last Updated DateTime 03/22/2023 97 [degF] Amanda Pinon [facility], [facility] 03/22/2023 14:04:44 Date Recorded Body height Body temperature Provider N everett and Address Organization Details Last Updated DateTime 04/19/2023 162.56 cm 98.4 [degF] Jorge Jaydon [facility], [facility] 04/19/2023 14:02:29 Date Recorded Body mass index (BMI) Body weight Respiratory rate Heart rate Heart rate Oxygen saturation Oxygen saturation in Arterial blood by Pulse oximetry Systolic And Diastolic Provider Name and Address Organization Details Last Updated DateTime 3 52 kg/m2 270770. 49 g 18 /min 102 /min 102 /min 95 % 95 % 125/85 mm[Hg] Amanda Pinon [facility], [facility] 3 14:09:34 Date Recorded Body mass index (BMI) Body weight Heart rate Respiratory rate Heart rate Oxygen saturation Oxygen saturation in Arterial blood by Pulse oximetry Systolic And Diastolic Provider Name and Address Organization Details Last Updated DateTime 3 52.2 kg/m2 754119. 08 g 96 /min 18 /min 96 /min 98 % 98 % 138/62 mm[Hg] Jorge Washington rosenbaumyulissa [facility], [facility] 3 14:00:07 Date Recorded Body height Body temperature Provider N everett and Address Organization Details Last Updated DateTime 05/17/2023 162.56 cm 97.1 [degF] Trinidad Coats [facility], [facility] 05/17/2023 13:54:03 Social History Question Answer Notes LastModified by Organizat ion Details LastModified Time Tobacco Smoking Status Never Smoker Jorge Jaydon castillo [facility], [facility] 03/22/2023 14:18:13 Are You Blind Or Do [...] not available 03/22/2023 Are you able to walk independently without assistance or assistive devices? YESASSIST Information not available 03/22/2023 Do you have difficulty doing errands alone? No Information not available 03/22/2023 Do you have difficulty dressing, bathing, grooming, or toileting? Yes Information not available 03/22/2023 Mental Status Question Answer Note LastModified by Organizat ion Details LastModified Time Do you feel stressed (tense, restless, nervous, or anxious, or unable to sleep at night)? [id number] Information not available 03/22/2023 Do you have [...] Y Head Trauma/Injury Y Thyroid Problems N Depression Y COPD N Anemia N Heart Attack ([place]) N Ulcers N Diabetes Y Anxiety Disorder Y Bleeding [...] Diagnosis SNOMED-CT Code Diagnosis ICD10 Code Diagnosis IMO Codes Diagnosis Note [id number] Jan Soto MD Main Office [address] [place] [address] 03/22/2023 13:47:08 03/25/2023 18:43:03 Long-term current use of opiate analgesic drug 5966101545 75693 Z79.891 Intractabl e low back pain 0908040077 8400085 M54.50 She was advised not to drink alcohol while taking xtampzaI change her dose from 18 mg once a day to 9 mg twice a day The risk of xtampza was explained to the patient in detailPMP was checked, no concern.We ight reduction program Physical therapy order Chronic low back pain 27 4452025 M54.50 The risk of Percocet was explained to the patientTak e it only once a day for breakthrou gh pain.Physi monica therapy order Spasm of back muscles 20 6408644 M62.830 Osteoarthr itis of knee 782072126 M17.9 Weight reductionQ uadriceps exercise Long-term drug therapy 632820725 Z79.899 Lumbar radiculopathy 128 374350 M54.16 Plan for mid L5-S1 I VLAD after MRIPhysica l therapy ordered Lumbosacra l spondylosis without myelopathy 48005872 M47.817 Plan for lumbar radiofrequ ency rhizotomy after an MRI done [id number] Jan Soto MD Main Office [address] [place] [address] 4 04/19/2023 14:01:22 04/19/2023 17:34:38 Intractable low back pain 0049114909 3566237 M54.50 She was advised not to drink [...] ight reduction Chronic low back pain 27 3660869 M54.50 The risk of Percocet was explained to the patientTak e it only once a day for breakthrou gh pain.Physi monica therapy started. Lumbosacra l spondylosis without myelopathy 53414704 M47.817 Plan for lumbar radiofrequ ency rhizotomy after an MRI done Spasm of back muscles 20 3077817 M62.830 Osteoarthr itis of knee 943496466 M17.9 Weight reductionQ uadriceps exercise Diabetic p eripheral neuropathy 566793834 E11.40 [id number] Jan Soto MD Main Office [address] [facility] [address] [place] [address] 05/17/2023 13:53:38 05/17/2023 16:58:03 Lumbar radiculopathy 383958537 M54.16 Plan for left L4-5 I VLAD after MRIthe procedure was explained in detail to the patient which including possible complicati on, the patient understand s and verbally consents.P hysical therapy ordered and started.We ight reduction Chronic low back pain 27 7706869 M54.50 The risk of Percocet was explained to the patientTak e it only once a day for breakthrou gh pain.Physi monica therapy started. Intractabl e low back pain 4541138891 8694698 M54.50 She was advised not to drink alcohol while taking xtampzaI change her dose from 18 mg once a day to 9 mg twice a day The risk of xtampza was explained to the patient in detailPMP was checked, no concern.We ight reduction program Physical therapy ordered and started. Lumbosacra l spondylosis without myelopathy 09974462 M47.817 Plan for lumbar radiofrequ ency rhizotomyw eight reduction programCon tinue physical therapy Spasm of back muscles 20 3389961 M62.830 Osteoarthr itis of knee 065403140 M17.9 Weight reductionQ uadriceps exercise Diabetic p eripheral neuropathy 461097573 E11.40 [id number] Jan Soto MD Main Office [address] [facility] [address] [place] [address] 06/13/2023 13:54:42 06/13/2023 17:23:45 Lumbar radiculopathy 516149228 M54.16 the patient did not show for the lumbar epidural steroid injection. Chronic low back pain 27 9408372 M54.50 The risk of Percocet was explained to the patientTak e it only once a day for breakthrou gh pain.Physi monica therapy started. Intractabl e low back pain 9076604841 8508343 M54.50 She was advised not to drink alcohol while taking xtampzaI change her dose from 18 mg once a day to 9 mg twice a day The risk of xtampza was explained to the patient in detailPMP was checked, no concern.We ight reduction program Physical therapy ordered and started. Diabetic p eripheral neuropathy 506871124 E11.40 Osteoarthr itis of knee 720850870 M17.9 Weight reductionQ uadriceps exercise Lumbosacra l spondylosis without myelopathy 78568705 M47.817 Plan for lumbar radiofrequ ency rhizotomyw eight reduction programCon tinue physical therapy Spasm of back muscles 20 4759484 M62.830 Health Concerns Section Related Observation LastModified by Organization Detai ls LastModified Time None Recorded Concern Status LastModified by Organization Details LastModified Time None Recorded Advance Directives Directive None Recorded Payers Insurance Date Sequence Insurance Name Policy Number Policy Zheng Covered Member ID Zheng Member ID Guarantor Name 06/10/2023 1 [place] [employer] Sarika Josee [id number] Sarika Josee 06/10/2023 2 [place] [id number] Sarika Tripp [id number] Sarika Josee Notes Date Note Type Note Provider Name and Address Organization Details Recorded Time 03/22/2023 text/html 72 years old female with a history of lower back pain [...] check her saliva toxicology. Jan Soto MD [address] [place] [address], [place], [address], [facility], [facility] 03/25/2023 18:42:38 04/19/2023 text/html 72 years old female with a history of lower back pain [...] positive for oxycodone. Jan Soto MD [address] [facility],[address], [place], [address], [facility], [facility] 04/19/2023 17:34:23 05/17/2023 text/html 72 years old female with a history of lower back pain [...] positive for oxycodone. Jan Soto MD [address] [place] [address],[address], [place], [address], [facility], [facility] 05/17/2023 16:57:19 06/13/2023 text/html 72 years old female with a history of lower back pain [...] last procedure visit. Jan Soto MD [address] [place] [address],[address], [place], [address], [facility], [facility] 06/13/2023 17:23:21 OBGyn Episode No OBEpisode recorded.
--- OUTSIDE RECORDS SUMMARY | 2025-03-12 10:14 | XMS_ITS | Encounter Summary ---
Author Organization [facility] Address [address] [place] [address] [place] [address] Phone Care Team Providers Care Industrial Economics Teacher Name Role Phone Kaylan London Huan INSTRUMENT SHOP SUPERVISOR Primary Care Provider Yaquelin Scott MBBS Unavailable [phone] Constance Canales MD Primary Care Provider Muna Gary CNP Unavailable Encounter Details Date Type Department Care Team (Late st Contact Info) Description 08/21/2022 Procedure Pass [facility] [place] [facility] [address] [place] [address] Social History Tobacco Use Types Packs/Day Years Used Date Smoking Tobacco: Never Smokeless Tobacco: Never Alcohol Use Standard Drinks/Week Comments Not Currently 0 (1 standard drink = 0.6 oz pur e alcohol) Comments No Sex and Gender Information Value Date Recorded Sex Assigned at Female 07/16/2020 12:56 PM EST Legal Sex Female 12:37 PM EST Gender Identity Female 07/16/2020 12:56 PM EST Sexual Orientation Straight 07/16/2020 12 :56 PM EST documented as of this encounter Plan of Treatment Upcoming Encounters Date Type Department Care Team (Late st Contact Info) Description 12/26/2024 Procedure Pass [facility], [address] [address] 03/14/2025 10:40 AM EDT Office Visit [facility] [address] [place] [address] Yaquelin Scott MBBS 30 [place] [address] [email or web address] 06/05/2025 10:20 AM EST Office Visit [facility] [address] [facility] [address] [place] [address] Constance Canales MD [address] [address] 07/03/2025 3:30 PM EST Office Visit [facility] [address] [place] [address] Unknown, Unknown, Delaney Mota, HOSE INSPECTOR AND PATCHER [address] [place] [address] 07/09/2025 10:50 AM EST Office Visit [facility] 22 [place] [address] Robert Mckay DO 22 [place] [address] 08/12/2025 2:15 PM EDT Appointment [facility], [facility]- [address] [address] Constance Canales MD [address] [address] 09/20/2025 9:00 AM EDT Office Visit [facility] Care [address] [facility] [address] [place] [address] Constance Canales MD [address] [address] documented as of this encounter Visit Diagnoses Not on filedocumented in this encounter Care Teams Industrial Economics Teacher Relationship Specialty Start Date End Date Surya KaylanDANIEL Ardon [address] [address] PCP - General Nurse Practitioner 01/25/24 07/12/24 Constance Canales MD [address] [address] PCP - General Family Medicine 07/13/24 Yaquelin Scott MBBS [address] [place] [address] [email or web address] Primary Oncologist Medical Oncology 02/07/24 Muna Gary CNP [address] [place] [address] [email or web address] Nurse Practitioner Medical Oncology 07/06/24 documented as of this encounter Additional Source Comments The information contained in this document represents components of the legal health record. It is not the complete legal health record.[facility]
--- OUTSIDE RECORDS SUMMARY | 2025-03-12 10:14 | XMS_ITS | Encounter Summary ---
Author Organization [facility] Address [address] [place] [address] [place] [address] Phone Care Team Providers Care Telephone Operator Name Role Phone Daphney Polanco Luisa DO Unavailable Rosalva Farias DONOR SERVICES TEAM LEADER Unavailable [phone] Kaylan London COLLAR FELLER Primary Care Provider Yaquelin Scott MBBS Unavailable [phone] Constance Canales MD Primary Care Provider Muna Gary SALESPERSON FLOWERS Unavailable Encounter Details Date Type Department Care Team (Late st Contact Info) Description 07/14/2020 Procedure Pass [facility]IR [address] [place] [address] Social History Tobacco Use Types Packs/Day Years [...] st Contact Info) Description 12/26/2024 Procedure Pass [facility] 30 [place] [address] 03/14/2025 10:40 AM EDT Office Visit [facility] 30 [place] [address] Yaquelin Scott MBBS 30 [place] [address] [email or web address] 06/05/2025 10:20 AM EST Office Visit [facility] Primary Care 15 [facility] [address] [place] [address] Constance Canales MD [address] [address] 07/03/2025 3:30 PM EST Office Visit [place] [facility] [address] [place] [address] Unknown, Unknown, Delaney Mota, SALESPERSON FLOWERS [address] [place] [address] 07/09/2025 10:50 AM EST Office Visit [facility] 22 [place] [address] Robert Mckay DO 22 [place] [address] 08/12/2025 2:15 PM EDT Appointment [address] [address] Constance Canales MD [address] [address] 09/20/2025 9:00 AM EDT Office Visit [facility] Primary Care 15 [facility] [address] [place] [address] Constance Canales MD [address] [address] [email or web address] documented as of this encounter Visit Diagnoses Not on filedocumented in this encounter Care Teams Telephone Operator Relationship Specialty Start Date End Date Kaylan LondonDANIEL corona [address] [place] [address] [email or web address] PCP - General Nurse Practitioner 01/25/24 07/12/24 Constance Canales MD [address] [place] [address] PCP - General Family Medicine 07/13/24 Daphney Polanco DO [address] [place] [address] [email or web address] Insurance Assigned Provider 11/29/20 02/28/21 Rosalva Farias NP [address] [place] [phone] Insurance Assigned Provider 02/28/21 08/29/21 Yaquelin Scott MBBS [address] [place] [address] [email or web address] Primary Oncologist Medical Oncology 02/07/24 Muna Gary CNP [address] [place] [address] rosa Nurse Practitioner Medical Oncology 2/14/25 documented as of this encounter Additional Source Comments The information contained in this document represents components of the legal health record. It is not the complete legal health record.[facility]
--- OUTSIDE RECORDS SUMMARY | 2025-03-12 10:14 | XMS_ITS | Encounter Summary ---
Author Organization [facility] Address [address] [facility] [address] [place] [address] Phone Care Team Providers Care Monument Erector Name Role Phone Yaquelin Scott MBBS Unavailable Constance Canales MD Primary Care Provider Muna Gary CNP Unavailable Encounter Details Date Type Department Care Team (Late st Contact Info) Description 03/07/2025 Orders Only [facility] 30 [place] [address] Mar Mccann, RN 30 [place] [address] Marginal zone lymphoma (Primary Dx) Social History Tobacco Use Types [...] st Contact Info) Description 12/26/2024 Procedure Pass [address] [address] 03/14/2025 10:40 AM EDT Office Visit [facility] 30 [place] [address] Yaquelin Scott MBBS 30 [place] [address] [email or web address] 06/05/2025 10:20 AM EST Office Visit [facility] 15 [facility] [address] [place] [address] Constance Canales MD [address] [address] 07/03/2025 3:30 PM EST Office Visit [facility] [address] [place] [address] Unknown, Unknown, Delaney Mota, REGULATORY ASSOCIATE [address] [place] [address] 07/09/2025 10:50 AM EST Office Visit [facility] 22 [place] [address] Robert Mckay DO 22 [place] [address] 08/12/2025 2:15 PM EDT Appointment [address] [address] Constance Canales MD [address] [place] [address] 09/20/2025 9:00 AM EDT Office Visit [facility] Primary Care 15 [facility] [address] [place] [address] Constance Canales MD [address] [place] [address] [place] [address] documented as of this encounter Results * (ABNORMAL) LDH (03/08/2025 9:35 AM EDT) LDH 291(H) 118 - 273 U/L [facility] Blood 03/08/2025 9:35 AM EDT 03/08/2025 9:38 AM EDT us Yaquelin MELGAR LAB BLOOD ORDERABLES Final Result [facility] [address] [place] [address] * (ABNORMAL) Comprehensive metabolic panel (03/08/2025 9:35 AM EDT) SODIUM 141 133 - 146 mmol/L [facility] POTASSIUM 3.6 3.3 - 5.1 mmol/L [facility] CHLORIDE 102 96 - 108 mmol/L [facility] CO2 23 21 - 35 mmol/L [facility] BUN 13 6 - 19 mg/dL [facility] CREATININE 0.50 0.5 - 1.5 mg/dL [facility] GLUCOSE 132(H) 70 - 99 mg/dL [facility] ALBUMIN 4.2 3.9 - 4.8 g/dL [facility] TOTAL PROTEIN 6.8 6.5 - 8.0 g/dL [facility] CALCIUM 9.0 8.4 - 10.3 mg/dL [facility] ALKALINE PHOSPHATASE 43 39 - 117 U/L [facility] TOTAL BILIRUBIN 0.6 0.0 - 1.2 mg/dL [facility] AST 27 0 - 37 U/L [facility] ALT 15 0 - 40 U/L [facility] GLOBULIN 2.6 1 - 4.8 g/dL [facility] EGFR 100 >59 mL/min/1.7 3m2 [facility] Comment:Estimated glomerular filtration rate calculated using the CKD-EPI refit equation. ANION GAP 20 10 - 20 mmol/L [facility] Blood 03/08/2025 9:35 AM EDT 03/08/2025 9:38 AM EDT Yaquelin GIANG LAB BLOOD ORDERABLES Final Result [facility] [address] [place] [address] * (ABNORMAL) CBC and differential (03/08/2025 9:35 AM EDT) WBC 87.40(HH) 4.00 - 11.00 K/uL [facility] Comment:This result has been called to Dr. Briceno (Oncology) by [email or web address] on 03/08/2025 17:31:47, and has been read back. RBC 4.92 4.00 - 5.20 M/uL [facility] HGB 10.7(L) 12.0 - 16.0 g/dL [facility] HCT 37.7 36.0 - 46.0 % [facility] PLT 116(L) 150 - 450 K/uL [facility] MCV 76.6(L) 80.0 - 100.0 fL [facility] MCH 21.7(L) 27.0 - 31.0 pg [facility] MCHC 28.4(L) 32.0 - 36.0 g/dL [facility] RDW 18.4(H) 11.5 - 14.5 % [facility] MPV 10.0 8.4 - 12.0 fL [facility] NRBC 0.00 0.00 /100 WBCs [facility] ABSOLUTE NRBC 0.02(H) 0.00 K/uL [facility] DIFF METHOD Auto [facility] NEUTS 2.1(L) 48.0 - 76.0 % [facility] LYMPHS 81.2(H) 18.0 - 41.0 % [facility] Comment:Many Atypical Lymphs Seen MONOS 16.3(H) 4.0 - 11.0 % [facility] EOS 0.1 0.0 - 5.0 % [facility] BASOS 0.2 0.0 - 1.5 % [facility] Granulocytes, immature (%) 0.1 0.0 - 0.9 % [facility] ABSOLUTE NEUTS 1.89(L) 1.92 - 7.60 K/uL [facility] ABSOLUTE LYMPHS 70.97(H) 0.72 - 4.10 K/uL [facility] ABSOLUTE MONOS 14.25(H) 0.16 - 1.10 K/uL [facility] ABSOLUTE EOS 0.05 0.00 - 0.50 K/uL [facility] ABSOLUTE BASOS 0.17(H) 0.00 - 0.15 K/uL [facility] Granulocytes, immature 0.07 0.00 - 0.09 K/uL [facility] ELLIPTOCYTES PRESENT(A ) None [facility] Blood 03/08/2025 9:35 AM EDT 03/08/2025 9:38 AM EDT Yaquelin GIANG LAB BLOOD ORDERABLES Final Result Performing Organization Address City/State/[facility] Co de Phone Number [address] [address] documented in this encounter Visit Diagnoses Diagnosis Marginal zone lymphoma- Primary Marginal zone lymphoma, unspecified site, extranodal and solid organ sites documented in this encounter Additional Health Concerns Assessment Noted Time PHQ-9 Depression Total Score: 9 12/05/19 1:13 PM EDT PHQ-2 Depression Total Score: 2 12/05/19 1:13 PM EDT documented as of this encounter Care Teams Monument Erector Relationship Specialty Start Date End Date Constance Canales MD [address] [place] [address] [email or web address] PCP - General Family Medicine 07/13/24 Yaquelin Scott MBBS [email or web address] Primary Oncologist Medical Oncology 02/07/24 Muna Gary CNP [address] [place] [address] rosa Nurse Practitioner Medical Oncology 07/06/24 documented as of this encounter Additional Source Comments The information contained in this document represents components of the legal health record. It is not the complete legal health record.[facility]
--- OUTSIDE RECORDS SUMMARY | 2025-03-12 10:14 | XMS_ITS | Encounter Summary ---
Author Organization [facility] Address [address] [facility] [address] [place] [address] Phone Care Team Providers Care Production Analyst Name Role Phone Yaquelin ScottBS Unavailable Constance Canales MD Primary Care Provider Muna Gary CNP Unavailable Encounter Details Date Type Department Care Team (Late st Contact Info) Description 07/18/2024 Ancillary Orders [facility] [place] [facility] 15 [facility] [address] [place] [address] Sharonda Coughlin MD, MPH 15 [facility]. [address] [place] [address] [email or web address] Acute cough (Primary Dx) Social History Tobacco Use Types [...] st Contact Info) Description 12/26/2024 Procedure Pass [address] [address] 03/14/2025 10:40 AM EDT Office Visit [facility] 30 [place] [address] Yaquelin Scott MBBS 30 [place] [address] [email or web address] 06/05/2025 10:20 AM EST Office Visit [facility] Primary Care 15 [facility] [address] [place] [address] Constance Canales MD [address] [address] 07/03/2025 3:30 PM EST Office Visit [facility] [address] [place] [address] Unknown, Unknown, Delaney Mota, CASTING OPERATOR HELPER [address] [place] [address] 07/09/2025 10:50 AM EST Office Visit [facility] 22 [place] [address] Robert Mckay DO 22 [place] [address] 08/12/2025 2:15 PM EDT Appointment [facility], [address] [address] Constance Canales MD [address] [address] 09/20/2025 9:00 AM EDT Office Visit [facility] Care 15 [facility] [address] [place] [address] Constance Canales MD 15 [facility] [place]. [address] [place] [address] [email or web address] documented as of this encounter Results * XR CHEST PA AND LATERAL 2 VIEWS (07/18/2024 10:40 AM EST) Anatomical Region Laterality Modality Chest Computed Radiogr aphy 07/18/2024 12:4 1 PM EST Impressions 07/18/2024 12:42 PM EST No consolidation. Narrative 07/18/2024 12:42 PM EST XR CHEST PA AND LATERAL 2 VIEWS Referring clinician's provided indication for this examination in [facility]: Cough COMPARISON: None. FINDINGS: Devices/Tubes/Lines: None. Lungs: Normal. The lungs are clear. No focal consolidation or pulmonary edema. Pleura: Normal. No pleural effusion or pneumothorax. Heart/Mediastinum: Normal heart and mediastinum. Bones/Soft Tissues: No acute abnormality. Procedure Note Jeff Denise MD - 07/18/2024 XR CHEST PA AND LATERAL 2 VIEWS Referring clinician's provided indication for this examination in Epic:Cough COMPARISON: None. FINDINGS: Devices/Tubes/Lines: None. Lungs: Normal. The lungs are clear. No focal consolidation or pulmonaryedema. Pleura: Normal. No pleural effusion or pneumothorax. Heart/Mediastinum: Normal heart and mediastinum. Bones/Soft Tissues: No acute abnormality. IMPRESSION: No consolidation. us Sharonda Coughlin MD, MPH IMG XR CHEST Britney l Result documented in this encounter Visit Diagnoses Diagnosis Acute cough- Primary Acute cough documented in this encounter Additional Health Concerns Assessment Noted Time PHQ-9 Depression Total Score: 10 025 8:46 PM EST PHQ-2 Depression Total Score: 2 05/24/19 25 8:46 PM EST documented as of this encounter Care Teams Production Analyst Relationship Specialty Start Date End Date Constance Canales MD [address] [place] [address] [email or web address] PCP - General Family Medicine 07/13/24 Yaquelin Scott MBBS [email or web address] Primary Oncologist Medical Oncology 02/07/24 Muna Gary CNP [address] [place] [address] [email or web address] Nurse Practitioner Medical Oncology 07/06/24 documented as of this encounter Additional Source Comments The information contained in this document represents components of the legal health record. It is not the complete legal health record.[facility]
== END 2025-03-12 09:42 | disposition home or self-care (01) ==
LOC: HO.HSMS 09:18
PROVIDERS: PCP Family Medicine; Visit Provider Psychiatry & Neurology Neurology
DX: G24.3 Spasmodic torticollis (principal)
CPT/HCPCS: 64616

== ENCOUNTER → 2025-03-12 09:17 | Outpatient (BNVA) | payer MEDICARE, SELFPAY | PROVIDERS: PCP Family Medicine; Visit Provider Psychiatry & Neurology Neurology | DX: G24.3 Spasmodic torticollis (principal) | CPT/HCPCS: 64616; 99211; J0585 ==